=== PATIENT | female | born 1935 | race African-American/Black ===

== ENCOUNTER 2017-01-25 12:17 | Emergency (ER) | payer BC, MEDICARE ==
[2017-01-25 13:10] LABS: Bilirubin Negative (Negative); Blood, Urine Negative (Negative); Glucose, Urine (Dipstick) Negative (Negative); Ketone, Urine Negative (Negative); Nitrite Negative (Negative); Protein, Urine (Dipstick) 30 mg/dL (Neg-Trace); Urobilinogen 0.2 mg/dL (0.2-1.0)
[2017-01-25 13:13] LABS: Bacteria/HPF None Seen HPF (None Seen); Hyaline Casts/LPF 0-3 HYALINE CAST LPF (0-3 Hyaline); RBC/HPF 0-3 HPF (0-3); Squamous Epithelial 0-3 HPF (0-3)
== END 2017-01-25 13:46 | disposition home or self-care (01) ==
LOC: ERS 12:17
DX: N39.0 Urinary tract infection, site not specified (principal); E03.9 Hypothyroidism, unspecified; I10 Essential (primary) hypertension; G30.9 Alzheimer's disease, unspecified; Z87.891 Personal history of nicotine dependence
CPT/HCPCS: 81003; 81015; 87086; 93005; 93010

== ENCOUNTER 2017-02-07 21:26 | Emergency (ER) | payer BC ==
[2017-02-07 22:17] LABS: #Eosinphils 0.2 thou/uL (0.0-0.7); #Lymphocytes 1.6 thou/uL (1.20-3.40); #Monocytes 0.9 thou/uL (0.11-0.59); #Neutrophils 4.1 thou/uL (1.40-6.50); %Basophils 0.3 % (0.0-1.0); %Eosinophils 2.4 % (0.0-10.0); %Lymphocytes 23.1 % (21.0-51.0); %Monocytes 13.7 % (0.0-10.0); Hematocrit 37.5 % (36.0-47.0); Mean Platelet Volume 8.3 fL (7.4-10.4); Red Blood Cell (RBC) Count 4.01 mill/uL (4.20-5.40); White Blood Cell (WBC) Count 6.8 thou/uL (4.8-10.8)
[2017-02-07 22:38] LABS: ALT (SGPT) 26 U/L (8-55); AST (SGOT) 29 U/L (5-34); Alkaline Phosphatase 207 U/L (40-150); Anion Gap 12 mmol/L (10-20); BUN (Urea Nitrogen) 22 mg/dL (9.8-20.1); Bilirubin, Total 0.2 mg/dL (0.2-1.2); CK (CPK) 95 U/L (29-168); Calc. Creatinine Clearance 0 mL/min (70-130); Calcium 9.3 mg/dL (7.8-10.44); Carbon Dioxide 30 mmol/L (23-31); Chloride 109 mmol/L (98-107); Estimated GFR-MDRD 34; Globulin 3.6 g/dL (2.4-3.5); Protein, Total 6.9 g/dL (6.0-8.3)
[2017-02-07 22:40] LABS: Bilirubin Negative (Negative); Blood, Urine Negative (Negative); Glucose, Urine (Dipstick) Negative (Negative); Ketone, Urine Trace mg/dL (Negative); Nitrite Negative (Negative); Protein, Urine (Dipstick) 30 mg/dL (Neg-Trace)
[2017-02-07 22:41] LABS: Troponin I Less than 0.010 ng/mL (< 0.028)
[2017-02-07 22:42] LABS: Bacteria/HPF None Seen HPF (None Seen); Hyaline Casts/LPF 4-6 HYALINE CAST LPF (0-3 Hyaline); RBC/HPF 0-3 HPF (0-3); Squamous Epithelial 0-3 HPF (0-3); WBC/HPF 0-3 HPF (0-3)
--- NOTE | 2017-02-07 22:45 | RAD ---
RADIOGRAPH CHEST 1 VIEW: 02/07/17 HISTORY: 81-year-old female with lethargy and bilateral lower extremity edema. FINDINGS: The thoracic aorta is tortuous and ectatic. There is no evidence of air space density, pneumothorax , or pulmonary edema. The lateral costophrenic angles are sharp. The right hemidiaphragm is severel y elevated, which was also the case on a CT of the abdomen and pelvis of 12/20/16. IMPRESSION: 1) No acute pulmonary findings. 2) Ectasia of thoracic aorta. 3) Chronically severely elevated right hemidiaphragm. jomar [] POS: [facility]
== END 2017-02-07 23:56 | disposition home or self-care (01) ==
LOC: ERS 21:26
DX: E86.0 Dehydration (principal); R41.82 Altered mental status, unspecified; E03.9 Hypothyroidism, unspecified; I10 Essential (primary) hypertension; G30.9 Alzheimer's disease, unspecified; F02.80 Dementia in other diseases classified elsewhere, unspecified severity, without behavioral disturbance, psychotic disturbance, mood disturbance, and anxiety; Z87.891 Personal history of nicotine dependence
CPT/HCPCS: 36415; 71010; 80053; 81003; 81015; 82553; 84443; 84484; 85025; 87086; 93005; 96360; A4353

== ENCOUNTER 2018-03-25 20:58 | Emergency (ER) | payer BC ==
[2018-03-25 21:59] LABS: #Eosinphils 0.2 thou/uL (0.0-0.7); #Lymphocytes 1.4 thou/uL (1.20-3.40); #Monocytes 0.7 thou/uL (0.11-0.59); #Neutrophils 3.5 thou/uL (1.40-6.50); %Basophils 0.3 % (0.0-1.0); %Eosinophils 3.1 % (0.0-10.0); %Lymphocytes 23.7 % (21.0-51.0); %Monocytes 11.3 % (0.0-10.0); %Neutrophils 61.6 % (42.0-75.0); Hemoglobin 11.1 g/dL (12.0-16.0); Mean Corpuscular HGB CONC 31.2 g/dL (32.0-36.0); Mean Corpuscular Hemoglobin 28.4 pg (27.0-31.0); Mean Platelet Volume 9.1 fL (7.4-10.4); Platelet Count 190 thou/uL (130-400); RBC Distribution Width 14.7 % (11.5-14.5); Red Blood Cell (RBC) Count 3.93 mill/uL (4.20-5.40); White Blood Cell (WBC) Count 5.7 thou/uL (4.8-10.8)
--- NOTE | 2018-03-25 22:14 | RAD ---
SEMIUPRIGHT PORTABLE FRONTAL CHEST RADIOGRAPH 03/25/18 COMPARISON: 02/07/17. HISTORY: Lethargy and altered mental status. FINDINGS: There is elevation of the right hemidiaphragm. Calcified nodes are seen in the right hilar region an d there is a calcified granuloma in the right upper lobe. There is atherosclerotic calcification in t he aortic arch. No pneumothorax, lobar consolidation, or alveolar edema. IMPRESSION: Stable frontal chest radiograph. POS: [facility]
[2018-03-25 22:22] LABS: Acetaminophen Less than 6.0 mcg/mL (10.0-30.0); Alcohol Less than 10 mg/dL (Less than 10); Salicylate Less than 8.0 mg/dL (15.0-30.0)
[2018-03-25 22:24] LABS: ALT (SGPT) 10 U/L (8-55); AST (SGOT) 16 U/L (5-34); Albumin 3.5 g/dL (3.4-4.8); Alkaline Phosphatase 138 U/L (40-150); Anion Gap 10 mmol/L (10-20); BUN (Urea Nitrogen) 21 mg/dL (9.8-20.1); Bilirubin, Total 0.4 mg/dL (0.2-1.2); CK (CPK) 86 U/L (29-168); Calc. Creatinine Clearance 0 mL/min (70-130); Calcium 8.9 mg/dL (7.8-10.44); Carbon Dioxide 31 mmol/L (23-31); Chloride 108 mmol/L (98-107); Estimated GFR-MDRD 36; Globulin 3.5 g/dL (2.4-3.5); Glucose 99 mg/dL (83-110); Lipase 39 U/L (8-78); Potassium 4.3 mmol/L (3.5-5.1); Sodium 145 mmol/L (136-145)
[2018-03-25 22:28] LABS: CKMB 1.3 ng/mL (0-6.6); Troponin I 0.013 ng/mL (< 0.028)
--- NOTE | 2018-03-25 22:41 | ULT ---
RIGHT LOWER EXTREMITY VENOUS DOPPLER ULTRASOUND 03/25/18 COMPARISON: None. HISTORY: Edema, swelling, pain, assess for DVT. TECHNIQUE: Multiplanar castillo scale sonographic imaging of venous structures of right lower extremity obtained wit h color flow and spectral analysis. FINDINGS: There are extensive edematous changes within the subcutaneous fat in the right popliteal region and r ight calf region. Right common femoral vein, greater saphenous vein, profunda femoral vein, femoral vein, popliteal vei n, and posterior tibial vein are patent. Normal blood flow, augmentation and compression within the d eep venous system on the right. No evidence for DVT. IMPRESSION: Soft tissue edema posterior to the right knee and in the right calf. No evidence for deep venous thro mbosis of the right lower extremity. POS: [facility]
--- NOTE | 2018-03-25 23:21 | CT ---
HEAD CT WITHOUT CONTRAST 03/25/18 COMPARISON: None. HISTORY: Altered mental status. TECHNIQUE: Axial CT imaging at 5 mm intervals from vertex through skull base without contrast. FINDINGS: There is moderate diffuse cerebral volume loss with associated prominence of the CSF containing space s. Periventricular, deep, and subcortical white matter hypodensity is noted. evidence of small vessel disease. The visualized paranasal sinuses/mastoid air cells are well aerated. There is no displaced calvarial fracture. IMPRESSION: Cerebral volume loss and evidence of small vessel disease. No intracranial hemorrhage or displaced ca lvarial fracture. POS: [facility]
[2018-03-25 23:30] LABS: Bilirubin Negative (Negative); Blood, Urine Negative (Negative); Clarity CLEAR (Clear); Glucose, Urine (Dipstick) Negative (Negative); Leukocyte Negative (Negative); Nitrite Negative (Negative); Protein, Urine (Dipstick) Trace mg/dL (Neg-Trace); Specific Gravity, Urine 1.015 (1.002-1.036); pH, Urine 6.5 (5.0-9.0)
[2018-03-25 23:40] LABS: Amphetamine Not Detected (NotDetected); Barbiturates Screen Not Detected (NotDetected); Benzodiazepine Screen Not Detected (NotDetected); Cocaine Metabolite Screen Not Detected (NotDetected); Medtox Control Line Valid? VALID (VALID); Medtox Reader # READER 1; Methadone Not Detected (NotDetected); Methamphetamine Not Detected (NotDetected); Opiate Screen Not Detected (NotDetected); Oxycodone Screen Not Detected (NotDetected); Phencyclidine (PCP) Not Detected (NotDetected); THC/Cannabinoid Screen Not Detected (NotDetected); Tricyclic Screen Not Detected (NotDetected)
== END 2018-03-26 03:20 ==
LOC: ERS 20:58
DX: F03.90 Unspecified dementia, unspecified severity, without behavioral disturbance, psychotic disturbance, mood disturbance, and anxiety (principal); E03.9 Hypothyroidism, unspecified; I10 Essential (primary) hypertension; K59.00 Constipation, unspecified; Z87.891 Personal history of nicotine dependence; Z79.899 Other long term (current) drug therapy
CPT/HCPCS: 51701; 70450; 71045; 80053; 80306; 80307; 81003; 82140; 82550; 82553; 83690; 83880; 84443; 84484; 85025; 87040; 93005; 96360

== ENCOUNTER 2018-05-13 15:10 | Emergency (ER) | payer BC ==
[2018-05-13 15:57] LABS: Bilirubin Negative (Negative); Blood, Urine Negative (Negative); Clarity CLEAR (Clear); Glucose, Urine (Dipstick) Negative (Negative); Leukocyte Negative (Negative); Nitrite Negative (Negative); Protein, Urine (Dipstick) Negative (Neg-Trace); Specific Gravity, Urine 1.011 (1.002-1.036)
[2018-05-13 16:43] LABS: #Eosinphils 0.2 thou/uL (0.0-0.7); #Lymphocytes 1.4 thou/uL (1.20-3.40); #Monocytes 0.6 thou/uL (0.11-0.59); %Basophils 0.5 % (0.0-1.0); %Eosinophils 2.8 % (0.0-10.0); %Lymphocytes 22.2 % (21.0-51.0); %Monocytes 10.2 % (0.0-10.0); %Neutrophils 64.2 % (42.0-75.0); Hemoglobin 11.4 g/dL (12.0-16.0); Mean Corpuscular HGB CONC 31.1 g/dL (32.0-36.0); Mean Corpuscular Hemoglobin 27.4 pg (27.0-31.0); Mean Platelet Volume 8.8 fL (7.4-10.4); Platelet Count 190 thou/uL (130-400); RBC Distribution Width 14.5 % (11.5-14.5); Red Blood Cell (RBC) Count 4.16 mill/uL (4.20-5.40); White Blood Cell (WBC) Count 6.2 thou/uL (4.8-10.8)
--- NOTE | 2018-05-13 17:08 | RAD ---
CHEST ONE VIEW ABDOMEN TWO VIEWS: History: Chest and abdomen pain. Comparison: 03-25-18 FINDINGS: Cardiac silhouette is magnified and partially obscured by an elevated right hemidiaphragm. No conflue nt airspace consolidation or evidence of free subdiaphragmatic gas. Gas and stool are apparent throughout the colon and rectum. No differential airfluid levels are evide nt or free intraperitoneal gas. Calcification overlies the arterial structures. Osseous structures ar e demineralized. IMPRESSION: 1. Nonspecific bowel gas pattern. 2. Atherosclerosis. 3. Osteoporosis. POS: [facility]
[2018-05-13 17:10] LABS: ALT (SGPT) 14 U/L (8-55); AST (SGOT) 14 U/L (5-34); Albumin 3.6 g/dL (3.4-4.8); Alkaline Phosphatase 133 U/L (40-150); Anion Gap 11 mmol/L (10-20); BUN (Urea Nitrogen) 19 mg/dL (9.8-20.1); Bilirubin, Total 0.3 mg/dL (0.2-1.2); Calc. Creatinine Clearance 0 mL/min (70-130); Calcium 9.6 mg/dL (7.8-10.44); Carbon Dioxide 31 mmol/L (23-31); Chloride 106 mmol/L (98-107); Estimated GFR-MDRD 36; Globulin 3.5 g/dL (2.4-3.5); Glucose 100 mg/dL (83-110); Lipase 50 U/L (8-78); Potassium 4.3 mmol/L (3.5-5.1); Protein, Total 7.1 g/dL (6.0-8.3); Sodium 144 mmol/L (136-145)
--- NOTE | 2018-05-16 10:50 | EKG ---
Test Reason : ER INDICATION Blood Pressure : / mmHG Vent. Rate : 054 BPM Atrial Rate : 054 BPM P-R Int : 126 ms QRS Dur : 086 ms QT Int : 442 ms P-R-T Axes : 016 -05 037 degrees QTc Int : 419 ms Sinus bradycardia Possible Left atrial enlargement Nonspecific ST abnormality Abnormal ECG Confirmed by ERICA STERN DO ([id number]), rewrite editor ELVIA CRUZ ([id number] on 05/16/2018 10:50:09 AM Referred By: Confirmed By:ERICA STERN DO
== END 2018-05-13 17:27 ==
LOC: ERS 15:10
DX: R10.12 Left upper quadrant pain (principal); E03.9 Hypothyroidism, unspecified; I10 Essential (primary) hypertension; G30.9 Alzheimer's disease, unspecified; F02.80 Dementia in other diseases classified elsewhere, unspecified severity, without behavioral disturbance, psychotic disturbance, mood disturbance, and anxiety; Z87.891 Personal history of nicotine dependence; Z79.899 Other long term (current) drug therapy
CPT/HCPCS: 36415; 51701; 74022; 80053; 81003; 83690; 85025; 93005; A4353

== ENCOUNTER 2018-08-10 05:49 | Emergency (ER) | payer BC ==
[2018-08-10 07:53] LABS: Bilirubin Negative (Negative); Blood, Urine Negative (Negative); Clarity CLOUDY (Clear); Glucose, Urine (Dipstick) Negative (Negative); Leukocyte Moderate (Negative); Nitrite Negative (Negative); Protein, Urine (Dipstick) 30 mg/dL (Neg-Trace); Specific Gravity, Urine 1.016 (1.002-1.036); Urobilinogen 0.2 mg/dL (0.2-1.0); pH, Urine 7.5 (5.0-9.0)
[2018-08-10 07:54] LABS: Bacteria/HPF 1+ HPF (None Seen); Hyaline Casts/LPF 4-6 HYALINE CAST LPF (0-3 Hyaline); Pathc Cast-AUWi Flag 0.81 (0-2.49); RBC/HPF 0-3 HPF (0-3)
[2018-08-10] MEDS ORDERED: cloNIDine 0.1 MG TAB ONE (07:55)
--- NOTE | 2018-08-10 07:58 | RAD ---
AP view pelvis. HISTORY: Fall out of bed with right-sided pain. AP view pelvis demonstrates changes of spondylosis seen in the lower lumbar spine. Numerous pelvic phleboliths seen. Vascular calcifications seen. No significant evidence of acute pelvic fracture seen. IMPRESSION: No evidence of acute pelvic fractures.
--- NOTE | 2018-08-10 08:15 | RAD ---
RIGHT KNEE FOUR VIEWS: HISTORY: Right knee pain. FINDINGS: There are arthritic changes of the knee. These include medial and lateral compartment degenerative c hanges, as well as patellofemoral degenerative changes. There is joint effusion seen. Vascular calc ifications are present. I do not appreciate any definite signs of any fracture. The bones do appear demineralized. IMPRESSION: Arthritic changes of the knee with joint effusion. No fracture identified. POS: [facility]
== END 2018-08-10 09:59 | disposition home or self-care (01) ==
LOC: ERS 05:49
DX: M25.561 Pain in right knee (principal); N39.0 Urinary tract infection, site not specified; E03.9 Hypothyroidism, unspecified; I10 Essential (primary) hypertension; G30.9 Alzheimer's disease, unspecified; F02.80 Dementia in other diseases classified elsewhere, unspecified severity, without behavioral disturbance, psychotic disturbance, mood disturbance, and anxiety; Z87.891 Personal history of nicotine dependence; Z79.899 Other long term (current) drug therapy; W19.XXXA Unspecified fall, initial encounter
CPT/HCPCS: 72170; 81003; 81015; 87086

== ENCOUNTER 2018-11-07 12:20 | Emergency (ER) | payer BC, MEDICARE ==
[2018-11-07 14:16] LABS: Bacteria/HPF None Seen HPF (None Seen); Bilirubin Negative (Negative); Blood, Urine Negative (Negative); Clarity Clear (Clear); Glucose, Urine (Dipstick) Normal (Negative); Leukocyte 25 Leu/uL (Negative); Mucous/LPF Rare LPF (<2+); Nitrite Negative (Negative); Protein, Urine (Dipstick) Negative (Neg-Trace); RBC/HPF 0-3 HPF (0-3); Squamous Epithelial 0-3 HPF (0-3); Urobilinogen Normal mg/dL (Less than 2); WBC/HPF 0-3 HPF (0-3)
== END 2018-11-07 15:43 | disposition home or self-care (01) ==
LOC: ERS 12:20
DX: R30.0 Dysuria (principal); I11.0 Hypertensive heart disease with heart failure; I50.9 Heart failure, unspecified; Z87.891 Personal history of nicotine dependence; G30.9 Alzheimer's disease, unspecified; Z79.899 Other long term (current) drug therapy
CPT/HCPCS: 51701; 81003; 81015; 87086; 94760; A4353

== ENCOUNTER 2018-11-21 15:33 | Emergency (ER) | payer BC, MEDICARE ==
[2018-11-21] MEDS ORDERED: Furosemide 40 MG/4 ML VIAL ONE (15:54)
[2018-11-21 16:33] LABS: #Eosinphils 0.2 thou/uL (0.0-0.7); #Lymphocytes 1.6 thou/uL (1.20-3.40); #Monocytes 0.7 thou/uL (0.11-0.59); #Neutrophils 3.7 thou/uL (1.40-6.50); %Basophils 0.1 % (0.0-1.0); %Eosinophils 3.5 % (0.0-10.0); %Monocytes 11.1 % (0.0-10.0); %Neutrophils 59.3 % (42.0-75.0); Hemoglobin 9.9 g/dL (12.0-16.0); Mean Corpuscular HGB CONC 30.8 g/dL (32.0-36.0); Mean Corpuscular Hemoglobin 26.5 pg (27.0-31.0); Mean Corpuscular Volume 86.2 fL (78.0-98.0); Mean Platelet Volume 8.3 fL (7.4-10.4); Platelet Count 243 thou/uL (130-400); Red Blood Cell (RBC) Count 3.74 mill/uL (4.20-5.40); White Blood Cell (WBC) Count 6.3 thou/uL (4.8-10.8)
[2018-11-21 16:54] LABS: ALT (SGPT) 12 U/L (8-55); AST (SGOT) 17 U/L (5-34); Albumin 3.6 g/dL (3.4-4.8); Alkaline Phosphatase 153 U/L (40-150); Anion Gap 10 mmol/L (10-20); BUN (Urea Nitrogen) 22 mg/dL (9.8-20.1); Bilirubin, Total 0.4 mg/dL (0.2-1.2); Calc. Creatinine Clearance 0 mL/min (70-130); Calcium 9.3 mg/dL (7.8-10.44); Carbon Dioxide 29 mmol/L (23-31); Chloride 107 mmol/L (98-107); Estimated GFR-MDRD 36; Globulin 3.5 g/dL (2.4-3.5); Glucose 93 mg/dL (83-110); Lipase 25 U/L (8-78); Potassium 4.4 mmol/L (3.5-5.1); Protein, Total 7.1 g/dL (6.0-8.3); Sodium 142 mmol/L (136-145)
--- NOTE | 2018-11-21 17:02 | RAD ---
Chest one view HISTORY: Dyspnea. COMPARISON: 10/08/2018. FINDINGS: Cardiac silhouette is magnified and partially obscured by an elevated right hemidiaphragm. Prominence of the right upper mediastinum, from atelectasis of the right lung, is unchanged from the prior study. Pulmonary vasculature upper limits of normal. Calcified granulomata are consistent w ith healed granulomatous disease. No evidence of pneumothorax. IMPRESSION: Extensive right atelectasis and other chronic-type findings are stable.
--- NOTE | 2018-11-21 18:41 | ULT ---
Venous duplex sonogram right lower extremity HISTORY: Right leg pain and edema. FINDINGS: The right common femoral vein and greater saphenous junction were evaluated along with the femoral, deep femoral, popliteal, and posterior tibial veins. There is good color and spectral Doppler flow and compression. IMPRESSION: No sonographic evidence of DVT within the right lower extremity.
== END 2018-11-21 19:10 | disposition home or self-care (01) ==
LOC: ERS 15:33
DX: M79.89 Other specified soft tissue disorders (principal); E03.9 Hypothyroidism, unspecified; I10 Essential (primary) hypertension; G30.9 Alzheimer's disease, unspecified; F02.80 Dementia in other diseases classified elsewhere, unspecified severity, without behavioral disturbance, psychotic disturbance, mood disturbance, and anxiety; Z79.899 Other long term (current) drug therapy; Z87.891 Personal history of nicotine dependence
CPT/HCPCS: 71045; 80053; 83690; 83880; 84484; 85025; 93005; 96374; J1940

== ENCOUNTER 2019-01-27 15:55 | Observation (INO) | payer BC, MEDICARE ==
[2019-01-27 16:45] LABS: #Eosinphils 0.2 thou/uL (0.0-0.7); #Lymphocytes 1.2 thou/uL (1.20-3.40); #Monocytes 0.6 thou/uL (0.11-0.59); #Neutrophils 3.2 thou/uL (1.40-6.50); %Basophils 0.5 % (0.0-1.0); %Eosinophils 3.7 % (0.0-10.0); %Lymphocytes 22.4 % (21.0-51.0); %Neutrophils 61.3 % (42.0-75.0); Hemoglobin 10.1 g/dL (12.0-16.0); Mean Corpuscular HGB CONC 30.4 g/dL (32.0-36.0); Mean Corpuscular Hemoglobin 26.4 pg (27.0-31.0); Mean Corpuscular Volume 86.9 fL (78.0-98.0); Mean Platelet Volume 8.8 fL (7.4-10.4); Platelet Count 227 thou/uL (130-400); RBC Distribution Width 16.9 % (11.5-14.5); Red Blood Cell (RBC) Count 3.82 mill/uL (4.20-5.40); White Blood Cell (WBC) Count 5.2 thou/uL (4.8-10.8)
[2019-01-27 17:14] LABS: ALT (SGPT) 8 U/L (8-55); AST (SGOT) 16 U/L (5-34); Albumin 3.3 g/dL (3.4-4.8); Alkaline Phosphatase 143 U/L (40-110); Anion Gap 13 mmol/L (10-20); BUN (Urea Nitrogen) 18 mg/dL (9.8-20.1); Bilirubin, Total 0.2 mg/dL (0.2-1.2); CK (CPK) 56 U/L (29-168); Calc. Creatinine Clearance 0 mL/min (70-130); Calcium 8.5 mg/dL (7.8-10.44); Carbon Dioxide 25 mmol/L (23-31); Chloride 109 mmol/L (98-107); Estimated GFR-MDRD 36; Globulin 3.4 g/dL (2.4-3.5); Glucose 93 mg/dL (83-110); Potassium 4.1 mmol/L (3.5-5.1); Protein, Total 6.7 g/dL (6.0-8.3); Sodium 143 mmol/L (136-145)
[2019-01-27 17:31] LABS: CKMB 0.7 ng/mL (0-6.6)
--- NOTE | 2019-01-27 18:01 | RAD ---
RADIOGRAPH CHEST 1 VIEW: DATE: 01/27/2019 HISTORY: 83-year-old female with dyspnea and wheezing. Rule out pleural effusion. FINDINGS: There is no airspace density, pulmonary edema, or pneumothorax. Right hemidiaphragm is chronically el evated. No interval change since 10/08/2018. IMPRESSION: 1. No acute pulmonary findings. 2. 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 3. To evaluate for pleural effusion, a lateral view is recommended.
[2019-01-27] MEDS ORDERED: Aspirin Chewable 81 MG TAB ONE (18:47)
[2019-01-27] MEDS ORDERED: Furosemide 40 MG/4 ML VIAL ONE (18:47)
--- NOTE | 2019-01-27 19:48 | PDOC.FPRHP ---
- History of Present Illness Chief Complaint: SOB History of Present Illness: Patient is a 83F with PMHx of stage 2 alzheimers dementia, diastolic CHF, hypothyroidism, and HTN that presents to the ED from her PCP's office due to SOB. Per report the patient was satting at 84% on RA at her PCP's office, and does not require O2 at the [facility]. She was sent to the ED, where she was found to have a BNP of 1051, up from her baseline of 500s. She was started on 40mg IV lasix, and her oxygen saturation is 92% on RA. She had an echo in September 2018, that showed EF 55-60% with e/a flow reversal suggestive of diastolic dysfunction. Upon evaluation the patient is A&Ox1, though denies cp, sob, or abdominal pain at this time. ED Course: 325mg asa, 40mg IV lasix - Allergies/Adverse Reactions Allergies Allergy/AdvReac Type Severity Reaction Status Date / Time Penicillins Allergy Verified 10/11/18 20:02 - Home Medications Medication Instructions Recorded Confirmed Type Acetaminophen [Pain Relief] 650 mg PO TID 10/09/18 01/27/19 History Escitalopram Oxalate [Lexapro] 10 mg PO DAILY 10/09/18 01/27/19 History Furosemide [Lasix] 40 mg PO DAILY 10/09/18 01/27/19 History Levothyroxine Sodium 50 mcg PO DAILY 10/09/18 01/27/19 History Metoprolol Succinate 50 mg PO DAILY 10/09/18 01/27/19 History Mirtazapine 30 mg PO HS 10/09/18 01/27/19 History Polyethylene Glycol 3350 17 gm PO DAILY PRN 10/09/18 01/27/19 History Potassium Chloride 5 meq PO DAILY 10/09/18 01/27/19 History Rivastigmine [Exelon] 1.5 mg PO BID-WM 10/09/18 01/27/19 History Saccharomyces boulardii [Florastor] 250 mg PO BID-AC 10/09/18 01/27/19 History Sennosides [Senna Lax] 8.6 mg PO DAILY 10/09/18 01/27/19 History Losartan Potassium 50 mg PO BID 01/27/19 01/27/19 History cloNIDine HCl 0.1 mg PO BID PRN 01/27/19 01/27/19 History - History PMHx: stage 2 alzheimer's dementia, diastolic CHF, hypothyroidism, HTN PSHx: hemorroidectomy, cataract sx, l kidney open stone removal FHx: non-contributory Social: former smoker 10 years ago, denies etoh and drug use - Review of Systems ROS unobtainable: due to mental status Respiratory: denies: cough, shortness of breath Cardiovascular: denies: chest pain, palpitation Gastrointestinal: denies: vomiting, diarrhea Musculoskeletal: denies: pain - Vital signs BP: [104/67] HR: [56] RR: [20] Tmax: [99.2] Pox: [92]% on [RA] Wt: [68kg] - Physical Exam Constitutional: NAD, other (A&Ox1) HEENT: grossly normal hearing, MMM Neck: supple, trachea midline Chest: no-tender to palpation, no lesions Heart: RRR, normal S1/S2, other (2+ bilateral pitting edema) Lungs: CTAB, no respiratory distress Abdomen: soft, non-tender, bowel sounds present Musculoskeletal: normal structure, normal tone Neurological: CN II-XII intact, other (A&Ox1) Skin: no rash/lesions, no jaundice Heme/Lymphatic: no unusual bruising or bleeding, no purpura Psychiatric: normal mood and affect FMR H&P: Results - Labs Result Diagrams: 01/27/19 16:36 01/27/19 16:36 Lab results: WBC 5.2 thou/uL (4.8-10.8) 01/27/19 16:36 Hgb 10.1 g/dL (12.0-16.0) L 01/27/19 16:36 Hct 33.1 % (36.0-47.0) L 01/27/19 16:36 MCV 86.9 fL (78.0-98.0) 01/27/19 16:36 Plt Count 227 thou/uL (130-400) 01/27/19 16:36 Neutrophils % 61.3 % (42.0-75.0) 01/27/19 16:36 Sodium 143 mmol/L (136-145) 01/27/19 16:36 Potassium 4.1 mmol/L (3.5-5.1) 01/27/19 16:36 Chloride 109 mmol/L (98-107) H 01/27/19 16:36 Carbon Dioxide 25 mmol/L (23-31) 01/27/19 16:36 BUN 18 mg/dL (9.8-20.1) 01/27/19 16:36 Creatinine 1.63 mg/dL (0.6-1.1) H 01/27/19 16:36 Glucose 93 mg/dL (83-110) 01/27/19 16:36 Calcium 8.5 mg/dL (7.8-10.44) 01/27/19 16:36 Total Bilirubin 0.2 mg/dL (0.2-1.2) 01/27/19 16:36 AST 16 U/L (5-34) 01/27/19 16:36 ALT 8 U/L (8-55) 01/27/19 16:36 Alkaline Phosphatase 143 U/L (40-110) H 01/27/19 16:36 Creatine Kinase 56 U/L (29-168) 01/27/19 16:36 CK-MB (CK-2) 0.7 ng/mL (0-6.6) 01/27/19 16:36 B-Natriuretic Peptide 1051.4 pg/mL (0-100) H 01/27/19 16:36 Serum Total Protein 6.7 g/dL (6.0-8.3) 01/27/19 16:36 Albumin 3.3 g/dL (3.4-4.8) L 01/27/19 16:36 - EKG Interpretation EKG: sinus bradycardia - Radiology Interpretation Chest x-ray Status: report reviewed by me (no acute pulmonary findings,chronically elevated R hemidiaphragm suggestive of R phrenic nerve palsy) FMR H&P: A/P - Problem List (1) Acute on chronic diastolic CHF (congestive heart failure) Current Visit: No Status: Acute Code(s): I50.33 - ACUTE ON CHRONIC DIASTOLIC (CONGESTIVE) HEART FAILURE Comment: EF 50-55% on ECHO, diuresed well and now back on oral Furosemide, edema improved (2) Dementia Current Visit: No Status: Chronic Code(s): F03.90 - UNSPECIFIED DEMENTIA WITHOUT BEHAVIORAL DISTURBANCE Qualifiers: Dementia type: Alzheimer's disease (3) HTN (hypertension) Current Visit: No Status: Chronic Code(s): I10 - ESSENTIAL (PRIMARY) HYPERTENSION (4) Hypothyroidism Current Visit: No Status: Chronic Code(s): E03.9 - HYPOTHYROIDISM, UNSPECIFIED - Plan Patient is a 83F with PMHx of stage 2 alzheimers dementia, diastolic CHF, hypothyroidism, and HTN that is being admitted for acute on chronic diastolic CHF #Acute on chronic diastolic CHF -patient not requiring O2 at this time, is not on O2 at baseline -patient currently denying SOB -BNP 1051, up from normal in the 500s -echo 09/2018 showed EF 55-60% with flow reversal suggestive of diastolic heart failure -received 40mg lasix IV in ED, will continue as this is increased from home lasix -strict I/O -morning labs -consult cardiology in the am #HTN -BP stable at this time -continue home meds #hypothyroidism, chronic -continue home meds #alzheimer's dementia, chronic -continue home meds #elevated trop -0.038, downtrending -likely 2/2 fluid overload -continue to monitor #CKD3 -creatinine near baseline, 1.63 -avoid nephrotoxic drugs -continue to monitor with diuresis DVT: lovenox Diet: HH Code: Full Dispo: obs for diuresis for acute on chronic diastolic CHF and cardiology consult in am FMR H&P: Upper Level - Pertinent history 83 y F here from PCPs office with concern for overload and or effusion. She apparently had an O2 sat in the low 80s at the PCPs office. Patient has a hx HFpEF, CKD3, Alzheimers, hypothyroid and HTN. Patients alertness apparently waxes and wanes. Here she denies CP, SOB, cough, n/v, or diaphoresis. In the ED she was found to have normal O2 sat and resp rate. HR was in the 50s and pt was mildly hypertensive. She was given 40 of IV Lasix in the ED prior to calling for admission. PCP none at this time Chemistry Lab Instructor Dr Norton PMHx HFpEF (EF 55-60% in 09/2018) HTN CKD3b Alzheimers Dementia Hypothyroid Chronic elevation of R nico diaphragm Surg Hx L open kidney stone removal Hemorrhoidectomy Cataract removal Social Hx Denies smoking, etoh, or drugs - Pertinent findings See international organizer note for full ROS, PE, vitals, and labs ROS per son General denies fever or chills CV Complains of peripheral edema. Denies CP, palpitation Resp Denies of SOB or cough GI denies n/v/d/c or abdominal pain denies increased frequency or dysuria Neuro denies numbness or weakness PE General A&O x1, NAD HEENT NCAT CV RRR, no murmur. 2+ pitting edema to knee b/l Resp CTA, no respiratory distress Abd non tender, no distension, normal BS Extremities equal pedal pulses - Plan Date/Time: 01/27/191947 IHua DO, have evaluated this patient and agree with findings/plan as outlined by international organizer resident. Pertinent changes/additions are listed here. 1.HFpEF -Mild acute exacerbation. No increased O2 need at this time, though per son does have worsening edema and increased BNP from baseline. -Admit to tele -Monitor labs in am -Strict I/O -Will give increased Lasix from home dose, however will carefully monitor fluid status as she has a normal EF -Fluid restrict to 2500 mL daily -Will consult Cardiology in am per son request to discuss chronic meds 2.Elevated Trop -Likely due to mild overload. No EKG changes concerning for ACS -Trend trop 3.CKD3b -Appears to be at baseline kidney function -Monitor BMP 4.HTN -Home meds 5.Hypothyroid -Home meds PPx Lovenox Diet HH Code Full
[2019-01-27] MEDS ORDERED: Acetaminophen 325 MG TAB PO PRN (20:05)
[2019-01-27 20:10] LABS: Bilirubin Negative (Negative); Blood, Urine Negative (Negative); Clarity Clear (Clear); Glucose, Urine (Dipstick) Normal (Negative); Leukocyte Negative Leu/uL (Negative); Nitrite Negative (Negative); Protein, Urine (Dipstick) Negative (Neg-Trace); Urobilinogen Normal mg/dL (Less than 2)
[2019-01-28 00:47] VITALS: BMI 21.8
[2019-01-28] MEDS ORDERED: Polyethylene Glycol 3350 17 GM Packet PO PRN (01:49)
[2019-01-28] MEDS: Levothyroxine Sodium 50 MCG TAB PO SCH (05:35)
[2019-01-28] MEDS ORDERED: Furosemide 40 MG/4 ML VIAL SLOW IVP SCH (06:00)
--- NOTE | 2019-01-28 06:40 | PDOC.FM ---
- Subjective Subjective: Patient sitting up at the bedside. Requesting to go home and that she is ready to leave. Patient denies any pain or discomfort. Overnight, per nursing she did remove her IVs and all monitors. - Objective MAR Reviewed: Yes Vital Signs & Weight: Vital Signs (12 hours) Temp Pulse Resp BP Pulse Ox 01/28/19 03:27 98 F 61 20 120/74 98 01/27/19 23:21 97.9 F 60 20 102/56 L 98 Weight Weight 65.045 kg I&O: 01/26/19 01/27/19 01/28/19 06:59 06:59 06:59 Intake Total 220 Balance 220 Result Diagrams: 01/28/19 06:55 01/28/19 06:55 Phys Exam - Physical Examination Constitutional: NAD HEENT: PERRLA, moist MMs, sclera anicteric Neck: no nodes, no JVD, supple, full ROM Respiratory: clear to auscultation bilateral Cardiovascular: RRR, no significant murmur, no rub Gastrointestinal: soft, non-tender, no distention, positive bowel sounds Musculoskeletal: pulses present, edema present 2+ pitting edema in b/l LE Neurological: non-focal, normal sensation, moves all 4 limbs Deviation from normal: AXOX1 Skin: no rash, normal turgor, cap refill <2 seconds Dx/Plan (1) SONALI (acute kidney injury) Code(s): N17.9 - ACUTE KIDNEY FAILURE, UNSPECIFIED Status: Acute (2) Acute on chronic diastolic CHF (congestive heart failure) Code(s): I50.33 - ACUTE ON CHRONIC DIASTOLIC (CONGESTIVE) HEART FAILURE Status : Acute (3) Diastolic CHF Code(s): I50.30 - UNSPECIFIED DIASTOLIC (CONGESTIVE) HEART FAILURE Status: Acute (4) Lower extremity edema Code(s): R60.0 - LOCALIZED EDEMA Status: Acute (5) HTN (hypertension) Code(s): I10 - ESSENTIAL (PRIMARY) HYPERTENSION Status: Chronic (6) Hypothyroidism Code(s): E03.9 - HYPOTHYROIDISM, UNSPECIFIED Status: Chronic - Plan Plan: HFpEF Mild acute exacerbation. No increased O2 need at this time, though per son does have worsening edema and increased BNP from baseline. BNP 1051.4. Previous echo on 10/09/18 showing EF 55-60%, LVH, diastolic dysfunction, and increased pulm artery pressures. - Strict I/O, daily weights - Will give increased Lasix from home dose, however will carefully monitor fluid status as she has a normal EF. - Fluid restrict to 2500 mL daily - Cardiology consulted per son request to discuss chronic meds - patient has previously seen Dr. Lucero. Patient started on Ranexa to help with diastolic dysfunction. Elevated Trop Likely due to mild fluid overload. No EKG changes concerning for ACS. - Trops have downtrended 0.038 -> 0.030 CKD3b Appears to be at baseline kidney function - Monitor BMP HTN - Home meds Hypothyroid - Home meds PPx Lovenox Diet HH Code Full Dispo: likely dc later today. Patient stays at [facility].
[2019-01-28 07:10] LABS: #Eosinphils 0.2 thou/uL (0.0-0.7); #Lymphocytes 1.4 thou/uL (1.20-3.40); #Monocytes 0.8 thou/uL (0.11-0.59); #Neutrophils 3.6 thou/uL (1.40-6.50); %Basophils 0.3 % (0.0-1.0); %Eosinophils 3.8 % (0.0-10.0); %Lymphocytes 23.1 % (21.0-51.0); %Monocytes 12.8 % (0.0-10.0); %Neutrophils 60.1 % (42.0-75.0); Hemoglobin 9.5 g/dL (12.0-16.0); Mean Corpuscular HGB CONC 30.7 g/dL (32.0-36.0); Mean Corpuscular Hemoglobin 26.2 pg (27.0-31.0); Mean Corpuscular Volume 85.4 fL (78.0-98.0); Mean Platelet Volume 8.9 fL (7.4-10.4); Platelet Count 193 thou/uL (130-400); RBC Distribution Width 16.7 % (11.5-14.5); Red Blood Cell (RBC) Count 3.61 mill/uL (4.20-5.40); White Blood Cell (WBC) Count 5.9 thou/uL (4.8-10.8)
[2019-01-28 07:37] LABS: Anion Gap 11 mmol/L (10-20); BUN (Urea Nitrogen) 17 mg/dL (9.8-20.1); Calc. Creatinine Clearance 27 mL/min (70-130); Calcium 8.3 mg/dL (7.8-10.44); Carbon Dioxide 31 mmol/L (23-31); Chloride 106 mmol/L (98-107); Estimated GFR-MDRD 38; Glucose 91 mg/dL (83-110); Potassium 3.7 mmol/L (3.5-5.1); Sodium 144 mmol/L (136-145)
[2019-01-28] MEDS: Losartan 25 MG TAB PO SCH (09:44)
[2019-01-28] MEDS: Saccharomyces boulardii 250 MG CAP PO SCH ×2 (09:44→17:39)
[2019-01-28] MEDS: Senokot 8.6 MG TAB PO SCH (09:44)
[2019-01-28] MEDS: Rivastigmine 1.5 MG CAP PO SCH ×2 (09:44→18:07)
[2019-01-28] MEDS: Escitalopram Oxalate 10 mg Tablet PO SCH (09:45)
[2019-01-28] MEDS: Potassium Chloride 10 MEQ TAB PO SCH (09:45)
[2019-01-28] MEDS: Furosemide 40 MG TAB PO SCH ×2 (09:46→15:17)
[2019-01-28] MEDS: Enoxaparin Sodium 30 MG/0.3 ML SYRINGE SC SCH (09:46)
[2019-01-28] MEDS: Amlodipine 5 MG TAB PO SCH (09:46)
--- NOTE | 2019-01-28 11:04 | PRG ---
DATE OF SERVICE: 01/28/2019 Ms. Carcamo is an 83-year-old black female with a history of heart failure with preserved ejection fraction. She presented with mild pulmonary edema and has already improved with intravenous Lasix. She is also seen in consultation by Cardiology and they have added . We appreciate their input. In the event, Ms. Carcamo is much improved from a cardiovascular standpoint, she can likely be discharged later today or tomorrow. Her troponins were all indeterminate at 0.030. Her BNP with treatment dropped from 1051 to 682. Job ID: [id number]
--- NOTE | 2019-01-28 12:49 | CON ---
DATE OF CONSULTATION: 01/28/2019 INDICATION FOR CONSULTATION: An 83-year-old female with diastolic dysfunction, who developed congestive heart failure symptoms with shortness of breath. She also has a history of hypertension, hypothyroidism, as well as stage II Alzheimer disease. She was seen in the office by me approximately 1 year ago. She has had a followup scheduled 6 months later, but has not yet returned to the office for followup. She does have chronic diastolic heart failure, and at this time, she was seen in the office back in December 2017. She had a [place] Heart Association class 2. At that time, she was on an ARB as well as beta-blockers and loop diuretics. She had been doing very well. She did not have any complaints of chest discomfort. At that time, she was having no lower extremity edema or shortness of breath. Her echocardiogram showed an ejection fraction about 55% with mild diastolic dysfunction as well as left and right atrial dilatation and mild aortic valve sclerosis with [id number] tricuspid valve regurgitation and mild mitral valve regurgitation. She did have an EKG, which showed a normal sinus rhythm from 2016, and again, a repeat EKG in 2017 showed also a sinus rhythm. At this time, recently she had an echocardiogram performed here in the hospital in September of this year, which showed ejection fraction still to be stable at 55% to 60% with [id number] left ventricular hypertrophy as well as evidence of diastolic dysfunction and the left atrium was mildly dilated. She did have moderate mitral valve regurgitation and [id number] tricuspid valve regurgitation as what was noted previously. At this time, she had been complaining of increasing shortness of breath, and she reported to the hospital, was admitted. Her BNP was significantly elevated, that was over 1000, and actually today, interestingly enough, the BNP has decreased back down to 682. She has been given some diuresis. I do not see any clear I's and O's on the patient. They are not documented, but otherwise there are no outputs were noted. She did not have any evidence of urinary tract infection. Her hemoglobin was in the low side at 9.5. BUN was 17 with a creatinine of 1.56. PAST MEDICAL HISTORY: She does have a history of hypertension, Alzheimer's, diastolic dysfunction. She has had some renal insufficiency in the past, documented some congestive heart failure associated with type 2 diabetes. She has had a history of nephrolithiasis. She has thyroid disease. ALLERGIES: SHE IS ALLERGIC TO PENICILLIN. FAMILY HISTORY: Unremarkable for any early heart disease. SOCIAL HISTORY: She has dementia, and there is no alcohol or tobacco abuse. REVIEW OF SYSTEMS: CONSTITUTIONAL: She had no complaints of weight gain or weight loss. HEENT: She had no significant visual changes. RESPIRATORY: She had no complaints of dyspnea, except until just recently. No hemoptysis. CARDIOVASCULAR: No chest pain or palpitations are noted. No syncope. VASCULAR: She denied any significant claudication. GI: No nausea, vomiting, or diarrhea. No complaints. NEUROLOGIC: No significant complaints from the patient, but she does have stage II Alzheimer's. Otherwise, she is a very pleasant lady and no other significant complaints were noted. MEDICATIONS: Include, 1. Tylenol. 2. Lexapro. 3. Lasix 40 mg a day. 4. She was on levothyroxine 50 mcg a day. 5. Metoprolol 50 mg a day. 6. Mirtazapine 30 mg a day. 7. She was taking also polyethylene glycol 17 g a day. 8. Potassium 5 mEq a day. 9. Exelon 1.5 mg b.i.d. 10. Florastor 250 mg b.i.d. 11. Senna laxative 8.6 mg a day. 12. She is on losartan 50 mg b.i.d. 13. Clonidine 0.1 mg b.i.d. LABORATORY DATA: Otherwise showed a sodium was 144, potassium 3.7, and creatinine was 1.56 with a BUN of 17. She has in the past had somewhat elevated creatinine levels up to 2, but no significant elevation more than 2. BNP is now 682. WBC was 5.8. PHYSICAL EXAMINATION: GENERAL: Reveals a well-developed, well-nourished, very pleasant female. VITAL SIGNS: Her blood pressure is 158/97, heart rate is in the 60s, respiratory rate is about 20, and blood pressure at this time it is 158/97 and early was 102/56, that was the lowest that was documented. HEENT: Shows the head to be normocephalic and atraumatic. NECK: Carotid pulses are present. I do not hear any significant bruits. CHEST: Clear to auscultation. Does not hear any significant rales, rhonchi, or wheezing at this time. CARDIOVASCULAR: Reveals a regular rate and rhythm. There is a normal S1 and S2. She does have a soft systolic murmur at the apex, also a very soft systolic murmur over the upper sternal border. ABDOMEN: Soft and nontender. Positive bowel sounds are present. EXTREMITIES: Showed no clubbing, cyanosis, or edema. Pedal pulses are present. NEUROLOGIC: The patient has evidence of Alzheimer's, but otherwise no gross focal motor deficits are noted. SKIN: Warm and dry at this time. IMPRESSION: 1. Elderly female with congestive heart failure exacerbation, acute on chronic diastolic failure. I have reviewed her medications. I would make the following suggestions that we change her metoprolol to Coreg 6.25 mg b.i.d. in order to not allow the heart rate to get too slow, but not too fast and that she is certain this may help some with her hypertension. We would also add Ranexa. This has been shown to have some effects with people with diastolic heart failure. Also, would start her on Aldactone or spironolactone at 25 mg once a day. We will be careful with the renal function. Her kidney function at this time appears to be stable, but should the creatinine increase to more than 2, then I would hold back on this medication, will stop this medication. We will continue her diuretics. We would also continue the Lasix at this time. Also, would suggest that we start her on Ranexa as this helps the with diastolic dysfunction, as well as changing her metoprolol to Coreg and adding the Aldactone and see how she does. We will stop the metoprolol. 2. History of hypertension. With the change of the medications, hopefully this will decrease and normalize. 3. Alzheimer's. This will be dealt with by the primary care service. 4. She also has hypothyroidism. This will be dealt with by the primary service. We will be more than happy to continue to follow the patient with you. Job ID: [id number]
[2019-01-28] MEDS: Carvedilol 6.25 MG TAB PO SCH (18:04)
[2019-01-28] MEDS ORDERED: Prevnar 13-Val Conj/PF 0.5 ML SYRINGE IM ONE (21:00)
[2019-01-28] MEDS ORDERED: FLU VACC TS2019-20(65YR UP)/PF 180 MCG/0.5 ML SYRINGE IM ONE (21:00)
[2019-01-28] MEDS ORDERED: Mirtazapine 30 MG TAB PO SCH (21:00)
[2019-01-29 04:54] LABS: Anion Gap 11 mmol/L (10-20); BUN (Urea Nitrogen) 17 mg/dL (9.8-20.1); Calc. Creatinine Clearance 27 mL/min (70-130); Calcium 8.6 mg/dL (7.8-10.44); Carbon Dioxide 35 mmol/L (23-31); Chloride 104 mmol/L (98-107); Estimated GFR-MDRD 38; Glucose 81 mg/dL (83-110); Potassium 3.8 mmol/L (3.5-5.1); Sodium 146 mmol/L (136-145)
[2019-01-29] MEDS: Levothyroxine Sodium 50 MCG TAB PO SCH (06:17)
[2019-01-29] MEDS ORDERED: Spironolactone 25 MG TAB PO SCH (08:00)
--- NOTE | 2019-01-29 08:07 | PDOC.FM ---
- Subjective Subjective: Overnight, the patient had 18 beats of SVT. She was asymptomatic at the time. This morning, the patient is resting comfortably in bed. She was in the middle of eating breakfast. She had no complaints or concerns. Patient at her mental baseline. - Objective MAR Reviewed: Yes Vital Signs & Weight: Vital Signs (12 hours) Temp Pulse Resp BP Pulse Ox 01/29/19 03:00 98.4 F 74 16 160/83 H 98 01/28/19 23:20 97.6 F 75 16 131/72 91 L Weight Weight 64.41 kg I&O: 01/28/19 01/29/19 01/30/19 06:59 06:59 06:59 Intake Total 220 540 Output Total 100 Balance 220 440 Result Diagrams: 01/28/19 06:55 01/29/19 04:01 Phys Exam - Physical Examination Constitutional: NAD HEENT: PERRLA, moist MMs, sclera anicteric Neck: full ROM Respiratory: clear to auscultation bilateral Cardiovascular: RRR, no significant murmur, no rub Gastrointestinal: soft, non-tender, no distention, positive bowel sounds Musculoskeletal: pulses present 2+ pitting edema b/l LE Neurological: non-focal Deviation from normal: AXOX1 Skin: no rash, normal turgor, cap refill <2 seconds Dx/Plan (1) SONALI (acute kidney injury) Code(s): N17.9 - ACUTE KIDNEY FAILURE, UNSPECIFIED Status: Acute (2) Acute on chronic diastolic CHF (congestive heart failure) Code(s): I50.33 - ACUTE ON CHRONIC DIASTOLIC (CONGESTIVE) HEART FAILURE Status : Acute (3) Diastolic CHF Code(s): I50.30 - UNSPECIFIED DIASTOLIC (CONGESTIVE) HEART FAILURE Status: Acute (4) Lower extremity edema Code(s): R60.0 - LOCALIZED EDEMA Status: Acute (5) HTN (hypertension) Code(s): I10 - ESSENTIAL (PRIMARY) HYPERTENSION Status: Chronic (6) Hypothyroidism Code(s): E03.9 - HYPOTHYROIDISM, UNSPECIFIED Status: Chronic - Plan Plan: HFpEF Mild acute exacerbation. No increased O2 need thus far. Per son does have worsening edema and increased BNP from baseline on admission. BNP elevated on admission. Previous echo on 10/09/18 showing EF 55-60%, LVH, diastolic dysfunction, and increased pulm artery pressures. - Strict I/O, daily weights. Fluid restrict to 2500 mL daily - Will continue home lasix - Cardiology consulted. Patient started on Ranexa to help with diastolic dysfunction as well as spironolactone. Patient's metoprolol was also switched to coreg. Appreciate recommendations. SVT Patient with 18 beats of SVT overnight. Asymptomatic. No other episodes. - Will continue to monitor. Cards consulted. Elevated Trop Likely due to mild fluid overload. No EKG changes concerning for ACS. - Trops have downtrended 0.038 -> 0.030 CKD3b Appears to be at baseline kidney function - Monitor BMP, continue PO hydration. HTN - Home meds Hypothyroid - Home meds PPx Lovenox Diet HH Code Full Dispo: likely dc later today. Patient stays at [facility]. Case discussed with Dr. Trujillo.
[2019-01-29] MEDS: Saccharomyces boulardii 250 MG CAP PO SCH (08:18)
[2019-01-29] MEDS: Potassium Chloride 10 MEQ TAB PO SCH (08:18)
[2019-01-29] MEDS: Rivastigmine 1.5 MG CAP PO SCH (08:18)
[2019-01-29] MEDS: Losartan 25 MG TAB PO SCH (08:18)
[2019-01-29] MEDS: Senokot 8.6 MG TAB PO SCH (08:18)
[2019-01-29] MEDS: Amlodipine 5 MG TAB PO SCH (08:19)
[2019-01-29] MEDS: Carvedilol 6.25 MG TAB PO SCH (08:19)
[2019-01-29] MEDS: Furosemide 40 MG TAB PO SCH ×2 (08:19→14:11)
[2019-01-29] MEDS: Enoxaparin Sodium 30 MG/0.3 ML SYRINGE SC SCH (08:20)
[2019-01-29] MEDS: Escitalopram Oxalate 10 mg Tablet PO SCH (08:20)
--- NOTE | 2019-01-29 10:47 | PRG ---
DATE OF SERVICE: 01/29/2019 Ms. Carcamo is improving. She is resting quietly and lying flat. We appreciate the input from Cardiology. She is currently on Ranexa and Aldactone has also been added. We need to carefully monitor her potassium and BUN and creatinine while adjusting the dosage of spironolactone. Job ID: [id number]
--- NOTE | 2019-01-29 11:23 | PDOC.CPN ---
- Subjective Date: 01/29/19 Time: 11:34 Interval history: The pt seen and examined. The pt is resting well this AM. s/p NSVT on 2018. - Objective Allergies/Adverse Reactions: Allergies Allergy/AdvReac Type Severity Reaction Status Date / Time Penicillins Allergy Verified 01/28/19 00:55 Visit Medications: Current Medications Acetaminophen (Tylenol) 650 mg PO Q4H PRN PRN Reason: Headache/Fever/Mild Pain (1-3) Amlodipine Besylate (Norvasc) 5 mg PO DAILY [facility] Last Admin: 01/29/19 08:19 Dose: 5 mg Carvedilol (Coreg) 6.25 mg PO BID-[facility] Last Admin: 01/29/19 08:19 Dose: 6.25 mg Enoxaparin Sodium (Lovenox) 30 mg SC 0900 [facility] Last Admin: 01/29/19 08:20 Dose: 30 mg Escitalopram Oxalate (Lexapro) 10 mg PO DAILY [facility] Last Admin: 01/29/19 08:20 Dose: 10 mg Furosemide (Lasix) 40 mg PO 0900,1400 [facility] Last Admin: 01/29/19 08:19 Dose: 40 mg Levothyroxine Sodium (Synthroid) 50 mcg PO 0600 [facility] Last Admin: 01/29/19 06:17 Dose: 50 mcg Losartan Potassium (Cozaar) 50 mg PO DAILY [facility] Last Admin: 01/29/19 08:18 Dose: 50 mg Memantine (Namenda) 10 mg PO BID [facility] Last Admin: 01/29/19 08:18 Dose: 10 mg Mirtazapine (Remeron) 30 mg PO HS [facility] Last Admin: 01/28/19 21:51 Dose: 30 mg Polyethylene Glycol (Miralax) 17 gm PO DAILY PRN PRN Reason: Constipation Potassium Chloride (Klor-Con 10) 5 meq PO DAILY [facility] Last Admin: 01/29/19 08:18 Dose: 5 meq Ranolazine (Ranexa) 500 mg PO BID [facility] Last Admin: 01/29/19 08:18 Dose: 500 mg Rivastigmine (Exelon) 1.5 mg PO BID-[facility] Last Admin: 01/29/19 08:18 Dose: 1.5 mg Saccharomyces Boulardii (Florastor) 250 mg PO BID-AC [facility] Last Admin: 01/29/19 08:18 Dose: 250 mg Senna (Senokot) 1 tab PO DAILY [facility] Last Admin: 01/29/19 08:18 Dose: 1 tab Spironolactone (Aldactone) 25 mg PO QAM-WM [facility] Last Admin: 01/29/19 08:20 Dose: 25 mg Vital Signs & Weight: Vital Signs Temp Pulse Resp BP BP Pulse Ox 01/29/19 08:19 63 129/68 01/29/19 08:10 97.5 F L 63 20 129/68 92 L 01/29/19 03:00 98.4 F 74 16 160/83 H 98 Weight 142 lb - Physical Exam General: other (confused) Lungs: clear to auscultation Musculoskeletal: decreased range of motion - Labs Result Diagrams: 01/28/19 06:55 01/29/19 04:01 Troponin/CKMB CK-MB (CK-2) 0.7 ng/mL (0-6.6) 01/27/19 16:36 Troponin I 0.030 ng/mL (< 0.028) H 01/27/19 19:39 - Telemetry Sinus rhythms and dysrhythmias: sinus rhythm - Assessment/Plan Assessment/Plan: 1. Acute on Chronic diastolic HF - resp. status has been improving; on Coreg 6.25mg BID, Lasix 40mg BID, Spironolactone 25mg qd, and Ranexa 500mg BID; 2. S/p 18 beats of NSVT on 01/28/2019 - On Coreg; 3. HTN - stable with current med 4. CKD stage 3 - unchanged 5. Hypothyroidism - 6. Alzheimer's disease - MAR reviewed * Echo on 10/09/18 showing EF 55-60%, LVH, diastolic dysfunction, and increased pulm artery pressures. * From Cardiac standpoint, the pt is stable to d/c with: 1) Lasix 40mg 1 tab qd 2) Spironolactone 25mg qd 3) Re-check Renal function in 1 wk. * The pt will f/u with Dr Lucero' office within 2wks. Pt. seen and eval. by me. She offers no complaints. I agree with the A/P by the ASSISTANCE COORDINATOR. She seems to be tolerating he spironolactone. Chest clear. RRR. No significant edema.
[2019-01-29 11:58] VITALS: BP 107/62; TEMP 98.4
--- NOTE | 2019-01-29 23:57 | DIS ---
DATE OF ADMISSION: 01/27/2019 DATE OF DISCHARGE: 01/29/2019 RESIDENT: Adelina Beebe MD ADMITTING ATTENDING: Kishan Fournier MD. Discharge Attending: Senthil Trujillo MD CONSULTS: Cardiology. PROCEDURES: None. PRIMARY DIAGNOSES: 1. Heart failure with preserved ejection fraction, mild acute exacerbation. 2. Supraventricular tachycardia. 3. Elevated troponin. SECONDARY DIAGNOSES: 1. Chronic kidney disease 3B. 2. Hypertension. 3. Hypothyroidism. 4. Dementia DISCHARGE MEDICATIONS: 1. Coreg 6.25mg oral twice daily with meals 2. Ranexa 500mg oral twice daily 3. Aldactone 25mg oral every morning with breakfast 4. Florastore 250mg oral twice daily before meals 5. Mirtazapine 30 mg oral bedtime 6. Senna 8.6mg oral daily 7. Tylenol 650mg oral three times daily 8. Polyethylene Glycol 3350 17gm oral daily as needed 9. Rivastigmine 1.5mg oral twice daily with meals. 10. Lexapro 10mg oral daily 11. Levothyroxine Sodium 50mcg oral daily 12. Lasix 40mg oral daily 13. Potassium Chloride 5meq oral daily 14. Clonidine HCL 0.1 mg oral twice daily 15. Losartan potassium 50mg oral twice daily 16. Memantine HCl 10mg oral twice daily 17. Norvasc 5mg oral daily DISCONTINUED MEDICATIONS: Metoprolol Succinate 50mg oral daily HISTORY OF PRESENT ILLNESS/HOSPITAL COURSE: This is an 83-year-old female who presented to the emergency department from the primary care physician 's office due to shortness of breath. Per report, the patient was saturating at 84 % on room air at the PCP's office. She does not require oxygen at the [facility] at baseline. When she arrived at the emergency department, she was found to have a BNP of 1051 from her baseline of 500s. She was given IV Lasix and did not require any oxygen as she was saturating 92% on room air. She did have an echo in September of 2018 that showed ejection fraction of 55% to 60%, but did show diastolic dysfunction. The patient is A and O x1 at baseline. The patient was admitted to tele observation for a mild CHF exacerbation. Cardiology was consulted for medical management. Per Cardiology, the patient was started on Ranexa to improve diastolic dysfunction, spironolactone, and metoprolol was changed to Coreg. The patient's other chronic conditions remained stable throughout her stay. The patient is to follow up with her primary care physician within one week to have her renal function rechecked. She can also follow up with Cardiology for medical management of her heart failure. The patient was discharged in stable condition. DISCHARGE INSTRUCTIONS: 1. Location: [facility]. 2. Diet: Heart healthy with fluid restriction. 3. Activity: ad eulalia with fall precautions. 4. Follow up with primary care physician within 1 week and follow up with Cardiology within 3-4 weeks. Job ID: [id number] KAILA
== END 2019-01-29 17:15 ==
LOC: ERS 15:55 → 2SW 23:15
PROVIDERS: ADMIT Family Medicine; ATTEND Family Medicine
DX: I13.0 Hypertensive heart and chronic kidney disease with heart failure and stage 1 through stage 4 chronic kidney disease, or unspecified chronic kidney disease (principal); N18.3 Chronic kidney disease, stage 3 (moderate); I50.33 Acute on chronic diastolic (congestive) heart failure; I47.1 Supraventricular tachycardia; G30.8 Other Alzheimer's disease; F02.80 Dementia in other diseases classified elsewhere, unspecified severity, without behavioral disturbance, psychotic disturbance, mood disturbance, and anxiety; E87.70 Fluid overload, unspecified; E03.9 Hypothyroidism, unspecified; Z79.899 Other long term (current) drug therapy; Z88.0 Allergy status to penicillin; Z87.891 Personal history of nicotine dependence
CPT/HCPCS: 36415; 51701; 71045; 80048; 80053; 81003; 82550; 82553; 83880; 84484; 85025; 90471; 90662; 90670; 93005; 94760; 96372; 96374; 96376; A4353; G0008; G0009; G0378; J1650; J1940

== ENCOUNTER 2019-02-03 20:49 | Inpatient (IN) | payer MEDICARE, BC ==
[2019-02-03 21:17] LABS: #Eosinphils 0.1 thou/uL (0.0-0.7); #Lymphocytes 1.3 thou/uL (1.20-3.40); #Monocytes 0.7 thou/uL (0.11-0.59); #Neutrophils 4.3 thou/uL (1.40-6.50); %Basophils 0.5 % (0.0-1.0); %Eosinophils 1.9 % (0.0-10.0); %Lymphocytes 20.5 % (21.0-51.0); %Monocytes 10.9 % (0.0-10.0); %Neutrophils 66.2 % (42.0-75.0); Hemoglobin 10.3 g/dL (12.0-16.0); Mean Corpuscular HGB CONC 30.5 g/dL (32.0-36.0); Mean Corpuscular Hemoglobin 26.4 pg (27.0-31.0); Mean Corpuscular Volume 86.3 fL (78.0-98.0); Platelet Count 231 thou/uL (130-400); RBC Distribution Width 16.5 % (11.5-14.5); Red Blood Cell (RBC) Count 3.91 mill/uL (4.20-5.40); White Blood Cell (WBC) Count 6.5 thou/uL (4.8-10.8)
--- NOTE | 2019-02-03 21:32 | RAD ---
XR Chest 1 View Portable History: Altered mental status Comparison: Radiograph January 27, 2019 Findings: Chronic elevation right hemidiaphragm. Aorta is ectatic. No confluent airspace consolidatio n, pneumothorax, or effusion. Calcified granuloma right upper lobe. Impression: Chronic findings. No acute intrathoracic abnormality.
[2019-02-03 21:36] LABS: ALT (SGPT) 9 U/L (8-55); AST (SGOT) 14 U/L (5-34); Albumin 3.8 g/dL (3.4-4.8); Alkaline Phosphatase 178 U/L (40-110); Anion Gap 13 mmol/L (10-20); BUN (Urea Nitrogen) 21 mg/dL (9.8-20.1); Bilirubin, Total 0.3 mg/dL (0.2-1.2); CK (CPK) 45 U/L (29-168); Calc. Creatinine Clearance 0 mL/min (70-130); Calcium 9.4 mg/dL (7.8-10.44); Carbon Dioxide 33 mmol/L (23-31); Chloride 102 mmol/L (98-107); Estimated GFR-MDRD 32; Globulin 3.2 g/dL (2.4-3.5); Glucose 90 mg/dL (83-110); Lipase 25 U/L (8-78); Potassium 4.8 mmol/L (3.5-5.1); Sodium 143 mmol/L (136-145)
--- NOTE | 2019-02-03 21:43 | CT ---
CT Brain WO Con History: Weakness. Aphasia. Comparison: CT brain 2018 Findings: Severe periventricular and deep white matter microangiopathic changes. No acute hemorrhage. No midline shift. No mass effect. Paranasal sinuses and mastoids are clear. Impression: Chronic findings. No acute intracranial abnormality.
[2019-02-03 21:50] LABS: INR-International Normal Ratio 0.9; PTT 31.2 SEC (22.9-36.1); Prothrombin Time 12.5 SEC (12.0-14.7)
[2019-02-03 22:14] LABS: Bilirubin Negative (Negative); Blood, Urine Negative (Negative); Clarity Clear (Clear); Glucose, Urine (Dipstick) Normal (Negative); Leukocyte Negative Leu/uL (Negative); Nitrite Negative (Negative); Protein, Urine (Dipstick) Negative (Neg-Trace); Urobilinogen Normal mg/dL (Less than 2)
[2019-02-03] MEDS ORDERED: Ondansetron PF 4 MG/2 ML Vial ONE (23:21)
[2019-02-03] MEDS ORDERED: Aspirin 300 MG Suppository ONE (23:24)
[2019-02-03] MEDS ORDERED: Diltiazem 125 MG/25 ML ONE (23:26)
[2019-02-03] MEDS ORDERED: levETIRAcetam In NaCl (Iso-Os) 1,000 MG in Premix Bag 1 BAG IVPB SCH (23:30)
[2019-02-04] MEDS ORDERED: Sodium Chloride 0.9% 1,000 ML IV SCH (01:04)
[2019-02-04] MEDS ORDERED: Ondansetron ODT 4 MG TAB SL PRN (01:04)
[2019-02-04] MEDS ORDERED: Ondansetron PF 4 MG/2 ML Vial IVP PRN ×2 (01:04→14:04)
[2019-02-04] MEDS ORDERED: Lorazepam 2 MG/ML VIAL SLOW IVP PRN ×2 (01:05→14:03)
[2019-02-04] MEDS ORDERED: Acetaminophen 650 MG Suppository PR PRN (06:01)
[2019-02-04] MEDS ORDERED: Acetaminophen 325 MG TAB PO PRN (06:01)
--- NOTE | 2019-02-04 06:50 | PDOC.FPRHP ---
- History of Present Illness Chief Complaint: Unknown History of Present Illness: Patient initially admitted to [facility], but later transferred to [facility]. Minimal information was obtained from nursing staff, stating that the patient was a admitted for a possible stroke vs. seizure workup. No information could be obtained from the patient, as she was unresponsive to sternal rub and shouting. - Allergies/Adverse Reactions Allergies Allergy/AdvReac Type Severity Reaction Status Date / Time Penicillins Allergy Verified 01/28/19 00:55 - Home Medications Medication Instructions Recorded Confirmed Type Acetaminophen [Pain Relief] 650 mg PO TID 10/09/18 01/27/19 History Escitalopram Oxalate [Lexapro] 10 mg PO DAILY 10/09/18 01/27/19 History Furosemide [Lasix] 40 mg PO DAILY 10/09/18 01/27/19 History Levothyroxine Sodium 50 mcg PO DAILY 10/09/18 01/27/19 History Mirtazapine 30 mg PO HS 10/09/18 01/27/19 History Polyethylene Glycol 3350 17 gm PO DAILY PRN 10/09/18 01/27/19 History Potassium Chloride 5 meq PO DAILY 10/09/18 01/27/19 History Rivastigmine [Exelon] 1.5 mg PO BID-WM 10/09/18 01/27/19 History Saccharomyces boulardii [Florastor] 250 mg PO BID-AC 10/09/18 01/27/19 History Sennosides [Senna Lax] 8.6 mg PO DAILY 10/09/18 01/27/19 History Losartan Potassium 50 mg PO BID 01/27/19 01/27/19 History cloNIDine HCl 0.1 mg PO BID PRN 01/27/19 01/27/19 History Amlodipine [Norvasc] 5 mg PO DAILY 01/28/19 01/28/19 History Memantine HCl [Namenda] 10 mg PO BID 01/28/19 01/28/19 History Carvedilol [Coreg] 6.25 mg PO BID-WM #60 tab 01/29/19 Rx Ranolazine [Ranexa] 500 mg PO BID #60 tab 01/29/19 Rx Spironolactone [Aldactone] 25 mg PO QAM-WM #30 tab 01/29/19 Rx - History PMHx: Alzheimer's Disease, CHF, HTN, Hypothyroidism PSHx: Hemorrhoidectomy, Cataract Removal, Kidney Stone Removal FHx: Non-Contributory Social: Negative x3 [All information obtained from previous visit documentation] - Review of Systems ROS unobtainable: due to mental status - Vital signs BP: [135/72] HR: [90] RR: [16] Tmax: [98.4] Pox: [99]% on [Room] Wt: [] - Physical Exam Constitutional: NAD HEENT: normocephalic and atraumatic, PERRLA, conjunctiva clear, no scleral icterus, MMM, oropharynx clear Neck: supple, no LAD Chest: no-tender to palpation Heart: RRR, normal S1/S2, no murmurs/rubs/gallops, pulses present, no edema Lungs: CTAB, no respiratory distress, no rales/rhonchi, no wheezing, no retractions, other (Poor air movement) Abdomen: soft, non-tender, no masses/distention Musculoskeletal: normal structure Skin: no rash/lesions, no jaundice Heme/Lymphatic: no unusual bruising or bleeding, no purpura, no petechia, no LAD FMR H&P: Results - Labs Result Diagrams: 02/03/19 21:08 02/03/19 21:08 Lab results: WBC 6.5 thou/uL (4.8-10.8) 02/03/19 21:08 Hgb 10.3 g/dL (12.0-16.0) L 02/03/19 21:08 Hct 33.7 % (36.0-47.0) L 02/03/19 21:08 MCV 86.3 fL (78.0-98.0) 02/03/19 21:08 Plt Count 231 thou/uL (130-400) 02/03/19 21:08 Neutrophils % 66.2 % (42.0-75.0) 02/03/19 21:08 Sodium 143 mmol/L (136-145) 02/03/19 21:08 Potassium 4.8 mmol/L (3.5-5.1) 02/03/19 21:08 Chloride 102 mmol/L (98-107) 02/03/19 21:08 Carbon Dioxide 33 mmol/L (23-31) H 02/03/19 21:08 BUN 21 mg/dL (9.8-20.1) H 02/03/19 21:08 Creatinine 1.83 mg/dL (0.6-1.1) H 02/03/19 21:08 Glucose 90 mg/dL (83-110) 02/03/19 21:08 Lactic Acid 0.7 mmol/L (0.5-2.2) 02/03/19 21:08 Calcium 9.4 mg/dL (7.8-10.44) 02/03/19 21:08 Total Bilirubin 0.3 mg/dL (0.2-1.2) 02/03/19 21:08 AST 14 U/L (5-34) 02/03/19 21:08 ALT 9 U/L (8-55) 02/03/19 21:08 Alkaline Phosphatase 178 U/L (40-110) H 02/03/19 21:08 Creatine Kinase 45 U/L (29-168) 02/03/19 21:08 Serum Total Protein 7.0 g/dL (6.0-8.3) 02/03/19 21:08 Albumin 3.8 g/dL (3.4-4.8) 02/03/19 21:08 Lipase 25 U/L (8-78) 02/03/19 21:08 Urine Ketones Negative mg/dL (Negative) 02/03/19 21:55 Urine Blood Negative (Negative) 02/03/19 21:55 Urine Nitrite Negative (Negative) 02/03/19 21:55 Ur Leukocyte Esterase Negative Paulina/uL (Negative) 02/03/19 21:55 - EKG Interpretation EKG: NSR - EKG review upon arrival to the floor. FMR H&P: A/P - Problem List (1) Diastolic CHF Current Visit: No Status: Acute Code(s): I50.30 - UNSPECIFIED DIASTOLIC ( CONGESTIVE) HEART FAILURE (2) Dementia Current Visit: No Status: Chronic Code(s): F03.90 - UNSPECIFIED DEMENTIA WITHOUT BEHAVIORAL DISTURBANCE Qualifiers: Dementia type: Alzheimer's disease (3) HTN (hypertension) Current Visit: No Status: Chronic Code(s): I10 - ESSENTIAL (PRIMARY) HYPERTENSION (4) Hypothyroidism Current Visit: No Status: Chronic Code(s): E03.9 - HYPOTHYROIDISM, UNSPECIFIED - Plan 1. Stroke vs. Seizure w/o -Minimal history w/ patient non-responsive and unable to provide additional information -Patient currently admitted to Stroke Unit, vital signs WNL -S/P Keppra administration in the ED, Lorazepam PRN -Brain MRI: Pending -Neurology Consult: Pending -PT/OT: Pending 2. HTN -BP 135/72 on 02/04 -Allow for permissive HTN 3. Hypothyroidism -Continue home medication regimen Code Status: Full Code Diet: NPO Activity: Strict Bed Rest DVT PPx: SCDs Dispo: Patient currently stable on Stroke Floor. Baseline difficult to assess, may be secondary to Keppra dosing or may be postictal state. Await Brain MRI results. Await Neuro consult and ED Provider report for additional information. FMR H&P: Upper Level - Pertinent history Unable to obtain HPI due to pt mental status - Pertinent findings Pt very obtunded. Pt did not respond to sternal rub, voice stimulation. She was breathing normally. Pupils reactive to light. Pt does not follow commands. Pt appears to be post ictal. - Plan Date/Time: 02/04/19 0642 Chan Alston PGY-3, have evaluated this patient and agree with findings/ plan as outlined by financial analyst intern resident. Pertinent changes/additions are listed here. Unable to get history and ROS from patient. Pt appears to be in post ictal state. pt very nonresponsive. Per nursing concern for seizure and possible stroke. Pt vital signs stable. Pt on lots of BP meds. Holding at this time for permissive HTN. See above for detailed plan.
[2019-02-04] MEDS ORDERED: Enoxaparin Sodium 40 MG/0.4 ML SYRINGE SC SCH (09:00)
[2019-02-04] MEDS ORDERED: Furosemide 40 MG TAB PO SCH (09:00)
[2019-02-04] MEDS ORDERED: POTASSIUM CHLORIDE 5 MEQ PO SCH (09:00)
--- NOTE | 2019-02-04 13:12 | ULT ---
CAROTID DOPPLER: Date: 02/04/19 Ultrasound Doppler study performed of the extracranial carotid arteries. INDICATION: TIA. Exam is severely limited. The technologist was unable to evaluate the right neck muscles and was unab le to evaluate the left vertebral artery. The left common carotid and internal carotid artery was imaged. Evidence of mild echogenic plaque. No increased velocities are recorded. IMPRESSION: No evidence of stenosis in the left common carotid or internal carotid artery. The right neck vessels were unable to be evaluated and the left vertebral was unable to be evaluated due to patient conditi on and positioning. POS: [facility]
--- NOTE | 2019-02-04 13:36 | MRI ---
MRI BRAIN WITHOUT CONTRAST: Date: 02/04/19 HISTORY: New onset seizures. FINDINGS: Correlation made with previous day's CT scan. No restricted diffusion is seen. There are multiple foci of T2 prolongation in the periventricular wh ite matter consistent with chronic small vessel ischemic disease. Changes of cortical atrophy are pre sent. The ventricular size is appropriate and the basilar cisterns are patent. No evidence of acute infarct, hemorrhage, midline shift, or abnormal extra-axial fluid collections ar e seen. IMPRESSION: 1. No evidence of acute intracranial process. 2. Chronic small vessel ischemic disease. 3. Cortical atrophy. POS: OFF
[2019-02-04] MEDS: Rivastigmine 1.5 MG CAP PO SCH (17:30)
[2019-02-04] MEDS: Escitalopram Oxalate 10 mg Tablet PO SCH (17:31)
[2019-02-04] MEDS: Levothyroxine Sodium 50 MCG TAB PO SCH (17:31)
[2019-02-04] MEDS: Potassium Chloride 10 MEQ TAB PO SCH (17:31)
[2019-02-04 18:25] LABS: Actual Bicarbonate (HCO3a) 33.5 mEq/L (22-28); Base Excess (BEa) 4.3 mEq/L (-2.0 to +3.0); Calcium, Ionized 1.24 mmol/L (1.12-1.30); Carboxyhemoglobin (COHb) 0.9 gm% (0.0-3.0); Hemoglobin (Hb) 10.8 g/dL (12.0-16.0); Potassium - ABG Lab 4.63 mmol/L (3.70-5.30)
--- NOTE | 2019-02-04 18:27 | RAD ---
XR Chest 1 View Portable History: Worsening oxygen saturation Comparison: Radiograph prior day Findings: Lungs are severely hypoinflated. New small bilateral pleural effusions. New pulmonary venous congestion. No pneumothorax. Marked ectasia of the aorta and great vessels. Impression: Worsening lung hypoinflation with new effusions and mild pulmonary edema.
[2019-02-04 18:29] LABS: #Eosinphils 0.1 thou/uL (0.0-0.7); #Lymphocytes 1.4 thou/uL (1.20-3.40); #Monocytes 0.8 thou/uL (0.11-0.59); #Neutrophils 5.9 thou/uL (1.40-6.50); %Basophils 0.2 % (0.0-1.0); %Lymphocytes 16.9 % (21.0-51.0); %Monocytes 10.1 % (0.0-10.0); %Neutrophils 71.9 % (42.0-75.0); Hemoglobin 10.1 g/dL (12.0-16.0); Mean Corpuscular HGB CONC 30.4 g/dL (32.0-36.0); Mean Corpuscular Volume 88.9 fL (78.0-98.0); Mean Platelet Volume 8.6 fL (7.4-10.4); Platelet Count 225 thou/uL (130-400); RBC Distribution Width 16.3 % (11.5-14.5); Red Blood Cell (RBC) Count 3.74 mill/uL (4.20-5.40); White Blood Cell (WBC) Count 8.2 thou/uL (4.8-10.8)
[2019-02-04 18:30] LABS: CO2 Tension 79.3 mmHg (35.0-45.0); pH, Arterial 7.24 (7.35-7.45)
[2019-02-04 18:31] LABS: ALV-art Gradient 98.255 (0-20); O2 Tension (PaO2) 59.3 mmHg (> 60.0); Puncture Site R RADIAL
[2019-02-04] MEDS: Sodium Chloride 0.9% 1,000 ML IV SCH ×2 (18:45→20:05)
[2019-02-04 18:51] LABS: ALT (SGPT) 10 U/L (8-55); AST (SGOT) 14 U/L (5-34); Albumin 3.8 g/dL (3.4-4.8); Alkaline Phosphatase 171 U/L (40-110); Anion Gap 13 mmol/L (10-20); BUN (Urea Nitrogen) 17 mg/dL (9.8-20.1); Bilirubin, Total 0.3 mg/dL (0.2-1.2); Calc. Creatinine Clearance 26 mL/min (70-130); Calcium 9.2 mg/dL (7.8-10.44); Carbon Dioxide 31 mmol/L (23-31); Chloride 105 mmol/L (98-107); Estimated GFR-MDRD 37; Globulin 3.2 g/dL (2.4-3.5); Glucose 75 mg/dL (83-110); Potassium 4.7 mmol/L (3.5-5.1); Sodium 144 mmol/L (136-145)
[2019-02-04 18:52] LABS: Troponin I 0.014 ng/mL (< 0.028)
[2019-02-04] MEDS ORDERED: Furosemide 40 MG/4 ML VIAL SLOW IVP SCH (19:15)
--- NOTE | 2019-02-04 20:11 | PDOC.FM ---
- Subjective Subjective: Called pt patient room by Dr Mac for assessment. Nurses noted the patient oxygen sats were low and she was less responsive than earlier. I arrived to find her resting but responsive to touch and voice with moaning. She has small jerking/shaking of her arms which have caused concern for seizures. Dr Mac had ordered ECG , ABG, and additional lab work. We called Dr Carcamo who came to see her. He reports she was conversant earlier in the day. A review of her records show that she had what appeared to be a seizure in the ER at admission and was being treated fro seizures. Her CT scan and MRI of the brain showed cortical atrophy and small vessel disease but other acute process. Her CXR showed pulmonary edema and poor inspiration. Her ABG showed CO2 retention with respiratory acidosis. We are transferring her to [facility] for Bipap therapy. We are giving a dose of lasix and checking a keppra level. I do think she is having seizures because of ehr responsiveness to touch and voice. We have communicated with Dr Engel as well. I discussed with Dr Carcamo, her son, who was present, and he is appreciative of care. - Objective Vital Signs & Weight: Vital Signs (12 hours) Temp Pulse Pulse Resp BP BP Pulse Ox 02/04/19 19:47 66 98 02/04/19 17:51 97 23 H 140/93 H 89 L 02/04/19 15:33 98 F 83 20 123/88 92 L 02/04/19 15:03 91 138/77 02/04/19 12:00 97.4 F L 85 16 140/75 93 L 02/04/19 08:31 98.0 F 65 15 96 02/04/19 08:05 96 02/04/19 08:00 134/102 H Weight Admit Weight 64.682 kg Weight 64.682 kg I&O: 02/03/19 02/04/19 02/05/19 06:59 06:59 06:59 Intake Total 361 Output Total 450 Balance 361 -450 Result Diagrams: 02/04/19 18:20 02/04/19 18:20
--- NOTE | 2019-02-04 21:11 | CON ---
DATE OF CONSULTATION: 02/04/2019 CONSULTING PHYSICIAN: Hospitalist Service. IMPRESSION: 1. New onset seizures. 2. Hypertension. 3. Hypothyroidism. 4. Dementia. PLAN: 1. Continue Keppra 500 mg twice a day. 2. Followup clinical course. HISTORY OF PRESENT ILLNESS: Ms. Carcamo is an 83-year-old female with the above-noted problems. She apparently was brought in after a witnessed seizure. She had initial CT scan of the brain, which showed severe periventricular white matter changes. All her lab work was unremarkable. She was afebrile. She was hypertensive with diastolics 102. She has had a carotid ultrasound, which does not show any blockage on the left, the right side is indeterminate due to technical difficulties. She has had a followup MRI of the brain, which again shows chronic small vessel ischemic changes, but no acute abnormalities. No further seizures have been reported. There is no one with her at the moment. PAST MEDICAL HISTORY: As listed above. ALLERGIES: PENICILLIN. SOCIAL HISTORY: No tobacco or alcohol. FAMILY HISTORY: Unknown. REVIEW OF SYSTEMS: Not obtainable due to her level of alertness. PHYSICAL EXAMINATION: GENERAL: She is a somewhat frail-appearing elderly lady, lying in bed in a position. HEENT: She resists eye opening. I could not get her to open her eyes spontaneously. NECK: Supple. No lymphadenopathy. EXTREMITIES: No cyanosis or edema. NEUROLOGIC: She is very lethargic and would not follow any commands. No abnormal movements are seen. Her tone appears to be symmetric. SUMMARY: This is an elderly lady with dementia from severe small-vessel ischemic disease. She has had a secondary seizure. I agree with Zia. We will follow in her clinical course. Job ID: [id number]
[2019-02-04 22:16] LABS: Actual Bicarbonate (HCO3a) 31.3 mEq/L (22-28); Base Excess (BEa) 3.1 mEq/L (-2.0 to +3.0); Calcium, Ionized 1.22 mmol/L (1.12-1.30); Carboxyhemoglobin (COHb) 0.8 gm% (0.0-3.0); Hemoglobin (Hb) 10.5 g/dL (12.0-16.0); O2 Tension (PaO2) 63.8 mmHg (> 60.0); Potassium - ABG Lab 4.61 mmol/L (3.70-5.30); pH, Arterial 7.27 (7.35-7.45)
[2019-02-04 22:19] LABS: CO2 Tension 69.5 mmHg (35.0-45.0); Puncture Site R RADIAL
[2019-02-04 22:20] LABS: ALV-art Gradient 98.875 (0-20)
--- NOTE | 2019-02-04 22:57 | PDOC.FM ---
- Objective Vital Signs & Weight: Vital Signs (12 hours) Temp Pulse Pulse Resp BP BP Pulse Ox 02/04/19 20:06 97.2 F L 02/04/19 20:00 98 02/04/19 19:47 66 98 02/04/19 17:51 97 23 H 140/93 H 89 L 02/04/19 15:33 98 F 83 20 123/88 92 L 02/04/19 15:03 91 138/77 02/04/19 12:00 97.4 F L 85 16 140/75 93 L Weight Admit Weight 64.682 kg Weight 64.682 kg Most Recent Monitor Data Heart Rate from ECG 65 NIBP 127/67 NIBP BP-Mean 87 Respiration from ECG 16 SpO2 96 I&O: 02/03/19 02/04/19 02/05/19 06:59 06:59 06:59 Intake Total 361 Output Total 450 Balance 361 -450 Result Diagrams: 02/04/19 18:20 02/04/19 18:20 Addendum - Attending - Attending Attestation Date/Time: 02/04/19 3133 Follow up ABG shows improved ventilation. Dr Mac reports better alertness. Continue bipap.
[2019-02-05 03:37] LABS: Actual Bicarbonate (HCO3a) 32.5 mEq/L (22-28); Base Excess (BEa) 3.5 mEq/L (-2.0 to +3.0); Calcium, Ionized 1.21 mmol/L (1.12-1.30); Carboxyhemoglobin (COHb) 0.8 gm% (0.0-3.0); Hemoglobin (Hb) 9.8 g/dL (12.0-16.0); O2 Tension (PaO2) 74.2 mmHg (> 60.0); Potassium - ABG Lab 4.48 mmol/L (3.70-5.30)
[2019-02-05 03:38] LABS: pH, Arterial 7.23 (7.35-7.45)
[2019-02-05 03:39] LABS: CO2 Tension 78.9 mmHg (35.0-45.0); Puncture Site R RADIAL
--- NOTE | 2019-02-05 05:18 | PDOC.FM ---
- Objective Vital Signs & Weight: Vital Signs (12 hours) Temp Pulse Resp BP Pulse Ox 02/05/19 03:37 97.4 F L 02/05/19 00:08 67 02/04/19 23:45 97.4 F L 02/04/19 20:06 97.2 F L 02/04/19 20:00 98 02/04/19 19:47 66 98 02/04/19 17:51 97 23 H 140/93 H 89 L Weight Admit Weight 64.682 kg Weight 64.212 kg Most Recent Monitor Data Heart Rate from ECG 69 NIBP 155/79 NIBP BP-Mean 104 Respiration from ECG 21 SpO2 100 I&O: 02/03/19 02/04/19 02/05/19 06:59 06:59 06:59 Intake Total 361 Output Total 1250 Balance 361 -1250 Result Diagrams: 02/04/19 18:20 02/04/19 18:20 Addendum - Attending - Attending Attestation Date/Time: 02/05/19 0513 Follow up ABG is basically unchanged. Respiratory acidosis noted. Bipap has been adjusted from 15/5 to 20/5 overnight. She TV has improved to about 300. If her acidosis doesn't improve mechanical ventilation may be indicated. We will discuss with Pulmonology.
--- NOTE | 2019-02-05 06:33 | PDOC.FM ---
- Subjective Subjective: Pt had code jimmy called overnight. Now on BIPAP/APAP w/ PIP at 25, EPAP at 4, O2 28%, tidal volume 410 and rate at 16. Pt does not respond to engineering technical writer but will speak and command to her son's voice, Dr. Carcamo. She complains of chest pain on both sides of her lungs. Dr. Carcamo w/ questions regarding intubation and mechanical ventilation. - Objective MAR Reviewed: Yes Vital Signs & Weight: Vital Signs (12 hours) Temp Pulse Pulse Ox 02/05/19 03:37 97.4 F L 02/05/19 00:08 67 02/04/19 23:45 97.4 F L 02/04/19 20:06 97.2 F L 02/04/19 20:00 98 02/04/19 19:47 66 98 Weight Admit Weight 64.682 kg Weight 64.212 kg Most Recent Monitor Data Heart Rate from ECG 66 NIBP 132/68 NIBP BP-Mean 89 Respiration from ECG 15 SpO2 100 I&O: 02/03/19 02/04/19 02/05/19 06:59 06:59 06:59 Intake Total 361 856 Output Total 1500 Balance 361 -644 Result Diagrams: 02/05/19 06:47 02/05/19 06:47 Phys Exam - Physical Examination on bipap HEENT: sclera anicteric difficult to auscultate on bipap, no wheezing heard anteriorly Cardiovascular: RRR, no significant murmur Gastrointestinal: soft, non-tender, no distention, positive bowel sounds Musculoskeletal: edema present (R LE swelling, unchanged from yesterday) Neurological: moves all 4 limbs Skin: no rash Dx/Plan (1) SONALI (acute kidney injury) Code(s): N17.9 - ACUTE KIDNEY FAILURE, UNSPECIFIED Status: Acute (2) Acute on chronic diastolic CHF (congestive heart failure) Code(s): I50.33 - ACUTE ON CHRONIC DIASTOLIC (CONGESTIVE) HEART FAILURE Status : Acute (3) Dementia Code(s): F03.90 - UNSPECIFIED DEMENTIA WITHOUT BEHAVIORAL DISTURBANCE Status: Chronic Qualifiers: Dementia type: Alzheimer's disease (4) HTN (hypertension) Code(s): I10 - ESSENTIAL (PRIMARY) HYPERTENSION Status: Chronic (5) Hypothyroidism Code(s): E03.9 - HYPOTHYROIDISM, UNSPECIFIED Status: Chronic - Plan Plan: 83-yo female with acute change admitted for: Seizures, in setting of dementia - Per ED, pt had seizure lasting 30 sec-1 min followed by post-ictal state lasting 5 min. Since that time, pt has been more somnolent except when her son awakens her. No further seizures reported - Keppra scheduled and Lorazepam PRN for seizure activity - Brain MRI: negative for acute process, chronic small vessel disease - Carotid doppler: negative for stenosis - Neurology Consult, appreciate recs. - PT/OT: Pending - EEG routine ordered for this AM Acute hypercapneic hypoxic respiratory failure - Transferred to IMCU overnight for worsening respiratory status - Continue BiPAP - etiologies include central depression 2/2 to seizure activity, atelectasis, vs. infectious process. Dementia - axo x1 at baseline - CT w/ severe periventricular white matter change HTN -BP 135/72 on 02/04 -Allow for permissive HTN Hypothyroidism -Continue home medication regimen SONALI on CKD - Pt's creatinine initially 1.8 and appears to be improving, at baseline ~1.5- 1.6 - Due to hypoglycemia on this AM labs, replaced NS w/ D5 LR at 100ml/hr - Continue fluid resuscitation Code Status: Full Code Diet: NPO. We may want to start considering nutritional therapy as pt has been here for some time now. Activity: Strict Bed Rest DVT PPx: SCDs Dispo: IMCU for BIPAP, monitor closely
[2019-02-05 07:24] LABS: Hemoglobin 9.5 g/dL (12.0-16.0); Mean Corpuscular HGB CONC 29.5 g/dL (32.0-36.0); Mean Corpuscular Hemoglobin 26.5 pg (27.0-31.0); Mean Corpuscular Volume 89.7 fL (78.0-98.0); Mean Platelet Volume 8.9 fL (7.4-10.4); Platelet Count 202 thou/uL (130-400); RBC Distribution Width 16.4 % (11.5-14.5); White Blood Cell (WBC) Count 6.3 thou/uL (4.8-10.8)
[2019-02-05 07:30] LABS: Anion Gap 16 mmol/L (10-20); BUN (Urea Nitrogen) 17 mg/dL (9.8-20.1); Calc. Creatinine Clearance 27 mL/min (70-130); Calcium 8.9 mg/dL (7.8-10.44); Carbon Dioxide 30 mmol/L (23-31); Chloride 103 mmol/L (98-107); Estimated GFR-MDRD 39; Potassium 4.5 mmol/L (3.5-5.1); Sodium 144 mmol/L (136-145)
[2019-02-05 07:34] LABS: Glucose 56 mg/dL (83-110)
[2019-02-05] MEDS ORDERED: Dextrose 50% Abboject 50 ML SYRINGE SLOW IVP PRN (07:36)
[2019-02-05] MEDS ORDERED: Dextrose 5% in Water 1,000 ML IV PRN (07:36)
[2019-02-05] MEDS ORDERED: Dextrose 5 %-0.45 % NaCl 1,000 ML IV SCH (07:45)
[2019-02-05] MEDS: Sodium Chloride 0.9% 1,000 ML IV SCH (07:57)
[2019-02-05] MEDS: Rivastigmine 1.5 MG CAP PO SCH ×2 (07:58→15:55)
[2019-02-05] MEDS: Levothyroxine Sodium 50 MCG TAB PO SCH (07:59)
[2019-02-05] MEDS: Escitalopram Oxalate 10 mg Tablet PO SCH (07:59)
[2019-02-05] MEDS: Potassium Chloride 10 MEQ TAB PO SCH (07:59)
[2019-02-05] MEDS: Dextrose 5%-Lactated Ringers 1,000 ML IV SCH ×2 (08:13→19:32)
[2019-02-05] MEDS ORDERED: Sterile Water 10 ML VIAL FS PRN (08:20)
--- NOTE | 2019-02-05 08:30 | CON ---
DATE OF CONSULTATION: 02/05/2019 This is 75 minutes of time, of that time, greater than 50% was spent with the patient and/or the patient's unit in the hospital. HISTORY OF PRESENT ILLNESS: Ms. Carcamo is an 83-year-old female, who was first admitted to the hospital on 02/04/2019 by the [facility]. It was suspected that she was having a stroke. She was obtunded and was basically unresponsive to sternal rub and shouting. Over the course of the day yesterday, it was evident that this could be a respiratory problem. ABG was drawn showing hypoventilation. I cannot find any evidence in her past history of lung issues other than the diagnosis of congestive heart failure. It does not appear that she was ever a smoker. 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 Unfortunately, the patient cannot give me much in the way of history. She was left on BiPAP last night. She is actually awake this morning. She is able to tell me that she wants the mask off. She knows some rudimentary facts, but has a hard time answering questions otherwise. PAST MEDICAL HISTORY: 1. Hypertension. 2. Alzheimer's dementia. 3. Diastolic heart dysfunction. 4. Chronic renal insufficiency. 5. Diabetes mellitus, type 2. 6. Nephrolithiasis. PAST SURGICAL HISTORY: Hemorrhoidectomy, cataract surgery, and kidney stone removal. FAMILY MEDICAL HISTORY: Unremarkable. SOCIAL HISTORY: Nonsmoker. Does not drink. Does not consume alcohol. MEDICATIONS: Prior to admission; 1. Vitamin D3. 2. Coreg. 3. Norvasc. 4. . 5. Florastor. 6. Ranexa. 7. Polyethylene glycol. 8. Mirtazapine. 9. Losartan. 10. Clonidine. 11. Spironolactone. 12. Sennalax. 13. Lexapro. 14. Exelon. 15. Potassium chloride. 16. Namenda. 17. Levothyroxine. 18. Lasix. ALLERGIES: PENICILLIN. REVIEW OF SYSTEMS: Unobtainable secondary to her confusion. PHYSICAL EXAMINATION: VITAL SIGNS: Temperature 97.1, pulse 70, blood pressure 160/76, and O2 saturation 100%. GENERAL: She is an elderly female, who is arousable. HEENT: Pupils are reactive. Sclerae are anicteric. Oropharynx is clear. NECK: No adenopathy or JVD. LUNGS: Diminished breath sounds on right base compared to left, but no rhonchi. No wheezes. CARDIOVASCULAR: S1 and S2. Regular. ABDOMEN: Soft, nontender, and nondistended. EXTREMITIES: Severe muscle wasting. LABORATORY DATA: ABG; pH of 7.23, pCO2 of 78, pO2 of 74, that was on 35% oxygen via BiPAP. White blood cell count 6.3, hematocrit 32.3, and platelet count 202. Sodium 144, potassium 4.5, chloride 103, CO2 is 30, BUN 17, creatinine 1.5, glucose 56. IMAGING DATA: Her chest x-ray shows right diaphragmatic elevation. ASSESSMENT: Chronic hypercapnic respiratory failure. Her elevated bicarbonate indicates that her CO2 is probably elevated at baseline. I suspect part of her chronic hypoventilation is due to her right diaphragmatic paralysis. Hypoventilation is probably exacerbated by medications, recent seizure, and her debilitated state. RECOMMENDATIONS: 1. We are turning her off BiPAP this morning and we will try to wean oxygen down to the lowest acceptable level. 2. I would probably avoid giving her Lasix as to keep her from developing too much of a contraction metabolic alkalosis. might be a more reasonable alternative for this patient. 3. Avoid any sedating medications. 4. I would discourage intubation if it comes to that as I do not think she would do well. Job ID: [id number]
[2019-02-05] MEDS ORDERED: Furosemide 40 MG/4 ML VIAL SLOW IVP SCH (09:00)
[2019-02-05] MEDS: acetaZOLAMIDE Sodium 500 mg Vial IVP SCH (10:24)
--- NOTE | 2019-02-05 12:26 | PRG ---
DATE OF SERVICE: 02/05/2019 Ms. Carcamo was transferred to the ICU overnight due to desaturation. Her saturations were reportedly in the 80s. She was on a mask earlier, but now her saturations have improved and she is off the oxygen supplementation. No seizure activity has been witnessed. She did respond to her son when he came by the visitor. Reportedly, her baseline is fairly severe dementia with ability to recognize family and limitedly communicative. Apparently, she normally is able to eat, but thus far has been n.p.o. I could not get her to open her eyes for me. She would nod her head. When I asked her to respond, her tone was symmetric. No abnormal movements were seen. We are going to check an EEG to make sure there is no subclinical seizure activity. We will continue the Clar[place] and follow in her care. Job ID: [id number]
[2019-02-05] MEDS: Prevnar 13-Val Conj/PF 0.5 ML SYRINGE IM ONE (21:17)
[2019-02-06] MEDS ORDERED: Haloperidol Lactate 5 MG/ML VIAL SLOW IVP PRN (00:26)
[2019-02-06] MEDS: Dextrose 5%-Lactated Ringers 1,000 ML IV SCH ×3 (05:35→20:39)
--- NOTE | 2019-02-06 05:46 | PDOC.FM ---
- Subjective Subjective: Pt became agitated and confused overnight, wanting to take bipap mask off. Haldol prescribed but was not needed after applying soft upper extremity restraints. Otherwise, pt was sleeping on BIPAP and not easily aroused. This is typical for the patient, who does not respond to staff but will respond to her son's voice. She also may be quite tired from her active night. Per nursing, her activity last night seemed like ing. - Objective MAR Reviewed: Yes Vital Signs & Weight: Vital Signs (12 hours) Temp Pulse 02/06/19 04:00 98.6 F 02/06/19 02:21 67 02/06/19 00:00 98.7 F 02/05/19 22:04 68 02/05/19 20:00 98.0 F 02/05/19 18:29 69 Weight Admit Weight 64.682 kg Weight 64.212 kg Most Recent Monitor Data Heart Rate from ECG 69 NIBP 152/91 NIBP BP-Mean 111 Respiration from ECG 19 SpO2 100 I&O: 02/04/19 02/05/19 02/06/19 06:59 06:59 06:59 Intake Total 547 696 2351 Output Total 1500 1100 Balance 361 -644 100 Result Diagrams: 02/06/19 06:14 02/06/19 06:14 Phys Exam - Physical Examination Constitutional: NAD (on bipap) Respiratory: clear to auscultation bilateral (as best could be assessed while on bipap in supine position) Cardiovascular: RRR, no significant murmur Gastrointestinal: soft, non-tender, positive bowel sounds Musculoskeletal: no edema, pulses present withdraws to touch Skin: no rash Dx/Plan (1) SONALI (acute kidney injury) Code(s): N17.9 - ACUTE KIDNEY FAILURE, UNSPECIFIED Status: Acute (2) Acute on chronic diastolic CHF (congestive heart failure) Code(s): I50.33 - ACUTE ON CHRONIC DIASTOLIC (CONGESTIVE) HEART FAILURE Status : Acute (3) Dementia Code(s): F03.90 - UNSPECIFIED DEMENTIA WITHOUT BEHAVIORAL DISTURBANCE Status: Chronic Qualifiers: Dementia type: Alzheimer's disease (4) HTN (hypertension) Code(s): I10 - ESSENTIAL (PRIMARY) HYPERTENSION Status: Chronic (5) Hypothyroidism Code(s): E03.9 - HYPOTHYROIDISM, UNSPECIFIED Status: Chronic - Plan Plan: 83-yo female with acute change in mental status admitted for: Seizures, in setting of dementia, etiology unknown - Per ED, pt had seizure lasting 30 sec-1 min followed by post-ictal state lasting 5 min. Since that time, pt has been more somnolent except when her son awakens her. No further seizures reported - Keppra scheduled and Lorazepam PRN for seizure activity - Brain MRI: negative for acute process, chronic small vessel disease - Carotid doppler: negative for stenosis - Neurology Consult, appreciate recs. - PT/OT/Speech: Pending, unable to evaluate in setting of waxing and waning mentation. Will discuss w/ son today about options for nutrition. We are continuing D5LR for acute hypoglycemia which improved yesterday. - EEG ordered: pending Acute hypercapneic hypoxic respiratory failure Possible 2/2 chronic right diaphragmatic paralysis - Transferred to IMCU overnight for worsening respiratory status - Continue BiPAP, wean to nasal cannula as able. - etiologies include central depression 2/2 to seizure activity, atelectasis, vs. infectious process. - CXR w/ elevation of R diaphragm and hypoinflation - Pulm consulted, appreciate recs Dementia - axo x1 at baseline - CT w/ severe periventricular white matter change - haldol prn, although would like to avoid per pulmonology HTN -BP 135/72 on 02/04 -Allow for permissive HTN Hypothyroidism -Continue home medication regimen, although pt is NPO. We may need to consider IV route SONALI on CKD - Pt's creatinine initially 1.8 and appears to be improving, at baseline ~1.5- 1.6 - Due to hypoglycemia on this AM labs, replaced NS w/ D5 LR at 100ml/hr - Continue fluid resuscitation Code Status: Full Code Diet: NPO. We may want to start considering nutritional therapy as pt has been here for some time now. NG tube for enteral vs. parenteral. Activity: Strict Bed Rest, soft 2 point restraints may be used prn DVT PPx: SCDs Dispo: IMCU for BIPAP, monitor closely Addendum - Attending - Attending Attestation Date/Time: 02/06/19 1047 I personally evaluated the patient and discussed the management with Dr. Zamora I agree with the History, Examination, Assessment and Plan documented above with any addition or exceptions noted below - Patient on BiPap. Overnight event noted. Afebrile VSS. A/P: 1) Seizures- EEG pending; continue keppra. 2) Acute resp failure - continue BiPap. 3) Hypothyroidism - consider change to IV if unable to start po.
[2019-02-06 06:48] LABS: #Eosinphils 0.1 thou/uL (0.0-0.7); #Monocytes 0.8 thou/uL (0.11-0.59); #Neutrophils 4.7 thou/uL (1.40-6.50); %Basophils 0.3 % (0.0-1.0); %Eosinophils 0.8 % (0.0-10.0); %Lymphocytes 15.2 % (21.0-51.0); %Monocytes 12.2 % (0.0-10.0); %Neutrophils 71.5 % (42.0-75.0); Hemoglobin 8.5 g/dL (12.0-16.0); Mean Corpuscular HGB CONC 30.3 g/dL (32.0-36.0); Mean Corpuscular Hemoglobin 26.6 pg (27.0-31.0); Mean Corpuscular Volume 87.6 fL (78.0-98.0); Mean Platelet Volume 9.1 fL (7.4-10.4); Platelet Count 192 thou/uL (130-400); RBC Distribution Width 16.1 % (11.5-14.5); Red Blood Cell (RBC) Count 3.21 mill/uL (4.20-5.40); White Blood Cell (WBC) Count 6.5 thou/uL (4.8-10.8)
[2019-02-06 07:10] LABS: Anion Gap 10 mmol/L (10-20); BUN (Urea Nitrogen) 12 mg/dL (9.8-20.1); Calc. Creatinine Clearance 33 mL/min (70-130); Calcium 8.7 mg/dL (7.8-10.44); Carbon Dioxide 26 mmol/L (23-31); Chloride 106 mmol/L (98-107); Estimated GFR-MDRD 48; Glucose 121 mg/dL (83-110); Potassium 3.7 mmol/L (3.5-5.1); Sodium 138 mmol/L (136-145)
[2019-02-06] MEDS: Rivastigmine 1.5 MG CAP PO SCH ×2 (08:42→16:43)
[2019-02-06] MEDS: Potassium Chloride 10 MEQ TAB PO SCH (08:43)
[2019-02-06] MEDS: Escitalopram Oxalate 10 mg Tablet PO SCH (08:43)
[2019-02-06] MEDS: Levothyroxine Sodium 50 MCG TAB PO SCH (08:43)
[2019-02-06] MEDS: acetaZOLAMIDE Sodium 500 mg Vial IVP SCH (09:22)
--- NOTE | 2019-02-06 14:22 | PRG ---
DATE OF SERVICE: 02/06/2019 SERVICE: Pulmonary Medicine. INTERVAL HISTORY: The patient cannot provide any additional elements to the history. She has static encephalopathy secondary to advanced dementia. She appears to be comfortable. She is breathing slowly and there were no reported overnight events. There is no additional seizure activity. PHYSICAL EXAMINATION: VITAL SIGNS: Afebrile, pulse 63, blood pressure 113/62, respirations 24, saturation 100%, currently on 1 L nasal cannula. GENERAL: The patient is somnolent. HEENT: Normocephalic and atraumatic. Sclerae white. Conjunctivae pink. Oral mucosa is moist without lesions. LUNGS: Decent air entry. Minimal rhonchi are present. There is no prolonged expiratory phase or wheezing appreciated. HEART: Normal rate, regular. ABDOMEN: Soft. Nontender, nondistended. Bowel sounds are positive. MUSCULOSKELETAL: No cyanosis or clubbing. There is trace pitting in the bilateral lower extremities. There is 1+ pitting at the sacrum. : No Bustos catheter in place. LABORATORY DATA: WBC 6.5, hemoglobin 8.5 and gently downtrending, platelets 192,000. Basic metabolic profile is unremarkable. Her creatinine is gently downtrending to 1.27. Potassium 3.7. Blood cultures x2, urine culture unremarkable. ASSESSMENT: 1. Chronic hypercapnic respiratory failure. 2. Paralyzed hemidiaphragm, chronic. 3. Seizure disorder. 4. Dementia, advanced. DISCUSSION AND PLAN: The patient is stable for transition out of the ICU to the telemetry unit. Very low flow oxygen is certainly indicated. I would not be too aggressive with getting her saturations elevated as this could precipitate worsening in hypoventilation. Because of her advanced dementia, she is not a long-term candidate for noninvasive ventilation. BiPAP will be interrupted. She can transition out of the IMCU to the stroke unit. Job ID: [id number]
--- NOTE | 2019-02-06 23:15 | EKG ---
Test Reason : Blood Pressure : / mmHG Vent. Rate : 076 BPM Atrial Rate : 076 BPM P-R Int : 124 ms QRS Dur : 084 ms QT Int : 372 ms P-R-T Axes : 022 002 009 degrees QTc Int : 418 ms Normal sinus rhythm Possible Left atrial enlargement Borderline ECG Confirmed by AJIT VELOZ, HANK (12), school photograph editor GILL WANG ([id number]) on 02/06/2019 11:15:35 PM Referred By: Confirmed By:HANK FONG MD
--- NOTE | 2019-02-07 05:41 | PDOC.FM ---
- Subjective Subjective: Per nurse, pt slept well overnight. She is off BIPAP and nasal cannula oxygen. This morning she opened her eyes to my voice. She is AxO x1 which is her baseline. Denies pain or trouble breathing. - Objective MAR Reviewed: Yes Vital Signs & Weight: Vital Signs (12 hours) Temp 02/07/19 03:11 98.4 F 02/06/19 23:28 98.6 F 02/06/19 19:20 98.6 F Weight Admit Weight 64.682 kg Weight 64.212 kg Most Recent Monitor Data Heart Rate from ECG 64 NIBP 111/65 NIBP BP-Mean 80 Respiration from ECG 24 SpO2 100 I&O: 02/05/19 02/06/19 02/07/19 06:59 06:59 06:59 Intake Total 856 2400 Output Total 1500 1800 Balance -644 600 Result Diagrams: 02/07/19 06:46 02/06/19 06:14 Phys Exam - Physical Examination Constitutional: NAD Respiratory: no wheezing, no rales, clear to auscultation bilateral (diminished breath sounds on R side) Cardiovascular: RRR, no significant murmur Gastrointestinal: soft, non-tender Musculoskeletal: no edema follows motor commands in upper & lower extremities Dx/Plan (1) SONALI (acute kidney injury) Code(s): N17.9 - ACUTE KIDNEY FAILURE, UNSPECIFIED Status: Acute (2) Acute on chronic diastolic CHF (congestive heart failure) Code(s): I50.33 - ACUTE ON CHRONIC DIASTOLIC (CONGESTIVE) HEART FAILURE Status : Acute (3) Dementia Code(s): F03.90 - UNSPECIFIED DEMENTIA WITHOUT BEHAVIORAL DISTURBANCE Status: Chronic Qualifiers: Dementia type: Alzheimer's disease (4) HTN (hypertension) Code(s): I10 - ESSENTIAL (PRIMARY) HYPERTENSION Status: Chronic (5) Hypothyroidism Code(s): E03.9 - HYPOTHYROIDISM, UNSPECIFIED Status: Chronic - Plan Plan: 83-yo female with acute change in mental status admitted for: Seizures, in setting of dementia, etiology unknown - Keppra scheduled and Lorazepam PRN for seizure activity - Brain MRI: negative for acute process, chronic small vessel disease - Carotid doppler: negative for stenosis - Neurology Consult, appreciate recs. - PT/OT/Speech: pending. - Nurse bedside swallow yesterday. Pt drank water and took PO meds. - Diet: mechanical soft - EEG ordered: pending Acute hypercapneic hypoxic respiratory failure Possible 2/2 chronic right diaphragmatic paralysis - etiologies include central depression 2/2 to seizure activity, atelectasis, vs. infectious process. - CXR w/ elevation of R diaphragm and hypoinflation - Pulm consulted, appreciate recs - Likely transfer to stroke unit today Dementia - axo x1 at baseline - CT w/ severe periventricular white matter change - haldol prn, although would like to avoid per pulmonology HTN -BP 135/72 on 02/04 -Allow for permissive HTN Hypothyroidism -Continue home medication regimen. PO meds SONALI on CKD - SONALI improved - Continue fluid resuscitation Code Status: Full Code Diet: Mechanical soft Activity: Strict Bed Rest DVT PPx: SCDs Dispo: IMCU, transfer to stroke Addendum - Attending - Attending Attestation Date/Time: 02/07/19 1028 I personally evaluated the patient and discussed the management with Dr. Zamora I agree with the History, Examination, Assessment and Plan documented above with any addition or exceptions noted below - Patient awake/oriented x1. Denies any complaints. Tolerated breakfast and meds per nursing. Afebrile VSS. A/P: 1) Acute respiratory failure- resolved. Off Bipap. Transfer to floor today. 2) Seizure - no further seizures; continue keppra.
[2019-02-07] MEDS: Dextrose 5%-Lactated Ringers 1,000 ML IV SCH ×2 (06:09→16:55)
[2019-02-07 07:07] LABS: Hemoglobin 8.3 g/dL (12.0-16.0)
[2019-02-07] MEDS: Potassium Chloride 10 MEQ TAB PO SCH (07:31)
[2019-02-07] MEDS: Escitalopram Oxalate 10 mg Tablet PO SCH (07:31)
[2019-02-07] MEDS: acetaZOLAMIDE Sodium 500 mg Vial IVP SCH (07:31)
[2019-02-07] MEDS: Rivastigmine 1.5 MG CAP PO SCH ×2 (07:31→16:52)
[2019-02-07] MEDS: Levothyroxine Sodium 50 MCG TAB PO SCH (07:31)
--- NOTE | 2019-02-07 14:03 | PRG ---
DATE OF SERVICE: 02/07/2019 SERVICE: Pulmonary Medicine. INTERVAL HISTORY: The patient is doing really well from respiratory standpoint. Mentation saucedo, she is basically back to baseline. She denies any current chest discomfort or shortness of breath currently. She has very advanced dementia, and cannot provide any additional elements of the history. She does not where she is or what the situation is. PHYSICAL EXAMINATION: VITAL SIGNS: Afebrile, pulse 74, blood pressure 112/65, respirations 21, saturation 95%, currently on room air. GENERAL: The patient is awake and alert, in no apparent distress. LUNGS: Very good air entry with no prolonged expiratory phase or wheezing present. HEART: Normal rate regular. ABDOMEN: Soft, nontender, nondistended, bowel sounds are positive. MUSCULOSKELETAL: No cyanosis or clubbing. No pitting in the bilateral lower extremities. NEUROLOGIC: Grossly nonfocal. LABORATORY DATA: Hemoglobin 8.3. TSH 1.24, creatinine 1.27 and gently downtrending. Blood cultures x2 and urine culture remain unremarkable. ASSESSMENT: 1. Chronic hypercapnic respiratory failure. 2. Paralyzed hemidiaphragm, chronic. 3. Seizure disorder. 4. Dementia, advanced. DISCUSSION AND PLAN: At this point, supportive measures will be continued. From my perspective, she is likely back to baseline. She can be transitioned out of the [facility] based on the primary services discretion. Job ID: [id number] MTDD
[2019-02-08 04:15] LABS: Phosphorus 2.3 mg/dL (2.3-4.7)
[2019-02-08 04:18] LABS: Anion Gap 11 mmol/L (10-20); BUN (Urea Nitrogen) 11 mg/dL (9.8-20.1); Calc. Creatinine Clearance 30 mL/min (70-130); Calcium 8.8 mg/dL (7.8-10.44); Carbon Dioxide 23 mmol/L (23-31); Chloride 111 mmol/L (98-107); Estimated GFR-MDRD 43; Glucose 127 mg/dL (83-110); Magnesium 1.7 mg/dL (1.6-2.6); Potassium 3.5 mmol/L (3.5-5.1); Sodium 141 mmol/L (136-145)
[2019-02-08] MEDS: Dextrose 5%-Lactated Ringers 1,000 ML IV SCH (05:58)
--- NOTE | 2019-02-08 06:17 | PDOC.FM ---
- Subjective Subjective: Pt is AxO x1. She is taking food from the nurse. She is not talking as much as yesterday. However, she appears comfortable. No issues overnight. - Objective MAR Reviewed: Yes Vital Signs & Weight: Vital Signs (12 hours) Temp Pulse Ox 02/08/19 03:27 98.7 F 02/08/19 00:12 95 02/07/19 20:00 95 02/07/19 19:43 98.7 F Weight Admit Weight 64.682 kg Weight 68.13 kg Most Recent Monitor Data Heart Rate from ECG 80 NIBP 121/75 NIBP BP-Mean 90 Respiration from ECG 28 SpO2 100 I&O: 02/06/19 02/07/19 02/08/19 06:59 06:59 06:59 Intake Total 2400 1000 Output Total 1800 800 Balance 600 200 Result Diagrams: 02/07/19 06:46 02/08/19 03:38 Phys Exam - Physical Examination Constitutional: NAD Respiratory: no wheezing, clear to auscultation bilateral Cardiovascular: RRR, no significant murmur Gastrointestinal: soft, non-tender Musculoskeletal: no edema Dx/Plan (1) SONALI (acute kidney injury) Code(s): N17.9 - ACUTE KIDNEY FAILURE, UNSPECIFIED Status: Acute (2) Acute on chronic diastolic CHF (congestive heart failure) Code(s): I50.33 - ACUTE ON CHRONIC DIASTOLIC (CONGESTIVE) HEART FAILURE Status : Acute (3) Dementia Code(s): F03.90 - UNSPECIFIED DEMENTIA WITHOUT BEHAVIORAL DISTURBANCE Status: Chronic Qualifiers: Dementia type: Alzheimer's disease (4) HTN (hypertension) Code(s): I10 - ESSENTIAL (PRIMARY) HYPERTENSION Status: Chronic (5) Hypothyroidism Code(s): E03.9 - HYPOTHYROIDISM, UNSPECIFIED Status: Chronic - Plan Plan: 83-yo female with acute change in mental status admitted for: Seizures, in setting of dementia, etiology unknown - Keppra scheduled and Lorazepam PRN for seizure activity - Brain MRI: negative for acute process, chronic small vessel disease - Carotid doppler: negative for stenosis - Neurology Consult, appreciate recs. - PT/OT/Speech: pending. Reordered PT eval/treat. - Diet: mechanical soft - EEG ordered: pending Acute hypercapneic hypoxic respiratory failure, improved Chronic right diaphragmatic paralysis Chronic hypercapneic respiratory failure - CXR w/ elevation of R diaphragm and hypoinflation - Pulm consulted, appreciate recs Dementia - axo x1 at baseline HTN -BP 135/72 on 02/04 -Allow for permissive HTN Hypothyroidism -Continue home medication regimen. PO meds SONALI on CKD - SONALI improved - Continue fluid resuscitation Code Status: Full Code Diet: Mechanical soft Activity: Up to chair DVT PPx: SCDs Dispo: IMCU, transfer to stroke
[2019-02-08] MEDS: Rivastigmine 1.5 MG CAP PO SCH ×2 (07:44→17:35)
[2019-02-08] MEDS: Potassium Chloride 10 MEQ TAB PO SCH (07:44)
[2019-02-08] MEDS: Levothyroxine Sodium 50 MCG TAB PO SCH (07:44)
[2019-02-08] MEDS: Escitalopram Oxalate 10 mg Tablet PO SCH (07:44)
--- NOTE | 2019-02-08 09:00 | EEG ---
Referring Physician:Lizabeth TYSON EEG # [id number] TEST TYPE: ROUTINE PORTABLE INPATIENT REPORT: AN EEG USING THE INTERNATIONAL TEN-TWENTY SYSTEM OF ELECTRODE PLACEMENT WAS PERFORMED. The best waking background is an 8 hertz alpha frequency. This is somewhat poorly maintained and there is some intermixed theta frequencies. No epileptiform features are present. No sleep was seen. Photic stimulation was unremarkable. IMPRESSION: THIS IS A MILDLY ABNORMAL STUDY FOR THE FINDINGS OF SOME INTERMITTENT SLOWING CONSISTENT WITH A DIFFUSE ENCEPHALOPATHIC PROCESS. 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
--- NOTE | 2019-02-08 09:33 | PRG ---
DATE OF SERVICE: 02/08/2019 SUBJECTIVE: She appears to be doing very well. She does not verbalize much. OBJECTIVE: VITAL SIGNS: Temperature 98.4, pulse 70, blood pressure 116/70. HEENT: Unremarkable. NECK: No adenopathy or JVD. CHEST: Clear anteriorly. CARDIAC: S1, S2. Regular. ABDOMEN: Soft. LABORATORY DATA: Sodium 141, potassium 3.5, chloride 111, CO2 of 23, BUN 11, creatinine 1.4, glucose 127. ASSESSMENT: 1. Status post hypercapnic respiratory failure. 2. Complex acid-base status. PLAN: She has transfer orders to the stroke floor. The acetazolamide has been appropriately stopped. Hopefully, we will not have any further problems. I would avoid the effects of Lasix causing contraction alkalosis. Job ID: [id number]
[2019-02-08 13:34] VITALS: BMI 23.5
--- NOTE | 2019-02-08 17:42 | PRG ---
DATE OF SERVICE: 02/08/2019 ADDENDUM: Please add this as an addendum to the note of Dr. Munira Zamora. Ms. Carcamo is much more awake and alert this morning. She is in fact quite cheerful. Her EEG does show a diffuse encephalopathic process, but no evidence of epileptiform features. She is okay to transfer to the regular medical floor. I suspect that her prior symptoms on admission were possibly related to acute respiratory acidosis secondary to significant CO2 retention. Job ID: [id number]
[2019-02-08 22:14] LABS: Bilirubin Negative (Negative); Blood, Urine Negative (Negative); Clarity Clear (Clear); Glucose, Urine (Dipstick) Normal (Negative); Leukocyte 75 Leu/uL (Negative); Nitrite Negative (Negative); Protein, Urine (Dipstick) 20 mg/dL (Neg-Trace); Squamous Epithelial 0-3 HPF (0-3); Urobilinogen Normal mg/dL (Less than 2); WBC/HPF 21-50 HPF (0-3)
[2019-02-08 22:16] LABS: Bacteria/HPF 1+ HPF (None Seen); Urine Culture Reflex Yes Yes
[2019-02-09] MEDS: Dextrose 5%-Lactated Ringers 1,000 ML IV SCH (04:48)
[2019-02-09 05:24] LABS: Anion Gap 8 mmol/L (10-20); BUN (Urea Nitrogen) 9 mg/dL (9.8-20.1); Calc. Creatinine Clearance 40 mL/min (70-130); Calcium 8.3 mg/dL (7.8-10.44); Carbon Dioxide 23 mmol/L (23-31); Chloride 113 mmol/L (98-107); Estimated GFR-MDRD 57; Glucose 91 mg/dL (83-110); Magnesium 1.7 mg/dL (1.6-2.6); Potassium 3.6 mmol/L (3.5-5.1); Sodium 140 mmol/L (136-145)
[2019-02-09 05:32] LABS: Phosphorus 2.7 mg/dL (2.3-4.7)
--- NOTE | 2019-02-09 06:00 | PDOC.FM ---
- Subjective Subjective: Pt was sleeping soundly this AM. VSS. Not requiring any supplemental oxygen. - Objective MAR Reviewed: Yes Vital Signs & Weight: Vital Signs (12 hours) Temp Pulse Ox 02/09/19 03:42 97.4 F L 02/09/19 02:01 94 L 02/08/19 23:16 98.0 F 02/08/19 20:00 100 02/08/19 19:13 98.0 F Weight Admit Weight 64.682 kg Weight 68.13 kg Most Recent Monitor Data Heart Rate from ECG 74 NIBP 115/68 NIBP BP-Mean 83 Respiration from ECG 15 SpO2 93 I&O: 02/07/19 02/08/19 02/09/19 06:59 06:59 06:59 Intake Total 1000 1100 Output Total 800 450 Balance 200 650 Result Diagrams: 02/07/19 06:46 02/09/19 04:16 Phys Exam - Physical Examination Constitutional: NAD Respiratory: no wheezing, clear to auscultation bilateral (diminished over R side) Cardiovascular: RRR, no significant murmur Gastrointestinal: soft, non-tender, no distention, positive bowel sounds Dx/Plan (1) SONALI (acute kidney injury) Code(s): N17.9 - ACUTE KIDNEY FAILURE, UNSPECIFIED Status: Acute (2) Acute on chronic diastolic CHF (congestive heart failure) Code(s): I50.33 - ACUTE ON CHRONIC DIASTOLIC (CONGESTIVE) HEART FAILURE Status : Acute (3) Dementia Code(s): F03.90 - UNSPECIFIED DEMENTIA WITHOUT BEHAVIORAL DISTURBANCE Status: Chronic Qualifiers: Dementia type: Alzheimer's disease (4) HTN (hypertension) Code(s): I10 - ESSENTIAL (PRIMARY) HYPERTENSION Status: Chronic (5) Hypothyroidism Code(s): E03.9 - HYPOTHYROIDISM, UNSPECIFIED Status: Chronic (6) Urinary retention Code(s): R33.9 - RETENTION OF URINE, UNSPECIFIED Status: Acute - Plan Plan: 83-yo female with acute change in mental status admitted for: Seizures, in setting of dementia, likely 2/2 acute respiratory acidosis 2/2 CO2 retention - Keppra scheduled and Lorazepam PRN for seizure activity - Brain MRI: negative for acute process, chronic small vessel disease - Carotid doppler: negative for stenosis - Neurology Consult, appreciate recs. - PT/OT/Speech: pending. Reordered PT eval/treat. - Diet: mechanical soft - EEG: slow encephalopathic changes, no epileptiform discharges Acute hypercapneic hypoxic respiratory failure, improved Chronic right diaphragmatic paralysis Chronic hypercapneic respiratory failure - CXR w/ elevation of R diaphragm and hypoinflation - Pulm consulted, appreciate recs Urinary retention, acute - call received yesterday that pt has PVR of 600 mL. Ordered straight cath and then repeat PVR in 4 hours. However, this does not appear to have been done and instead a Bustos catheter was placed. Pt has not history of urinary retention. Dementia - axo x1 at baseline HTN -BP 135/72 on 02/04 -Allow for permissive HTN Hypothyroidism -Continue home medication regimen. PO meds SONALI on CKD - SONALI improved - Continue fluid resuscitation Code Status: Full Code Diet: Mechanical soft Activity: as tolerated DVT PPx: SCDs Dispo: IMCU, stable for stroke floor. Pending inpt rehab vs return to [facility].
[2019-02-09] MEDS: Levothyroxine Sodium 50 MCG TAB PO SCH (09:02)
[2019-02-09] MEDS: Rivastigmine 1.5 MG CAP PO SCH ×2 (09:02→17:41)
[2019-02-09] MEDS: Potassium Chloride 10 MEQ TAB PO SCH (09:02)
[2019-02-09] MEDS: Escitalopram Oxalate 10 mg Tablet PO SCH (09:02)
[2019-02-09] MEDS ORDERED: cefTRIAXone\\ROCEPHIN 1 GM in Sodium Chloride 0.9% 100 ML IVPB SCH (09:30)
[2019-02-09 11:44] LABS: Actual Bicarbonate (HCO3a) 22.8 mEq/L (22-28); Base Excess (BEa) -2.7 mEq/L (-2.0 to +3.0); CO2 Tension 42.1 mmHg (35.0-45.0); Calcium, Ionized 1.22 mmol/L (1.12-1.30); Carboxyhemoglobin (COHb) 1.2 gm% (0.0-3.0); Hemoglobin (Hb) 9.1 g/dL (12.0-16.0); O2 Tension (PaO2) 62.1 mmHg (> 60.0); Potassium - ABG Lab 3.73 mmol/L (3.70-5.30); pH, Arterial 7.35 (7.35-7.45)
[2019-02-09 11:45] LABS: ALV-art Gradient 35.005 (0-20); Puncture Site RBA
--- NOTE | 2019-02-09 12:07 | PRG ---
DATE OF SERVICE: 02/09/2019 Ms. Carcamo was initially very somnolent this morning, but was easily arousable. She is hard of hearing and this may have something to do with her being difficult to arouse. In the event, she is now awake, alert, pleasant, no distress. Given that she developed hypercapnic respiratory acidosis, I think it would be a good idea to check a baseline room air ABG to see what her baseline pCO2 and O2 are. This could be accomplished before she leaves. Otherwise, continue with current management. Her EEG did not show any epileptiform activity. It would appear she had a possible seizure induced by the significant respiratory acidosis and hypercapnia. Job ID: [id number]
[2019-02-10] MEDS ORDERED: Acetaminophen 325 MG TAB PO PRN (00:05)
[2019-02-10] MEDS: Dextrose 5%-Lactated Ringers 1,000 ML IV SCH (01:59)
[2019-02-10 05:21] LABS: Phosphorus 2.8 mg/dL (2.3-4.7)
[2019-02-10 05:24] LABS: Anion Gap 10 mmol/L (10-20); BUN (Urea Nitrogen) 10 mg/dL (9.8-20.1); Calc. Creatinine Clearance 39 mL/min (70-130); Calcium 8.5 mg/dL (7.8-10.44); Carbon Dioxide 23 mmol/L (23-31); Chloride 114 mmol/L (98-107); Estimated GFR-MDRD 56; Glucose 102 mg/dL (83-110); Magnesium 1.7 mg/dL (1.6-2.6); Potassium 3.7 mmol/L (3.5-5.1); Sodium 143 mmol/L (136-145)
--- NOTE | 2019-02-10 06:29 | PDOC.FM ---
- Subjective Subjective: Pt transferred to stroke unit. Schilling removed and pt has voided without difficulty; 2 wet diapers. Sleeping soundly this morning on room air. No acute events overnight. She did have Temp of 100.2 and repeat at 99.8. - Objective MAR Reviewed: Yes Vital Signs & Weight: Vital Signs (12 hours) Temp Pulse Resp BP Pulse Ox 02/10/19 02:03 99.8 F H 86 18 98 02/10/19 00:50 95 02/09/19 23:23 100.2 F H 90 16 132/72 100 02/09/19 19:14 99 F 78 18 146/82 H 90 L Weight Admit Weight 64.682 kg Weight 68.13 kg Most Recent Monitor Data Heart Rate from ECG 77 NIBP 156/83 NIBP BP-Mean 107 Respiration from ECG 30 SpO2 97 I&O: 02/08/19 02/09/19 02/10/19 06:59 06:59 06:59 Intake Total 1601 240 Output Total 800 Balance 801 240 Result Diagrams: 02/07/19 06:46 02/10/19 04:03 Phys Exam - Physical Examination Constitutional: NAD (sleeping soundly) Respiratory: no wheezing, clear to auscultation bilateral (lung sounds diminished on R compared to left, stable) Cardiovascular: RRR, no significant murmur Gastrointestinal: soft, non-tender, no distention, positive bowel sounds Musculoskeletal: no edema Dx/Plan (1) SONALI (acute kidney injury) Code(s): N17.9 - ACUTE KIDNEY FAILURE, UNSPECIFIED Status: Acute (2) Acute on chronic diastolic CHF (congestive heart failure) Code(s): I50.33 - ACUTE ON CHRONIC DIASTOLIC (CONGESTIVE) HEART FAILURE Status : Acute (3) Dementia Code(s): F03.90 - UNSPECIFIED DEMENTIA WITHOUT BEHAVIORAL DISTURBANCE Status: Chronic Qualifiers: Dementia type: Alzheimer's disease (4) HTN (hypertension) Code(s): I10 - ESSENTIAL (PRIMARY) HYPERTENSION Status: Chronic (5) Hypothyroidism Code(s): E03.9 - HYPOTHYROIDISM, UNSPECIFIED Status: Chronic (6) Urinary retention Code(s): R33.9 - RETENTION OF URINE, UNSPECIFIED Status: Acute - Plan Plan: 83-yo female with acute change in mental status admitted for: Seizures, in setting of dementia Likely 2/2 acute respiratory acidosis and CO2 retention - Claritzara scheduled and Lorazepam PRN for seizure activity - Neurology Consult, appreciate recs. Stroke ruled out. - PT/OT/Speech: appreciate recs - EEG: slow encephalopathic changes, no epileptiform discharges - ABG at baseline on room air: 7.35/ pCO2 42 / pO2 62 / base excess -2.7 Acute hypercapneic hypoxic respiratory failure, improved Chronic right diaphragmatic paralysis Chronic hypercapneic respiratory failure - CXR w/ elevation of R diaphragm and hypoinflation - Pulm consulted, appreciate recs Urinary retention, resolved - schilling out, urinating w/o difficulty Dementia - axo x1 at baseline HTN - monitor Hypothyroidism -Continue home medication regimen. PO meds SONALI on CKD - Cr at baseline Code Status: Full Code Diet: Mechanical soft Activity: as tolerated DVT PPx: SCDs Dispo: Pending inpt rehab prior to return to [facility].
[2019-02-10] MEDS: Potassium Chloride 10 MEQ TAB PO SCH (09:44)
[2019-02-10] MEDS: Escitalopram Oxalate 10 mg Tablet PO SCH (09:44)
[2019-02-10] MEDS: Levothyroxine Sodium 50 MCG TAB PO SCH (09:44)
[2019-02-10] MEDS: Rivastigmine 1.5 MG CAP PO SCH ×2 (09:44→18:04)
--- NOTE | 2019-02-10 12:40 | PRG ---
DATE OF SERVICE: 02/10/2019 Ms. Carcamo is resting quietly in bed, in no distress. She is awaiting placement to the rehab center. Her room air ABG showed a pH 7.35, a pCO2 of 42, and a pO2 of 62. She, therefore, does not qualify for O2 [id number]. Job ID: [id number]
[2019-02-10 15:38] VITALS: BP 128/77; TEMP 99
[2019-02-10] MEDS: Prevnar 13-Val Conj/PF 0.5 ML SYRINGE IM ONE (16:00)
== END 2019-02-10 19:19 | DRG 189 ==
LOC: ERS 20:49 → 2SE 23:09 → IMCU/EMU 02-04 18:58 → 2SE 02-09 14:33
PROVIDERS: ADMIT Hospitalist; ATTEND Hospitalist
DX: J96.22 Acute and chronic respiratory failure with hypercapnia (principal); I50.33 Acute on chronic diastolic (congestive) heart failure; N17.9 Acute kidney failure, unspecified; I13.0 Hypertensive heart and chronic kidney disease with heart failure and stage 1 through stage 4 chronic kidney disease, or unspecified chronic kidney disease; E87.2 Acidosis; R56.9 Unspecified convulsions; G30.9 Alzheimer's disease, unspecified; E03.9 Hypothyroidism, unspecified; F02.80 Dementia in other diseases classified elsewhere, unspecified severity, without behavioral disturbance, psychotic disturbance, mood disturbance, and anxiety; R33.9 Retention of urine, unspecified; J98.6 Disorders of diaphragm; E11.22 Type 2 diabetes mellitus with diabetic chronic kidney disease; N18.9 Chronic kidney disease, unspecified
CPT/HCPCS: 36415; 36416; 51701; 70450; 70551; 71045; 80048; 80053; 80177; 81001; 81003; 82550; 82805; 83605; 83690; 83735; 84100; 84146; 84443; 84484; 85014; 85018; 85025; 85027; 85610; 85730; 87040; 87086; 90471; 90670; 93005; 93010; 93880; 94660; 95816; 95819; 96361; 96365; 96375; A4353; G0009; J0696; J1120; J1940; J1953; J2405; J3490; J7121

== ENCOUNTER 2019-02-15 20:05 | Observation (INO) | payer BC, MEDICARE ==
[~2019-02-15 20:05] MED LIST: ISOVUE-370 76%-LOCM 1 ML ONE
--- NOTE | 2019-02-15 21:21 | RAD ---
EXAM: CHEST ONE VIEW HISTORY: Altered mental status. Increasing lethargy. COMPARISON: 02/14/2019 FINDINGS: Again noted is elevation of the right hemidiaphragm which limits evaluation of the right lung base. T here is ectasia of the thoracic aorta which is partially calcified. Prominence of the right paramediastinal structures is again noted; however, this is similar to the prior study and is also st able when compared to study on 10/08/2018. A CT of the thorax on 10/08/2018 demonstrated tortuosity of vascular structures and calcified lymph nodes in this region. Calcified granulomata are also seen on the right. No other interval change. IMPRESSION: Overall stable chest with suboptimal evaluation of the right lung base. Atelectasis or pneumonia at t he right lung base could not be entirely excluded.
[2019-02-15 21:48] LABS: #Eosinphils 0.3 thou/uL (0.0-0.7); #Lymphocytes 1.2 thou/uL (1.20-3.40); #Neutrophils 6.9 thou/uL (1.40-6.50); %Basophils 0.5 % (0.0-1.0); %Eosinophils 2.9 % (0.0-10.0); %Monocytes 10.9 % (0.0-10.0); %Neutrophils 72.7 % (42.0-75.0); Hemoglobin 8.5 g/dL (12.0-16.0); Mean Corpuscular HGB CONC 29.5 g/dL (32.0-36.0); Mean Corpuscular Hemoglobin 26.2 pg (27.0-31.0); Mean Corpuscular Volume 88.6 fL (78.0-98.0); Mean Platelet Volume 8.2 fL (7.4-10.4); Platelet Count 247 thou/uL (130-400); RBC Distribution Width 16.7 % (11.5-14.5); Red Blood Cell (RBC) Count 3.26 mill/uL (4.20-5.40); White Blood Cell (WBC) Count 9.4 thou/uL (4.8-10.8)
[2019-02-15 22:15] LABS: ALT (SGPT) 9 U/L (8-55); AST (SGOT) 13 U/L (5-34); Albumin 3.3 g/dL (3.4-4.8); Alkaline Phosphatase 139 U/L (40-110); Anion Gap 11 mmol/L (10-20); BUN (Urea Nitrogen) 16 mg/dL (9.8-20.1); Bilirubin, Total 0.2 mg/dL (0.2-1.2); Calc. Creatinine Clearance 0 mL/min (70-130); Carbon Dioxide 24 mmol/L (23-31); Chloride 114 mmol/L (98-107); Estimated GFR-MDRD 40; Globulin 3.3 g/dL (2.4-3.5); Glucose 96 mg/dL (83-110); Lipase 22 U/L (8-78); Magnesium 2.2 mg/dL (1.6-2.6); Potassium 4.7 mmol/L (3.5-5.1); Protein, Total 6.6 g/dL (6.0-8.3); Sodium 144 mmol/L (136-145)
[2019-02-15 22:52] LABS: Bilirubin Negative (Negative); Blood, Urine Negative (Negative); Clarity Clear (Clear); Glucose, Urine (Dipstick) Normal (Negative); Leukocyte Negative Leu/uL (Negative); Nitrite Negative (Negative); Protein, Urine (Dipstick) 10 mg/dL (Neg-Trace); Urobilinogen Normal mg/dL (Less than 2)
--- NOTE | 2019-02-15 23:08 | CT ---
CT Head without IV contrast COMPARISON: 02/14/2019 HISTORY: Altered mental status. Patient becoming more lethargic. TECHNIQUE: Axial CT imaging at 5 mm intervals from vertex through skull base without contrast FINDINGS: There is no evidence of an acute infarction, hemorrhage, mass effect, or midline shift. Low-density f oci are again seen in each thalamus suggesting remote lacunar infarctions. There is decreased attenuation seen in the periventricular white matter which is nonspecific and similar to prior exam a nd most likely attributable to chronic small vessel ischemic changes. Cerebral and cerebellar volume loss is again identified. The ventricular system is normal in size, shape, and position for th e degree of sulcal atrophy. Visualized paranasal sinuses are clear. Osseous structures appear intact. IMPRESSION: 1. Stable CT scan of the head with chronic findings. No acute intracranial abnormality is demonstrate d.
--- NOTE | 2019-02-15 23:26 | CT ---
CT ABDOMEN AND PELVIS WITH IV CONTRAST 02/15/2019 CLINICAL INFORMATION: Generalized abdominal pain. Patient becoming more lethargic. Altered mental status. COMPARISON: Noncontrast CT thorax on 10/08/[address] abdomen on 12/20/2016 Technique: Multiple contiguous axial CT images are obtained through the abdomen and pelvis with IV contrast. Cor onal reformatted images are provided. FINDINGS: Lower Chest: Small left and tiny left pleural effusions are present with passive atelectasis at the l eft lung base. There is consolidation at the right lung base which may be related to volume loss or pneumonia. Calcified granulomata are also seen at the right lung base. Vessels: Vascular calcifications are seen in the coronary arteries as well as involving the thoracic and abdominal aorta and iliac arteries. Abdomen: Portal vein:Patent Gallbladder: Multiple gallbladder calculi are again seen. Liver: within normal limits. Spleen: There is a hypodense lesion within the spleen measuring 1.6 cm with a smaller tiny subcapsula r hypodense lesion in the inferior pole of the spleen which are difficult to characterize. This could represent small splenic cysts. The hypodense lesions were less well appreciated on the prior no ncontrasted exam. Pancreas: within normal limits. Adrenals: Nodular appearance of the left adrenal gland is noted which is stable compared to study in 2017. That examination demonstrated an attenuation coefficient most suggestive of an adrenal adenoma. Kidneys: Subcentimeter hypodense lesions are seen in each kidney which are too small to characterize. A larger hypodense lesion is seen within the midportion and superior pole right kidney measuring 7.5 cm which is similar in appearance compared to study in 2017 and likely represents a cyst. Parapel randolph renal cysts are also seen on the right. A nonobstructing calculus in the midportion right kidney is again present. There is minimal thickening of the mosqueda of the left renal pelvis with suggestion of minimal strandin g. Infection in the correct clinical scenario is a possibility. Correlation with urinalysis is recommended. Bowel: Colonic diverticulosis is present. Loops of small bowel are normal in caliber. Appendix: The appendix is visualized and normal in caliber. Peritoneum and retroperitoneum: Minimal stranding is seen in a presacral location with associated min imal amount of fluid. No additional free fluid or fluid collection is seen in the abdomen or pelvis. No enlarged lymph nodes are seen. Abdominal Wall: Mild subcutaneous edema is seen in the flank regions bilaterally as well as involving the gluteal adipose soft tissues. Pelvis: Reproductive Organs: Evidence of hysterectomy. Pelvis within normal limits. Bladder: within normal limits. Bones: Degenerative changes are seen throughout the lower thoracic and involving the lumbar spine. Th ere is grade 1 anterolisthesis of L4 on L5 and L5 on S1 related to facet degenerative changes. IMPRESSION: 1. Small bilateral pleural effusions with greater degree of consolidation at the right lung base. Thi s may be related to elevation of the right hemidiaphragm and greater degree of volume loss at the right lung base compared to the left, but pneumonia at the right lung base cannot be excluded. 2. Cholelithiasis. 3. Mild thickening of the mosqueda of the left renal pelvis. This is overall nonspecific but could be re lated to prior infectious or inflammatory process. Correlation with urinalysis is recommended as more acute infectious process cannot be entirely excluded. 4. Subcentimeter too small to characterize hypodense lesions in each kidney with larger exophytic cys t right kidney and parapelvic right renal cysts. 5. Colonic diverticulosis. 6. Hypodense lesions inferior aspect of the spleen which are difficult to characterize but may possib ly represent cysts. A nonobstructing right renal calculus is seen. 7. Nonspecific small amount of fluid and stranding in a presacral location. The rectum is not distend ed. 8. Stable nodularity left adrenal gland.
[2019-02-15] MEDS ORDERED: Cefepime 2 GM VIAL ONE (23:39)
--- NOTE | 2019-02-16 01:10 | PDOC.FPRHP ---
- History of Present Illness Chief Complaint: increasing lethargy History of Present Illness: 83-year-old female with a past medical history of dementia, hypertension, hypothyroidism, CKD, and recent seizures started on Keppra, here today for increasing decline and increasing lethargy. Patient was brought in by her son who states she has been more lethargic than her normal self. She was recently discharged from the hospital where she was treated for a SONALI on CKD, and seizures in the setting of dementia-started on Keppra. The Keppra was discontinued an outpatient setting as thought to be contributing to her increasing lethargy. In the emergency department the patient was found have a right lower lobe pneumonia and started on cefepime and vancomycin. She was given 500 mL of NS. Oxygen saturation was 97% on 2 L nasal cannula. Patient was also found to have cholithiasis on CT abd. No Cholecystitis. Creatinine 1.4 , BNP 826, TSH 1.58 - Allergies/Adverse Reactions Allergies Allergy/AdvReac Type Severity Reaction Status Date / Time Penicillins Allergy Short of Verified 02/17/19 11:23 Breath - Home Medications Medication Instructions Recorded Confirmed Type Acetaminophen [Pain Relief] 650 mg PO TID 10/09/18 02/16/19 History Escitalopram Oxalate [Lexapro] 10 mg PO DAILY 10/09/18 02/16/19 History Levothyroxine Sodium 50 mcg PO DAILY 10/09/18 02/16/19 History Mirtazapine 30 mg PO HS 10/09/18 02/16/19 History Polyethylene Glycol 3350 17 gm PO DAILY PRN 10/09/18 02/16/19 History Potassium Chloride 5 meq PO DAILY 10/09/18 02/16/19 History Saccharomyces boulardii [Florastor] 250 mg PO BID-AC 10/09/18 02/16/19 History Sennosides [Senna Lax] 8.6 mg PO DAILY 10/09/18 02/16/19 History Losartan Potassium 50 mg PO BID 01/27/19 02/16/19 History cloNIDine HCl 0.1 mg PO Q6HR PRN 01/27/19 02/16/19 History Amlodipine [Norvasc] 5 mg PO DAILY 01/28/19 02/16/19 History Carvedilol [Coreg] 6.25 mg PO BID-WM #60 tab 01/29/19 02/16/19 Rx Ranolazine [Ranexa] 500 mg PO BID #60 tab 01/29/19 02/16/19 Rx Spironolactone [Aldactone] 25 mg PO QAM-WM #30 tab 01/29/19 02/16/19 Rx Acetaminophen 500 mg PO Q4HR PRN 02/16/19 02/16/19 History Benzocaine/Menthol [Cepacol Sore 1 each MM BID PRN 02/16/19 02/16/19 History Throat Lozenge] Calcium Carbonate [Tums] 1,000 mg PO Q6HR PRN 02/16/19 02/16/19 History Codeine Phosphate/Guaifenesin 10 ml PO Q4HR PRN 02/16/19 02/16/19 History [Guaifenesin AC Cough Syrup] Loperamide HCl [Loperamide] 2 mg PO ASDIR PRN 02/16/19 02/16/19 History Magnesium Hydroxide [Milk of 20 ml PO DAILY PRN 02/16/19 02/16/19 History Magnesia] Pantoprazole Sodium 40 mg PO DAILY 02/16/19 02/16/19 History Simethicone [Mylicon Chewable] 80 mg PO TID PRN 02/16/19 02/16/19 History Cephalexin [Keflex] 250 mg PO Q6HR #28 cap 02/17/19 Rx - History PMHx: stage 2 alzheimer's dementia, diastolic CHF, hypothyroidism, HTN, Seizures PSHx: hemorroidectomy, cataract sx, l kidney open stone removal FHx: non-contributory Social: former smoker 10 years ago, denies etoh and drug use. [place] in [place] - Review of Systems ROS unobtainable: due to mental status (pt does not answer questions appropriately) - Vital signs BP: 158/97 HR: 87 RR: 20 Tmax: 97.8 Pox: 100% on 2L NC Wt: 75.9 kg - Physical Exam Constitutional: NAD -Constitutional: awake, OX0 HEENT: normocephalic and atraumatic, PERRLA, conjunctiva clear, no scleral icterus, MMM Neck: supple, trachea midline, no LAD, no JVD Chest: no-tender to palpation, no lesions Heart: RRR, normal S1/S2, no murmurs/rubs/gallops, pulses present -Heart: BLE edema RLE > LLE edema Lungs: CTAB, no respiratory distress, good air movement, no rales/rhonchi, no wheezing Abdomen: soft, non-tender Musculoskeletal: normal structure Skin: no rash/lesions, good turgor, capillary refill <2 seconds Heme/Lymphatic: no unusual bruising or bleeding, no purpura FMR H&P: Results - Labs Result Diagrams: 02/16/19 01:46 02/16/19 01:46 Lab results: WBC 9.4 thou/uL (4.8-10.8) 02/15/19 21:27 Hgb 8.5 g/dL (12.0-16.0) L 02/15/19 21: Hct 28.9 % (36.0-47.0) L 02/15/19 21: MCV 88.6 fL (78.0-98.0) 02/15/19 21:27 Plt Count 247 thou/uL (130-400) 02/15/19 21:27 Neutrophils % 72.7 % (42.0-75.0) 02/15/19 21:27 Sodium 144 mmol/L (136-145) 02/15/19 21:27 Potassium 4.7 mmol/L (3.5-5.1) 02/15/19 21: Chloride 114 mmol/L (98-107) H 02/15/19 21:27 Carbon Dioxide 24 mmol/L (23-31) 02/15/19 21:27 BUN 16 mg/dL (9.8-20.1) 02/15/19 21:27 Creatinine 1.49 mg/dL (0.6-1.1) H 02/15/19 21:27 Glucose 96 mg/dL (83-110) 02/15/19 21:27 Lactic Acid 0.9 mmol/L (0.5-2.2) 02/15/19 21: Calcium 9.0 mg/dL (7.8-10.44) 02/15/19 21:27 Total Bilirubin 0.2 mg/dL (0.2-1.2) 02/15/19 21:27 AST 13 U/L (5-34) 02/15/19 21:27 ALT 9 U/L (8-55) 10/21/19 21:27 Alkaline Phosphatase 139 U/L (40-110) H 02/15/19 21:27 B-Natriuretic Peptide 826.0 pg/mL (0-100) H 02/15/19 21:27 Serum Total Protein 6.6 g/dL (6.0-8.3) 02/15/19 21:27 Albumin 3.3 g/dL (3.4-4.8) L 02/15/19 21:27 Lipase 22 U/L (8-78) 02/15/19 21:27 Urine Ketones Negative mg/dL (Negative) 02/15/19 22:35 Urine Blood Negative (Negative) 02/15/19 22:35 Urine Nitrite Negative (Negative) 02/15/19 22:35 Ur Leukocyte Esterase Negative Paulina/uL (Negative) 02/15/19 22:35 - Radiology Interpretation Chest x-ray Status: report reviewed by me (RLL pneumonia) CT scan - head Status: report reviewed by me (chronic stable findings. No acute process) FMR H&P: A/P - Problem List (1) HAP (hospital-acquired pneumonia) Status: Acute Code(s): J18.9 - PNEUMONIA, UNSPECIFIED ORGANISM; Y95 - NOSOCOMIAL CONDITION (2) Lethargy Status: Acute Code(s): R53.83 - OTHER FATIGUE (3) Diastolic CHF Status: Acute Code(s): I50.30 - UNSPECIFIED DIASTOLIC (CONGESTIVE) HEART FAILURE (4) Lower extremity edema Status: Acute Code(s): R60.0 - LOCALIZED EDEMA (5) Dementia Status: Chronic Code(s): F03.90 - UNSPECIFIED DEMENTIA WITHOUT BEHAVIORAL DISTURBANCE Qualifiers: Dementia type: Alzheimer's disease (6) HTN (hypertension) Status: Chronic Code(s): I10 - ESSENTIAL (PRIMARY) HYPERTENSION (7) Hypothyroidism Status: Chronic Code(s): E03.9 - HYPOTHYROIDISM, UNSPECIFIED (8) CKD (chronic kidney disease) stage 3, GFR 30-59 ml/min Status: Acute Code(s): N18.3 - CHRONIC KIDNEY DISEASE, STAGE 3 (MODERATE) - Plan 83 y/o F admitted for further evaluation and treatment of increasing lethargy and RLL pneumonia. 1. Increasing Lethargy most likely secondary to RLL pneumonia - Pt's Keppra was d/c'd due to the lethargy. - UA no evidence of UTI - CXR RLL infiltrate - CT head: Stable Chronic findings, no acute findings. 2. RLL Pneumonia - Most likely HAP, with recent IV rocephin therapy and recent admission. - Started Vanc and Cefepime. - Pharm to dose vanc - Pt given 500 ml NS bolus in ED. - Urine strep pneumonia and Legionella antigens negative 3. Hx of Seizures in the setting of dementia - Keppra was d/c'd in outpt setting - No seizures since discontinuation 4. Hx of HTN - Continue home medications 5. Hx of CKD, stage 3 - Cr 1.49 - CrCl 33, GFR 44 6. Hx of CHF, diastolic dysfunction - BNP 826, decreased from discharge, above baseline - Pt is not clinically in CHF exacerbation 7. Hx of Hypothyroidism - continue home levothyroxine dose - TSH 1.5823 8. Dementia, pt at Baseline AMS, with increasing lethargy - continue home medications Code status: Full code Diet: HH, mechanical soft DVT ppx: Lovenox 30 mg daily Dispo: Stable, admit to obs medical for treatment of HAP with IV antibiotic therapy. Anticipate <2 day hx stay. FMR H&P: Upper Level - Pertinent history 83 y/o AAF PMHx CHF, Hypothyroidism, Alzheimers, HTN presents from rehab due to lethargy. Her sons gave most of the history. They report that she has been getting progressively more lethargic over the past couple of days. Keppra was started her last hospitalization, but it was stopped a few days ago due to the lethargy. She has developed a wet cough and some shortness of breath. Denies any fevers or chills. - Pertinent findings BP: 158/97, Pulse: 89, Resp: 16, Temp: 98.1 (Oral), Pain: 0, O2 sat: 97 on 2L Oxygen PE: Gen - alert, NAD HEENT - MMM CV - RRR, no murmurs Lungs - decreased air movement diffusely, no wheezes or rhonchi noted Labs: Hb 8.5, Cr 1.49, GFR 40, BNP 826 CT chest - small bilateral pleural effusions, RLL consolidation CXR - atelectasis vs PNA in R lung base - Plan Date/Time: 02/16/19 0110 I, Tamera Nielson MD, PGY-3, have evaluated this patient and agree with findings/ plan as outlined by editing internship resident. Pertinent changes/additions are listed here. 1. RLL Pneumonia Pt received a single dose of IV rocephin during prior hospitalization, so limited risk factors for pseudomonal resistance. -Will continue vanc and cefepime -Check procal -BCx -Urine strep pneumo and legionella antigens 2. HFpEF -Continue home meds 3.CKD3b Appears to be at baseline kidney function -Will monitor 4.HTN -Home meds 5.Hypothyroidism -Home meds Dispo: Admit to medical LOS: likely greater than 2 days Code status: Full VTE ppx: Lovenox Addendum - Attending - Attending Attestation Date/Time: 02/16/19 [id number] I personally evaluated the patient and discussed the management with resident team I agree with the History, Examination, Assessment and Plan documented above with any addition or exceptions noted below. Patient remains sleepy and slow to respond. Airway is protected. No acute concerns at this time. Restless overnight. Will continue to hydrate and hold Keppra. Keppra is likely cause. However, metabolic and infectious workup pending. Will continue to monitor closely throughout the day. Marc
[2019-02-16] MEDS ORDERED: Ondansetron ODT 4 MG TAB PO PRN (01:24)
[2019-02-16] MEDS ORDERED: Acetaminophen 325 MG TAB PO PRN (01:24)
[2019-02-16] MEDS ORDERED: Polyethylene Glycol 3350 17 GM Packet PO PRN (01:45)
[2019-02-16] MEDS ORDERED: Dextrose 50% Abboject 50 ML SYRINGE SLOW IVP PRN (01:45)
[2019-02-16] MEDS ORDERED: cloNIDine 0.1 MG TAB PO PRN (01:45)
[2019-02-16 01:56] LABS: #Eosinphils 0.3 thou/uL (0.0-0.7); #Lymphocytes 1.1 thou/uL (1.20-3.40); #Monocytes 0.9 thou/uL (0.11-0.59); #Neutrophils 6.3 thou/uL (1.40-6.50); %Basophils 0.6 % (0.0-1.0); %Eosinophils 3.1 % (0.0-10.0); %Lymphocytes 12.8 % (21.0-51.0); %Monocytes 9.9 % (0.0-10.0); %Neutrophils 73.6 % (42.0-75.0); Hemoglobin 8.4 g/dL (12.0-16.0); Mean Corpuscular HGB CONC 30.2 g/dL (32.0-36.0); Mean Corpuscular Hemoglobin 26.6 pg (27.0-31.0); Mean Corpuscular Volume 88.3 fL (78.0-98.0); Mean Platelet Volume 8.6 fL (7.4-10.4); Platelet Count 222 thou/uL (130-400); RBC Distribution Width 16.7 % (11.5-14.5); Red Blood Cell (RBC) Count 3.15 mill/uL (4.20-5.40); White Blood Cell (WBC) Count 8.6 thou/uL (4.8-10.8)
[2019-02-16 02:07] LABS: Legionella Urinary Ag Negative (Negative); Strep pneumo Urine Ag NEGATIVE (NEGATIVE)
[2019-02-16 02:23] LABS: Anion Gap 12 mmol/L (10-20); BUN (Urea Nitrogen) 16 mg/dL (9.8-20.1); Calc. Creatinine Clearance 0 mL/min (70-130); Calcium 8.9 mg/dL (7.8-10.44); Carbon Dioxide 22 mmol/L (23-31); Chloride 115 mmol/L (98-107); Estimated GFR-MDRD 44; Glucose 117 mg/dL (83-110); Potassium 4.7 mmol/L (3.5-5.1); Sodium 144 mmol/L (136-145)
[2019-02-16 03:22] VITALS: BMI 26.2
[2019-02-16] MEDS: Levothyroxine Sodium 50 MCG TAB PO SCH (05:10)
[2019-02-16] MEDS ORDERED: Rivastigmine 1.5 MG CAP PO SCH (08:00)
[2019-02-16] MEDS: Enoxaparin Sodium 30 MG/0.3 ML SYRINGE SC SCH (08:18)
[2019-02-16] MEDS: Carvedilol 6.25 MG TAB PO SCH ×2 (08:19→16:49)
[2019-02-16] MEDS: Spironolactone 25 MG TAB PO SCH (08:19)
[2019-02-16] MEDS: Escitalopram Oxalate 10 mg Tablet PO SCH (08:19)
[2019-02-16] MEDS: Amlodipine 5 MG TAB PO SCH (08:19)
[2019-02-16] MEDS: Acetaminophen 325 MG TAB PO SCH ×3 (08:19→20:08)
[2019-02-16] MEDS: Saccharomyces boulardii 250 MG CAP PO SCH ×2 (08:19→16:04)
[2019-02-16] MEDS: Potassium Chloride 10 MEQ TAB PO SCH (08:20)
[2019-02-16] MEDS: Senokot 8.6 MG TAB PO SCH (08:20)
[2019-02-16] MEDS: Losartan 25 MG TAB PO SCH ×2 (08:20→20:09)
[2019-02-16] MEDS ORDERED: Vancomycin HCl 1 GM in Sodium Chloride 0.9% 250 ML 250 ML IVPB SCH (09:00)
[2019-02-16] MEDS: Cefepime 2 GM in Sodium Chloride 0.9% 100 ML IVPB SCH ×2 (11:17→23:55)
[2019-02-16 15:47] LABS: Base Excess-Venous -1.7 mmol/L (-2.0 to 3.0); Bicarbonate (HCO3v) 27.3 mmol/L (22.0-28.0); CO2 Tension (PvCO2) 68.4 mmHg (40.0-50.0); Calcium, Ionized 1.34 mmol/L (See Comments:); Chloride 117 mmol/L (98-107); Hemoglobin - Calc 10.8 g/dL (12.0-16.0); Sodium 151 mmol/L (138-145); T. Carbon Dioxide 29.4 mmol/L (22.0-28.0); vO2 Saturation-calc 38.8 % (60.0-85.0)
[2019-02-16] MEDS ORDERED: Mirtazapine 30 MG TAB PO SCH (21:00)
[2019-02-17] MEDS ORDERED: Vancomycin HCl 750 MG in Sodium Chloride 0.9% 250 ML 250 ML IVPB SCH (01:00)
[2019-02-17] MEDS: Levothyroxine Sodium 50 MCG TAB PO SCH (05:12)
--- NOTE | 2019-02-17 08:01 | PDOC.FM ---
- Subjective Subjective: Continues to be obtunded. Denies pain. No overnight events. - Objective MAR Reviewed: Yes Vital Signs & Weight: Vital Signs (12 hours) Temp Pulse Resp BP Pulse Ox 02/17/19 06:58 97.9 F 85 16 163/84 H 93 L 02/17/19 04:00 98.5 F 99 20 167/88 H 94 L 02/17/19 00:00 98.1 F 81 18 169/85 H 100 02/16/19 20:00 98.6 F 81 18 161/82 H 99 Weight Admit Weight 75.977 kg Weight 75.977 kg I&O: 02/16/19 02/17/19 02/18/19 06:59 06:59 06:59 Intake Total 320 Balance 320 Result Diagrams: 02/16/19 01:46 02/16/19 01:46 Phys Exam - Physical Examination Constitutional: NAD HEENT: moist MMs Neck: supple Respiratory: no wheezing, clear to auscultation bilateral Cardiovascular: RRR S3 heart sound Gastrointestinal: soft, positive bowel sounds Musculoskeletal: no edema Deviation from normal: obtunded, oriented to person Skin: no rash Dx/Plan - Plan Plan: 83 y/o F admitted for further evaluation and treatment of increasing lethargy and RLL pneumonia. Encephalopathy - Etiology unclear at this point. Discontinued medications that could be causing symptoms. RLL PNA is also a possibility. Currently unclear to take anything PO. Consulted Palliative care. Attempted to contact family yesterday, will attempt again today. - Pt's Keppra was d/c'd due to the lethargy. - UA no evidence of UTI - CT head: Stable Chronic findings, no acute findings. RLL Pneumonia - Most likely HAP, with recent IV rocephin therapy and recent admission. - Procal neg. Urine strep pneumonia and Legionella antigens negative - Continue Cefepime Hx of Seizures in the setting of dementia - Keppra was d/c'd in outpt setting - No seizures since discontinuation HTN - Continue home medications CKD, stage 3 - At baseline, continue to monitor. HFpEF - Clinically euvolemic. Fluid restriction with HH diet, daily wts and strict I& Os Hypothyroidism - Continue home levothyroxine dose - TSH 1.5823 Dementia - Discontinued meds as could be contributing to lethargy DMII - ACHS accuchecks Code status: Full Diet: HH, mechanical soft DVT ppx: Lovenox 30 mg daily Addendum - Attending - Attending Attestation Date/Time: 02/17/19 8650 I personally evaluated the patient and discussed the management with Dr. Roth I agree with the History, Examination, Assessment and Plan documented above with any addition or exceptions noted below. HD#1 Patient now awake and interactive. Oriented to PP which is baseline. No evidence of infectious source. D/c antibx. Will not restart Keppra. If remains at baseline throughout the day possible d/c this afternoon. Will follow up with family to discuss plan. Marc
[2019-02-17] MEDS: Saccharomyces boulardii 250 MG CAP PO SCH ×2 (08:11→17:06)
[2019-02-17] MEDS: Carvedilol 6.25 MG TAB PO SCH ×3 (08:11→17:06)
[2019-02-17] MEDS: Senokot 8.6 MG TAB PO SCH ×2 (08:12→10:54)
[2019-02-17] MEDS: Potassium Chloride 10 MEQ TAB PO SCH ×2 (08:12→10:52)
[2019-02-17] MEDS: Amlodipine 5 MG TAB PO SCH ×2 (08:12→10:54)
[2019-02-17] MEDS: Acetaminophen 325 MG TAB PO SCH ×3 (08:12→17:06)
[2019-02-17] MEDS: Losartan 25 MG TAB PO SCH ×2 (08:12→10:55)
[2019-02-17] MEDS: Escitalopram Oxalate 10 mg Tablet PO SCH ×2 (08:12→10:49)
[2019-02-17] MEDS: Spironolactone 25 MG TAB PO SCH ×2 (08:12→10:50)
[2019-02-17] MEDS: Enoxaparin Sodium 30 MG/0.3 ML SYRINGE SC SCH (08:19)
[2019-02-17] MEDS ORDERED: methylPREDNISolone Sod Succ/PF 125 MG/2 ML VIAL IVP SCH (09:00)
[2019-02-17] MEDS ORDERED: cefTRIAXone Sodium 1 MG in Syringe 0 ML IVPB SCH (10:45)
[2019-02-17] MEDS ORDERED: cefTRIAXone\\ROCEPHIN 1 GM in Sodium Chloride 0.9% 100 ML IVPB SCH (12:00)
--- NOTE | 2019-02-17 14:40 | RAD ---
MODIFIED BARIUM SWALLOW IN PRESENCE OF SPEECH THERAPIST: HISTORY: Dysphagia, feeding difficulties FINDINGS: No laryngeal penetration or aspiration is seen. No persistent pooling of contrast is seen in the valleculae or piriform sinuses. Please see recommendations of the speech therapist for further management.
[2019-02-17 17:05] VITALS: TEMP 98
[2019-02-17 17:08] VITALS: BP 137/68
[2019-02-17] MEDS ORDERED: Cephalexin 250 MG CAP PO SCH (18:00)
--- NOTE | 2019-02-18 14:51 | DIS ---
DATE OF ADMISSION: 02/16/2019 DATE OF DISCHARGE: 02/17/2019 RESIDENT: Inez Roth, PGY-2. ADMITTING ATTENDING: Ambreen Castro MD DISCHARGE ATTENDING: Ambreen Castro MD CONSULTS: None. PROCEDURES: 1. Chest x-ray, 02/15/2019, overall stable chest with small bilateral pleural effusions with greater degree of consolidation at the right lung base. May be related to elevation of the right hemidiaphragm and greater degree of volume loss at the right lung base compared to the left with pneumonia at the right lung base cannot be excluded. Cholelithiasis. Mild thickening of the [place] of the left renal pelvis. Nonspecific, but could be related to prior infections or inflammatory process. Subcentimeter, [id number] characterize hypodense lesions in each kidney with larger exophytic cyst right kidney and parapelvic right renal cyst. Colonic diverticulosis. Hypodense lesions in the inferior aspect of the spleen which are difficult to characterize but may possibly represent cyst. Nonobstructing right renal calculus is seen. Nonspecific small amount of fluid and stranding in a presacral location. Rectum is not distended. Stable nodularity left adrenal gland. 2. Brain CT, 02/15/2019, stable CT scan of the head with chronic findings. No acute intracranial abnormality. 3. Barium swallow, 02/17/2019. No laryngeal penetration or aspiration seen. No persistent pooling of contrast is seen in the valleculae or piriform sinuses. PRIMARY DIAGNOSES: 1. Encephalopathy, likely secondary to medications. 2. Possible right lower lobe pneumonia. SECONDARY DIAGNOSES: 1. History of seizures. 2. Hypertension. 3. CKD, 3. 4. Heart failure with preserved ejection fraction. 5. Hypothyroidism. 6. Dementia. 7. Type 2 diabetes. DISCHARGE MEDICATIONS: 1. Tylenol 650 mg t.i.d. 2. Amlodipine 5 mg daily. 3. Throat lozenges p.r.n. 4. Tums 1 g p.r.n. 5. Coreg 6.25 mg b.i.d. 6. Keflex 250 mg q.6 hours x28 capsules. 7. Clonidine 0.1 mg q.6 hours p.r.n. 8. Codeine with guaifenesin 10 mL q.4 hours p.r.n. 9. Lexapro 10 mg daily. 10. Levothyroxine 50 mcg daily. 11. Loperamide 2 mg as directed. 12. Losartan 50 mg b.i.d. 13. Milk of Mag 20 mL daily p.r.n. 14. Mirtazapine 30 mg at bedtime. 15. Protonix 40 mg daily. 16. MiraLAX 17 g daily p.r.n. 17. Ranexa 500 mg b.i.d. 18. Florastor 250 mg b.i.d. 19. Senokot 8.6 mg daily. 20. Simethicone 80 mg t.i.d. 21. Aldactone 25 mg q.a.m. Discontinued medications: 1. Rivastigmine 1.5 mg b.i.d. 2. Namenda 10 mg b.i.d. 3. Keppra 500 mg b.i.d. HISTORY OF PRESENT ILLNESS/HOSPITAL COURSE: Ms. Carcamo is an 83-year-old female, who presented to the emergency department with altered mental status. The Keppra was recently discontinued in an outpatient setting because this was thought to be contributing to her lethargy. In the ED, she was found to have possible right lower lobe pneumonia and started on cefepime and vancomycin as well as given 500 mL of normal saline. She was 97% on 2 L nasal cannula. The medications were discontinued that could be contributing to her obtunded state including dementia medications and Keppra. Patient's UA showed no evidence of UTI. CT of the head showed no acute findings. Speech Therapy was consulted due to patient's inability to tolerate anything p.o. for the first two days of admission and she was cleared. She underwent barium swallow, which showed no signs of aspiration. Regular diet was resumed. Lethargy was likely 2/2 medications. In regard to her right lower lobe pneumonia, she had recently been admitted and received IV Rocephin. Her procalcitonin was negative and urine strep pneumoniae and Legionella antigens were negative. She was treated with cefepime and discharged on Keflex. Patient does have a history of seizures that she had been started on the Keppra for. However, she has had no seizures since discontinuation of the medication. This was leading to obtundation. Her chronic medical conditions of hypertension, CKD, heart failure with preserved ejection fraction, hypothyroidism, and type 2 diabetes were managed with home medications and stable throughout the course of hospitalization. DISPOSITION: Stable. DISCHARGE INSTRUCTIONS: 1. Location. [facility]. 2. Diet. Mechanical soft ground meat, no bread, extra gravy, and sauce. [place] thick liquids by straw. Medication question given with puree. Sit fully upright, remain sitting for 30 minutes after meals, small bites and sips and double swallow. 3. Activity: No restrictions. 4. Follow up with PCP within 7 days with [facility] physician. Job ID: [id number] [facility]ITAL[facility]iy[facility]
== END 2019-02-17 19:52 ==
LOC: ERS 20:05 → T4-B 02-16
PROVIDERS: ADMIT Family Medicine; ATTEND Family Medicine
DX: G93.40 Encephalopathy, unspecified (principal); E03.9 Hypothyroidism, unspecified; I13.0 Hypertensive heart and chronic kidney disease with heart failure and stage 1 through stage 4 chronic kidney disease, or unspecified chronic kidney disease; E11.22 Type 2 diabetes mellitus with diabetic chronic kidney disease; N18.3 Chronic kidney disease, stage 3 (moderate); I50.31 Acute diastolic (congestive) heart failure; K80.20 Calculus of gallbladder without cholecystitis without obstruction; G30.9 Alzheimer's disease, unspecified; F02.80 Dementia in other diseases classified elsewhere, unspecified severity, without behavioral disturbance, psychotic disturbance, mood disturbance, and anxiety; K57.30 Diverticulosis of large intestine without perforation or abscess without bleeding; J90 Pleural effusion, not elsewhere classified; R56.9 Unspecified convulsions; Z87.891 Personal history of nicotine dependence; Z79.4 Long term (current) use of insulin; Z79.899 Other long term (current) drug therapy; Z88.0 Allergy status to penicillin
CPT/HCPCS: 36415; 36416; 70450; 71045; 74177; 74230; 80048; 81003; 82330; 82803; 83605; 83690; 83735; 83880; 84145; 84443; 84484; 85025; 87040; 87086; 87449; 87899; 94640; 96361; 96365; 96366; 96367; 96372; 96375; A4353; G0378; J0692; J0696; J1650; J2930; J3370; J3490; J7620; Q9966

== ENCOUNTER 2019-03-01 18:03 | Inpatient (IN) | payer MEDICARE, BC ==
[2019-03-01 19:07] LABS: #Basophils 0.1 thou/uL (0.0-0.2); #Eosinphils 0.1 thou/uL (0.0-0.7); #Monocytes 0.9 thou/uL (0.11-0.59); #Neutrophils 5.7 thou/uL (1.40-6.50); %Basophils 0.8 % (0.0-1.0); %Eosinophils 1.8 % (0.0-10.0); %Lymphocytes 12.4 % (21.0-51.0); %Monocytes 11.2 % (0.0-10.0); %Neutrophils 73.8 % (42.0-75.0); Hemoglobin 8.1 g/dL (12.0-16.0); Mean Corpuscular HGB CONC 29.2 g/dL (32.0-36.0); Mean Corpuscular Hemoglobin 26.2 pg (27.0-31.0); Mean Corpuscular Volume 89.8 fL (78.0-98.0); Mean Platelet Volume 10.2 fL (7.4-10.4); Platelet Count 155 thou/uL (130-400); RBC Distribution Width 17.8 % (11.5-14.5); Red Blood Cell (RBC) Count 3.09 mill/uL (4.20-5.40); White Blood Cell (WBC) Count 7.7 thou/uL (4.8-10.8)
--- NOTE | 2019-03-01 19:11 | RAD ---
EXAM: Single view of the chest HISTORY: CHF exacerbation with dyspnea COMPARISON: Chest CT 10/08/2018 and chest x-ray 02/15/2019 FINDINGS: Single view of the chest shows a normal sized cardiomediastinal silhouette. There is stabl e elevation right hemidiaphragm. There is stable fullness along the right aspect of the superior mediastinum. A calcified granuloma is seen in the right upper lobe peripheral degenerative changes a re seen in the spine and shoulders. IMPRESSION: Stable exam
[2019-03-01 19:19] LABS: ALT (SGPT) 10 U/L (8-55); AST (SGOT) 17 U/L (5-34); Albumin 3.4 g/dL (3.4-4.8); Alkaline Phosphatase 140 U/L (40-110); Anion Gap 14 mmol/L (10-20); BUN (Urea Nitrogen) 19 mg/dL (9.8-20.1); Bilirubin, Total 0.2 mg/dL (0.2-1.2); CK (CPK) 31 U/L (29-168); Calc. Creatinine Clearance 0 mL/min (70-130); Carbon Dioxide 24 mmol/L (23-31); Chloride 109 mmol/L (98-107); Estimated GFR-MDRD 32; Globulin 2.9 g/dL (2.4-3.5); Glucose 114 mg/dL (83-110); Potassium 6.5 mmol/L (3.5-5.1); Protein, Total 6.3 g/dL (6.0-8.3); Sodium 140 mmol/L (136-145)
[2019-03-01] MEDS ORDERED: Furosemide 100 MG/10 ML VIAL ONE (20:09)
[2019-03-01] MEDS ORDERED: Ondansetron PF 4 MG/2 ML Vial IVP PRN (20:19)
[2019-03-01] MEDS ORDERED: Ondansetron ODT 4 MG TAB PO PRN (20:19)
[2019-03-01] MEDS ORDERED: Guaifenesin DM 100-10/5 ML UDCUP PO PRN (20:19)
[2019-03-01] MEDS ORDERED: Acetaminophen 325 MG TAB PO PRN (20:19)
--- NOTE | 2019-03-01 20:28 | PDOC.FPRHP ---
- History of Present Illness Chief Complaint: pedal edema, orthopnea History of Present Illness: Pt w/ history of dementia (AxO x1 at baseline )presents to ED from inpatient rehab at [facility] for bilateral pedal edema, b/l hand swelling, and orthopnea. Per ED physician, pt's son picked pt up from rehab and brought her here to the hospital. Pt says she feels "painless." Denies chest pain, difficulty breathing. Mostly complains only of being cold and wanting a blanket. Pt only recently started requiring oxygen the past few weeks while at rehab. Of note: previous admission 02/16-02/17 for suspected RLL pneumonia and lethargy. Keppra and dementia medications were discontinued to avoid lethargy and altered mental status. Admission prior on 02/03-02/10, pt had new onset provoked seizure x1 likely secondary to acute respiratory acidosis and hypercapnic hypoxic respiratory failure. She has chronic R diaphragm paralysis. She was started on Keppra at this admission. Her lasix was discontinued to avoid contraction alkalosis. Career Guidance Technician is Dr. Lucero, andriy hx of [place] diagnosed with CHF in June 2018. ED Course: Lasix 80 IV given. - Allergies/Adverse Reactions Allergies Allergy/AdvReac Type Severity Reaction Status Date / Time Penicillins Allergy Short of Verified 03/02/19 01:50 Breath - Home Medications Medication Instructions Recorded Confirmed Type Acetaminophen [Pain Relief] 325 mg PO Q8H PRN 10/09/18 03/02/19 History Escitalopram Oxalate [Lexapro] 10 mg PO DAILY 10/09/18 03/02/19 History Levothyroxine Sodium 50 mcg PO DAILY 10/09/18 03/02/19 History Mirtazapine 30 mg PO HS 10/09/18 03/02/19 History Polyethylene Glycol 3350 17 gm PO DAILY PRN 10/09/18 03/02/19 History Saccharomyces boulardii [Florastor] 250 mg PO DAILY 10/09/18 03/02/19 History Sennosides [Senna Lax] 8.6 mg PO DAILY 10/09/18 03/02/19 History Losartan Potassium 25 mg PO DAILY 01/27/19 03/02/19 History Amlodipine [Norvasc] 5 mg PO DAILY 01/28/19 03/02/19 History Carvedilol [Coreg] 6.25 mg PO BID-WM #60 tab 01/29/19 02/16/19 Rx Ranolazine [Ranexa] 500 mg PO BID #60 tab 01/29/19 03/02/19 Rx Spironolactone [Aldactone] 25 mg PO QAM-WM #30 tab 01/29/19 03/02/19 Rx Memantine HCl [Namenda] 10 mg PO BID 03/02/19 03/02/19 History Rivastigmine [Exelon] 1.5 mg PO BID 03/02/19 03/02/19 History - History PMHx: - Dementia AxO x1 at baseline - HTN - Hypothyroidism - CHF - Chronic R diaphragm paralysis PSHx: not assessed FHx: not assessed Social: Was living in residential prior to inpatient rehab. - Review of Systems ROS unobtainable: due to mental status (limited ROS in setting of dementia) General: denies: fever/chills, weight/appetite/sleep changes Eyes: denies: vision changes ENT: denies: nasal congestion Respiratory: denies: cough, shortness of breath Cardiovascular: denies: chest pain Musculoskeletal: denies: pain - Vital signs BP: 133/69 HR: 65 RR: 18 Tmax: 97.7 Pox: 96% on 3 L NC O2 - Physical Exam Constitutional: NAD, awake, alert and oriented HEENT: normocephalic and atraumatic, conjunctiva clear, no scleral icterus, grossly normal vision Neck: supple, no thyromegaly Heart: RRR (diastolic 3/6 murmur), other (edema 3+ up to knee on R leg and up to mid-corn[place] on L leg) -Lungs: bilateral crackles at lung bases. No wheezing. Abdomen: soft, non-tender Musculoskeletal: normal structure Neurological: no focal deficit Skin: no rash/lesions Heme/Lymphatic: no unusual bruising or bleeding Psychiatric: normal mood and affect -Psychiatric: memory impaired FMR H&P: Results - Labs Result Diagrams: 03/01/19 18:53 03/01/19 18:53 Lab results: WBC 7.7 thou/uL (4.8-10.8) 03/01/19 18:53 Hgb 8.1 g/dL (12.0-16.0) L 03/01/19 18:53 Hct 27.7 % (36.0-47.0) L 03/01/19 18:53 MCV 89.8 fL (78.0-98.0) 03/01/19 18:53 Plt Count 155 thou/uL (130-400) 03/01/19 18:53 Neutrophils % 73.8 % (42.0-75.0) 03/01/19 18:53 Sodium 140 mmol/L (136-145) 03/01/19 18:53 Potassium 6.5 mmol/L (3.5-5.1) H 03/01/19 18:53 Chloride 109 mmol/L (98-107) H 03/01/19 18:53 Carbon Dioxide 24 mmol/L (23-31) 03/01/19 18:53 BUN 19 mg/dL (9.8-20.1) 03/01/19 18:53 Creatinine 1.83 mg/dL (0.6-1.1) H 03/01/19 18:53 Glucose 114 mg/dL (83-110) H 03/01/19 18:53 Calcium 9.0 mg/dL (7.8-10.44) 03/01/19 18:53 Total Bilirubin 0.2 mg/dL (0.2-1.2) 03/01/19 18:53 AST 17 U/L (5-34) 03/01/19 18:53 ALT 10 U/L (8-55) 03/01/19 18:53 Alkaline Phosphatase 140 U/L (40-110) H 03/01/19 18:53 Creatine Kinase 31 U/L (29-168) 03/01/19 18:53 B-Natriuretic Peptide 1194.8 pg/mL (0-100) H 03/01/19 18:53 Serum Total Protein 6.3 g/dL (6.0-8.3) 03/01/19 18:53 Albumin 3.4 g/dL (3.4-4.8) 03/01/19 18:53 - Radiology Interpretation Chest x-ray Status: image reviewed by me, report reviewed by me Additional comment: showing stable exam from previous. Chronic elevation of R hemidiaphragm FMR H&P: A/P - Problem List (1) Acute exacerbation of CHF (congestive heart failure) Current Visit: Yes Status: Acute Code(s): I50.9 - HEART FAILURE, UNSPECIFIED (2) Acute on chronic diastolic CHF (congestive heart failure) Current Visit: No Status: Acute Code(s): I50.33 - ACUTE ON CHRONIC DIASTOLIC (CONGESTIVE) HEART FAILURE Comment: EF 50-55% on ECHO, diuresed well and now back on oral Furosemide, edema improved (3) CKD (chronic kidney disease) stage 3, GFR 30-59 ml/min Current Visit: No Status: Acute Code(s): N18.3 - CHRONIC KIDNEY DISEASE, STAGE 3 (MODERATE) (4) Lower extremity edema Current Visit: No Status: Acute Code(s): R60.0 - LOCALIZED EDEMA (5) Dementia Current Visit: No Status: Chronic Code(s): F03.90 - UNSPECIFIED DEMENTIA WITHOUT BEHAVIORAL DISTURBANCE (6) HTN (hypertension) Current Visit: No Status: Chronic Code(s): I10 - ESSENTIAL (PRIMARY) HYPERTENSION (7) Hypothyroidism Current Visit: No Status: Chronic Code(s): E03.9 - HYPOTHYROIDISM, UNSPECIFIED - Plan 83 yo female admitted for: Acute CHF exacerbation - diagnosed in August 2018 w/ CHF - likely precipitated by discontinuation of lasix. Lasix d/c'd in previous admissions to avoid contraction alkalosis, and also due to seizures and concern for metabolic and electrolyte disturbances which may have been playing a role in seizures. Most likely seizure source was hypercapnic hypoxic respiratory failure. - 80mg IV lasix given in ED. Will continue lasix on this admission. - strict I/Os. daily weights. - continue to monitor respiratory status Hyperkalemia - will continue to monitor w/ serial BMPs - if not improving w/ use of lasix, will use other medications to help decrease potassium. Chronic conditions: Hypothyroidism Dementia HTN CKD3 Chronic R diaphragm paralysis - continue home medications Code: FULL VTE ppx: heparin GI ppx: none Fluids: none Diet: mechanical soft w/ extra gravy, nectar thick liquids Munira Zamora MD PGY1 Disposition/LOS: Admit to telemetry inpatient for fluid diuresis and correction of hyperkalemia. LOS > 48H. FMR H&P: Upper Level - Pertinent history 83 yo f presents from rehab for volume overload and admitted for a CHF exacerbation. Pt has a pmhx of dementia and is a&ox1 at her baseline. VSS PE: 3+ pitting edema b/l lower extremities distant heart sounds decreased breath sounds bilaterally a&0x1 BNP: 1194, prior range f rom 500-1000 H/H 11/26/26.7, baseline hb ~8.5 K6.5; baseline: 5.7 Cr: 1.8; baseline 1.3-1.6 CXR: stable from prior EKG: NSR, no peaked t waves A/P: Acute on chronic CHF exacerbation- -she was given 80mg IV Lasix in the ER. Will will continue to diurese her and monitor I/Os. -she is currently saturating well with a normal RR on 3-4L of oxygen; we will attempt to wean as tolerated. -heart healthy, fluid restricted diet Hyperkalemia- -elevated at 6.5; given 80mg IV lasix in the ER -will also give calcium gluconate and consider insulin and glucose -we will recheck her K at 2300 -no peaked t waves on the EKG SONALI on CKD -consider urine Na and urine urea ordered to assess for prerenal vs intrinsic renal etiology; BUN/Cr ~10 -will recheck in the am and trend Anemia- -suspect of chronic disease -at baseline, will monitor Dementia -at baseline -Chronic conditions-see internal grinding machine operator note Aleida Biggs MD, PGY-3 - Plan Date/Time: 03/01/192025 Addendum - Attending - Attending Attestation Date/Time: 03/02/19 0321 I personally evaluated the patient and discussed the management with Dr. Herndon last evening. I agree with the History, Examination, Assessment and Plan documented above with any addition or exceptions noted below. i noted a early pressure ulcer on her left heel. Discussed with nurse who will take steps to remove pressure. Nurse reports no other skin breakdown noted during skin assessment.
[2019-03-01] MEDS: Heparin 5,000 UNITS/ML VIAL SC SCH (23:40)
[2019-03-02 00:26] LABS: Magnesium 2.5 mg/dL (1.6-2.6); Phosphorus 3.9 mg/dL (2.3-4.7)
[2019-03-02 03:26] LABS: Anion Gap 16 mmol/L (10-20); BUN (Urea Nitrogen) 21 mg/dL (9.8-20.1); Calc. Creatinine Clearance 0 mL/min (70-130); Calcium 8.8 mg/dL (7.8-10.44); Carbon Dioxide 20 mmol/L (23-31); Chloride 112 mmol/L (98-107); Estimated GFR-MDRD 34; Glucose 92 mg/dL (83-110); Potassium 5.9 mmol/L (3.5-5.1); Sodium 142 mmol/L (136-145)
[2019-03-02 04:59] LABS: #Eosinphils 0.1 thou/uL (0.0-0.7); #Lymphocytes 1.2 thou/uL (1.20-3.40); #Monocytes 0.9 thou/uL (0.11-0.59); #Neutrophils 5.7 thou/uL (1.40-6.50); %Basophils 0.5 % (0.0-1.0); %Eosinophils 1.7 % (0.0-10.0); %Monocytes 11.2 % (0.0-10.0); %Neutrophils 71.7 % (42.0-75.0); Hemoglobin 7.4 g/dL (12.0-16.0); Mean Corpuscular HGB CONC 30.1 g/dL (32.0-36.0); Mean Corpuscular Hemoglobin 26.8 pg (27.0-31.0); Mean Corpuscular Volume 89.1 fL (78.0-98.0); Mean Platelet Volume 8.8 fL (7.4-10.4); Platelet Count 201 thou/uL (130-400); RBC Distribution Width 17.5 % (11.5-14.5); Red Blood Cell (RBC) Count 2.75 mill/uL (4.20-5.40)
[2019-03-02 05:27] LABS: Anion Gap 10 mmol/L (10-20); BUN (Urea Nitrogen) 19 mg/dL (9.8-20.1); Calc. Creatinine Clearance 0 mL/min (70-130); Calcium 8.9 mg/dL (7.8-10.44); Carbon Dioxide 26 mmol/L (23-31); Chloride 108 mmol/L (98-107); Estimated GFR-MDRD 36; Glucose 82 mg/dL (83-110); Potassium 5.4 mmol/L (3.5-5.1); Sodium 139 mmol/L (136-145)
--- NOTE | 2019-03-02 07:02 | PDOC.FM ---
- Objective MAR Reviewed: Yes Vital Signs & Weight: Vital Signs (12 hours) Temp Pulse Resp BP Pulse Ox 03/02/19 04:00 98.9 F 68 16 127/68 93 L 03/01/19 21:40 97.7 F 65 18 133/69 96 Weight Weight 75.75 kg I&O: 02/28/19 03/01/19 03/02/19 06:59 06:59 06:59 Intake Total 100 Output Total 700 Balance -600 Result Diagrams: 03/02/19 04:22 03/02/19 04:22 Dx/Plan (1) Acute exacerbation of CHF (congestive heart failure) Code(s): I50.9 - HEART FAILURE, UNSPECIFIED Status: Acute (2) SONALI (acute kidney injury) Code(s): N17.9 - ACUTE KIDNEY FAILURE, UNSPECIFIED Status: Acute (3) CKD (chronic kidney disease) stage 3, GFR 30-59 ml/min Code(s): N18.3 - CHRONIC KIDNEY DISEASE, STAGE 3 (MODERATE) Status: Acute - Plan Plan: This is an 83 yo female with a pmh of hypothyroidism, demetia, HTN, CKD3 Acute on chronic HFpEF exacerbation -Continue lasix and monitor renal function -Strict I&Os. daily weights -HF clinic consulted -Will discuss with POA and palliative for plan moving forward Hyperkalemia -Continue lasix, trending down Hypothyroidism -Continue home medication Dementia -Continue home medications CKD3 -Continue home medications HTN -Continue home medications
[2019-03-02] MEDS: Heparin 5,000 UNITS/ML VIAL SC SCH ×3 (09:03→20:13)
[2019-03-02] MEDS: Furosemide 40 MG/4 ML VIAL SLOW IVP SCH (09:05)
--- NOTE | 2019-03-02 10:58 | PRG ---
DATE OF SERVICE: 03/02/2019 Ms. Carcamo is a very pleasant, demented 83-year-old black female patient with a history of heart failure. She was admitted with mild pulmonary edema and exacerbation of her heart failure. She responded well to Lasix and this morning feels "much better." Her breathing is not labored. We should maintain her on probably 40 mg a day of Lasix and add Diamox if contraction alkalosis is a problem. Job ID: [id number]
[2019-03-02] MEDS ORDERED: Polyethylene Glycol 3350 17 GM Packet PO PRN (11:02)
[2019-03-02] MEDS ORDERED: AcetaZOLAMIDE 250 MG TAB PO SCH (11:15)
[2019-03-02] MEDS ORDERED: Acetaminophen 325 MG TAB PO PRN (11:50)
[2019-03-02] MEDS: Mirtazapine 30 MG TAB PO SCH (20:14)
[2019-03-02] MEDS: Rivastigmine 1.5 MG CAP PO SCH (20:14)
[2019-03-02] MEDS ORDERED: FLU VACC TS2019-20(65YR UP)/PF 180 MCG/0.5 ML SYRINGE IM ONE (21:00)
[2019-03-03] MEDS: Levothyroxine Sodium 50 MCG TAB PO SCH (05:42)
--- NOTE | 2019-03-03 06:13 | PDOC.FM ---
- Subjective Subjective: Pt is lethargic this AM. Nursing states she has been this way. VSS. - Objective MAR Reviewed: Yes Vital Signs & Weight: Vital Signs (12 hours) Temp Pulse Resp BP Pulse Ox 03/03/19 03:00 99 F 69 22 H 136/67 100 03/02/19 23:45 69 127/67 100 03/02/19 20:20 98.7 F 69 14 137/68 100 Weight Admit Weight 75.75 kg Weight 74.344 kg I&O: 03/01/19 03/02/19 03/03/19 06:59 06:59 06:59 Intake Total 100 740 Output Total 700 2014 Balance -890 -7189 Result Diagrams: 03/03/19 06:40 03/03/19 06:40 Phys Exam - Physical Examination Lethargic dry mm Neck: no JVD Crackles at bases Cardiovascular: RRR 2/6 systolic murmur Gastrointestinal: soft, no distention, positive bowel sounds Musculoskeletal: pulses present, edema present (pitting edema to knee, 2+) Neurological: moves all 4 limbs Skin: normal turgor, cap refill <2 seconds Dx/Plan (1) Acute exacerbation of CHF (congestive heart failure) Code(s): I50.9 - HEART FAILURE, UNSPECIFIED Status: Acute (2) SONALI (acute kidney injury) Code(s): N17.9 - ACUTE KIDNEY FAILURE, UNSPECIFIED Status: Acute (3) CKD (chronic kidney disease) stage 3, GFR 30-59 ml/min Code(s): N18.3 - CHRONIC KIDNEY DISEASE, STAGE 3 (MODERATE) Status: Acute - Plan Plan: This is an 83 yo female with a pmh of hypothyroidism, demetia, HTN, CKD3 Acute on chronic HFpEF exacerbation -Continue lasix and monitor renal function -Strict I&Os. daily weights, Down 1.8 L this morning -HF clinic consulted -Will discuss with POA and palliative for plan moving forward Hyperkalemia -Continue lasix, trending down -Holding home spiranolactone Hypothyroidism -Continue home medication Dementia -Continue home medications CKD3 -Continue home medications HTN -Continue home medications
[2019-03-03 06:53] LABS: Mean Corpuscular HGB CONC 30.4 g/dL (32.0-36.0); Mean Corpuscular Hemoglobin 26.9 pg (27.0-31.0); Mean Corpuscular Volume 88.4 fL (78.0-98.0); Mean Platelet Volume 8.7 fL (7.4-10.4); Platelet Count 211 thou/uL (130-400); RBC Distribution Width 17.6 % (11.5-14.5); Red Blood Cell (RBC) Count 2.99 mill/uL (4.20-5.40); White Blood Cell (WBC) Count 8.5 thou/uL (4.8-10.8)
[2019-03-03 07:08] LABS: Anion Gap 12 mmol/L (10-20); BUN (Urea Nitrogen) 21 mg/dL (9.8-20.1); Calc. Creatinine Clearance 32 mL/min (70-130); Calcium 9.1 mg/dL (7.8-10.44); Carbon Dioxide 27 mmol/L (23-31); Chloride 107 mmol/L (98-107); Estimated GFR-MDRD 39; Glucose 88 mg/dL (83-110); Potassium 4.8 mmol/L (3.5-5.1); Sodium 141 mmol/L (136-145)
[2019-03-03] MEDS ORDERED: Spironolactone 25 MG TAB PO SCH (08:00)
[2019-03-03] MEDS: Amlodipine 5 MG TAB PO SCH ×2 (08:57→11:53)
[2019-03-03] MEDS: Senokot 8.6 MG TAB PO SCH ×2 (08:57→11:54)
[2019-03-03] MEDS: Escitalopram Oxalate 10 mg Tablet PO SCH ×2 (08:57→11:53)
[2019-03-03] MEDS: AcetaZOLAMIDE 250 MG TAB PO SCH ×2 (08:57→11:53)
[2019-03-03] MEDS: Saccharomyces boulardii 250 MG CAP PO SCH ×2 (08:57→11:54)
[2019-03-03] MEDS: Heparin 5,000 UNITS/ML VIAL SC SCH ×3 (08:58→20:14)
[2019-03-03] MEDS: Furosemide 40 MG/4 ML VIAL SLOW IVP SCH (08:58)
[2019-03-03] MEDS ORDERED: Losartan 25 MG TAB PO SCH (09:00)
[2019-03-03] MEDS: Rivastigmine 1.5 MG CAP PO SCH ×3 (09:06→21:05)
--- NOTE | 2019-03-03 09:48 | PQF ---
JUDY BUCKNERREZA *r [id number] CLINICAL DOCUMENTATION IMPROVEMENT CLARIFICATION FORM: ICD-10 Updated PLEASE DO AN ADDENDUM TO THE PROGRESS NOTE WITH ANY DOCUMENTATION UPDATES OR ADDITIONS AND CARRY THROUGH TO DC SUMMARY. THANK YOU. DATE: 03/03/19 ATTN: Dr. Camacho, Please exercise your independent, professional judgment in responding to the clarification form. Clinical indicators are provided on the bottom of this form for your review Please check appropriate box(s): [ x ] Acute On Chronic Respiratory Failure: [ x ] with Hypoxia [ ] Chronic Respiratory Failure only [ ] with Hypoxia [ ] Other diagnosis [ ] Unable to determine In addition, please specify: Present on Admission (POA): [ x ] Yes [ ] No [ ] Unable to determine For continuity of documentation, please document condition throughout progress notes and discharge summary. Thank You. CLINICAL INDICATORS - SIGNS / SYMPTOMS / LABS / RESULTS AND LOCATION IN MR Orthopnea per 03/01 H&P([place]) Decreased oxygen saturation (<90% room air or < 95% on oxygen). 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 shock, infection, surgery, trauma) Bilateral opacities in CXR/Chest CT not due to CHF or fluid (This form is maintained as a part of the permanent medical record) 2014 [employer]. All Rights Reserved Aylin Ambriz RN, BSN, CCDS [email or web address]
--- NOTE | 2019-03-03 10:50 | PRG ---
DATE OF SERVICE: 03/03/2019 Ms. Carcamo is very somnolent, in fact, nearly obtunded this morning. Vigorous shaking does not rouse her at all. I think we should check an ABG to rule out hypercapnia and consider a head CT. I am told that she did not sleep well last night, but her degree of obtundation seems far in excess of what can be explained by a sleepless night. Job ID: [id number]
[2019-03-03 11:03] LABS: Actual Bicarbonate (HCO3a) 31.1 mEq/L (22-28); Analyzer IN Cardio OR; Base Excess (BEa) 3.6 mEq/L (-2.0 to +3.0); Calcium, Ionized 1.24 mmol/L (1.12-1.30); Carboxyhemoglobin (COHb) 0.7 gm% (0.0-3.0); Hemoglobin (Hb) 8.3 g/dL (12.0-16.0); O2 Tension (PaO2) 66.9 mmHg (> 60.0); Potassium - ABG Lab 4.56 mmol/L (3.70-5.30); pH, Arterial 7.29 (7.35-7.45)
[2019-03-03 11:08] LABS: CO2 Tension 66.8 mmHg (35.0-45.0); Puncture Site RRA
--- NOTE | 2019-03-03 11:43 | PDOC.EVN ---
Event Note - Event Note Event Note: Code Green Note, time ~11:12 Pt was lethargic this morning. At first this was considered to be a disruption in her sleep wake cycle 2/2 her dementia. She did not improve and I ordered an ABG. She was found to have a pH of 7.29, CO2 of 66.8, O2 of 66.9, and biarb of 31.1. She had a GCS of E1V2M5. Cardiac exam: RRR, systolic murmur Respiratory exam: Crackles at bases, respirations of 10 Neuro: Moving all 4 limbs to localize to pain At this point, a Logan Abreu was called to initiate transfer to the ICU A/P Acute hypercapnic respiratory failure, 2/2 DAVID, right hemidiaphram, and CHF exacerbation -Pt transfered the ICU -Pt started on bipap and within minutes had improvement in her GCS -Would consider a Head CT if pt does not return to her previous baseline -Repeat ABG in ~45 minutes -Dr. Carcamo [facility] has been notified of her change in condition and appreciated the call. Pt remains a full code -Case discussed with Dr. Garcia, pulmonology She has been through this before and would likely benefit from palliative care.
--- NOTE | 2019-03-03 12:54 | PRG ---
DATE OF SERVICE: 03/03/2019 This morning on rounds, Ms. Carcamo was obtunded. We obtained an arterial blood gas, which demonstrated a pH of 7.29, a pCO2 of 66.8, and a pO2 of 66.9. We immediately transferred her to ICU, where she was almost immediately administered BiPAP. Within 5 minutes, she was waking up and becoming much more alert. We will continue her on BiPAP and watch her in the ICU overnight. Job ID: [id number]
--- NOTE | 2019-03-03 13:27 | CON ---
DATE OF CONSULTATION: 03/03/2019 SERVICE: Pulmonary Medicine. REASON FOR CONSULTATION: ICU patient. HISTORY OF PRESENT ILLNESS: The patient is an 83-year-old female with past medical history significant for chronic hypercapnic respiratory failure secondary to paralyzed right hemidiaphragm. She was brought into the emergency department because of increasing difficulty breathing and hypoxic respiratory failure. She was discovered to have a volume overload event. She has diuresed overnight, but this morning, she became increasingly somnolent. Stat ABG confirmed that she had an acute on chronic hypercapnic respiratory failure. She was subsequently brought to the ICU and initiated on BiPAP. Within 2-3 minutes, she woke up comfortably. She denies any current shortness of breath or chest discomfort currently. She has no fevers or chills. Otherwise, there were no significant overnight events. Because of her advanced dementia, she cannot provide me with additional elements of her presentation. PAST MEDICAL HISTORY: 1. Dementia, advanced. 2. Hypertension. 3. Hypothyroidism. 4. Chronic hypercapnic respiratory failure. 5. Paralyzed right hemidiaphragm. 6. Heart failure. PAST SURGICAL HISTORY: 1. Hemorrhoidectomy. 2. Right cataract surgery. 3. Kidney stone extraction. FAMILY HISTORY: Noncontributory. SOCIAL HISTORY: The patient lives in a skilled nursing facility. She has no exposure to chemicals, dust, asbestos, or tuberculosis currently. She does not use any alcohol, tobacco, or illicit drug use currently. ALLERGIES: PENICILLIN. MEDICATIONS: List of her inpatient medications was reviewed. No specific updates were made at this time. REVIEW OF SYSTEMS: The complete review of systems cannot be obtained as the patient is oriented x1 at baseline. She cannot provide any historical presentation. Currently, she denies any chest discomfort or shortness of breath. LABORATORY DATA: WBC 8.5, hemoglobin 8.0 and stable, and platelets 211,000. INR 0.9. PH 7.29, pCO2 67, PO2 67. Creatinine 1.52, which is at baseline. Basic metabolic profile is otherwise unremarkable. Albumin 3.4. Magnesium and phosphorus were previously unremarkable. Potassium 4.8 and downtrending. ASSESSMENT: 1. Metabolic encephalopathy. 2. Acute on chronic hypercapnic respiratory failure. 3. Paralyzed right hemidiaphragm. 4. Dementia, advanced. DISCUSSION AND PLAN: The patient is doing okay from a respiratory standpoint. At this point, she is awake and conversive. She does not have any signs of distress on BiPAP. We can start giving her breaks off the BiPAP 3 times daily and increase as tolerated. On her BiPAP breaks, she needs to be in a semirecumbent or upright position. She will not do well lying supine. Ultimately, I do not think she is a good candidate for noninvasive therapy in the outpatient setting given her advanced debility and dementia. That being said, we can look in the options with Case Management for her. There would be a very significant risk with putting noninvasive ventilator on the patient at night in a skilled nursing setting as I do not think she will have the wherewithal to remove this thing should she get into trouble. Critical Care will continue to follow in this location. 70 minutes have been devoted to this patient in various activities. I personally reviewed all imaging studies and laboratory data noted within this document. For fifty percent of this time, I was interacting with the patient at the bedside or coordinating care with the care team. For the remainder of the time I was immediately available to the patient in the hospital unit. Job ID: [id number] MTDD
[2019-03-03] MEDS ORDERED: Furosemide 40 MG/4 ML VIAL SLOW IVP SCH (16:00)
[2019-03-03] MEDS: Mirtazapine 30 MG TAB PO SCH (21:05)
--- NOTE | 2019-03-04 05:38 | PDOC.FM ---
- Subjective Subjective: Pt did well overnight. Per nursing, she had one event of lethargy that was managed with BiPAP. Pt responded quickly following this therapy. She does not complain of anything today but is a poor historian. - Objective MAR Reviewed: Yes Vital Signs & Weight: Vital Signs (12 hours) Temp Pulse Pulse Ox 03/04/19 04:00 98.1 F 03/04/19 02:18 69 03/04/19 00:00 97.9 F 96 03/03/19 20:00 98.6 F 03/03/19 19:39 100 03/03/19 18:15 66 Weight Admit Weight 75.75 kg Weight 74.344 kg Most Recent Monitor Data Heart Rate from ECG 64 NIBP 119/78 NIBP BP-Mean 91 Respiration from ECG 14 SpO2 99 I&O: 03/02/19 03/03/19 03/04/19 06:59 06:59 06:59 Intake Total 100 740 150 Output Total 700 2014 4408 Balance -655 -2723 -9131 Result Diagrams: 03/03/19 06:40 03/04/19 05:56 Phys Exam - Physical Examination Constitutional: NAD GCS [id number] HEENT: moist MMs Neck: no JVD Basilar crackles, fair air movement Cardiovascular: RRR, no significant murmur Gastrointestinal: soft, non-tender, no distention, positive bowel sounds Musculoskeletal: pulses present, edema present (1+ to [place], greatly improved ) Neurological: moves all 4 limbs Deviation from normal: AAOx1 Skin: cap refill <2 seconds Deviation from normal: Some breakdown on heals bilaterally Dx/Plan (1) Acute exacerbation of CHF (congestive heart failure) Code(s): I50.9 - HEART FAILURE, UNSPECIFIED Status: Acute (2) SONALI (acute kidney injury) Code(s): N17.9 - ACUTE KIDNEY FAILURE, UNSPECIFIED Status: Acute (3) CKD (chronic kidney disease) stage 3, GFR 30-59 ml/min Code(s): N18.3 - CHRONIC KIDNEY DISEASE, STAGE 3 (MODERATE) Status: Acute - Plan Plan: This is an 83 yo female with a pmh of hypothyroidism, demetia, HTN, CKD3 Acute on chronic HFpEF exacerbation -Continue lasix and monitor renal function -Strict I&Os. daily weights, Down 4.7 L this morning -HF clinic consulted -Will discuss with POA and palliative for plan moving forward -Pt in ICU currently, can likely be moved to ICU but still may require BiPAP and is not ready for the floor Hyperkalemia -Continue lasix, trending down -Holding home spiranolactone Hypothyroidism -Continue home medication Dementia -Continue home medications CKD3 -Continue home medications HTN -Continue home medications
[2019-03-04] MEDS: Levothyroxine Sodium 50 MCG TAB PO SCH (05:42)
[2019-03-04 06:29] LABS: Anion Gap 12 mmol/L (10-20); BUN (Urea Nitrogen) 20 mg/dL (9.8-20.1); Calc. Creatinine Clearance 35 mL/min (70-130); Calcium 8.6 mg/dL (7.8-10.44); Carbon Dioxide 28 mmol/L (23-31); Chloride 105 mmol/L (98-107); Estimated GFR-MDRD 47; Glucose 75 mg/dL (83-110); Potassium 5.7 mmol/L (3.5-5.1); Sodium 139 mmol/L (136-145)
[2019-03-04] MEDS: Amlodipine 5 MG TAB PO SCH (09:05)
[2019-03-04] MEDS: Escitalopram Oxalate 10 mg Tablet PO SCH (09:06)
[2019-03-04] MEDS: Senokot 8.6 MG TAB PO SCH (09:06)
[2019-03-04] MEDS: Saccharomyces boulardii 250 MG CAP PO SCH (09:06)
[2019-03-04] MEDS: Furosemide 40 MG/4 ML VIAL SLOW IVP SCH (09:06)
[2019-03-04] MEDS: Heparin 5,000 UNITS/ML VIAL SC SCH ×3 (09:06→20:12)
[2019-03-04] MEDS: Rivastigmine 1.5 MG CAP PO SCH (09:06)
--- NOTE | 2019-03-04 11:23 | PRG ---
DATE OF SERVICE: 03/04/2019 Ms. Carcamo is bright and alert this morning. She is back to her usual self and is off BiPAP. Her long-term care that may require BiPAP will be problematic given her dementia. We will discuss this with the bonderizer to see how best to approach this problem. In the event, the patient is ready for transfer either to MICU or the regular floor. Job ID: [id number]
--- NOTE | 2019-03-04 15:20 | PRG ---
DATE OF SERVICE: 03/04/2019 SERVICE: Pulmonary Medicine. INTERVAL HISTORY: I find the patient awake and alert this morning. She is pleasantly demented. She has no complaints of chest discomfort, fevers, chills, or shortness of breath. She indicates that she is breathing comfortably. She is talking in full sentences without any obvious distress. PHYSICAL EXAMINATION: VITAL SIGNS: Afebrile, pulse 72, blood pressure 97/51, respirations 18, saturation 95%, currently on room air. GENERAL: The patient is awake and alert, in no apparent distress. LUNGS: Wonderful air entry. No crackles are present. HEART: Normal rate, regular. ABDOMEN: Soft, nontender, and nondistended. Bowel sounds are positive. MUSCULOSKELETAL: No cyanosis or clubbing. There is 1 to 2+ pitting throughout. NEUROLOGIC: Grossly nonfocal. LABORATORY DATA: WBC 8.5, hemoglobin 8.0, and platelets 211,000. Potassium 5.7, creatinine downtrending to 1.30. Basic metabolic profile is otherwise unremarkable. ASSESSMENT: 1. Acute hypoxic respiratory failure, improving. 2. Acute on chronic hypercapnic respiratory failure, resolved to baseline. 3. Metabolic encephalopathy, resolved. 4. Paralyzed right hemidiaphragm. 5. Dementia, advanced. DISCUSSION AND PLAN: I am ordering home noninvasive ventilation for nighttime and as needed daytime use. Traditional BiPAP is insufficient secondary to the severity of the patient's underlying condition. I have discussed with the patient's son, hand physician, that this patient is not a good candidate for noninvasive ventilation. I have expressed my concern that if she were to have a respiratory event or aspirations spell in the middle of the night and did not have the wherewithal to remove her device, she could have a sudden event. That being said, he is adamant and I believe sincere that he intends to have a sitter at bedside with her, so that when she has her noninvasive ventilator on, if she gets into any distress, there will be a care provider there to remove the BiPAP if necessary. Furthermore, this patient should never be in the supine position. Because her diaphragm is nonfunctional, she will have a very challenging time sleeping in that orientation. At this point, her respiratory failure is back to baseline and she can be considered for transition back to a nursing facility. While she remains here, I will continue to follow her. Job ID: [id number]
--- NOTE | 2019-03-04 16:12 | PDOC.PALCO ---
Palliative Care Consult - Consult Details Requesting Physician: Dr Hutton Reason for Consult: goals of care, family support Family Members Present: None - Pertinent HPI Patient is familiar to the Palliative Care team. Recently patient was a resident at [facility], she had oprhopnea, and edema. Her son, who is a hand surgeon was visiting her at the facility and transported her to the emergency room for evaluation. Evaluation of patient in the er identified CHF exacerbation, hyperkalemia. Admitted for further medical management. While on the medical floor patient had an episode decrease in consciousness and was transferred to the CCU for a higher level of care. - Pertinent PMH Dementia, HTN, CHF, Chronic R Diaphram paralysis, Hypothyroid - Social History Smoking Status: Never smoker Smoking: no tobacco exposure Alcohol Use: none Drug Use History: none Living Situation: alf resident ([facility]) - Allergies Allergies/Adverse Reactions: Allergies Allergy/AdvReac Type Severity Reaction Status Date / Time Penicillins Allergy Short of Verified 03/02/19 01:50 Breath - Subjective Pleasant, and quite cheerful. Oriented to self. No complaints at the time of assessment. ROS: Negative, however difficult to truly assess secondary to patient baseline of orientation - Objective Vital Signs: Vital Signs - Most Recent Temp Pulse Resp BP Pulse Ox 98.4 F 76 20 138/76 96 03/04/19 12:00 03/04/19 10:30 03/03/19 11:13 03/04/19 10:30 03/04/19 10:30 Palliative Performance Scale: 30 - Physical Exam Constitutional: confusion HEENT: moist MMs, sclera anicteric, EOMI Respiratory: clear to auscultation bilateral, unlabored breathing Cardiovascular: RRR Gastrointestinal: soft, non-tender, positive bowel sounds Musculoskeletal: edema present Neurological: non-focal Deviation from normal: Pleasant but not oriented beyond self. Skin: normal turgor, cap refill <2 seconds - Problem List (1) Palliative care encounter Code(s): Z51.5 - ENCOUNTER FOR PALLIATIVE CARE Current Visit: Yes Status: Acute (2) Paralyzed hemidiaphragm Code(s): J98.6 - DISORDERS OF DIAPHRAGM Current Visit: Yes Status: Acute (3) Physical deconditioning Code(s): R53.81 - OTHER MALAISE Current Visit: Yes Status: Acute (4) Acute on chronic diastolic CHF (congestive heart failure) Code(s): I50.33 - ACUTE ON CHRONIC DIASTOLIC (CONGESTIVE) HEART FAILURE Current Visit: No Status: Acute (5) Diastolic CHF Code(s): I50.30 - UNSPECIFIED DIASTOLIC (CONGESTIVE) HEART FAILURE Current Visit: No Status: Acute (6) Dementia Code(s): F03.90 - UNSPECIFIED DEMENTIA WITHOUT BEHAVIORAL DISTURBANCE Current Visit: No Status: Chronic - Plan/Recommendations Plan: Dr Garcia has spoken with patient son in relation to disease progression. Son is requesting to return home with BIpap and 24 hour sitter. *Niyah Tate will arrange a meeting with the patient son 03/05 to discuss discharge and discuss the following *Revisit resuscitation status *Goals for care specifically in line with recurrent readmissions and continued disease trajectory *Consider discharge home with home health with a robust respiratory therapy program and palliative care [40] minutes spent on this encounter with >50% of the time in counseling and coordination of care. Thank you for this very appropriate consult.
--- NOTE | 2019-03-05 05:25 | PDOC.FM ---
- Subjective Subjective: Nursing reports pt did well overnight. Pt moved to [facility] at 0100 today. Pt does not have any complaints at this time, save being cold. - Objective MAR Reviewed: Yes Vital Signs & Weight: Vital Signs (12 hours) Temp Pulse Ox 03/05/19 03:42 98.0 F 03/05/19 00:23 97 03/05/19 00:00 99.0 F 03/04/19 19:15 100 03/04/19 19:00 99.8 F H Weight Admit Weight 75.75 kg Weight 69.2 kg Most Recent Monitor Data Heart Rate from ECG 68 NIBP 111/68 NIBP BP-Mean 82 Respiration from ECG 18 SpO2 97 I&O: 03/03/19 03/04/19 03/05/19 06:59 06:59 06:59 Intake Total 740 200 430 Output Total 2014 2585 2891 Balance -1275 -2800 -1395 Result Diagrams: 03/03/19 06:40 03/05/19 05:38 Phys Exam - Physical Examination Constitutional: NAD HEENT: moist MMs Neck: no JVD Diffuse crackles, improved air movement Cardiovascular: RRR 2/6 systolic murmur Gastrointestinal: soft, non-tender, no distention, positive bowel sounds Musculoskeletal: pulses present, edema present (improving) Neurological: moves all 4 limbs Deviation from normal: AA)x1 Skin: cap refill <2 seconds Dx/Plan (1) Acute exacerbation of CHF (congestive heart failure) Code(s): I50.9 - HEART FAILURE, UNSPECIFIED Status: Acute (2) SONALI (acute kidney injury) Code(s): N17.9 - ACUTE KIDNEY FAILURE, UNSPECIFIED Status: Acute (3) CKD (chronic kidney disease) stage 3, GFR 30-59 ml/min Code(s): N18.3 - CHRONIC KIDNEY DISEASE, STAGE 3 (MODERATE) Status: Acute - Plan Plan: This is an 83 yo female with a pmh of hypothyroidism, demetia, HTN, CKD3 Acute on chronic HFpEF exacerbation -Continue lasix (changing to PO) and monitor renal function -Strict I&Os. daily weights, Down 6 L this morning -HF clinic consulted -Plan to discharge with home bipap Hyperkalemia -Continue lasix, trending down -Holding home spiranolactone Hypothyroidism -Continue home medication Dementia -Continue home medications CKD3 -Continue home medications HTN -Continue home medications
[2019-03-05] MEDS: Levothyroxine Sodium 50 MCG TAB PO SCH (05:59)
[2019-03-05 06:31] LABS: Anion Gap 6 mmol/L (10-20); BUN (Urea Nitrogen) 19 mg/dL (9.8-20.1); Calc. Creatinine Clearance 32 mL/min (70-130); Calcium 8.8 mg/dL (7.8-10.44); Carbon Dioxide 34 mmol/L (23-31); Chloride 105 mmol/L (98-107); Estimated GFR-MDRD 44; Glucose 86 mg/dL (83-110); Potassium 4.4 mmol/L (3.5-5.1); Sodium 141 mmol/L (136-145)
[2019-03-05] MEDS ORDERED: Furosemide 40 MG TAB PO SCH (07:00)
[2019-03-05] MEDS: Amlodipine 5 MG TAB PO SCH (09:59)
[2019-03-05] MEDS: Heparin 5,000 UNITS/ML VIAL SC SCH ×3 (09:59→21:25)
[2019-03-05] MEDS: Saccharomyces boulardii 250 MG CAP PO SCH (10:00)
[2019-03-05] MEDS: Senokot 8.6 MG TAB PO SCH (10:02)
--- NOTE | 2019-03-05 10:14 | PRG ---
DATE OF SERVICE: 03/05/2019 Ms. Carcamo is resting quietly in her hospital bed. She is in no distress. She can likely be discharged home with an attendant and BiPAP. Job ID: [id number]
[2019-03-05 12:38] VITALS: BP 141/80
--- NOTE | 2019-03-05 13:45 | DIS ---
DATE OF ADMISSION: 03/01/2019 DATE OF DISCHARGE: 03/06/2019 DISCHARGE ATTENDING: Senthil Trujillo MD. RESIDENT: Reji Camacho DO, PGY-2. CONSULTS: Dr. Garcia, pulmonology. PROCEDURES: Chest x-ray on 03/01/2019 showing cardiomegaly and chronic right diaphragm paralysis. PRIMARY DIAGNOSES: 1. Acute heart failure with preserved ejection fraction exacerbation. 2. Acute kidney injury on CKD, 3. 3. Hyperkalemia. SECONDARY DIAGNOSIS: Hypothyroidism, dementia, hypertension. DISCHARGE MEDICATIONS: 1. Lasix 40 mg p.o. q.7 am. 2. Tylenol 650 mg p.o. q.4 hours. 3. Amlodipine 5 mg p.o. daily. 4. Levothyroxine 50 mcg p.o. daily. 5. Losartan 25 mg p.o. daily. 6. Amantadine 10 mg p.o. b.i.d. 7. MiraLAX 17 g p.o. daily. 8. Ranexa 500 mg p.o. b.i.d. 9. Florastor 250 mg p.o. daily. 10. Senokot 8.6 mg p.o. daily. DISCONTINUED MEDICATIONS: 1. Spironolactone. 2. Potassium supplementation. 3. Celexa. 4. Remeron. 5. Exelon. BRIEF HISTORY OF PRESENT ILLNESS AND HOSPITAL COURSE: This is an 83-year-old female with past medical history as above, who presents from [facility] with bilateral p.o. edema, bilateral hand swelling, orthopnea. The patient's son, Carlos Alberto picked the patient up from the rehab and brought her to the hospital, says that she feels painless. Denies chest pain, difficulty breathing. Mainly complains of being cold and wanted a blanket. The patient had oxygen requirement while in rehab, which progressed to this day. On admission, the patient had hyperkalemia of 6.5, which down trended nicely with Lasix and stopping potassium supplements, spironolactone. Next, the patient also had likely a mixed anemia secondary to chronic disease. The patient was diuresed nicely, at time of discharge had 6 L diuresed. The patient did require a code green on 03/03. This occurred at 11:12 in the morning. The patient was found to be lethargic and unresponsive. ABG showed pH of 7.29, CO2 of 66.8 , PO2 of 66.9, and bicarb of 31.1. GCS of E1, V2, M5. The patient was admitted to the ICU for BiPAP care and perked up almost immediately within the first 5 minutes of BiPAP. The patient remained there. Pulmonology was consulted at this time and recommended that she was not a great candidate for home BiPAP due to her dementia and inability to pull the mask off if she had an aspiration event. After electronic prepress technician discussed with patient's son, plan is to be discharged today with home BiPAP as well as a sitter 24 hours to watch this patient for the event of an aspiration event. DISPOSITION: Stable. DISCHARGE INSTRUCTIONS: 1. Location: Home. 2. Diet: Heart healthy. 3. Activity: As tolerated. 4. Follow up with Pulmonology as instructed for BiPAP management and with PCP. Job ID: [id number] MTDD
[2019-03-05 15:11] VITALS: BMI 23.1
--- NOTE | 2019-03-05 15:55 | PDOC.PALFU ---
Palliative Care Follow-up Note Patient awake, alert, pleasantly confused, negative for any complaints at time of visit. Unable to make contact with patient Son Carlos Alberto. Several attempts to catch him at bedside, unable to reach via phone. Attempting to discuss goals of care in line with disease trajectory to support optimal care and environment for patient at discharge.
--- NOTE | 2019-03-05 16:15 | PRG ---
DATE OF SERVICE: 03/05/2019 SERVICE: Pulmonary Medicine. INTERVAL HISTORY: The patient is doing fine from respiratory standpoint. She is breathing comfortably. She has been weaned down to 1 L nasal cannula. Otherwise, there has been no interval change to her condition. I find her awake and alert today. She has no difficulties with her breathing. She is using the BiPAP on and off as time goes by. PHYSICAL EXAMINATION: VITAL SIGNS: Afebrile, pulse 88, blood pressure 147/94, respirations 14, and saturation 99% on 1 L nasal cannula. GENERAL: The patient is awake and alert, in no apparent distress. LUNGS: Excellent air entry with no prolonged expiratory phase or wheezing. HEART: Normal rate, regular. ABDOMEN: Soft, nontender, nondistended. Bowel sounds are positive. MUSCULOSKELETAL: No cyanosis or clubbing. No pitting in the bilateral lower extremities. NEUROLOGIC: Grossly nonfocal. LABORATORY DATA: Creatinine 1.38. Basic metabolic profile is otherwise unremarkable. Bicarb is 34. ASSESSMENT: 1. Acute hypoxic respiratory failure, improving. 2. Acute on chronic hypercapnic respiratory failure, resolved to baseline. 3. Metabolic encephalopathy, resolved. 4. Paralyzed right hemidiaphragm. 5. Dementia, advanced. DISCUSSION AND PLAN: I have come to an arrangement with the patient's son. The only hope this patient has to stay out of the ICU in the hospital is to wear a noninvasive ventilator at night. She can also use it during the daytime as needed whenever she develops increasing hypercapnia. From a purely respiratory perspective, she is stable for transition out of the hospital. Pulmonary/Critical Care will continue to follow along while she remains in-house, intermittently. She has developed a touch of contraction alkalosis. As such, I will back off on the Lasix. Job ID: [id number]
[2019-03-06] MEDS: Levothyroxine Sodium 50 MCG TAB PO SCH (06:02)
--- NOTE | 2019-03-06 06:03 | PDOC.FM ---
- Subjective Subjective: Pt lying awake in bed. No overnight events. No complaints. Denies chest pain, SOB. - Objective MAR Reviewed: Yes Vital Signs & Weight: Vital Signs (12 hours) Temp Pulse Ox 03/06/19 03:46 98.6 F 03/06/19 00:00 98.9 F 03/05/19 20:00 94 L 03/05/19 19:47 98.8 F Weight Admit Weight 75.75 kg Weight 66.678 kg Most Recent Monitor Data Heart Rate from ECG 91 NIBP 124/66 NIBP BP-Mean 85 Respiration from ECG 21 SpO2 89 I&O: 03/04/19 03/05/19 03/06/19 06:59 06:59 06:59 Intake Total 200 550 600 Output Total 3000 2025 750 Balance -2800 -1475 -150 Result Diagrams: 03/03/19 06:40 03/05/19 05:38 Phys Exam - Physical Examination Constitutional: NAD HEENT: moist MMs, sclera anicteric Neck: no nodes, supple Respiratory: no wheezing, no rales, no rhonchi, clear to auscultation bilateral Cardiovascular: RRR, no rub soft sys murmur Gastrointestinal: soft, non-tender, no distention, positive bowel sounds Musculoskeletal: pulses present, edema present (trace LE) Psychiatric: normal affect Deviation from normal: A&OX1 Skin: no rash, normal turgor, cap refill <2 seconds Dx/Plan (1) Acute exacerbation of CHF (congestive heart failure) Code(s): I50.9 - HEART FAILURE, UNSPECIFIED Status: Acute (2) SONALI (acute kidney injury) Code(s): N17.9 - ACUTE KIDNEY FAILURE, UNSPECIFIED Status: Acute (3) CKD (chronic kidney disease) stage 3, GFR 30-59 ml/min Code(s): N18.3 - CHRONIC KIDNEY DISEASE, STAGE 3 (MODERATE) Status: Acute (4) Dementia Code(s): F03.90 - UNSPECIFIED DEMENTIA WITHOUT BEHAVIORAL DISTURBANCE Status: Chronic (5) HTN (hypertension) Code(s): I10 - ESSENTIAL (PRIMARY) HYPERTENSION Status: Chronic (6) Hypothyroidism Code(s): E03.9 - HYPOTHYROIDISM, UNSPECIFIED Status: Chronic - Plan Plan: This is an 83 yo female with a pmh of hypothyroidism, demetia, HTN, CKD3 Acute on chronic HFpEF exacerbation -Continue lasix (changing to PO) and monitor renal function -Strict I&Os. daily weights, Down 6 L -HF clinic consulted -Plan to discharge with home bipap Hyperkalemia -Continue lasix, trending down -Holding home spiranolactone Hypothyroidism -Continue home medication of synthroid Dementia -Continue home medications CKD3 -Continue home medications HTN -Continue home medications of norvasc, carvedilol, clonidine, cozaar - BP stable in appropriate range. Dispo: stable awaiting d/c today for medical equipment. Addendum - Attending - Attending Attestation Date/Time: 03/06/19 0207 I personally evaluated the patient and discussed the management with Dr. Xie. I agree with the History, Examination, Assessment and Plan documented above with any addition or exceptions noted below. The patient is doing well this morning. She is stable to d/c.
[2019-03-06 07:10] VITALS: TEMP 99.2
[2019-03-06] MEDS ORDERED: Furosemide 40 MG TAB PO PRN (09:00)
== END 2019-03-06 09:22 | disposition home health service (06) | DRG 291 ==
LOC: ERS 18:03 → 2NO 21:38 → CCU 03-03 11:26 → IMCU/EMU 03-05 01:00
PROVIDERS: ADMIT Family Medicine; ATTEND Family Medicine
PROC: 3E02340 Introduction of Influenza Vaccine into Muscle, Percutaneous Approach (ICD-10-PCS; 2019-03-02)
PROC: 5A09457 Assistance with Respiratory Ventilation, 24-96 Consecutive Hours, Continuous Positive Airway Pressure (ICD-10-PCS; principal; 2019-03-03)
DX: I13.0 Hypertensive heart and chronic kidney disease with heart failure and stage 1 through stage 4 chronic kidney disease, or unspecified chronic kidney disease (principal); I50.33 Acute on chronic diastolic (congestive) heart failure; J96.21 Acute and chronic respiratory failure with hypoxia; J96.22 Acute and chronic respiratory failure with hypercapnia; G93.41 Metabolic encephalopathy; N17.9 Acute kidney failure, unspecified; Z23 Encounter for immunization; Z51.5 Encounter for palliative care; E03.9 Hypothyroidism, unspecified; J98.6 Disorders of diaphragm; N18.3 Chronic kidney disease, stage 3 (moderate); E87.5 Hyperkalemia; D63.1 Anemia in chronic kidney disease; G30.9 Alzheimer's disease, unspecified; G47.33 Obstructive sleep apnea (adult) (pediatric); F02.80 Dementia in other diseases classified elsewhere, unspecified severity, without behavioral disturbance, psychotic disturbance, mood disturbance, and anxiety; Z79.4 Long term (current) use of insulin; Z87.891 Personal history of nicotine dependence; Z88.0 Allergy status to penicillin; Z79.890 Hormone replacement therapy; Z79.899 Other long term (current) drug therapy; L89.629 Pressure ulcer of left heel, unspecified stage
CPT/HCPCS: 36415; 36416; 71045; 80048; 82550; 82805; 83735; 83880; 84100; 84484; 85025; 85027; 93005; 93798; 94660; 94760; 96374; J1644; J1940

== ENCOUNTER 2019-03-18 13:40 | Observation (INO) | payer BC, MEDICARE ==
[2019-03-18 14:17] LABS: #Eosinphils 0.3 thou/uL (0.0-0.7); #Lymphocytes 1.3 thou/uL (1.20-3.40); #Monocytes 0.7 thou/uL (0.11-0.59); #Neutrophils 4.1 thou/uL (1.40-6.50); %Basophils 0.6 % (0.0-1.0); %Lymphocytes 19.9 % (21.0-51.0); %Monocytes 10.8 % (0.0-10.0); %Neutrophils 63.7 % (42.0-75.0); Hemoglobin 8.7 g/dL (12.0-16.0); Mean Corpuscular HGB CONC 30.9 g/dL (32.0-36.0); Mean Corpuscular Hemoglobin 26.8 pg (27.0-31.0); Mean Platelet Volume 8.2 fL (7.4-10.4); Platelet Count 289 thou/uL (130-400); RBC Distribution Width 16.6 % (11.5-14.5); Red Blood Cell (RBC) Count 3.23 mill/uL (4.20-5.40); White Blood Cell (WBC) Count 6.4 thou/uL (4.8-10.8)
--- NOTE | 2019-03-18 14:28 | CT ---
CT BRAIN NONCONTRAST: DATE: 03/18/2019 HISTORY: 83-year-old female with altered mental status. Dysarthria. This stroke alert protocol report was called by Dr. Kaba to Dr. Angulo at 2:12 PM on 03/18/2019. FINDINGS: There is no evidence of acute intra-axial or extra-axial hemorrhage. There is no midline shift or any other mass effect. There is no extra-axial fluid collection. There is no evidence of obstructive hydrocephalus. Calvarium is intact. There is diffuse brain parenchymal volume loss. There are low att enuation areas in the white matter. These are nonspecific, but in a patient of this age, they are probably chronic ischemic white matter changes due to microvascular atherosclerosis. 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 IMPRESSION: 1) No acute intracranial findings. 2) involutional changes and chronic ischemic white matter changes. 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
--- NOTE | 2019-03-18 14:43 | RAD ---
Exam: Chest one view HISTORY:Strokelike symptoms. Altered mental status. Comparison: 03/01/2019 FINDINGS: Cardiac silhouette:Atherosclerosis of the aortic knob. Aorta: Enlarged cardiac silhouette. Pulmonary vessels: Normal Costophrenic angles: Costophrenic angles are clear. Persistent elevation the right hemidiaphragm. LUNGS: Diminished lung volumes. Chronic changes. No mass or consolidation. Pneumothorax: None Osseous abnormalities: None IMPRESSION: 1. Chronic changes. 2. Atherosclerosis.
[2019-03-18 14:44] LABS: Albumin 3.5 g/dL (3.4-4.8); Chloride 109 mmol/L (98-107); Potassium 4.9 mmol/L (3.5-5.1); Sodium 143 mmol/L (136-145)
[2019-03-18 14:49] LABS: Alkaline Phosphatase 167 U/L (40-110); Anion Gap 10 mmol/L (10-20); BUN (Urea Nitrogen) 24 mg/dL (9.8-20.1); Bilirubin, Total 0.3 mg/dL (0.2-1.2); Calc. Creatinine Clearance 0 mL/min (70-130); Carbon Dioxide 29 mmol/L (23-31); Estimated GFR-MDRD 28; Glucose 100 mg/dL (83-110); Protein, Total 6.5 g/dL (6.0-8.3)
[2019-03-18 14:57] LABS: AST (SGOT) 15 U/L (5-34)
[2019-03-18 14:58] LABS: ALT (SGPT) 13 U/L (8-55)
--- NOTE | 2019-03-18 16:48 | PDOC.FPRHP ---
- History of Present Illness Chief Complaint: AMS, confusion History of Present Illness: Son states pt was mumbling, couldn't stay away and was more altered from baseline starting today. He went to longterm and was unable to hold a conversation with her for about 20 minutes, then decided to come to ER. Would start words and not finish the word. Pt has been very sleepy today as well. Had a seizure 2.5 weeks ago. Was taken off keppra because it made her too lethargic. 2013 pt had screening carotid US with 40% occlusion. MRI showed HTN encephalopathy with consistent Alzheimer change on last admission. No ASA was started in the ED. Pt given IVF in ED, Cr is 2.02. Trops neg, CXR no consolidation, CBC 8.7, BNP 240. Normal vitals. - Allergies/Adverse Reactions Allergies Allergy/AdvReac Type Severity Reaction Status Date / Time Penicillins Allergy Short of Verified 03/02/19 01:50 Breath - Home Medications Medication Instructions Recorded Confirmed Type Acetaminophen [Pain Relief] 325 mg PO Q8H PRN 10/09/18 03/02/19 History Levothyroxine Sodium 50 mcg PO DAILY 10/09/18 03/02/19 History Polyethylene Glycol 3350 17 gm PO DAILY PRN 10/09/18 03/02/19 History Saccharomyces boulardii [Florastor] 250 mg PO DAILY 10/09/18 03/02/19 History Sennosides [Senna Lax] 8.6 mg PO DAILY 10/09/18 03/02/19 History Losartan Potassium 25 mg PO DAILY 01/27/19 03/02/19 History Amlodipine [Norvasc] 5 mg PO DAILY 01/28/19 03/02/19 History Ranolazine [Ranexa] 500 mg PO BID #60 tab 01/29/19 03/02/19 Rx Memantine HCl [Namenda] 10 mg PO BID 03/02/19 03/02/19 History Furosemide [Lasix] 40 mg PO 0700 #30 tab 03/05/19 Rx Aspirin [Ecotrin Low Strength] 81 mg PO DAILY tab 03/19/19 Rx Atorvastatin Calcium [Lipitor] 20 mg PO HS #30 tab 03/19/19 Rx - History PMHx: stage 2 alzheimer's dementia, diastolic CHF, hypothyroidism, HTN, Seizures PSHx: hemorroidectomy, cataract sx, l kidney open stone removal FHx: non-contributory Social: former smoker 10 years ago, denies etoh and drug use. Lives in NH - Review of Systems ROS unobtainable: due to mental status (pt does not answe any queations, hx obtained from son.) - Vital signs BP: 138/69 HR: 74 RR: 18 Tmax: 98.4 Pox: 93% on 3L NC Wt: 73 kg - Physical Exam Constitutional: NAD -Constitutional: awake, somnolent, but easily arousable. Oriented X0 HEENT: normocephalic and atraumatic, conjunctiva clear, no scleral icterus, MMM , other (sluggish, but reactive pupils) Neck: supple, trachea midline, no JVD Chest: no lesions Heart: RRR, pulses present, other (BLE 3+ pitting edema R>L. Prominent sock line from compresson stockings at the ankles.) Lungs: CTAB, no respiratory distress, good air movement, no rales/rhonchi, no wheezing, no retractions Abdomen: soft, non-tender, bowel sounds present, no masses/distention Musculoskeletal: normal structure -Neurological: follows instructions, with 4/4 strength in all extremities. Will not repeat verbal phrases. Will not vocalize other than one word "wow" Skin: no rash/lesions, good turgor, capillary refill <2 seconds, no jaundice Heme/Lymphatic: no unusual bruising or bleeding, no purpura, no petechia FMR H&P: Results - Labs Result Diagrams: 03/18/19 13:55 03/19/19 04:42 Lab results: WBC 6.4 thou/uL (4.8-10.8) 03/18/19 13:55 Hgb 8.7 g/dL (12.0-16.0) L 03/18/19 13:55 Hct 28.1 % (36.0-47.0) L 03/18/19 13:55 MCV 87.0 fL (78.0-98.0) 03/18/19 13:55 Plt Count 289 thou/uL (130-400) 03/18/19 13:55 Neutrophils % 63.7 % (42.0-75.0) 03/18/19 13:55 Sodium 143 mmol/L (136-145) 03/18/19 13:55 Potassium 4.9 mmol/L (3.5-5.1) 03/18/19 13:55 Chloride 109 mmol/L (98-107) H 03/18/19 13:55 Carbon Dioxide 29 mmol/L (23-31) 03/18/19 13:55 BUN 24 mg/dL (9.8-20.1) H 03/18/19 13:55 Creatinine 2.02 mg/dL (0.6-1.1) H 03/18/19 13:55 Glucose 100 mg/dL (83-110) 03/18/19 13:55 Calcium 9.0 mg/dL (7.8-10.44) 03/18/19 13:55 Total Bilirubin 0.3 mg/dL (0.2-1.2) 03/18/19 13:55 AST 15 U/L (5-34) 03/18/19 13:55 ALT 13 U/L (8-55) 03/18/19 13:55 Alkaline Phosphatase 167 U/L (40-110) H 03/18/19 13:55 B-Natriuretic Peptide 242.4 pg/mL (0-100) H 03/18/19 13:55 Serum Total Protein 6.5 g/dL (6.0-8.3) 03/18/19 13:55 Albumin 3.5 g/dL (3.4-4.8) 03/18/19 13:55 - EKG Interpretation EK HR, NSR - Radiology Interpretation Chest x-ray Status: report reviewed by me (no consolidations) FMR H&P: A/P - Problem List (1) Encephalopathy, unspecified Status: Acute Code(s): G93.40 - ENCEPHALOPATHY, UNSPECIFIED (2) STEVEN (acute kidney injury) Status: Acute Code(s): N17.9 - ACUTE KIDNEY FAILURE, UNSPECIFIED Comment: improved with diuresis, will resume Losartan but decrease to once daily (3) Diastolic CHF Status: Acute Code(s): I50.30 - UNSPECIFIED DIASTOLIC (CONGESTIVE) HEART FAILURE (4) Paralyzed hemidiaphragm Status: Acute Code(s): J98.6 - DISORDERS OF DIAPHRAGM (5) Dementia Status: Chronic Code(s): F03.90 - UNSPECIFIED DEMENTIA WITHOUT BEHAVIORAL DISTURBANCE (6) HTN (hypertension) Status: Chronic Code(s): I10 - ESSENTIAL (PRIMARY) HYPERTENSION (7) Hypothyroidism Status: Chronic Code(s): E03.9 - HYPOTHYROIDISM, UNSPECIFIED - Plan 83 y/o F admitted to stroke observation for TIA/CVA rule out for acute encephalopathy. 1. Acute Encephalopathy, worsened from her baseline. TIA/CVA rule out. - Expressive aphasia acute onset today. - Ordered MRI, started ASA 81 mg daily, atorvastatin 20 mg daily. Ordered 325 mg ASA now. - Carotid doppler performed in 01/2019, no significant stenosis on L, R could not be assessed. - Previous echo: mildly elevated Pulm HTN, diastolic dysfunction - Pt was hypercapnic on previous admission, causing encephalopathy. ABG ordered now. - Blood ccx and urine ccx ordered. - Procal pending 2. Hx of Alzheimer's Dementia - Usually alert and oriented to person. - more confused from baseline - Palliative consult placed for goals of care 3. STEVEN on CKD stage 3, acutely worse - Cr 2.02 - Starting LR @ 100 mL/hr - Will re-evaluate Cr closely and D/C fluids when STEVEN improves as she has HFpEF 4. Hx of HFpEF - monitor fluid status - BNP 240, BNP previously much higher - stable, continue home meds 5. Hypothyroidism -Continue home medication of synthroid - Last TSH 1 month ago normal, will recheck 6. HTN -Continue home medications - BP stable in appropriate range. 7. Hemidiaphragm paralysis - pt was discharged with BiPAP - Son states she has not been using home O2 as much as she should. - ABG ordered. Code Status: full code. DVT ppx: SCD's Diet: NPO, speech eval appreciate feed recs. Dispo: stable, admit to stroke obs for TIA/CVA rule out in setting of acute encepalopathy and aphasia. FMR H&P: Upper Level - Plan Date/Time: 03/18/19 [id number] I, [Linda Hernadez], have evaluated this patient and agree with findings/plan as outlined by recruiting internship resident. Pertinent changes/additions are listed here. 83 yo F PMH Dementia, hypothyroidism, right hemidiaphragm parlalysis with chronic respiratory failure on oxygen brought in for expressive aphasia starting today around noon at longterm. Per son, she was having difficulties saying words and seemed more lethargic. Patient has a hx of a one time seizure several weeks ago in which she was previously on Keppra but which has been discontinued due to the thought it made her sleepy. Son says no seizure activity was reported. At baseline patient is A&O x4, conversive. In the room she is able to tell is she is "great" but unable to answer any further questions due to difficulty with comprehension/maintaining consciousness. Well appearing. PMH: Hypothyroidism, HFpEF, HTN, Dementia, CKD, Paralyzed hemidaphragm, chronic respiratory failure on oxygen ROS: Given by son as evidenced in HPI, unobtainable by patient PE: -Gen: NAD, lethargic, but arousable and fluctuation mentation -Heart: RRR, no murmurs -Lungs: CTAB -Neuro: PERRLA, EOMI, CN II-XII grossly intact -Extrem: 2+ edema in BLE A/P: 1. New onset expressive aphasia-TIA vs. CVA rule out -no ASA in ED, will give on floors -CT head: neg for acute bleed but showing chronic ischemic changes and lacunar infarcts -risk stratify with FLP, A1c -NPO pending beside swallow -Allow for permissive HTN <220/<120 -will need optimum medical mgmt closer to discharge -TTE in September 2015: mildly elevated PH, diastolic dysfx, likely no need for repeat echo if clinically improves and tele monitors show no abnormalities -Carotid Dopplers done on January showed no hemodynamically significant stenosis in the left carotids but unable to assess the right carotids consider CTA neck or MRI angio in the AM -Admit to stroke/obs 2. Acute encephalopathy -Secondary to suspected TIA/CVA vs infection vs. dementia -See plan above for TIA/CVA -Afebrile, no leukocytosis, CXR with no focal consolidation, will do limited infectious workup including UA, procal, TSH -If still altered, can consider ABG 3. Steven on CKD -Cr 2.0, usually in 1.00 range at baseline -Gentle fluids, recheck BMP in AM 4. HFrEF -BNP ~200s, but previously in 1000s so at baseline -Appears euvolemic, monitor volume status 5. Chronic respiratory failure requiring 2L -Hx of right hemidiaphragm paralysis -Stable, non hypoxic Code: Full Dispo: <2 midnights Dvt ppx: SCDs d/t fall risk Diet: NPO pending bedside swallow Discussed with Dr. Martinez Addendum - Attending - Attending Attestation Date/Time: 03/19/192140 I personally evaluated the patient and discussed the management with Dr. Xie/ Satya I agree with the History, Examination, Assessment and Plan documented above with any addition or exceptions noted below. please see my event note for details
[2019-03-18] MEDS: Lactated Ringer's 1,000 ML IV SCH (17:45)
[2019-03-18 18:21] LABS: Strep pneumo Urine Ag NEGATIVE (NEGATIVE)
--- NOTE | 2019-03-18 18:23 | PDOC.EVN ---
Addendum - Attending - Attending Attestation Date/Time: 03/18/191818 I personally evaluated the patient and discussed the management with Dr. Xie/ Satya. I agree with the History, Examination, Assessment and Plan documented above with any addition or exceptions noted below. 83 yo AAF PMH alzheimers (baseline A&O to person), HTN, CHF, and multiple prior UTI. Presents from [place] with a CC of new expressive aphasia. Patient son at bedside and provides history. States NH called him today and said patient was unable to complete sentences. Patient's son says at baseline patient oriented to person but is able to say his full name and recognizes close family by face and name. States she had difficulty speaking his name this afternoon. At time of exam, he states patient's aphsia is improving but still not returned to baseline mentation. Patient would respond to name but could not answer questions appropriately. Exam unremarkable. Labs unremarkable. EKG NSR. CXR shows stable right hemidiaphram elevation. CT brain stable. Will place in observation for TIA/CVA r/o. MRI brain tomorrow. Pending improvement of renal function, will consider CTA Head and neck vs MRA of head and neck. During recent hospitalization, MRI showed chronic changes. Carotid dopplers showed normal left carotid arteries but unable to evaluate right neck vasculature due to patient positioning. I discussed with the patient's son potential next steps should the evaluation be positive for arterial stenosis. Patient would likely be poor candidate for carotid endartectomy or other corrective procedure. He states he would still like evaluation to see if an organic cause is present. I also advised him that this may be the natural progression of her dementia. He experssed understanding. Will also evaluate for other possible sources of infection with procal, UA, blood and urine cultures, and urinary antigens for strep and legionella. I currently suspect this is just a rapid decline of her underlying dementia.
[2019-03-18] MEDS ORDERED: Aspirin 325 MG TAB ONE (18:27)
[2019-03-18 18:42] LABS: Bacteria/HPF 3+ HPF (None Seen); Bilirubin Negative (Negative); Blood, Urine Negative (Negative); Clarity Turbid (Clear); Glucose, Urine (Dipstick) Normal (Negative); Leukocyte 500 Leu/uL (Negative); Nitrite Negative (Negative); Protein, Urine (Dipstick) 10 mg/dL (Neg-Trace); Squamous Epithelial 0-3 HPF (0-3); Urobilinogen Normal mg/dL (Less than 2); WBC/HPF Greater than 50 HPF (0-3)
[2019-03-18] MEDS ORDERED: Polyethylene Glycol 3350 17 GM Packet PO PRN (18:43)
[2019-03-18] MEDS ORDERED: Acetaminophen 325 MG TAB PO PRN (18:43)
[2019-03-18 19:06] LABS: RBC/HPF 0-3 HPF (0-3)
[2019-03-18] MEDS: Atorvastatin Calcium 20 MG TAB PO SCH (21:45)
[2019-03-18] MEDS ORDERED: Aspirin 325 mg Enteric Coated Tablet PO SCH (22:30)
[2019-03-18 23:10] LABS: Legionella Urinary Ag Negative (Negative)
[2019-03-18 23:29] VITALS: BMI 20.5
[2019-03-19 00:33] LABS: Actual Bicarbonate (HCO3a) 28.8 mEq/L (22-28); Base Excess (BEa) 3.1 mEq/L (-2.0 to +3.0); Calcium, Ionized 1.17 mmol/L (1.12-1.30); Carboxyhemoglobin (COHb) 1.2 gm% (0.0-3.0); Hemoglobin (Hb) 7.7 g/dL (12.0-16.0); O2 Tension (PaO2) 93.3 mmHg (> 60.0); Potassium - ABG Lab 4.37 mmol/L (3.70-5.30); pH, Arterial 7.37 (7.35-7.45)
[2019-03-19 05:12] LABS: Hemoglobin A1c 5.1 % (4.0-6.0)
[2019-03-19 05:21] LABS: Phosphorus 3.7 mg/dL (2.3-4.7)
[2019-03-19 05:24] LABS: ALT (SGPT) 12 U/L (8-55); AST (SGOT) 12 U/L (5-34); Albumin 3.1 g/dL (3.4-4.8); Alkaline Phosphatase 139 U/L (40-110); Anion Gap 8 mmol/L (10-20); BUN (Urea Nitrogen) 19 mg/dL (9.8-20.1); Bilirubin, Total 0.3 mg/dL (0.2-1.2); Calc. Creatinine Clearance 26 mL/min (70-130); Calcium 8.7 mg/dL (7.8-10.44); Carbon Dioxide 29 mmol/L (23-31); Cardiac Risk 3.2 (Less than 4.5); Chloride 111 mmol/L (98-107); Cholesterol 175 mg/dl (< 200 Desired); Estimated GFR-MDRD 37; Globulin 2.9 g/dL (2.4-3.5); Glucose 75 mg/dL (83-110); HDL Cholesterol 55 mg/dL (>60 Neg Risk); LDL Cholesterol, Calculated 106 mg/dL; Potassium 4.6 mmol/L (3.5-5.1); Sodium 143 mmol/L (136-145); Triglycerides 72 mg/dL (Less than 150)
--- NOTE | 2019-03-19 05:53 | PDOC.FPRHP ---
- History of Present Illness History of Present Illness: 83 y/o F admitted to stroke observation for TIA/CVA rule out for acute encephalopathy. 1. Acute Encephalopathy, worsened from her baseline. TIA/CVA rule out, vs other etiology - Expressive aphasia acute onset today. - Ordered MRI, started ASA 81 mg daily, atorvastatin 20 mg daily. Ordered 325 mg ASA now. - Carotid doppler performed in 01/2019, no significant stenosis on L, R could not be assessed. - Previous echo: mildly elevated Pulm HTN, diastolic dysfunction - Pt was hypercapnic on previous admission, causing encephalopathy. ABG ordered now. - Blood ccx and urine ccx ordered. - Procal pending 2. Hx of Alzheimer's Dementia - Usually alert and oriented to person. - more confused from baseline - Palliative consult placed for goals of care 3. SONALI on CKD stage 3, acutely worse - Cr 2.02 - Starting LR @ 100 mL/hr - Will re-evaluate Cr closely and D/C fluids when SONALI improves as she has HFpEF 4. Hx of HFpEF - monitor fluid status - BNP 240, BNP previously much higher - stable, continue home meds 5. Hypothyroidism -Continue home medication of synthroid - Last TSH 1 month ago normal, will recheck 6. HTN -Continue home medications - BP stable in appropriate range. 7. Hemidiaphragm paralysis - pt was discharged with BiPAP - Son states she has not been using home O2 as much as she should. - ABG ordered. Code Status: full code. DVT ppx: SCD's Diet: NPO, speech eval appreciate feed recs. Dispo: stable, admit to stroke obs for TIA/CVA rule out in setting of acute encepalopathy and aphasia. - Allergies/Adverse Reactions Allergies Allergy/AdvReac Type Severity Reaction Status Date / Time Penicillins Allergy Short of Verified 03/02/19 01:50 Breath - Home Medications Medication Instructions Recorded Confirmed Type Acetaminophen [Pain Relief] 325 mg PO Q8H PRN 10/09/18 03/02/19 History Levothyroxine Sodium 50 mcg PO DAILY 10/09/18 03/02/19 History Polyethylene Glycol 3350 17 gm PO DAILY PRN 10/09/18 03/02/19 History Saccharomyces boulardii [Florastor] 250 mg PO DAILY 10/09/18 03/02/19 History Sennosides [Senna Lax] 8.6 mg PO DAILY 10/09/18 03/02/19 History Losartan Potassium 25 mg PO DAILY 01/27/19 03/02/19 History Amlodipine [Norvasc] 5 mg PO DAILY 01/28/19 03/02/19 History Ranolazine [Ranexa] 500 mg PO BID #60 tab 01/29/19 03/02/19 Rx Memantine HCl [Namenda] 10 mg PO BID 03/02/19 03/02/19 History Furosemide [Lasix] 40 mg PO 0700 #30 tab 03/05/19 Rx - History PMHx: PSHx: FHx: Social: - Vital signs BP: [] HR: [] RR: [] Tmax: [] Pox: []% on [] Wt: [] FMR H&P: Results - Labs Result Diagrams: 03/18/19 13:55 03/19/19 04:42 Lab results: WBC 6.4 thou/uL (4.8-10.8) 03/18/19 13:55 Hgb 8.7 g/dL (12.0-16.0) L 03/18/19 13:55 Hct 28.1 % (36.0-47.0) L 03/18/19 13:55 MCV 87.0 fL (78.0-98.0) 03/18/19 13:55 Plt Count 289 thou/uL (130-400) 03/18/19 13:55 Neutrophils % 63.7 % (42.0-75.0) 03/18/19 13:55 Sodium 143 mmol/L (136-145) 03/19/19 04:42 Potassium 4.6 mmol/L (3.5-5.1) 03/19/19 04:42 Chloride 111 mmol/L (98-107) H 03/19/19 04:42 Carbon Dioxide 29 mmol/L (23-31) 03/19/19 04:42 BUN 19 mg/dL (9.8-20.1) 03/19/19 04:42 Creatinine 1.59 mg/dL (0.6-1.1) H 03/19/19 04:42 Glucose 75 mg/dL (83-110) L 03/19/19 04:42 Calcium 8.7 mg/dL (7.8-10.44) 03/19/19 04:42 Total Bilirubin 0.3 mg/dL (0.2-1.2) 03/19/19 04:42 AST 12 U/L (5-34) 03/19/19 04:42 ALT 12 U/L (8-55) 03/19/19 04:42 Alkaline Phosphatase 139 U/L (40-110) H 03/19/19 04:42 B-Natriuretic Peptide 242.4 pg/mL (0-100) H 03/18/19 13:55 Serum Total Protein 6.0 g/dL (6.0-8.3) 03/19/19 04:42 Albumin 3.1 g/dL (3.4-4.8) L 03/19/19 04:42 Urine Ketones Negative mg/dL (Negative) 03/18/19 17:45 Urine Blood Negative (Negative) 03/18/19 17:45 Urine Nitrite Negative (Negative) 03/18/19 17:45 Ur Leukocyte Esterase 500 Paulina/uL (Negative) A 03/18/19 17:45 Urine RBC 0-3 HPF (0-3) 03/18/19 17:45 Urine WBC Greater than 50 HPF (0-3) A 03/18/19 17:45 Ur Squamous Epith Cells 0-3 HPF (0-3) 03/18/19 17:45 Urine Bacteria 3+ HPF (None Seen) A 03/18/19 17:45 FMR H&P: A/P - Problem List (1) Encephalopathy, unspecified Current Visit: Yes Status: Acute Code(s): G93.40 - ENCEPHALOPATHY, UNSPECIFIED (2) SONALI (acute kidney injury) Current Visit: No Status: Acute Code(s): N17.9 - ACUTE KIDNEY FAILURE, UNSPECIFIED Comment: improved with diuresis, will resume Losartan but decrease to once daily (3) Diastolic CHF Current Visit: No Status: Acute Code(s): I50.30 - UNSPECIFIED DIASTOLIC ( CONGESTIVE) HEART FAILURE (4) Paralyzed hemidiaphragm Current Visit: No Status: Acute Code(s): J98.6 - DISORDERS OF DIAPHRAGM (5) Dementia Current Visit: No Status: Chronic Code(s): F03.90 - UNSPECIFIED DEMENTIA WITHOUT BEHAVIORAL DISTURBANCE (6) HTN (hypertension) Current Visit: No Status: Chronic Code(s): I10 - ESSENTIAL (PRIMARY) HYPERTENSION (7) Hypothyroidism Current Visit: No Status: Chronic Code(s): E03.9 - HYPOTHYROIDISM, UNSPECIFIED FMR H&P: Upper Level - Plan Date/Time: 03/19/19 0546 I, [], have evaluated this patient and agree with findings/plan as outlined by internet marketing intern resident. Pertinent changes/additions are listed here.
--- NOTE | 2019-03-19 05:55 | PDOC.FM ---
- Subjective Subjective: Pt is awake and alert upon entering the room. Wearing BiPAP. Pt is speaking in full sentences today. Asked, "where am I?" "Who are you?" No complaints this morning. - Objective MAR Reviewed: Yes Vital Signs & Weight: Vital Signs (12 hours) Temp Pulse Resp BP Pulse Ox 03/19/19 03:00 98.2 F 80 16 128/75 99 03/19/19 00:28 95 03/18/19 23:27 98 F 80 140/81 98 03/18/19 23:00 98 Weight Weight 63.049 kg Result Diagrams: 03/18/19 13:55 03/19/19 04:42 Phys Exam - Physical Examination Constitutional: NAD HEENT: moist MMs, sclera anicteric Pupils equal and B sluggish reactivity. Neck: no nodes, no JVD, supple Respiratory: no wheezing, no rales, no rhonchi, clear to auscultation bilateral Cardiovascular: RRR, no significant murmur, no rub Gastrointestinal: soft, non-tender, no distention, positive bowel sounds Musculoskeletal: pulses present, edema present (BLE 3+ pitting edema ) Neurological: moves all 4 limbs (4/5 strength ) follows commands. Speaking in 3-5 words sentences today. Deviation from normal: Disoriented to time and place. Skin: no rash, normal turgor, cap refill <2 seconds Dx/Plan (1) Encephalopathy, unspecified Code(s): G93.40 - ENCEPHALOPATHY, UNSPECIFIED Status: Acute (2) SONALI (acute kidney injury) Code(s): N17.9 - ACUTE KIDNEY FAILURE, UNSPECIFIED Status: Acute (3) Diastolic CHF Code(s): I50.30 - UNSPECIFIED DIASTOLIC (CONGESTIVE) HEART FAILURE Status: Acute (4) Paralyzed hemidiaphragm Code(s): J98.6 - DISORDERS OF DIAPHRAGM Status: Acute (5) Dementia Code(s): F03.90 - UNSPECIFIED DEMENTIA WITHOUT BEHAVIORAL DISTURBANCE Status: Chronic (6) HTN (hypertension) Code(s): I10 - ESSENTIAL (PRIMARY) HYPERTENSION Status: Chronic (7) Hypothyroidism Code(s): E03.9 - HYPOTHYROIDISM, UNSPECIFIED Status: Chronic - Plan Plan: 83 y/o F admitted to stroke observation for TIA/CVA rule out for acute encephalopathy. 1. Acute Encephalopathy, worsened from her baseline. TIA/CVA rule out vs other etiology: infectious, hypercapnia. - Expressive aphasia acute onset 03/18. Improved 03/19. Closer to baseline mental status. - Ordered MRI, started ASA 81 mg daily, atorvastatin 20 mg daily. Ordered 325 mg ASA now. - Carotid doppler performed in 01/2019, no significant stenosis on L, R could not be assessed. - Previous echo: mildly elevated Pulm HTN, diastolic dysfunction - Pt was hypercapnic on previous admission, causing encephalopathy. ABG ordered now. - Blood ccx and urine ccx ordered. - Procal 0.07 - Urine: 3+ bact, >50 WBC, + leuk est 2. Acute UTI - Urine: 3+ bact, >50 WBC, + leuk est - given 1 dose rocephin in ED. 3. Hx of Alzheimer's Dementia - Usually alert and oriented to person. - more confused from baseline - Palliative consult placed for goals of care 4. SONALI on CKD stage 3, acutely worse - Cr 2.02 - Starting LR @ 100 mL/hr - Will re-evaluate Cr closely and D/C fluids when SONALI improves as she has HFpEF 5. Hx of HFpEF - monitor fluid status - BNP 240, BNP previously much higher - stable, continue home meds 6. Hypothyroidism -Continue home medication of synthroid - Last TSH 1 month ago normal, will recheck 7. HTN -Continue home medications - BP stable in appropriate range. 8. Hemidiaphragm paralysis - pt was discharged with BiPAP - Son states she has not been using home O2 as much as she should. - ABG ordered. Code Status: full code. DVT ppx: SCD's Diet: NPO, speech eval appreciate feed recs. Dispo: stable, admit to stroke obs for continued treatment. Acute encephalopathy improved 03/19.
[2019-03-19] MEDS ORDERED: Levothyroxine Sodium 50 MCG TAB PO SCH (06:00)
[2019-03-19 06:02] LABS: Puncture Site L RADIAL
[2019-03-19] MEDS: Lactated Ringer's 1,000 ML IV SCH (06:24)
[2019-03-19] MEDS ORDERED: Furosemide 40 MG TAB PO SCH (07:00)
--- NOTE | 2019-03-19 08:02 | MRI ---
MRI BRAIN NONCONTRAST: DATE: 03/19/2019 HISTORY: 83-year-old female with severely altered mental status FINDINGS: All images are degraded by patient motion, some worse than others. There is no obstructive hydrocepha shelia. There is no midline shift or any other evidence of mass effect. There is no extra-axial fluid collection. There are extensive, confluent T2-hyperintensities throughout the cerebral white matter c onsistent with severe chronic ischemic white matter changes due to microvascular atherosclerosis. There is diffuse brain parenchymal volume loss. There is no evidence of recent hemorrhage or restrict ed diffusion. IMPRESSION: 1) Involutional changes and severe chronic ischemic white matter changes. 2) otherwise negative
[2019-03-19] MEDS ORDERED: Losartan 25 MG TAB PO SCH (09:00)
[2019-03-19] MEDS ORDERED: Aspirin 81 mg Enteric Coated Tablet PO SCH (09:00)
[2019-03-19] MEDS ORDERED: Senokot 8.6 MG TAB PO SCH (09:00)
[2019-03-19] MEDS ORDERED: Amlodipine 5 MG TAB PO SCH (09:00)
[2019-03-19] MEDS ORDERED: Saccharomyces boulardii 250 MG CAP PO SCH (09:00)
[2019-03-19 15:36] VITALS: BP 133/75; TEMP 99.3
--- NOTE | 2019-03-19 16:04 | PDOC.PALCO ---
Palliative Care Consult - Consult Details Requesting Physician: Dr Xie Reason for Consult: goals of care Family Members Present: None - Pertinent HPI Patient is a 83 year old female who resides at [facility]. Recently discharged from hospital, patient son went to visit and noted that her speech was altered and she had an altered mental status from her baseline, transported to emergency room for evaluation. . - Pertinent PMH Alzheimers dementia, diastolic CHF, HTN, Seizure - Social History Smoking Status: Former smoker Smoking: quit greater than 1 year Alcohol Use: none Drug Use History: none Living Situation: fpc resident ([facility]) - Medications MAR Reviewed: Yes - Allergies Allergies/Adverse Reactions: Allergies Allergy/AdvReac Type Severity Reaction Status Date / Time Penicillins Allergy Short of Verified 03/02/19 01:50 Breath - Subjective Sleeping but arousable. Found listing to right, repositioned. Pleasantly confused. Able to speak short sentences. Unable to determine orientation beyond self. Denies any complaints - ROS Constitutional: alert, other Eyes: other ([place]itve for visual disturbance) Respiratory: other (Denies shortness of bretah or cough) Gastrointestinal: bowel incontinence Psychological: memory changes - Objective Vital Signs: Vital Signs - Most Recent Temp Pulse Resp BP Pulse Ox 99.3 F 90 20 133/75 97 03/19/19 15:32 03/19/19 15:32 03/19/19 15:32 03/19/19 15:32 03/19/19 15:32 Palliative Performance Scale: 30 - Physical Exam Constitutional: cachectic, confusion HEENT: EOMI, moist MMs, sclera anicteric Respiratory: clear to auscultation bilateral, no wheezing Cardiovascular: no significant murmur, RRR Gastrointestinal: soft, non-tender, positive bowel sounds Musculoskeletal: no clubbing, pulses present, edema present, muscle wasting Neurology: moves all 4 limbs Skin: cap refill <2 seconds Psychiatric: normal mood (Oriented to self) - Problem List (1) Acute on chronic diastolic CHF (congestive heart failure) Code(s): I50.33 - ACUTE ON CHRONIC DIASTOLIC (CONGESTIVE) HEART FAILURE Current Visit: No Status: Acute (2) CKD (chronic kidney disease) stage 3, GFR 30-59 ml/min Code(s): N18.3 - CHRONIC KIDNEY DISEASE, STAGE 3 (MODERATE) Current Visit: No Status: Acute (3) Palliative care encounter Code(s): Z51.5 - ENCOUNTER FOR PALLIATIVE CARE Current Visit: No Status: Acute (4) Physical deconditioning Code(s): R53.81 - OTHER MALAISE Current Visit: No Status: Acute (5) Dementia Code(s): F03.90 - UNSPECIFIED DEMENTIA WITHOUT BEHAVIORAL DISTURBANCE Current Visit: No Status: Chronic - Plan/Recommendations Plan: Unable to reach patient son by phone and not with patient at time of encounter/ assessment. D Lea RN with palliative care met with son, please refer to notes in note section. Continues to wish for his mother to remain with full resuscitative measures. [30] minutes spent on this encounter with >50% of the time in counseling and coordination of care. Thank you for this very appropriate consult.
--- NOTE | 2019-03-19 16:09 | PRG ---
DATE OF SERVICE: 03/19/2019 Ms. Carcamo is back to her usual pleasantly demented self. I really believe that the symptoms described around the time of her admission represent a mild delirium exacerbated by hypercarbia, to which she is prone. I really believe the family needs to make a decision about what quality of life they want for Ms. Carcamo as I am certain that these episodes will continue. Job ID: [id number]
[2019-03-19] MEDS: Atorvastatin Calcium 20 MG TAB PO SCH (20:59)
--- NOTE | 2019-03-20 04:07 | DIS ---
DATE OF ADMISSION: 03/18/2019 DATE OF DISCHARGE: 03/19/2019 RESIDENT: Concepcion Xie DO ADMITTING ATTENDING: Declan Martinez MD DISCHARGE ATTENDING: Dr. Senthil Trujillo MD. CONSULT: Palliative Care. PROCEDURE: None. DIAGNOSES: 1. Acute encephalopathy, likely secondary to hypercapnia. 2. Acute urinary tract infection. 3. History of Alzheimer's dementia. 4. Acute kidney injury on chronic kidney disease, stage 3. 5. History of heart failure with preserved ejection fraction. 6. Hypothyroidism. 7. Hypertension. 8. Hemidiaphragm paralysis. DISCHARGE MEDICATIONS: 1. Aspirin 81 mg daily. 2. Atorvastatin 20 mg p.o. at bedtime. 3. Furosemide 40 mg p.o. daily. 4. Levothyroxine 50 mcg p.o. daily. 5. Namenda 10 mg p.o. b.i.d. 6. MiraLAX 17 g p.o. daily. 7. Ranexa 500 mg p.o. b.i.d. 8. Florastor 250 mg p.o. daily. 9. Sennalax 8.6 mg p.o. daily. 10. Amlodipine 5 mg p.o. daily. 11. Losartan 25 mg p.o. daily. Discontinued medication: None. HISTORY OF PRESENT ILLNESS/HOSPITAL COURSE: Patient is an 83-year-old female with a history of Alzheimer's dementia who was admitted for acute encephalopathy. Patient has had acute worsening and increase in frequency of encephalopathy here recently in the last month and this is the third admission of similar description. Patient's mental status upon admission was unable to verbally express herself. Patient was put back on BiPAP for sleep and by the next morning had gradually improved. Patient was also treated with a gram of Rocephin in the emergency department for a urine that was consistent with urinary tract infection. She was asymptomatic. Cause of her acute encephalopathy was most likely delirium and that is waxing and waning. Patient's family was counseled on use of her BiPAP at home. DISPOSITION: Patient was stable upon discharge back to her long term. DISCHARGE INSTRUCTIONS: 1. Location: To long term. 2. Diet: Heart healthy. 3. Activity: As tolerated. 4. Follow up with primary care in 1 week's time. Job ID: [id number] [facility]
== END 2019-03-19 21:11 ==
LOC: ERS 13:40 → 2SE 16:55 → INTOOBSV 16:55
PROVIDERS: ADMIT Family Medicine; ATTEND Family Medicine
DX: G93.40 Encephalopathy, unspecified (principal); N17.9 Acute kidney failure, unspecified; N39.0 Urinary tract infection, site not specified; G30.9 Alzheimer's disease, unspecified; F02.80 Dementia in other diseases classified elsewhere, unspecified severity, without behavioral disturbance, psychotic disturbance, mood disturbance, and anxiety; I50.30 Unspecified diastolic (congestive) heart failure; J96.12 Chronic respiratory failure with hypercapnia; E03.9 Hypothyroidism, unspecified; J98.6 Disorders of diaphragm; N18.3 Chronic kidney disease, stage 3 (moderate); I13.0 Hypertensive heart and chronic kidney disease with heart failure and stage 1 through stage 4 chronic kidney disease, or unspecified chronic kidney disease; F05 Delirium due to known physiological condition; R53.81 Other malaise; Z51.5 Encounter for palliative care; Z79.82 Long term (current) use of aspirin; Z79.899 Other long term (current) drug therapy; Z87.891 Personal history of nicotine dependence; Z88.0 Allergy status to penicillin; Z99.81 Dependence on supplemental oxygen
CPT/HCPCS: 36415; 70450; 70551; 71045; 80053; 80061; 81003; 81015; 82805; 83036; 83735; 83880; 84100; 84145; 84443; 84484; 85025; 87040; 87086; 87449; 87899; 93005; 94660; 96360; 96361; G0378

== ENCOUNTER 2019-03-23 13:31 | Observation (INO) | payer BC ==
[2019-03-23] MEDS ORDERED: Lorazepam 2 MG/ML VIAL ONE (13:51)
[2019-03-23 14:10] LABS: #Eosinphils 0.2 thou/uL (0.0-0.7); #Lymphocytes 1.4 thou/uL (1.20-3.40); #Monocytes 0.7 thou/uL (0.11-0.59); #Neutrophils 3.8 thou/uL (1.40-6.50); %Basophils 0.7 % (0.0-1.0); %Eosinophils 3.9 % (0.0-10.0); %Lymphocytes 22.5 % (21.0-51.0); %Monocytes 11.6 % (0.0-10.0); %Neutrophils 61.4 % (42.0-75.0); Hemoglobin 8.6 g/dL (12.0-16.0); Mean Corpuscular HGB CONC 30.3 g/dL (32.0-36.0); Mean Corpuscular Hemoglobin 26.3 pg (27.0-31.0); Mean Corpuscular Volume 86.8 fL (78.0-98.0); Mean Platelet Volume 8.3 fL (7.4-10.4); Platelet Count 265 thou/uL (130-400); RBC Distribution Width 16.5 % (11.5-14.5); Red Blood Cell (RBC) Count 3.29 mill/uL (4.20-5.40); White Blood Cell (WBC) Count 6.2 thou/uL (4.8-10.8)
[2019-03-23 14:35] LABS: Anion Gap 10 mmol/L (10-20); BUN (Urea Nitrogen) 20 mg/dL (9.8-20.1); Calc. Creatinine Clearance 0 mL/min (70-130); Carbon Dioxide 29 mmol/L (23-31); Chloride 107 mmol/L (98-107); Estimated GFR-MDRD 30; Potassium 4.5 mmol/L (3.5-5.1); Sodium 141 mmol/L (136-145)
[2019-03-23 14:36] LABS: ALT (SGPT) 11 U/L (8-55); AST (SGOT) 14 U/L (5-34); Albumin 3.6 g/dL (3.4-4.8); Alkaline Phosphatase 155 U/L (40-110); Bilirubin, Total 0.4 mg/dL (0.2-1.2); Calcium 9.2 mg/dL (7.8-10.44); Globulin 3.2 g/dL (2.4-3.5); Glucose 113 mg/dL (83-110); Protein, Total 6.8 g/dL (6.0-8.3)
--- NOTE | 2019-03-23 14:43 | CT ---
CT Head without IV contrast COMPARISON: 03/18/2019 HISTORY: Altered mental status. TECHNIQUE: Axial CT imaging at 5 mm intervals from vertex through skull base without contrast FINDINGS: There is no evidence of an acute infarction, hemorrhage, mass effect, or midline shift. There is decr eased attenuation seen in the periventricular white matter which is nonspecific but likely attributable to chronic small vessel ischemic changes. Small low-density foci are seen in each thalam us also seen on the prior study in likely attributable to remote lacunar infarctions. There is mild cerebral volume loss. The ventricular system is normal in size, shape, and position for the degree of sulcal atrophy. Mucosal thickening is present in the left sphenoid sinus. Mastoid air cells are clear. Osseous structures appear intact. Small lucency in the right parietal bone is again seen and unchange d and probably due to small hemangioma. IMPRESSION: 1. No acute intracranial abnormality demonstrated. 2. Chronic small vessel ischemic changes and cerebral volume loss similar to prior study. 3. Remote lacunar infarction in each thalamus.
[2019-03-23 15:51] LABS: Bilirubin Negative (Negative); Blood, Urine 1+ (Negative); Clarity Turbid (Clear); Glucose, Urine (Dipstick) Normal (Negative); Leukocyte 500 Leu/uL (Negative); Nitrite Negative (Negative); Protein, Urine (Dipstick) 20 mg/dL (Neg-Trace); Squamous Epithelial None Seen HPF (0-3); Urobilinogen Normal mg/dL (Less than 2); WBC/HPF Greater than 50 HPF (0-3)
[2019-03-23 16:15] LABS: Bacteria/HPF 1+ HPF (None Seen)
[2019-03-23] MEDS ORDERED: Ondansetron ODT 4 MG TAB PO PRN (16:58)
[2019-03-23] MEDS ORDERED: Acetaminophen 325 MG TAB PO PRN (16:58)
[2019-03-23] MEDS ORDERED: Polyethylene Glycol 3350 17 GM Packet PO PRN (19:19)
--- NOTE | 2019-03-23 19:31 | PDOC.FPRHP ---
- History of Present Illness Chief Complaint: seizure-like activity History of Present Illness: Pt has dementia at baseline and unable to provide a history. Per ED report, she was being admitted for acute encephalopathy from UTI and possible seizure-like activity witnessed by long-term staff. Son and MPOA Dr. Carcamo was called. He states that around lunch time, the pt had tonic clonic jerking of her arms similar to her first seizure one month ago. However, this time the jerking was every 10 seconds, which was more frequent than her prior episode (every 30 seconds). Pt was given ativan at the long-term and became nonverbal for 1-2 hours. [place] called EMS prior to calling Dr. Carcamo and brought pt to ED. Of note, the pt was started on Keppra 500mg BID after her hospitalization with the first seizure. Dr. Carcamo confirmed this medication was stopped after 3 days due to pt being somnolent. This is the first recurrence of seizure-like activity after stopping the keppra. Pt was recently discharged last Friday for an acute episode of delirium attributed to hypercapnea and intermittent use of BiPAP, which she wears at night. Dr. Carcamo reports she had improved and was walking 25 feet on Friday. ED Course: ED ordered labs. Attempted to give vanc & rocephin, but IV access was not obtained fortunately. Gave 1mg IV push of lorazepam. - Allergies/Adverse Reactions Allergies Allergy/AdvReac Type Severity Reaction Status Date / Time Penicillins Allergy Short of Verified 03/02/19 01:50 Breath - Home Medications Medication Instructions Recorded Confirmed Type Acetaminophen [Pain Relief] 325 mg PO Q8H PRN 10/09/18 03/23/19 History Levothyroxine Sodium 50 mcg PO DAILY 10/09/18 03/23/19 History Polyethylene Glycol 3350 17 gm PO DAILY PRN 10/09/18 03/23/19 History Sennosides [Senna Lax] 8.6 mg PO DAILY 10/09/18 03/23/19 History Losartan Potassium 25 mg PO DAILY 01/27/19 03/23/19 History Amlodipine [Norvasc] 5 mg PO DAILY 01/28/19 03/23/19 History Ranolazine [Ranexa] 500 mg PO BID #60 tab 01/29/19 03/23/19 Rx Memantine HCl [Namenda] 10 mg PO BID 03/02/19 03/23/19 History Furosemide [Lasix] 40 mg PO 0700 #30 tab 03/05/19 03/23/19 Rx Aspirin [Ecotrin Low Strength] 81 mg PO DAILY tab 03/19/19 03/23/19 Rx Atorvastatin Calcium [Lipitor] 20 mg PO HS #30 tab 03/19/19 03/23/19 Rx - History PMHx: stage 2 alzheimer's dementia, diastolic CHF, hypothyroidism, HTN, Prior seizure PSHx: hemorroidectomy, cataract sx, L kidney open stone removal FHx: non-contributory Social: former smoker 10 years ago, denies etoh and drug use. Lives in [place]. - Review of Systems ROS unobtainable: other (Limited due to dementia. Pt is AxO x1 at baseline. She denies dysuria, headache, pain. Complains of being cold.) - Vital signs BP: 116/62, Pulse: 80, Resp: 18, O2 sat: 97 on (Room Air), Time: 03/23/2019 16: 00 - Physical Exam Constitutional: NAD, awake, alert and oriented (AxO x1, wearing her glasses, at baseline per my examination from serial examinations) HEENT: normocephalic and atraumatic, conjunctiva clear, no scleral icterus, MMM Neck: supple, trachea midline Heart: RRR, normal S1/S2, no murmurs/rubs/gallops, other (edema at baseline, worse on L than R, this is normal for her) Lungs: CTAB, no respiratory distress Abdomen: soft, non-tender, no masses/distention Neurological: no focal deficit Skin: no rash/lesions Heme/Lymphatic: no unusual bruising or bleeding, no purpura, no petechia Psychiatric: other (AxO x1, at her baseline.) FMR H&P: Results - Labs Result Diagrams: 03/24/19 04:49 03/24/19 04:49 Lab results: WBC 6.2 thou/uL (4.8-10.8) 03/23/19 14:01 Hgb 8.6 g/dL (12.0-16.0) L 03/23/19 14:01 Hct 28.5 % (36.0-47.0) L 03/23/19 14:01 MCV 86.8 fL (78.0-98.0) 03/23/19 14:01 Plt Count 265 thou/uL (130-400) 03/23/19 14:01 Neutrophils % 61.4 % (42.0-75.0) 03/23/19 14:01 Sodium 141 mmol/L (136-145) 03/23/19 14:01 Potassium 4.5 mmol/L (3.5-5.1) 03/23/19 14:01 Chloride 107 mmol/L (98-107) 03/23/19 14:01 Carbon Dioxide 29 mmol/L (23-31) 03/23/19 14:01 BUN 20 mg/dL (9.8-20.1) 03/23/19 14:01 Creatinine 1.91 mg/dL (0.6-1.1) H 03/23/19 14:01 Glucose 113 mg/dL (83-110) H 03/23/19 14:01 Lactic Acid 0.7 mmol/L (0.5-2.2) 03/23/19 14:01 Calcium 9.2 mg/dL (7.8-10.44) 03/23/19 14:01 Total Bilirubin 0.4 mg/dL (0.2-1.2) 03/23/19 14:01 AST 14 U/L (5-34) 03/23/19 14:01 ALT 11 U/L (8-55) 03/23/19 14:01 Alkaline Phosphatase 155 U/L (40-110) H 03/23/19 14:01 B-Natriuretic Peptide 199.8 pg/mL (0-100) H 03/23/19 14:01 Serum Total Protein 6.8 g/dL (6.0-8.3) 03/23/19 14:01 Albumin 3.6 g/dL (3.4-4.8) 03/23/19 14:01 Urine Ketones Negative mg/dL (Negative) 03/23/19 15:20 Urine Blood 1+ (Negative) A 03/23/19 15:20 Urine Nitrite Negative (Negative) 03/23/19 15:20 Ur Leukocyte Esterase 500 Paulina/uL (Negative) A 03/23/19 15:20 Urine RBC 7-10 HPF (0-3) A 03/23/19 15:20 Urine WBC Greater than 50 HPF (0-3) A 03/23/19 15:20 Ur Squamous Epith Cells None Seen HPF (0-3) 03/23/19 15:20 Urine Bacteria 1+ HPF (None Seen) A 03/23/19 15:20 - Radiology Interpretation CT scan - head Status: image reviewed by me, report reviewed by me Additional comment: IMPRESSION: 1. No acute intracranial abnormality demonstrated. 2. Chronic small vessel ischemic changes and cerebral volume loss similar to prior study. 3. Remote lacunar infarction in each thalamus. FMR H&P: A/P - Problem List (1) Seizure Current Visit: Yes Status: Acute Code(s): R56.9 - UNSPECIFIED CONVULSIONS (2) SONALI (acute kidney injury) Current Visit: No Status: Acute Code(s): N17.9 - ACUTE KIDNEY FAILURE, UNSPECIFIED Comment: improved with diuresis, will resume Losartan but decrease to once daily (3) Physical deconditioning Current Visit: No Status: Chronic Code(s): R53.81 - OTHER MALAISE (4) Dementia Current Visit: No Status: Chronic Code(s): F03.90 - UNSPECIFIED DEMENTIA WITHOUT BEHAVIORAL DISTURBANCE (5) HTN (hypertension) Current Visit: No Status: Chronic Code(s): I10 - ESSENTIAL (PRIMARY) HYPERTENSION (6) Hypothyroidism Current Visit: No Status: Chronic Code(s): E03.9 - HYPOTHYROIDISM, UNSPECIFIED - Plan 83-F w/ history of dementia and is AxO x1 at baseline, admitted to obs for: Suspected seizure-like activity, cause unknown Acute delirium, per report now resolved on admission - pt has history of 1 episode of tonic clonic jerking with postictal period about 1 month ago. Was treated w/ Keppra BID at this time. Due to sedating side effects of Keppra, the medication was stopped. Pt has had several other admissions for unrelated reasons. This is the first recurrence of reported seizure activity. - pt given 1 ativan at long-term, followed by altered mental status per report for 1-2 hours. - prolactin ordered, however outside window so utility is low. - CT Head negative for acute change. - Will contact pharmacy for recommendations on side effect profiles of medications to reduce polypharmacy. - Neuro consulted by the ER. - infectious source unlikely. WBC normal and afebrile. SONALI on CKD - pt's creatinine is above baseline. Recommend PO hydration as pt is delicate balance between CKD and CHF. Abnormal urinalysis - Pt's UA looks similar to previous except for 1+ blood and 7-10 RBCs per hpf and urine culture from that time was negative for growth. She wears diapers at baseline. - Pt is asymptomatic regarding urinary symptoms. Furthermore, her mental status is back to baseline. - We will not treat her for a UTI at this time unless the urine culture grows a specific bacteria. - Urine culture pending. Chronic conditions: Anemia, chronic - pt has had low iron in the past. Does not currently take iron. Will order anemia labs. Dementia, alzheimer's type - AxO x1 at baseline - Continue Namenda CHF - continue home medications Hypothyroidism - ordered TSH. Pt is on levothyroxine. Code: FULL Fluids: oral intake Diet: Regular, mechanical soft. VTE PPx: SCDs GI ppx: none Activity: ambulate w/ assist w/ rolling walker. Fall and seizure precautions. Munira Zamora MD PGY1 Disposition/LOS: Admit to stroke obs. LOS < 48H. FMR H&P: Upper Level - Plan Date/Time: 03/23/191926 I, [Crys Hernadez], have evaluated this patient and agree with findings/plan as outlined by management internship resident. Pertinent changes/additions are listed here. 83 yo F with dementia, recurrent bacteriura and seizures brought in by EMS from [place] for seizure like activity/AMS. Per Dr. Carcamo (son) patient had episode of tonic-clonic movements, was given ativan and then became non verbal. Hx unobtainable from patient due to baseline dementia. Recently discharged last week for acute episode of delirium from hypercapnea from improper use of nightly Bipap. ED: Unable to obtain IV access AVSS PE: A&O 1(baseline), NAD, no abd tenderness Labs: UA: Turbid, 1+ blood, 500 LE, 7-10 RBC, WBC >50, 1+ bacteria WBC 6.[address]: -Chronic ischemic small vessel changes similar to prior study -Remote lacunar infarct -No acute changes otherwise A/P: #. Acute encephalopathy, resolved -2/2 postictal state vs. medication induced -Prolactin though low utility since out of time frame for sensitivity -Neuro consulted from ER, recs appreciated -Ativan PRN for seizure -Med rec to see if cut down on any sedating medications -Admit stroke #. Bacteriuria -All prior cx neg for organism growth -Pt in diaper, no nitrites, no signs of systemic infection -Hold off on abx pending Ucx/clinical course #. SONALI/CKD -Around baseline -PO hydrate, AM BMP Dvt ppx: SCD Dispo: <2 midnights Addendum - Attending - Attending Attestation Date/Time: 03/24/19 1152 I personally evaluated the patient and discussed the management with Dr. Zamora on 03/23/2019 I agree with the History, Examination, Assessment and Plan documented above with any addition or exceptions noted below - 83 yo F with dementia, recurrent bacteriura and seizures brought in by EMS from [place] for seizure like activity/ AMS. Per Dr. Carcamo (son) patient had episode of tonic-clonic movements, was given ativan and then became non verbal. Hx unobtainable from patient due to baseline dementia. PMH/PSH/Meds/SH reviewed and agree with resident's documentation. Afebrile VSS. Exam repeated by me and agree with resident's findings. Labs: WBC=6.2, H/H=8.6/28.5, Iey=253, Ke=399, K=4.5, Nz=995, CO2=29, BUN/Cr=20/1.91, Nbxp=674, lactic acid=0.7, CT brain- no acute changes. U/A= EBC> 50, RBC 7-10, (+) LE, 1+ bact, 1+ blood. A/P: 1) Myoclonic jerking vs seizure - previously on keppra but was very somnulent; consider retrial at lower dose. Neuro consulted by ER. 2) SONALI - Cr elevated over baseline; will po hydrate as unable to obtain IV access and patient stable and back to baseline currently. 3 ) Bacteruria- negative cultures in past; no fever, elevated WBC, or symptoms - will continue to monitor; urine culture pending.
[2019-03-23 21:40] LABS: Hemoglobin 8.1 g/dL (12.0-16.0); Mean Corpuscular HGB CONC 30.8 g/dL (32.0-36.0); Mean Corpuscular Hemoglobin 26.6 pg (27.0-31.0); Mean Corpuscular Volume 86.2 fL (78.0-98.0); Mean Platelet Volume 8.2 fL (7.4-10.4); Platelet Count 263 thou/uL (130-400); RBC Distribution Width 16.4 % (11.5-14.5); Red Blood Cell (RBC) Count 3.04 mill/uL (4.20-5.40); White Blood Cell (WBC) Count 6.3 thou/uL (4.8-10.8)
[2019-03-23 22:00] LABS: Iron Binding Capacity, Total 304 mcg/dL (265-497)
[2019-03-23 22:01] LABS: Iron 26 ug/dL (50-170)
[2019-03-23 22:15] LABS: Anisocytosis SLIGHT = 6-15 cells (100X) (0-5/hpf); Eosinophils 2 % (0-10); Lymphocytes 18 % (21-51); MDiff Complete? YES; Monocytes 9 % (0-10); Neutrophil 71 % (42-75); Ovalocytes SLIGHT = 2-5 cells (100X) (0-1/hpf); Schistocytes SLIGHT = 2-5 cells (100X) (0-1/hpf)
[2019-03-23 22:26] LABS: Ferritin 23.78 ng/mL (10-291); Thyroid Stimulating Hormone 1.5141 uIU/mL (0.35-4.94)
[2019-03-23] MEDS: Atorvastatin Calcium 20 MG TAB PO SCH (22:29)
[2019-03-24 00:38] VITALS: BMI 21.7
[2019-03-24 05:52] LABS: Anion Gap 10 mmol/L (10-20); BUN (Urea Nitrogen) 19 mg/dL (9.8-20.1); Calc. Creatinine Clearance 26 mL/min (70-130); Calcium 8.8 mg/dL (7.8-10.44); Carbon Dioxide 29 mmol/L (23-31); Chloride 105 mmol/L (98-107); Estimated GFR-MDRD 37; Glucose 99 mg/dL (83-110); Sodium 140 mmol/L (136-145)
[2019-03-24 06:17] LABS: #Eosinphils 0.2 thou/uL (0.0-0.7); #Lymphocytes 1.3 thou/uL (1.20-3.40); #Monocytes 0.7 thou/uL (0.11-0.59); #Neutrophils 4.3 thou/uL (1.40-6.50); %Basophils 0.6 % (0.0-1.0); %Eosinophils 3.4 % (0.0-10.0); %Lymphocytes 20.1 % (21.0-51.0); %Monocytes 10.8 % (0.0-10.0); %Neutrophils 65.1 % (42.0-75.0); Hemoglobin 7.8 g/dL (12.0-16.0); Hypochromia SLIGHT = 6-15 cells (100X) (0-5/hpf); MDiff Complete? YES; Mean Corpuscular HGB CONC 30.6 g/dL (32.0-36.0); Mean Corpuscular Hemoglobin 26.4 pg (27.0-31.0); Mean Corpuscular Volume 86.2 fL (78.0-98.0); Mean Platelet Volume 8.7 fL (7.4-10.4); Platelet Count 240 thou/uL (130-400); Platelet Morphology Comment Appears Adequate; RBC Distribution Width 16.3 % (11.5-14.5); Red Blood Cell (RBC) Count 2.96 mill/uL (4.20-5.40); White Blood Cell (WBC) Count 6.7 thou/uL (4.8-10.8)
--- NOTE | 2019-03-24 06:18 | PDOC.FM ---
- Subjective Subjective: Pt is more talkative this morning than I have ever seen her before. She was playing her fingers like a piano to the music in the room when I arrived. She is hungry. Main complaint is dizziness and a mild headache. Otherwise, she feels good. Does have some word finding difficulty, at baseline per conversation w/ son yesterday. - Objective MAR Reviewed: Yes Vital Signs & Weight: Vital Signs (12 hours) Temp Pulse Resp BP BP Pulse Ox 03/24/19 04:00 97.6 F 75 18 121/87 93 L 03/23/19 23:47 97.3 F L 77 18 132/95 H 93 L 03/23/19 21:29 98.1 F 82 18 151/86 H 95 03/23/19 21:00 95 Weight Weight 62.959 kg Result Diagrams: 03/24/19 04:49 03/24/19 04:49 Phys Exam - Physical Examination Constitutional: NAD Respiratory: no wheezing, clear to auscultation bilateral Cardiovascular: RRR, no significant murmur Gastrointestinal: soft, non-tender Psychiatric: normal affect (AxO x1) Dx/Plan (1) Seizure Code(s): R56.9 - UNSPECIFIED CONVULSIONS Status: Acute (2) SONALI (acute kidney injury) Code(s): N17.9 - ACUTE KIDNEY FAILURE, UNSPECIFIED Status: Acute (3) Physical deconditioning Code(s): R53.81 - OTHER MALAISE Status: Chronic (4) Dementia Code(s): F03.90 - UNSPECIFIED DEMENTIA WITHOUT BEHAVIORAL DISTURBANCE Status: Chronic (5) HTN (hypertension) Code(s): I10 - ESSENTIAL (PRIMARY) HYPERTENSION Status: Chronic (6) Hypothyroidism Code(s): E03.9 - HYPOTHYROIDISM, UNSPECIFIED Status: Chronic - Plan Plan: 83-F w/ history of dementia and is AxO x1 at baseline, admitted to obs for: Suspected seizure-like activity, cause unknown Acute delirium, per report now resolved on admission - pt has history of 1 episode of tonic clonic jerking with postictal period about 1 month ago. Was treated w/ Keppra BID at this time. Due to sedating side effects of Keppra, the medication was stopped. Pt has had several other admissions for unrelated reasons. This is the first recurrence of reported seizure activity. - pt given 1 ativan at detention, followed by altered mental status per report for 1-2 hours. - prolactin WNL, however outside window so utility is low. - CT Head negative for acute change. - Will contact pharmacy for recommendations on side effect profiles of medications to reduce polypharmacy. - Neuro consulted by the ER. - infectious source unlikely. WBC normal and afebrile. - DDx: myoclonic seizure associated w/ Alzheimer dementia, the treatment for which is lamotrigine or valproic acid in very low doses for the elderly. SONALI on CKD, improved - Recommend PO hydration as pt is delicate balance between CKD and CHF. Abnormal urinalysis - Pt's UA looks similar to previous except for 1+ blood and 7-10 RBCs per hpf and urine culture from that time was negative for growth. She wears diapers at baseline. - Pt is asymptomatic regarding urinary symptoms. Furthermore, her mental status is back to baseline. - We will not treat her for a UTI at this time unless the urine culture grows a specific bacteria. - Urine culture pending. Chronic conditions: Anemia, chronic - pt has had low iron in the past. Iron is low on current lab. TIBC, ferritin, B12 WNL Dementia, alzheimer's type - AxO x1 at baseline - Continue Namenda CHF - continue home medications Hypothyroidism - Pt is on levothyroxine. TSH is 1.51. We may consider allowing her TSH to be higher as she is elderly and decrease or discontinue the levothyroxine. Code: FULL Fluids: oral intake Diet: Regular, mechanical soft. VTE PPx: SCDs GI ppx: none Activity: ambulate w/ assist w/ rolling walker. Fall and seizure precautions. Munira Zamora MD PGY1 Disposition/LOS: Admit to stroke obs. LOS < 48H. Addendum - Attending - Attending Attestation Date/Time: 03/24/19 7541 I personally evaluated the patient and discussed the management with Dr. Zamora. I agree with the History, Examination, Assessment and Plan documented above with any addition or exceptions noted below. Patient here with recurrent seizure episodes noted by the nursing facility staff. She is now without seizure activity. Neuro has seen and started on AED therapy. Will await further recs and continue to monitor. Possible discharge depending clinical course and neuro recs. Will discuss with family.
[2019-03-24] MEDS: Levothyroxine Sodium 50 MCG TAB PO SCH (06:30)
[2019-03-24] MEDS: Furosemide 40 MG TAB PO SCH (06:30)
[2019-03-24] MEDS: Aspirin 81 mg Enteric Coated Tablet PO SCH (08:44)
[2019-03-24] MEDS: lamoTRIgine 100 MG TAB PO SCH (08:44)
[2019-03-24] MEDS: Losartan 25 MG TAB PO SCH (08:44)
[2019-03-24] MEDS: Amlodipine 5 MG TAB PO SCH (08:44)
[2019-03-24] MEDS: Saccharomyces boulardii 250 MG CAP PO SCH (08:44)
[2019-03-24] MEDS: Senokot 8.6 MG TAB PO SCH (08:50)
[2019-03-24] MEDS: Ferrous Sulfate 325 MG TAB PO SCH ×2 (09:21→18:55)
--- NOTE | 2019-03-24 14:26 | PRG ---
DATE OF SERVICE: 03/24/2019 CONSULTING PHYSICIAN: Family Medicine Service. Ms. Carcamo was readmitted after having a generalized tonic-clonic seizure. She had previously been worked up about a month ago for this. She has a long history of dementia. She was unable to tolerate Keppra. Her workup in the emergency room included a CT scan of the brain and lab work. No acute abnormalities were found. Laboratory studies were only remarkable for some anemia, but chemistry panel is within normal range. Her urinalysis suggested a probable urinary tract infection. She has been afebrile since admission. I would suggest starting Lamictal 100 mg per day. This is usually the least sedating anticonvulsant available. I will be happy to follow up with her. Job ID: [id number]
[2019-03-24] MEDS: Atorvastatin Calcium 20 MG TAB PO SCH ×2 (20:54→21:11)
--- NOTE | 2019-03-25 05:57 | PDOC.FM ---
- Subjective Subjective: Pt is sleeping comfortably on BiPAP. Reassessed when off BiPAP, and she was being fed breakfast. She speaks in full and fluid sentences today. AxO X1 and seems to be at her baseline. Tells me she wanted to be a doctor when she was young. Overnight telemetry showed 13 beats of paroxysmal atrial tachycardia - Objective MAR Reviewed: Yes Vital Signs & Weight: Vital Signs (12 hours) Temp Pulse Resp BP Pulse Ox 03/25/19 03:16 98.9 F 84 18 144/85 H 92 L 03/24/19 23:22 99 F 78 16 126/71 93 L 03/24/19 19:40 98.7 F 78 18 112/66 92 L Weight Admit Weight 62.959 kg Weight 62.959 kg I&O: 03/23/19 03/24/19 03/25/19 06:59 06:59 06:59 Intake Total 240 700 Output Total 700 450 Balance -460 250 Result Diagrams: 03/24/19 04:49 03/24/19 04:49 Phys Exam - Physical Examination Constitutional: NAD Respiratory: no wheezing, clear to auscultation bilateral Cardiovascular: RRR, no significant murmur Musculoskeletal: edema present (1+ pitting at baseline) Psychiatric: normal affect Dx/Plan (1) Seizure Code(s): R56.9 - UNSPECIFIED CONVULSIONS Status: Acute (2) SONALI (acute kidney injury) Code(s): N17.9 - ACUTE KIDNEY FAILURE, UNSPECIFIED Status: Acute (3) Physical deconditioning Code(s): R53.81 - OTHER MALAISE Status: Chronic (4) Dementia Code(s): F03.90 - UNSPECIFIED DEMENTIA WITHOUT BEHAVIORAL DISTURBANCE Status: Chronic (5) HTN (hypertension) Code(s): I10 - ESSENTIAL (PRIMARY) HYPERTENSION Status: Chronic (6) Hypothyroidism Code(s): E03.9 - HYPOTHYROIDISM, UNSPECIFIED Status: Chronic - Plan Plan: 83-F w/ history of dementia and is AxO x1 at baseline, admitted to obs for: Suspected seizure-like activity, cause unknown Acute delirium, resolved - pt has history of 1 episode of tonic-clonic jerking with postictal period about 1 month ago. Was treated w/ Keppra BID. Due to sedating side effects of Keppra, the medication was stopped. Pt has had several other admissions for unrelated reasons since then. This is the first recurrence of reported seizure activity. - pt given 1 ativan at long term, followed by altered mental status per report for 1-2 hours. - prolactin WNL, however outside window so utility is low. - CT Head negative for acute change. - Pharmacy recs for side effect profiles of medications to reduce polypharmacy: decreasing namenda due to Creatinine clearance, starting low w/ lamictal and increasing slowly. - Neuro consulted, Marilin started lamictal 100mg daily. Monitor for somnolence and side effects. - infectious source unlikely. WBC normal and afebrile. - DDx: myoclonic seizure associated w/ Alzheimer dementia vs. generalized tonic- clonic Paroxysmal atrial tachycardia - if multifocal, likely due to hypoxia at night while on BiPAP SONALI on CKD, improved - Recommend PO hydration as pt is delicate balance between CKD and CHF. Abnormal urinalysis - Pt's UA looks similar to previous except for 1+ blood and 7-10 RBCs per hpf and urine culture from that time was negative for growth. She wears diapers at baseline. - Pt is asymptomatic regarding urinary symptoms. Furthermore, her mental status is back to baseline. - We will not treat her for a UTI at this time unless the urine culture grows a specific bacteria. - Urine culture shows no growth in 24 hours. Chronic conditions: Anemia, chronic - pt has had low iron in the past. Iron is low on current lab. TIBC, ferritin, B12 WNL - started on ferrous sulfate 325 BID. Miralax for constipation. Dementia, alzheimer's type - AxO x1 at baseline - Confirm w/ MPOA stopping the namenda. CHF - continue home medications Hypothyroidism - Pt is on levothyroxine. TSH is 1.51. We may consider allowing her TSH to be higher as she is elderly and decrease or discontinue the levothyroxine. Code: FULL Fluids: oral intake Diet: Regular, mechanical soft. VTE PPx: SCDs GI ppx: none Activity: ambulate w/ assist w/ rolling walker. Fall and seizure precautions. Munira Zamora MD PGY1 Disposition/LOS: Admit to stroke obs. LOS < 48H. Addendum - Attending - Attending Attestation Date/Time: 03/25/19 1122 I personally evaluated the patient and discussed the management with Dr. Zamora. I agree with the History, Examination, Assessment and Plan documented above with any addition or exceptions noted below. Patient doing well this morning. Much more awake and conversive as compared to yesterday. Continue Lamictal per Neuro. She is overall stable for discharge but dispo may be difficult due to holiday. Will coordinate with patient's son regarding plan of care.
[2019-03-25] MEDS: Levothyroxine Sodium 50 MCG TAB PO SCH (06:42)
[2019-03-25] MEDS: Furosemide 40 MG TAB PO SCH (06:42)
[2019-03-25] MEDS: Ferrous Sulfate 325 MG TAB PO SCH ×2 (09:21→17:52)
[2019-03-25] MEDS: Amlodipine 5 MG TAB PO SCH (09:21)
[2019-03-25] MEDS: lamoTRIgine 100 MG TAB PO SCH (09:22)
[2019-03-25] MEDS: Saccharomyces boulardii 250 MG CAP PO SCH (09:22)
[2019-03-25] MEDS: Senokot 8.6 MG TAB PO SCH (09:22)
[2019-03-25] MEDS: Aspirin 81 mg Enteric Coated Tablet PO SCH (09:22)
[2019-03-25] MEDS: Losartan 25 MG TAB PO SCH (09:22)
[2019-03-25] MEDS: Atorvastatin Calcium 20 MG TAB PO SCH (22:07)
[2019-03-26] MEDS: Levothyroxine Sodium 50 MCG TAB PO SCH (06:16)
[2019-03-26] MEDS: Furosemide 40 MG TAB PO SCH (06:17)
--- NOTE | 2019-03-26 06:17 | PDOC.FM ---
- Subjective Subjective: Pt was sleeping soundly on room air this morning. She complains of being cold this morning and does not have her usual fluffy blanket. Otherwise, she denies pain. - Objective MAR Reviewed: Yes Vital Signs & Weight: Vital Signs (12 hours) Temp Pulse Resp BP Pulse Ox 03/26/19 04:14 99 F 83 18 113/77 92 L 03/26/19 00:00 98.9 F 84 16 132/90 96 03/25/19 19:46 98.7 F 86 16 118/74 94 L Weight Admit Weight 62.959 kg Weight 62.959 kg I&O: 03/24/19 03/25/19 03/26/19 06:59 06:59 06:59 Intake Total 240 940 900 Output Total 700 750 700 Balance -460 190 200 Result Diagrams: 03/24/19 04:49 03/24/19 04:49 Phys Exam - Physical Examination Constitutional: NAD Respiratory: no wheezing, clear to auscultation bilateral Cardiovascular: RRR, no significant murmur Psychiatric: normal affect Dx/Plan (1) Seizure Code(s): R56.9 - UNSPECIFIED CONVULSIONS Status: Acute (2) SONALI (acute kidney injury) Code(s): N17.9 - ACUTE KIDNEY FAILURE, UNSPECIFIED Status: Acute (3) Physical deconditioning Code(s): R53.81 - OTHER MALAISE Status: Chronic (4) Dementia Code(s): F03.90 - UNSPECIFIED DEMENTIA WITHOUT BEHAVIORAL DISTURBANCE Status: Chronic (5) HTN (hypertension) Code(s): I10 - ESSENTIAL (PRIMARY) HYPERTENSION Status: Chronic (6) Hypothyroidism Code(s): E03.9 - HYPOTHYROIDISM, UNSPECIFIED Status: Chronic - Plan Plan: 83-F w/ history of dementia and is AxO x1 at baseline, admitted to obs for: Suspected seizure-like activity, cause unknown Acute delirium, resolved - pt has history of 1 episode of tonic-clonic jerking with postictal period about 1 month ago. Was treated w/ Keppra BID. Due to sedating side effects of Keppra, the medication was stopped. Pt has had several other admissions for unrelated reasons since then. This is the first recurrence of reported seizure activity. - Pharmacy recs for side effect profiles of medications to reduce polypharmacy: decreasing namenda due to Creatinine clearance, starting low w/ lamictal and increasing slowly. - Neuro consulted, Marilin started lamictal 100mg daily. Monitor for somnolence and side effects. So far pt has been at [facility]. - infectious source unlikely. WBC normal and afebrile. - DDx: myoclonic seizure associated w/ Alzheimer dementia vs. generalized tonic- clonic - will reduce polypharmacy: namenda discontinued, will reduce levothyroxine dose. Paroxysmal atrial tachycardia - if multifocal, likely due to hypoxia at night while on BiPAP SONALI on CKD, improved - Recommend PO hydration as pt is delicate balance between CKD and CHF. Abnormal urinalysis - Pt's UA looks similar to previous except for 1+ blood and 7-10 RBCs per hpf and urine culture from that time was negative for growth. She wears diapers at baseline. - Pt is asymptomatic regarding urinary symptoms. Furthermore, her mental status is back to baseline. - We will not treat her for a UTI at this time unless the urine culture grows a specific bacteria. - Urine culture shows no growth in 24 hours. Chronic conditions: Anemia, chronic - pt has had low iron in the past. Iron is low on current lab. TIBC, ferritin, B12 WNL - started on ferrous sulfate 325 BID. Miralax for constipation. Dementia, alzheimer's type - AxO x1 at baseline - Confirm w/ MPOA stopping the namenda. CHF - continue home medications Hypothyroidism - Pt is on levothyroxine. TSH is 1.51. We may consider allowing her TSH to be higher as she is elderly and decrease or discontinue the levothyroxine. Code: FULL Fluids: oral intake Diet: Regular, mechanical soft. VTE PPx: SCDs GI ppx: none Activity: ambulate w/ assist w/ rolling walker. Fall and seizure precautions. Munira Zamora MD PGY1 Disposition/LOS: Admit to stroke obs. likely d/c today. Addendum - Attending - Attending Attestation Date/Time: 03/26/19 8325 I personally evaluated the patient and discussed the management with Dr. Zamora. I agree with the History, Examination, Assessment and Plan documented above with any addition or exceptions noted below. Patient doing well, pleasant in conversation this morning. She denies complaints. She is overall stable, awake and no seizure activity while on Lamictal. Discuss with family and possible dc back to facility today.
[2019-03-26 08:12] VITALS: BP 127/83; TEMP 98.2
[2019-03-26] MEDS: Amlodipine 5 MG TAB PO SCH (08:57)
[2019-03-26] MEDS: lamoTRIgine 100 MG TAB PO SCH (08:57)
[2019-03-26] MEDS: Aspirin 81 mg Enteric Coated Tablet PO SCH (08:58)
[2019-03-26] MEDS: Saccharomyces boulardii 250 MG CAP PO SCH (08:58)
[2019-03-26] MEDS: Senokot 8.6 MG TAB PO SCH (08:58)
[2019-03-26] MEDS: Losartan 25 MG TAB PO SCH (08:58)
[2019-03-26] MEDS: Ferrous Sulfate 325 MG TAB PO SCH (08:58)
[2019-03-26 17:08] LABS: RBC Folate Test Component 1246 ng/mL (>498)
[2019-03-27] MEDS ORDERED: Levothyroxine Sodium 25 MCG TAB PO SCH (06:00)
== END 2019-03-26 13:44 ==
LOC: ERS 13:31 → 2SE 21:21
PROVIDERS: ADMIT Family Medicine; ATTEND Family Medicine
DX: R56.9 Unspecified convulsions (principal); I47.9 Paroxysmal tachycardia, unspecified; I13.0 Hypertensive heart and chronic kidney disease with heart failure and stage 1 through stage 4 chronic kidney disease, or unspecified chronic kidney disease; N18.9 Chronic kidney disease, unspecified; I50.30 Unspecified diastolic (congestive) heart failure; N17.9 Acute kidney failure, unspecified; D63.1 Anemia in chronic kidney disease; E03.9 Hypothyroidism, unspecified; G30.9 Alzheimer's disease, unspecified; F02.80 Dementia in other diseases classified elsewhere, unspecified severity, without behavioral disturbance, psychotic disturbance, mood disturbance, and anxiety; F05 Delirium due to known physiological condition; G93.40 Encephalopathy, unspecified; R82.71 Bacteriuria; R53.81 Other malaise; Z87.891 Personal history of nicotine dependence; Z79.82 Long term (current) use of aspirin; Z79.899 Other long term (current) drug therapy; Z88.0 Allergy status to penicillin; Z99.89 Dependence on other enabling machines and devices
CPT/HCPCS: 36415; 51701; 70450; 80048; 80053; 81003; 81015; 82607; 82728; 82747; 83540; 83550; 83605; 83880; 84146; 84443; 84484; 85025; 85060; 87086; 93005; 94660; 96374; A4353; G0378; J2060

== ENCOUNTER 2019-04-29 18:17 | Inpatient (IN) | payer MEDICARE, BC ==
--- NOTE | 2019-04-29 19:04 | RAD ---
RADIOGRAPH CHEST 1 VIEW: DATE: 04/29/2019 TIME: 6:27 PM HISTORY: Sepsis. Weight loss. COMPARISON: 03/18/2019 FINDINGS: Very elevated right hemidiaphragm. Ectasia, tortuosity of thoracic aorta. Prominent calcified granulo ma in right upper lobe. No consolidation or pulmonary edema visualized. No pneumothorax. No interval change. IMPRESSION: 1. No acute findings. 2. Very elevated right hemidiaphragm
[2019-04-29 20:04] LABS: Hemoglobin 10.1 g/dL (12.0-16.0); Mean Corpuscular HGB CONC 30.7 g/dL (32.0-36.0); Mean Corpuscular Hemoglobin 26.6 pg (27.0-31.0); Mean Corpuscular Volume 86.8 fL (78.0-98.0); Mean Platelet Volume 9.2 fL (7.4-10.4); Platelet Count 316 thou/uL (130-400); RBC Distribution Width 15.7 % (11.5-14.5); Red Blood Cell (RBC) Count 3.79 mill/uL (4.20-5.40); White Blood Cell (WBC) Count 21.1 thou/uL (4.8-10.8)
[2019-04-29 20:05] LABS: Bilirubin Negative (Negative); Blood, Urine 2+ (Negative); Clarity Extra Turbid (Clear); Glucose, Urine (Dipstick) Normal (Negative); Leukocyte 500 Leu/uL (Negative); Nitrite Negative (Negative); Protein, Urine (Dipstick) 30 mg/dL (Neg-Trace); Urobilinogen Normal mg/dL (Less than 2); WBC/HPF Greater than 50 HPF (0-3)
[2019-04-29 20:12] LABS: Bacteria/HPF 3+ HPF (None Seen); Yeast-Budding 3+ HPF (None Seen)
[2019-04-29 20:24] LABS: Band 9 % (5-11); Lymphocytes 5 % (21-51); MDiff Complete? YES; Monocytes 2 % (0-10); Neutrophil 84 % (42-75); Platelet Morphology Comment Appears Adequate; Schistocytes SLIGHT = 2-5 cells (100X) (0-1/hpf)
[2019-04-29 20:27] LABS: ALT (SGPT) 13 U/L (8-55); AST (SGOT) 18 U/L (5-34); Albumin 3.4 g/dL (3.4-4.8); Alkaline Phosphatase 192 U/L (40-110); Anion Gap 16 mmol/L (10-20); BUN (Urea Nitrogen) 56 mg/dL (9.8-20.1); Bilirubin, Total 0.5 mg/dL (0.2-1.2); CK (CPK) 15 U/L (29-168); Calc. Creatinine Clearance 0 mL/min (70-130); Calcium 9.2 mg/dL (7.8-10.44); Carbon Dioxide 26 mmol/L (23-31); Chloride 108 mmol/L (98-107); Estimated GFR-MDRD 12; Glucose 134 mg/dL (83-110); Protein, Total 7.4 g/dL (6.0-8.3); Sodium 146 mmol/L (136-145)
[2019-04-29] MEDS ORDERED: Cefepime 2 GM VIAL ONE (20:34)
[2019-04-29 20:47] LABS: CKMB 0.4 ng/mL (0-6.6)
--- NOTE | 2019-04-29 23:11 | CT ---
EXAM: CT abdomen and pelvis without contrast PROVIDED CLINICAL HISTORY: Abdominal pain COMPARISON: 02/15/2019 FINDINGS: There is persistent consolidation and/or atelectasis at the right lung base. Persistent elevation of the right hemidiaphragm. There is moderate-severe left hydronephrosis and left hydroureter. There is an 8 mm calculus present at the left UVJ. Exophytic right renal cyst and renal vascular calcifications are seen. No additional urinary tract calculi are evident. The solid abdominal organs are suboptimally evaluated in the absence of IV contrast material but demo nstrate an otherwise unchanged CT appearance. Gallstones are noted. There is no evidence for bowel obstruction. There is conspicuous rectal fecal retention with strandin g of the perirectal fat. No free fluid or free air apparent. Vascular calcifications are seen. The osseous structures demonstrate no concerning lytic or blastic lesions. Degenerative changes are s een. IMPRESSION: 1. 8 mm obstructing left UVJ calculus. 2. Conspicuous rectal fecal retention with surrounding fat stranding suggesting stercoral proctitis. 3. Chronic findings as above.
[2019-04-30] MEDS ORDERED: Sodium Chloride 0.9% 1,000 ML IV SCH (04:15)
[2019-04-30] MEDS ORDERED: Polyethylene Glycol 3350 17 GM Packet PO PRN (08:27)
[2019-04-30] MEDS ORDERED: Lactated Ringer's 1,000 ML IV SCH (08:30)
--- NOTE | 2019-04-30 08:39 | PDOC.FPRHP ---
- History of Present Illness Chief Complaint: decreased po intake History of Present Illness: 83 y/o F with phx of Alzheimer's Disease, hypothyroidism, Diastolic CHF, and and chronic UTI's, brought to ER by son. Pt does not verbalize any complaints. No family at bedside. Pt states she feels well and does not have any pain. Per ER physician note: PT brought in by son for X2 weeks decreased PO intake. Son states she has been gagging when eating or drinking anything. ED course: CT abd/pelvis: 8 mm stone obstructing UVJ on left. proctitis Consulted GI for proctitis. Given vanc + cefepime for UTI. na 148, K 3.4, bun 57, cr 3.55, alk phos 149, trop 0.057, bnp 360, total protein 5.9 Urine: 2+ blood, 500 leuk est, wbc >50, 4-6 sq cells, 3+ bact, 3+ yeast. - Allergies/Adverse Reactions Allergies Allergy/AdvReac Type Severity Reaction Status Date / Time Penicillins Allergy Short of Verified 03/02/19 01:50 Breath - Home Medications Medication Instructions Recorded Confirmed Type Acetaminophen [Pain Relief] 325 mg PO Q8H PRN 10/09/18 03/23/19 History Polyethylene Glycol 3350 17 gm PO DAILY PRN 10/09/18 03/23/19 History Sennosides [Senna Lax] 8.6 mg PO DAILY 10/09/18 03/23/19 History Losartan Potassium 25 mg PO DAILY 01/27/19 03/23/19 History Amlodipine [Norvasc] 5 mg PO DAILY 01/28/19 03/23/19 History Ranolazine [Ranexa] 500 mg PO BID #60 tab 01/29/19 03/23/19 Rx Furosemide [Lasix] 40 mg PO 0700 #30 tab 03/05/19 03/23/19 Rx Aspirin [Ecotrin Low Strength] 81 mg PO DAILY tab 03/19/19 03/23/19 Rx Atorvastatin Calcium [Lipitor] 20 mg PO HS #30 tab 03/19/19 03/23/19 Rx Ferrous Sulfate [Feosol] 325 mg PO BID-WM #60 tab 03/24/19 Rx lamoTRIgine [LaMICtal] 100 mg PO DAILY #30 tab 03/24/19 Rx Levothyroxine Sodium [Synthroid] 25 mcg PO 0600 #30 tab 03/26/19 Rx - History PMHx: Alzheimer's disease, hypothyroidism, CHF diastolic dysfunction, chronic UTI's, seizures, constipation PSHx: L kidney stone open removal. hemorrhoidectomy, cataract sx. FHx: non-contributory Social: lives at long term. prior smoker, quit >10 years ago. no etoh or drug abuse. - Review of Systems ROS unobtainable: due to mental status (pt does not verbalize any complaints) General: reports: weight/appetite/sleep changes (decreased PO intake) - Vital signs BP: 132/74 HR: 89 RR: 20 Tmax: 97.6 Pox: 97% on 2 L NC Wt: 58.46 kg - Physical Exam Constitutional: NAD -Constitutional: awakens to gentle touch and voice. Oriented to person only. HEENT: normocephalic and atraumatic, conjunctiva clear, no scleral icterus, oropharynx clear -HEENT: dry mucus membranes. Neck: supple, trachea midline, no JVD, no thyromegaly Chest: no-tender to palpation, no lesions Heart: RRR, pulses present, no edema (no LE edema.) -Heart: 3/6 systolic murmur Lungs: CTAB, no respiratory distress, good air movement, no rales/rhonchi, no wheezing, no retractions Abdomen: soft, bowel sounds present -Abdomen: suprapubic and LLL abdominal tenderness to palpation. -Musculoskeletal: atrophy to major muscle groups -Neurological: pt awake, but somnolent. Skin: no rash/lesions, capillary refill <2 seconds -Skin: increased skin turgor. Heme/Lymphatic: no unusual bruising or bleeding, no purpura, no petechia FMR H&P: Results - Labs Result Diagrams: 04/30/19 08:35 04/30/19 09:43 Lab results: WBC 21.1 thou/uL (4.8-10.8) H 04/29/19 19:48 Hgb 10.1 g/dL (12.0-16.0) L 04/29/19 19:48 Hct 32.9 % (36.0-47.0) L 04/29/19 19:48 MCV 86.8 fL (78.0-98.0) 04/29/19 19:48 Plt Count 316 thou/uL (130-400) 04/29/19 19:48 Band Neuts % (Manual) 9 % (5-11) 04/29/19 19:48 Sodium 146 mmol/L (136-145) H 04/29/19 19:48 Potassium 4.0 mmol/L (3.5-5.1) 04/29/19 19:48 Chloride 108 mmol/L (98-107) H 04/29/19 19:48 Carbon Dioxide 26 mmol/L (23-31) 04/29/19 19:48 BUN 56 mg/dL (9.8-20.1) H 04/29/19 19:48 Creatinine 4.18 mg/dL (0.6-1.1) H 04/29/19 19:48 Glucose 134 mg/dL (83-110) H 04/29/19 19:48 Lactic Acid 1.3 mmol/L (0.5-2.2) 04/29/19 19:48 Calcium 9.2 mg/dL (7.8-10.44) 04/29/19 19:48 Total Bilirubin 0.5 mg/dL (0.2-1.2) 04/29/19 19:48 AST 18 U/L (5-34) 04/29/19 19:48 ALT 13 U/L (8-55) 04/29/19 19:48 Alkaline Phosphatase 192 U/L (40-110) H 04/29/19 19:48 Creatine Kinase 15 U/L (29-168) L 04/29/19 19:48 CK-MB (CK-2) 0.4 ng/mL (0-6.6) 04/29/19 19:48 B-Natriuretic Peptide 360.4 pg/mL (0-100) H 04/29/19 19:48 Serum Total Protein 7.4 g/dL (6.0-8.3) 04/29/19 19:48 Albumin 3.4 g/dL (3.4-4.8) 04/29/19 19:48 Urine Ketones Negative mg/dL (Negative) 04/29/19 19:45 Urine Blood 2+ (Negative) A 04/29/19 19:45 Urine Nitrite Negative (Negative) 04/29/19 19:45 Ur Leukocyte Esterase 500 Paulina/uL (Negative) A 04/29/19 19:45 Urine RBC 7-10 HPF (0-3) A 04/29/19 19:45 Urine WBC Greater than 50 HPF (0-3) A 04/29/19 19:45 Ur Squamous Epith Cells 4-6 HPF (0-3) A 04/29/19 19:45 Urine Bacteria 3+ HPF (None Seen) A 04/29/19 19:45 - Radiology Interpretation CT scan - abdomen Status: report reviewed by me (8 mm obstructing stone in the L UVJ rectal fecal retention w/surrounding fat stranding stercoral proctitis) Chest x-ray Status: report reviewed by me (elevated R hemidiaphragm, as seen on previous studies.) FMR H&P: A/P - Problem List (1) UTI (urinary tract infection) Current Visit: Yes Status: Acute (2) Calculus of ureterovesical junction (UVJ) Current Visit: Yes Status: Acute Code(s): N20.1 - CALCULUS OF URETER (3) SONALI (acute kidney injury) Current Visit: Yes Status: Acute Code(s): N17.9 - ACUTE KIDNEY FAILURE, UNSPECIFIED Comment: improved with diuresis, will resume Losartan but decrease to once daily (4) CKD (chronic kidney disease) stage 3, GFR 30-59 ml/min Current Visit: Yes Status: Chronic Code(s): N18.3 - CHRONIC KIDNEY DISEASE, STAGE 3 (MODERATE) (5) Diastolic CHF Current Visit: Yes Status: Chronic Code(s): I50.30 - UNSPECIFIED DIASTOLIC ( CONGESTIVE) HEART FAILURE Qualifiers: Heart failure chronicity: chronic Qualified Code(s): I50.32 - Chronic diastolic (congestive) heart failure (6) Dementia Current Visit: Yes Status: Chronic Code(s): F03.90 - UNSPECIFIED DEMENTIA WITHOUT BEHAVIORAL DISTURBANCE Qualifiers: Dementia type: Alzheimer's disease (7) Hypothyroidism Current Visit: Yes Status: Chronic Code(s): E03.9 - HYPOTHYROIDISM, UNSPECIFIED (8) Physical deconditioning Current Visit: Yes Status: Chronic Code(s): R53.81 - OTHER MALAISE (9) Elevated troponin Current Visit: Yes Status: Acute Code(s): R79.89 - OTHER SPECIFIED ABNORMAL FINDINGS OF BLOOD CHEMISTRY (10) Hypernatremia Current Visit: Yes Status: Acute Code(s): E87.0 - HYPEROSMOLALITY AND HYPERNATREMIA - Plan 1. UTI - Urine with evidence of infection - ccx pending - started rocephin, will change antibiotics according to cultures if necessary. - given vanc and cefepime in ER. - wbc 17.2, 21 bands. 2. Obstructing calculus in L UVJ - ABD/Pelvic CT: 8 mm stone in L UVJ calculus, rectal fecal retention w/ surrounding fat stranding stercoral proctitis. - Urology consulted, Dr. Jacinto. appreciate recommendations. Possible stenting. 3. SONALI on CKD. - Cr. 3.4, will trend - started on 100 ml/hr of LR. Will monitor fluid status closely as pt has CHF and hypernatremia. Recheck BMP 04/30/afternoon. Consider switching to 1/2 NS 4. Leukocytosis - wbc 17.2 - on rocephin q24h 5. Dehydration 2/2 decreased PO intake - LR at 100 ml/hr 6. Hypernatremia -Na 148 - recheck BMP at 3 PM 04/30, re-evaluate fluid choice if not slowly corrected. 7. Elevated Alk phos - chronically elevated since 2017. 8. Hypokalemia - k 3.4 - gave 40 meq k-dur 9. Elevated Troponin level - 0.057 Trop - Most likely elevated from SONALI on CKD 10. BNP elevated -BNP 360 - Pt no tin CHF exacerbation clinically. Clinically pt dehydrated. 11. Anemia of chronic disease - hg 8.7 hct 28.7 12. Alzheimer's Dementia - pt lives in [place], is at baseline mental status. - Pt has hx of seizures. not on antiseizure medications as they make her very drowsy. 13. Hx of Chronic UTI's 14. Hx hypothyroidism 15. hx of constipation - CT abd/pelvis showed chronic changes from fecal retention w/ surrounding fat stranding stercoral proctitis. Code status: full code per next of kin son. Diet: HH, with mech soft. nectar thick. dvt ppx: heparin dispo: stable, admit to tele inpt for obstructing stone in UVJ L side. FMR H&P: Upper Level - Pertinent history 83 yo F admitted for concern for UTI and SONALI. At the time of the H&P pt is confused and there is no family immediately available. Per ER records she was brought to the ER for decreased oral intake and generalized weakness. She was found to have a Cr elevated above baseline and a UA concerning for UTI. She was given 1L NS, vanc, and cefepime and admitted to tele by the ER. CT showed 8mm obstructing UVJ stone. PMHx: stage 2 alzheimer's dementia, diastolic CHF, hypothyroidism, HTN, Prior seizure PSHx: hemorroidectomy, cataract sx, L kidney open stone removal FHx: non-contributory Social: former smoker 10 years ago, denies etoh and drug use. - Pertinent findings See psychology intern note for full ROS, PE, vitals, and labs ROS unable to obtain PE General difficult to arouse. No acute distress HEENT NCAT CV RRR, no murmur Resp CTA, no respiratory distress Abd non tender, no distension, normal BS Extremities no edema, equal pedal pulses - Plan Date/Time: 04/30/19 0839 IHua DO, have evaluated this patient and agree with findings/plan as outlined by psychology intern resident. Pertinent changes/additions are listed here. 1.UTI -Admit -Rocephin IV. Will also start anti yeast treatment given recent cultures and yeast on UA -Urine and blood cx pending 2.UVJ stone - Unlikely to pass due to size. Uro consulted 3.SONALI -Likely multifactorial between obstruction, UTI, and decreased PO intake. -IVF and recheck labs this afternoon 4.Hypernatremia -Likely secondary to poor oral intake of liquids. -1.5L free water deficit. IVF. Monitor improvement this afternoon. May need to change to D5W 5.Elevated trop -Due to demand from low volume status. Down trending on recheck 6.Hypokalemia -Replace orally See psychology intern portion for management of chronic illness PPx SCD Diet NPO, then regular diet Code Full
[2019-04-30 09:06] LABS: Hemoglobin 8.7 g/dL (12.0-16.0); Mean Corpuscular HGB CONC 30.3 g/dL (32.0-36.0); Mean Corpuscular Hemoglobin 27.6 pg (27.0-31.0); Mean Corpuscular Volume 91.2 fL (78.0-98.0); Mean Platelet Volume 8.9 fL (7.4-10.4); Platelet Count 255 thou/uL (130-400); RBC Distribution Width 15.6 % (11.5-14.5); Red Blood Cell (RBC) Count 3.15 mill/uL (4.20-5.40); White Blood Cell (WBC) Count 17.2 thou/uL (4.8-10.8)
[2019-04-30 09:51] LABS: Band 21 % (5-11); Burr Cells SLIGHT = 2-5 cells (100X) (0-1/hpf); Lymphocytes 5 % (21-51); MDiff Complete? YES; Metamyelocyte 2 % (0-0); Monocytes 7 % (0-10); Myelocyte 1 % (0-0); Neutrophil 64 % (42-75); Platelet Morphology Comment Appears Adequate; Polychromasia SLIGHT = 2-3 cells (100X) (0-2/hpf); Schistocytes SLIGHT = 2-5 cells (100X) (0-1/hpf)
[2019-04-30 10:36] LABS: ALT (SGPT) 12 U/L (8-55); AST (SGOT) 12 U/L (5-34); Albumin 2.7 g/dL (3.4-4.8); Alkaline Phosphatase 149 U/L (40-110); Anion Gap 12 mmol/L (10-20); BUN (Urea Nitrogen) 51 mg/dL (9.8-20.1); Bilirubin, Total 0.3 mg/dL (0.2-1.2); Calc. Creatinine Clearance 11 mL/min (70-130); Calcium 8.2 mg/dL (7.8-10.44); Carbon Dioxide 25 mmol/L (23-31); Chloride 114 mmol/L (98-107); Estimated GFR-MDRD 15; Globulin 3.2 g/dL (2.4-3.5); Glucose 100 mg/dL (83-110); Potassium 3.4 mmol/L (3.5-5.1); Protein, Total 5.9 g/dL (6.0-8.3); Sodium 148 mmol/L (136-145)
[2019-04-30] MEDS ORDERED: PROPOFOL 200 MG/20 ML VIAL ONE (11:03)
[2019-04-30] MEDS ORDERED: Lidocaine 1% PF 5 ML VIAL ONE (11:03)
[2019-04-30] MEDS: cefTRIAXone\\ROCEPHIN 1 GM in Sodium Chloride 0.9% 100 ML IVPB SCH (11:11)
[2019-04-30 11:23] LABS: Troponin I 0.041 ng/mL (< 0.028)
[2019-04-30] MEDS ORDERED: Potassium Chloride 20 MEQ TAB PO SCH (11:30)
--- NOTE | 2019-04-30 12:29 | HP ---
I have discussed the case with Dr. Concepcion Xie and agree with her assessment and plan. I have examined the patient. HISTORY OF PRESENT ILLNESS: Ms. Carcamo is an elderly, demented 83-year-old black female, who presented with possible UTI. She was noted to have a white count of 21,000 and imaging evidence of a distal left ureteral stone of 8 mm that had occluded the left UV junction. She has been admitted for treatment and Urology consultation. PHYSICAL EXAMINATION: VITAL SIGNS: She is afebrile. Her blood pressure is 135/73, respirations are 20 and not labored. EAR, NOSE, AND THROAT: Dry mucous membranes. CARDIAC: Heart rhythm regular. No gallop or murmur noted. LUNGS: Breath sounds are diminished, but clear. ABDOMEN: Flat and soft. NEUROLOGIC: No focal deficits. LABORATORY DATA: Her white count is 21,100, hemoglobin is 10.1, hematocrit is 32.9 with an MCV of 86.8. Her chemistry, sodium 146, potassium 4, chloride 108, bicarb 26, BUN 56, creatinine 4.18. Urinalysis, her leukocyte esterase is elevated at 500, red cells 7-10, white cells greater than 50, nitrites negative. Imaging shows an 8 mm stone in the distal left ureter. ASSESSMENT: 1. Urosepsis. 2. Obstructive nephrolithiasis. PLAN: Admit, broad-spectrum antibiotics. Consult Urology. Job ID: [id number]
[2019-04-30] MEDS ORDERED: Fentanyl 100 MCG/2 ML VIAL ONE (13:23)
[2019-04-30] MEDS: Amlodipine 5 MG TAB PO SCH (14:38)
[2019-04-30] MEDS: lamoTRIgine 100 MG TAB PO SCH (14:39)
[2019-04-30] MEDS: Senokot 8.6 MG TAB PO SCH (14:39)
[2019-04-30] MEDS: Losartan 25 MG TAB PO SCH (14:39)
[2019-04-30] MEDS: Aspirin 81 mg Enteric Coated Tablet PO SCH (14:39)
[2019-04-30] MEDS ORDERED: Iothalamate Meglumine 60% 50 ML VIAL FS ONE (14:50)
[2019-04-30 15:43] LABS: Anion Gap 11 mmol/L (10-20); BUN (Urea Nitrogen) 49 mg/dL (9.8-20.1); Calc. Creatinine Clearance 11 mL/min (70-130); Calcium 8.1 mg/dL (7.8-10.44); Carbon Dioxide 25 mmol/L (23-31); Chloride 116 mmol/L (98-107); Estimated GFR-MDRD 15; Glucose 100 mg/dL (83-110); Potassium 3.5 mmol/L (3.5-5.1); Sodium 148 mmol/L (136-145)
--- NOTE | 2019-04-30 16:25 | RAD ---
Retrograde ureterogram fluoroscopy HISTORY: Stent placement. Ureteral obstruction. FINDINGS: Intraoperative fluoroscopy was provided for retrograde study. Spot fluoroscopic images show contrast opacification of a dilated left renal collecting system that is at least partially duplicated. Final images show upper portion of a left ureteral stent overlying the inferior pole marylou ecting system. The final image still shows the cystoscope in place. Distal coil of the catheter has not been formed.
[2019-04-30] MEDS ORDERED: Promethazine HCl 25 MG/ML VIAL IM PRN (16:32)
[2019-04-30] MEDS ORDERED: Ondansetron HCl/PF 4 MG/2 ML Vial IVP PRN (16:32)
[2019-04-30] MEDS ORDERED: Promethazine HCl 25 MG/ML VIAL SLOW IVP PRN (16:32)
--- NOTE | 2019-04-30 16:39 | EKG ---
Test Reason : Blood Pressure : / mmHG Vent. Rate : 093 BPM Atrial Rate : 093 BPM P-R Int : 150 ms QRS Dur : 082 ms QT Int : 332 ms P-R-T Axes : 052 009 043 degrees QTc Int : 412 ms Normal sinus rhythm Nonspecific ST and T wave abnormality Abnormal ECG When compared with ECG of 29-APR-2019 18:51, (Unconfirmed) Nonspecific T wave abnormality, improved in Lateral leads Confirmed by DR. Lizabeth NUNEZ (3) on 04/30/2019 4:38:56 PM Referred By: HERIBERTO Confirmed By:DR. Lizabeth NUNEZ
--- NOTE | 2019-04-30 16:56 | CON ---
DATE OF CONSULTATION: 04/30/2019 CHIEF COMPLAINT: Left ureteral stone, elevated creatinine. HISTORY OF PRESENT ILLNESS: Ms. Carcamo is an 83-year-old female with Alzheimer disease. Her son is Carlos Alberto, a hand surgeon here at [facility]. She presented this time with poor p.o. intake, and in emergency room, she was noted to have an elevated creatinine and an obstructing distal left ureteral stone. Her urinalysis was also consistent with infection. She does not have any fever. She has not complained of any severe pain. PAST MEDICAL HISTORY: Alzheimer dementia, kidney stone disease, congestive heart failure, chronic renal insufficiency, hypothyroidism, and hypertension. ALLERGIES: PENICILLIN. MEDICATIONS: Please see chart. 1. Levothyroxine. 2. Losartan. 3. Norvasc. 4. Ranexa. 5. Namenda. 6. Lasix. 7. Lipitor. SOCIAL HISTORY: She is a former smoker, but did quit 10 or more years ago. PAST SURGICAL HISTORY: Includes open left kidney stone surgery for staghorn calculus, cataract surgery, and hemorrhoidectomy. FAMILY HISTORY: Noncontributory. REVIEW OF SYSTEMS: Unobtainable. The patient is not able to provide history. PHYSICAL EXAMINATION: VITAL SIGNS: Temperature 98.7, pulse 86, respiratory rate 24, O2 saturation 92%. HEENT: Normocephalic and atraumatic. NECK: Supple. CHEST: Clear. CARDIOVASCULAR: No murmurs. ABDOMEN: Soft and nontender. No palpable masses. LABORATORY DATA: White count 17.2, hemoglobin 8.7, hematocrit 28.7, platelet count 255. Creatinine 3.55, sodium 148, potassium 3.4, chloride 114, BUN 51. CT scan demonstrates an 8 mm distal left ureteral stone at the UVJ. There are proximal hydroureter and hydronephrosis. IMPRESSION: Urinalysis consistent with urinary tract infection, and she has a distal ureteral stone. I have recommended drainage with ureteral stent placement. I have discussed this with her son, Dr. Carcamo. He makes decisions for his mom and has agreed. PLAN: Cystoscopy and left double-J stent placement. Job ID: [id number]
--- NOTE | 2019-04-30 17:46 | OP ---
DATE OF PROCEDURE: 04/30/2019 PREOPERATIVE DIAGNOSES: Left ureteral stone and pyelonephritis. POSTOPERATIVE DIAGNOSES: Left ureteral stone and pyelonephritis. PROCEDURES PERFORMED: Cystoscopy and left double-J stent placement. ANESTHESIA: General. INDICATIONS: Ms. Aileen Carcamo is an 83-year-old female with a history of staghorn stone in the past. She is status post open stone surgery many years ago. She presented now with anorexia. CT scan demonstrated left hydronephrosis and hydroureter and an 8 to 9 mm stone in the left distal ureter. Urinalysis was consistent with infection. She was brought to the operating room for stent placement. DESCRIPTION OF PROCEDURE: The patient was given general anesthesia and IV antibiotics. She was sterilely prepped and draped in lithotomy position. Cystoscope was passed and bladder was examined in its entirety. There were no mucosal lesions. Left ureteral orifice was intubated with a floppy tip guidewire. A 6 x 26 double-J stent was then passed over the guidewire and coiled in the left renal pelvis and the bladder was determined fluoroscopically and cystoscopically. Thick cloudy urine drained from the left upper urinary tract. The bladder was drained. The cystoscope was removed. The patient transported to the operative recovery room in stable condition. COMPLICATION: None. ESTIMATED BLOOD LOSS: Minimal. SPECIMENS: Urine culture. FOLLOWUP: The patient will need return to the operating room for rigid ureteroscopy, laser lithotripsy, and stone extraction on the left side when clinically stable. Job ID: [id number]
[2019-04-30] MEDS: Ferrous Sulfate 325 MG TAB PO SCH (17:52)
[2019-04-30] MEDS: Dextrose 5% in Water 1,000 ML IV SCH (17:56)
[2019-04-30] MEDS ORDERED: Atorvastatin Calcium 20 MG TAB PO SCH (21:00)
[2019-04-30 21:35] LABS: Anion Gap 12 mmol/L (10-20); BUN (Urea Nitrogen) 46 mg/dL (9.8-20.1); Calc. Creatinine Clearance 12 mL/min (70-130); Calcium 8.2 mg/dL (7.8-10.44); Carbon Dioxide 24 mmol/L (23-31); Chloride 116 mmol/L (98-107); Estimated GFR-MDRD 17; Glucose 102 mg/dL (83-110); Potassium 3.5 mmol/L (3.5-5.1); Sodium 148 mmol/L (136-145)
[2019-05-01] MEDS: Dextrose 5% in Water 1,000 ML IV SCH ×3 (03:04→20:58)
[2019-05-01] MEDS: Levothyroxine Sodium 25 MCG TAB PO SCH (05:21)
--- NOTE | 2019-05-01 06:43 | PDOC.FM ---
- Subjective Subjective: pt resting comfortably in bed. AOx1, denies pain, no events overnight - Objective Vital Signs & Weight: Vital Signs (12 hours) Temp Pulse Resp BP Pulse Ox 05/01/19 03:18 98.6 F 83 16 118/66 100 04/30/19 23:16 98.1 F 85 16 138/70 96 04/30/19 20:56 100 04/30/19 20:45 98.9 F 85 18 129/74 100 Weight Admit Weight 58.468 kg Weight 60.781 kg I&O: 04/29/19 04/30/19 05/01/19 06:59 06:59 06:59 Intake Total 300 1700 Balance 300 1700 Result Diagrams: 04/30/19 08:35 04/30/19 21:09 Phys Exam - Physical Examination Constitutional: NAD dry mm Respiratory: clear to auscultation bilateral Cardiovascular: no significant murmur Gastrointestinal: soft, non-tender Musculoskeletal: pulses present Skin: no rash Dx/Plan (1) SONALI (acute kidney injury) Code(s): N17.9 - ACUTE KIDNEY FAILURE, UNSPECIFIED Status: Acute (2) Calculus of ureterovesical junction (UVJ) Code(s): N20.1 - CALCULUS OF URETER Status: Acute (3) Elevated troponin Code(s): R79.89 - OTHER SPECIFIED ABNORMAL FINDINGS OF BLOOD CHEMISTRY Status : Acute (4) Hypernatremia Code(s): E87.0 - HYPEROSMOLALITY AND HYPERNATREMIA Status: Acute (5) UTI (urinary tract infection) Status: Acute (6) Dementia Code(s): F03.90 - UNSPECIFIED DEMENTIA WITHOUT BEHAVIORAL DISTURBANCE Status: Chronic Qualifiers: Dementia type: Alzheimer's disease (7) Hypothyroidism Code(s): E03.9 - HYPOTHYROIDISM, UNSPECIFIED Status: Chronic (8) Seizure Code(s): R56.9 - UNSPECIFIED CONVULSIONS Status: Acute (9) HTN (hypertension) Code(s): I10 - ESSENTIAL (PRIMARY) HYPERTENSION Status: Chronic - Plan Plan: UTI -Rocephin IV. anti yeast treatment given recent cultures and yeast on UA -Urine and blood cx pending UVJ stone - Unlikely to pass due to size. Uro consulted - stent placed, will need lithotripsy when improved SONALI -Likely multifactorial between obstruction, UTI, and decreased PO intake. -IVF and monitor Hypernatremia -Likely secondary to poor oral intake of liquids. Elevated trop -Due to demand from low volume status. Down trending on recheck Hypokalemia -monitor, Replace orally Alzheimer's Dementia - pt lives in NH, is at baseline mental status. - Pt has hx of seizures. not on antiseizure medications as they make her very drowsy. Hx of Chronic UTI's Hx hypothyroidism hx of constipation PPx SCD Code Full dispo: continue to treat and fluid resusc.
[2019-05-01] MEDS ORDERED: Dextrose 5% in Water 1,000 ML IV SCH (09:15)
[2019-05-01] MEDS: cefTRIAXone\\ROCEPHIN 1 GM in Sodium Chloride 0.9% 100 ML IVPB SCH (09:29)
[2019-05-01] MEDS: Ferrous Sulfate 325 MG TAB PO SCH ×2 (09:30→18:43)
[2019-05-01] MEDS: Fluconazole 100 MG TAB PO SCH (09:30)
[2019-05-01] MEDS: lamoTRIgine 100 MG TAB PO SCH (09:30)
[2019-05-01] MEDS: Amlodipine 5 MG TAB PO SCH (09:31)
[2019-05-01] MEDS: Losartan 25 MG TAB PO SCH (09:31)
[2019-05-01] MEDS: Aspirin 81 mg Enteric Coated Tablet PO SCH (09:31)
[2019-05-01] MEDS: Senokot 8.6 MG TAB PO SCH (09:32)
[2019-05-01] MEDS ORDERED: Senokot 8.6 MG TAB PO SCH (10:00)
--- NOTE | 2019-05-01 11:52 | PRG ---
DATE OF SERVICE: 05/01/2019 I have examined the patient and discussed the case with Dr. Ammon Bearden. I agree with his assessment and plan. Job ID: [id number]
[2019-05-01] MEDS: Acetaminophen 325 MG TAB PO PRN (18:43)
[2019-05-02] MEDS: Acetaminophen 325 MG TAB PO PRN ×2 (00:51→06:35)
[2019-05-02] MEDS: Levothyroxine Sodium 25 MCG TAB PO SCH (05:21)
--- NOTE | 2019-05-02 06:53 | PDOC.FM ---
- Subjective Subjective: pt resting comfortably in bed, tolerating PO, baseline mental status - Objective Vital Signs & Weight: Vital Signs (12 hours) Temp Pulse Resp BP Pulse Ox 05/02/19 03:34 97.7 F 96 16 109/69 96 05/02/19 00:40 98.1 F 80 16 109/65 99 05/01/19 20:49 97.9 F 85 16 106/57 L 94 L Weight Admit Weight 58.468 kg Weight 63.049 kg I&O: 04/30/19 05/01/19 05/02/19 06:59 06:59 06:59 Intake Total 300 1700 400 Balance 300 1700 400 Result Diagrams: 05/02/19 07:18 05/02/19 07:18 Phys Exam - Physical Examination Constitutional: NAD HEENT: moist MMs Neck: no JVD Respiratory: clear to auscultation bilateral Cardiovascular: no significant murmur Gastrointestinal: soft, non-tender, no distention Musculoskeletal: no edema Neurological: moves all 4 limbs Psychiatric: normal affect Dx/Plan (1) SONALI (acute kidney injury) Code(s): N17.9 - ACUTE KIDNEY FAILURE, UNSPECIFIED Status: Acute (2) Calculus of ureterovesical junction (UVJ) Code(s): N20.1 - CALCULUS OF URETER Status: Acute (3) Elevated troponin Code(s): R79.89 - OTHER SPECIFIED ABNORMAL FINDINGS OF BLOOD CHEMISTRY Status : Acute (4) Hypernatremia Code(s): E87.0 - HYPEROSMOLALITY AND HYPERNATREMIA Status: Acute (5) UTI (urinary tract infection) Status: Acute (6) Dementia Code(s): F03.90 - UNSPECIFIED DEMENTIA WITHOUT BEHAVIORAL DISTURBANCE Status: Chronic Qualifiers: Dementia type: Alzheimer's disease (7) Hypothyroidism Code(s): E03.9 - HYPOTHYROIDISM, UNSPECIFIED Status: Chronic (8) Seizure Code(s): R56.9 - UNSPECIFIED CONVULSIONS Status: Acute (9) HTN (hypertension) Code(s): I10 - ESSENTIAL (PRIMARY) HYPERTENSION Status: Chronic - Plan Plan: UTI with candidemia -Rocephin IV. anti yeast treatment given recent cultures and yeast on UA -Urine and blood cx reveal candidemia - will increase fluconazole dosing UVJ stone - Unlikely to pass due to size. Uro consulted - stent placed, will need lithotripsy when improved SONALI -Likely multifactorial between obstruction, UTI, and decreased PO intake. -IVF and monitor Hypernatremia -Likely secondary to poor oral intake of liquids. Elevated trop -Due to demand from low volume status. Down trending on recheck Hypokalemia -monitor, Replace orally Alzheimer's Dementia - pt lives in NH, is at baseline mental status. - Pt has hx of seizures. not on antiseizure medications as they make her very drowsy. Hx of Chronic UTI's Hx hypothyroidism hx of constipation PPx SCD Code Full dispo: likely dc in 1-2 days with continued improvement, pending lithotripsy
[2019-05-02 07:45] LABS: ALT (SGPT) 17 U/L (8-55); AST (SGOT) 21 U/L (5-34); Albumin 2.5 g/dL (3.4-4.8); Alkaline Phosphatase 223 U/L (40-110); Anion Gap 13 mmol/L (10-20); BUN (Urea Nitrogen) 40 mg/dL (9.8-20.1); Bilirubin, Total 0.2 mg/dL (0.2-1.2); Calc. Creatinine Clearance 16 mL/min (70-130); Calcium 8.5 mg/dL (7.8-10.44); Carbon Dioxide 25 mmol/L (23-31); Chloride 109 mmol/L (98-107); Estimated GFR-MDRD 22; Globulin 3.2 g/dL (2.4-3.5); Glucose 116 mg/dL (83-110); Potassium 3.2 mmol/L (3.5-5.1); Protein, Total 5.7 g/dL (6.0-8.3); Sodium 144 mmol/L (136-145)
[2019-05-02 07:58] LABS: Anisocytosis SLIGHT = 6-15 cells (100X) (0-5/hpf); Band 6 % (5-11); Eosinophils 4 % (0-10); Hemoglobin 8.4 g/dL (12.0-16.0); Lymphocytes 9 % (21-51); MDiff Complete? YES; Mean Corpuscular HGB CONC 30.4 g/dL (32.0-36.0); Mean Corpuscular Hemoglobin 26.7 pg (27.0-31.0); Mean Corpuscular Volume 87.9 fL (78.0-98.0); Mean Platelet Volume 8.8 fL (7.4-10.4); Monocytes 3 % (0-10); Neutrophil 77 % (42-75); Platelet Count 289 thou/uL (130-400); RBC Distribution Width 15.6 % (11.5-14.5); Red Blood Cell (RBC) Count 3.13 mill/uL (4.20-5.40); Schistocytes SLIGHT = 2-5 cells (100X) (0-1/hpf); White Blood Cell (WBC) Count 12.4 thou/uL (4.8-10.8)
[2019-05-02] MEDS: cefTRIAXone\\ROCEPHIN 1 GM in Sodium Chloride 0.9% 100 ML IVPB SCH (08:40)
[2019-05-02] MEDS: Ferrous Sulfate 325 MG TAB PO SCH ×2 (08:41→16:42)
[2019-05-02] MEDS: Amlodipine 5 MG TAB PO SCH (08:41)
[2019-05-02] MEDS: Fluconazole 100 MG TAB PO SCH (08:41)
[2019-05-02] MEDS: Losartan 25 MG TAB PO SCH (08:41)
[2019-05-02] MEDS: Senokot 8.6 MG TAB PO SCH (08:41)
[2019-05-02] MEDS: Aspirin 81 mg Enteric Coated Tablet PO SCH (08:41)
[2019-05-02] MEDS: lamoTRIgine 100 MG TAB PO SCH (08:42)
[2019-05-02] MEDS: Dextrose 5% in Water 1,000 ML IV SCH (09:07)
--- NOTE | 2019-05-02 10:52 | PRG ---
DATE OF SERVICE: 05/02/2019 I have examined the patient and discussed her care with Dr. Ammon Bearden. I agree with his assessment and plan. Job ID: [id number]
[2019-05-02] MEDS ORDERED: Fluconazole 100 MG TAB PO SCH (11:15)
--- NOTE | 2019-05-02 11:58 | PRG ---
DATE OF SERVICE: 05/01/2019 SUBJECTIVE: The patient responds appropriately. Her mental status has improved. She denies any pain. OBJECTIVE: VITAL SIGNS: T-max 98.1, blood pressure 109/65, pulse 84, and respiratory rate 16. CHEST: Clear. ABDOMEN: Soft and nontender. LABORATORY DATA: White blood cell count 17.2 on 04/30/2019. Chemistry, creatinine 3.15 on 04/30/2019. Microbiology probable yeast. No bacteria noted. IMPRESSION: Ms. Carcamo is status post left ureteral stent placement for an obstructing distal left ureteral stone and signs and symptoms consistent with infection. Her culture has demonstrated probable Barbara. She is on Diflucan at this time. RECOMMENDATIONS: No further recommendations at this time. Now, she will need outpatient cysto, ureteroscopy, laser lithotripsy, and stone extraction when her clinical status is back to baseline. Job ID: [id number]
[2019-05-02] MEDS ORDERED: Potassium Chloride 20 MEQ TAB PO SCH (13:45)
[2019-05-03 05:18] LABS: ALT (SGPT) 20 U/L (8-55); AST (SGOT) 24 U/L (5-34); Albumin 2.5 g/dL (3.4-4.8); Alkaline Phosphatase 251 U/L (40-110); Anion Gap 11 mmol/L (10-20); BUN (Urea Nitrogen) 35 mg/dL (9.8-20.1); Bilirubin, Total 0.2 mg/dL (0.2-1.2); Calc. Creatinine Clearance 20 mL/min (70-130); Calcium 8.3 mg/dL (7.8-10.44); Carbon Dioxide 26 mmol/L (23-31); Chloride 112 mmol/L (98-107); Estimated GFR-MDRD 28; Globulin 3.2 g/dL (2.4-3.5); Glucose 79 mg/dL (83-110); Potassium 3.7 mmol/L (3.5-5.1); Protein, Total 5.7 g/dL (6.0-8.3); Sodium 145 mmol/L (136-145)
[2019-05-03] MEDS: Levothyroxine Sodium 25 MCG TAB PO SCH (05:18)
[2019-05-03 06:13] LABS: Anisocytosis SLIGHT = 6-15 cells (100X) (0-5/hpf); Band 20 % (5-11); Elliptocytes SLIGHT = 2-5 cells (100X) (0-1/hpf); Eosinophils 2 % (0-10); Hemoglobin 8.6 g/dL (12.0-16.0); Lymphocytes 7 % (21-51); MDiff Complete? YES; Mean Corpuscular Hemoglobin 26.3 pg (27.0-31.0); Mean Corpuscular Volume 87.9 fL (78.0-98.0); Monocytes 4 % (0-10); Myelocyte 1 % (0-0); Neutrophil 66 % (42-75); Platelet Count 280 thou/uL (130-400); Platelet Morphology Comment Appears Adequate; RBC Distribution Width 15.5 % (11.5-14.5); Red Blood Cell (RBC) Count 3.25 mill/uL (4.20-5.40); Schistocytes SLIGHT = 2-5 cells (100X) (0-1/hpf); White Blood Cell (WBC) Count 13.6 thou/uL (4.8-10.8)
--- NOTE | 2019-05-03 07:20 | PDOC.FM ---
- Subjective Subjective: pt resting in bed, she denies pain or dyspnea. no events overnight - Objective Vital Signs & Weight: Vital Signs (12 hours) Temp Pulse Resp BP Pulse Ox 05/03/19 05:00 98.0 F 82 16 118/69 98 05/02/19 23:55 98.6 F 86 16 108/69 92 L 05/02/19 20:30 98.1 F 84 16 119/66 95 05/02/19 20:11 95 Weight Admit Weight 58.468 kg Weight 63.049 kg I&O: 05/02/19 05/03/19 05/04/19 06:59 06:59 06:59 Intake Total 400 250 Balance 400 250 Result Diagrams: 05/03/19 04:32 05/03/19 04:32 Phys Exam - Physical Examination Constitutional: NAD HEENT: moist MMs Neck: no JVD Respiratory: clear to auscultation bilateral Cardiovascular: no significant murmur Gastrointestinal: non-tender, no distention Musculoskeletal: pulses present Neurological: non-focal Psychiatric: normal affect Skin: no rash Dx/Plan (1) SONALI (acute kidney injury) Code(s): N17.9 - ACUTE KIDNEY FAILURE, UNSPECIFIED Status: Acute (2) Calculus of ureterovesical junction (UVJ) Code(s): N20.1 - CALCULUS OF URETER Status: Acute (3) Elevated troponin Code(s): R79.89 - OTHER SPECIFIED ABNORMAL FINDINGS OF BLOOD CHEMISTRY Status : Acute (4) Hypernatremia Code(s): E87.0 - HYPEROSMOLALITY AND HYPERNATREMIA Status: Acute (5) UTI (urinary tract infection) Status: Acute (6) Dementia Code(s): F03.90 - UNSPECIFIED DEMENTIA WITHOUT BEHAVIORAL DISTURBANCE Status: Chronic Qualifiers: Dementia type: Alzheimer's disease (7) Hypothyroidism Code(s): E03.9 - HYPOTHYROIDISM, UNSPECIFIED Status: Chronic (8) Seizure Code(s): R56.9 - UNSPECIFIED CONVULSIONS Status: Acute (9) HTN (hypertension) Code(s): I10 - ESSENTIAL (PRIMARY) HYPERTENSION Status: Chronic - Plan Plan: UTI with candidemia -Urine and blood cx reveal candidemia - fluconazole renal dose UVJ stone - Unlikely to pass due to size. Uro consulted - stent placed, will need lithotripsy outpt Leukocytosis - afebrile, increased bands - cxr wnl, eval further SONALI -Likely multifactorial between obstruction, UTI, and decreased PO intake. -improved, near baseline Hypernatremia -Likely secondary to poor oral intake of liquids. - improved Elevated trop -Due to demand from low volume status. Down trending on recheck Hypokalemia -monitor, Replace orally Alzheimer's Dementia - pt lives in NH, is at baseline mental status. - Pt has hx of seizures. not on antiseizure medications as they make her very drowsy. Hx of Chronic UTI's Hx hypothyroidism hx of constipation PPx SCD Code Full dispo: likely dc today, outpt lithotropsy Addendum - Attending - Attending Attestation Date/Time: 05/03/19 6668 I personally evaluated the patient and discussed the management with Dr. Bearden. I agree with the History, Examination, Assessment and Plan documented above with any addition or exceptions noted below. No f/c. No cp/sob. No n/v. Nonfocal exam. Parish-cultures demonstrate alycia. Will d/w Dr. Padilla.
--- NOTE | 2019-05-03 08:30 | RAD ---
XR Chest 1 View Portable History: Cough Comparison: Radiograph April 29, 2019 Findings: Chronic elevation right hemidiaphragm. Fullness of the right paratracheal soft tissues may be sequelae of patient rotation and tortuous vascularity from chronic hypertension. Partial collapse medial segment left lower lobe. Large calcified granuloma right upper lobe. Calcifie d right paratracheal and bilateral hilar lymph nodes. Impression: Similar examination of the chest.
[2019-05-03] MEDS: cefTRIAXone\\ROCEPHIN 1 GM in Sodium Chloride 0.9% 100 ML IVPB SCH (08:58)
[2019-05-03] MEDS: Aspirin 81 mg Enteric Coated Tablet PO SCH (08:58)
[2019-05-03] MEDS: Senokot 8.6 MG TAB PO SCH (08:58)
[2019-05-03] MEDS: Losartan 25 MG TAB PO SCH (08:58)
[2019-05-03] MEDS: Fluconazole 100 MG TAB PO SCH (08:58)
[2019-05-03] MEDS: Amlodipine 5 MG TAB PO SCH (08:58)
[2019-05-03] MEDS: lamoTRIgine 100 MG TAB PO SCH (08:58)
[2019-05-03] MEDS ORDERED: Fluconazole 100 MG TAB PO SCH (09:00)
[2019-05-03] MEDS: Ferrous Sulfate 325 MG TAB PO SCH ×2 (09:00→16:32)
--- NOTE | 2019-05-03 14:28 | CON ---
DATE OF CONSULTATION: 05/03/2019 REASON FOR CONSULTATION: Candidemia in the setting of obstructive uropathy and UTI. HISTORY OF PRESENT ILLNESS: An 83-year-old with history of ischemic cardiomyopathy, hypertension, Alzheimer disease, and recent left kidney and ureter instrumentation with stent placement for management of obstructive uropathy due to nephrolithiasis. The patient had 2 sets of blood cultures and urine culture, yielding Barbara albicans. She is a resident of [facility], and developed weakness, decreased intake, some sore throat, and difficulty with swallowing function. No reported fever, vomiting, or diarrhea. She is incontinent of urine. Initial findings included BP 128/71, temperature 100.2, respirations 18, and O2 saturation 98. She was oriented to self only, appeared uncomfortable. Mucous membranes were dry. Abdomen was tender diffusely. Other findings on admission included white cell count 21,000, hemoglobin 10, MCV 86, and platelets 316 with 84% neutrophils. Sodium 148, creatinine 3.55 with a baseline of 1.04 in 01/2019. Urinalysis with greater than 50 wbc's. The patient has had pyuria since mid February. Currently, Ms. Carcamo is lying in bed. She is awake, but oriented at times self only. She pretty much denied all the review of systems questions, specifically no headaches, no dyspnea or chest pain, no abdominal pain or diarrhea, no genitourinary symptoms, no joint symptoms. The reliability of the report is limited due to her cognitive dysfunction and limited recall. PAST MEDICAL HISTORY: 1. Ischemic cardiomyopathy. 2. CHF. 3. Hypertension. 4. Alzheimer disease. 5. Constipation. 6. Stercoral colitis. 7. Seizure disorder. 8. Nephrolithiasis with prior stone removal on the left side in 2014 with recurrence and recent stenting/instrumentation in the left kidney. 9. Hemorrhoidectomy. 10. Cataract surgery. SOCIAL HISTORY: Lives in [facility]. Former smoker. ALLERGIES: PENICILLIN WITH RASH. CURRENT MEDICATIONS: 1. Norvasc. 2. Ecotrin. 3. Ceftriaxone. 4. Feosol. 5. Diflucan. 6. Lamictal. 7. Synthroid. 8. Cozaar. 9. MiraLAX. 10. Ranexa. PHYSICAL EXAMINATION: VITAL SIGNS: T-max 98.9, BP 115/69, pulse 77, respirations 16, and O2 saturation 93 to 98 on 2 L nasal cannula. SKIN: Stage II presacral very small area of ulceration. She does not have a Bustos catheter. Has a peripheral IV access. No lymphadenopathy. HEENT: Ocular movements conjugate. The patient has still quite a few teeth in place with some decay. NECK: Supple. No jugular venous distention. LUNGS: Symmetric. Clear breath sounds. HEART: S1 and S2. Regular rate. No S3 or S4. ABDOMEN: Soft, not distended or tender. No ascites. No bladder distention. EXTREMITIES: No joint inflammatory activity. No edema. Pulses are 1+ in dorsalis pedis. Plantar responses are flexor. No clonus. NEUROLOGIC: She knows her name, did not know where she was. Recollection is very limited. Does not have trouble finding words, though speech is fluent. She does follow commands. LABORATORY DATA: Followup labs: White cell count down to 13.6, hemoglobin 8.6 , and platelets 280 with 20% bands. Sodium 145, creatinine down to 2.05, GFR 28, and albumin 2.5. IMAGING STUDIES: An abdomen and pelvis CT, which showed a left-sided hydronephrosis and fecal retention. She had retrograde pyelogram done, this showed contrast opacification of dilated left renal collecting system and then the left ureteral stent overlying the inferior pole of the collecting system. ASSESSMENT: 1. Coronary artery disease. 2. Alzheimer disease. 3. Recurrent nephrolithiasis, left side with obstruction. 4. Hydronephrosis. 5. Barbara infection. 6. Pyelonephritis. 7. Candidemia. DISCUSSION: The patient will continue on oral Diflucan 200 mg daily (dose may have to be increased depending on progress of her renal function in the next few days) for a total of 4 weeks or, however long it will take to complete the urological procedure and removal of stones and stent. This may take quite a few weeks and I would keep her on Diflucan for that duration and then continue for at least 1 week after the procedure is completed and no more urological interventions remain. The stone will have to be checked and see with the chemical composition to introduce measures to prevent recurrence. With candidemia, it is important to look at her retinae and make sure that there is no evidence of endophthalmitis. Job ID: [id number] [facility]
[2019-05-04] MEDS: Levothyroxine Sodium 25 MCG TAB PO SCH (05:06)
--- NOTE | 2019-05-04 07:01 | PDOC.FM ---
- Subjective Subjective: pt resting comfortably in bed, denies pain, no acute events overnight - Objective Vital Signs & Weight: Vital Signs (12 hours) Temp Pulse Resp BP Pulse Ox 05/04/19 03:30 97.8 F 78 16 124/76 98 05/03/19 23:33 98.0 F 80 16 127/69 97 05/03/19 20:16 95 Weight Admit Weight 58.468 kg Weight 60.923 kg I&O: 05/02/19 05/03/19 05/04/19 06:59 06:59 06:59 Intake Total 400 250 230 Balance 400 250 230 Result Diagrams: 05/04/19 07:36 05/04/19 07:36 Phys Exam - Physical Examination Constitutional: NAD HEENT: moist MMs Gastrointestinal: non-tender, no distention Musculoskeletal: no edema Neurological: moves all 4 limbs Psychiatric: normal affect Skin: no rash Dx/Plan (1) SONALI (acute kidney injury) Code(s): N17.9 - ACUTE KIDNEY FAILURE, UNSPECIFIED Status: Acute (2) Calculus of ureterovesical junction (UVJ) Code(s): N20.1 - CALCULUS OF URETER Status: Acute (3) Elevated troponin Code(s): R79.89 - OTHER SPECIFIED ABNORMAL FINDINGS OF BLOOD CHEMISTRY Status : Acute (4) Hypernatremia Code(s): E87.0 - HYPEROSMOLALITY AND HYPERNATREMIA Status: Acute (5) UTI (urinary tract infection) Status: Acute (6) Dementia Code(s): F03.90 - UNSPECIFIED DEMENTIA WITHOUT BEHAVIORAL DISTURBANCE Status: Chronic Qualifiers: Dementia type: Alzheimer's disease (7) Hypothyroidism Code(s): E03.9 - HYPOTHYROIDISM, UNSPECIFIED Status: Chronic (8) Seizure Code(s): R56.9 - UNSPECIFIED CONVULSIONS Status: Acute (9) HTN (hypertension) Code(s): I10 - ESSENTIAL (PRIMARY) HYPERTENSION Status: Chronic - Plan Plan: UTI with candidemia -Urine and blood cx reveal candidemia - fluconazole renal dose - Dr. Padilla consulted, appreciate recs UVJ stone - Unlikely to pass due to size. Uro consulted - stent placed, will need lithotripsy outpt Leukocytosis - afebrile, increased bands - cxr wnl, eval further SONALI -Likely multifactorial between obstruction, UTI, and decreased PO intake. -improved, near baseline Hypernatremia -Likely secondary to poor oral intake of liquids. - improved Elevated trop -Due to demand from low volume status. Down trending on recheck Hypokalemia -monitor, Replace orally Alzheimer's Dementia - pt lives in NH, is at baseline mental status. - Pt has hx of seizures. not on antiseizure medications as they make her very drowsy. Hx of Chronic UTI's Hx hypothyroidism hx of constipation PPx SCD Code Full dispo: evaluate renal function today, increase fluconazole dosing if possible. then likely DC Addendum - Attending - Attending Attestation Date/Time: 05/04/19 1141 I personally evaluated the patient and discussed the management with Dr. Bearden. I agree with the History, Examination, Assessment and Plan documented above with any addition or exceptions noted below. Will continue diflucan as per Dr. Padilla recfredo. Did not recommend repeat BCx. Will refer for outpatient ophthalmology exam. D/c when able.
[2019-05-04 08:00] LABS: Anion Gap 12 mmol/L (10-20); BUN (Urea Nitrogen) 25 mg/dL (9.8-20.1); Calc. Creatinine Clearance 23 mL/min (70-130); Calcium 8.6 mg/dL (7.8-10.44); Carbon Dioxide 29 mmol/L (23-31); Chloride 111 mmol/L (98-107); Estimated GFR-MDRD 34; Glucose 82 mg/dL (83-110); Potassium 3.6 mmol/L (3.5-5.1); Sodium 148 mmol/L (136-145)
[2019-05-04 08:03] LABS: Hemoglobin 8.1 g/dL (12.0-16.0); Mean Corpuscular HGB CONC 31.6 g/dL (32.0-36.0); Mean Corpuscular Volume 88.9 fL (78.0-98.0); Mean Platelet Volume 8.1 fL (7.4-10.4); Platelet Count 294 thou/uL (130-400); RBC Distribution Width 15.7 % (11.5-14.5); Red Blood Cell (RBC) Count 2.89 mill/uL (4.20-5.40)
[2019-05-04 08:39] LABS: Band 5 % (5-11); Bite Cells SLIGHT = 2-5 cells (100X) (0-1/hpf); Eosinophils 2 % (0-10); Lymphocytes 9 % (21-51); MDiff Complete? YES; Metamyelocyte 1 % (0-0); Monocytes 3 % (0-10); Neutrophil 79 % (42-75); Platelet Morphology Comment Appears Adequate; Polychromasia SLIGHT = 2-3 cells (100X) (0-2/hpf); Schistocytes MODERATE= 6-15 cells (100X) (0-1/hpf)
[2019-05-04] MEDS: cefTRIAXone\\ROCEPHIN 1 GM in Sodium Chloride 0.9% 100 ML IVPB SCH (09:12)
[2019-05-04] MEDS: Fluconazole 100 MG TAB PO SCH (09:15)
[2019-05-04] MEDS: Aspirin 81 mg Enteric Coated Tablet PO SCH (09:15)
[2019-05-04] MEDS: Losartan 25 MG TAB PO SCH (09:16)
[2019-05-04] MEDS: lamoTRIgine 100 MG TAB PO SCH (09:16)
[2019-05-04] MEDS: Amlodipine 5 MG TAB PO SCH (09:16)
[2019-05-04] MEDS: Ferrous Sulfate 325 MG TAB PO SCH ×2 (09:16→14:29)
[2019-05-04] MEDS: Senokot 8.6 MG TAB PO SCH (09:16)
[2019-05-05] MEDS: Levothyroxine Sodium 25 MCG TAB PO SCH (05:53)
[2019-05-05 06:05] LABS: Anion Gap 12 mmol/L (10-20); BUN (Urea Nitrogen) 21 mg/dL (9.8-20.1); Calc. Creatinine Clearance 24 mL/min (70-130); Calcium 8.4 mg/dL (7.8-10.44); Carbon Dioxide 26 mmol/L (23-31); Chloride 112 mmol/L (98-107); Estimated GFR-MDRD 37; Glucose 105 mg/dL (83-110); Potassium 3.6 mmol/L (3.5-5.1); Sodium 146 mmol/L (136-145)
[2019-05-05 07:07] LABS: Band 3 % (5-11); Hemoglobin 8.1 g/dL (12.0-16.0); Hypochromia SLIGHT = 6-15 cells (100X) (0-5/hpf); Lymphocytes 13 % (21-51); MDiff Complete? YES; Mean Corpuscular Hemoglobin 26.9 pg (27.0-31.0); Mean Corpuscular Volume 89.8 fL (78.0-98.0); Mean Platelet Volume 8.8 fL (7.4-10.4); Metamyelocyte 3 % (0-0); Monocytes 6 % (0-10); Myelocyte 5 % (0-0); Neutrophil 70 % (42-75); Platelet Count 296 thou/uL (130-400); Platelet Morphology Comment Appears Adequate; Polychromasia SLIGHT = 2-3 cells (100X) (0-2/hpf); RBC Distribution Width 15.7 % (11.5-14.5); Red Blood Cell (RBC) Count 3.02 mill/uL (4.20-5.40); Schistocytes MODERATE= 6-15 cells (100X) (0-1/hpf); White Blood Cell (WBC) Count 13.2 thou/uL (4.8-10.8)
[2019-05-05] MEDS: Fluconazole 100 MG TAB PO SCH (08:10)
[2019-05-05] MEDS: Aspirin 81 mg Enteric Coated Tablet PO SCH (08:10)
[2019-05-05] MEDS: Amlodipine 5 MG TAB PO SCH (08:11)
[2019-05-05] MEDS: Senokot 8.6 MG TAB PO SCH (08:11)
[2019-05-05] MEDS: Losartan 25 MG TAB PO SCH (08:11)
[2019-05-05] MEDS: Ferrous Sulfate 325 MG TAB PO SCH (08:11)
[2019-05-05] MEDS: lamoTRIgine 100 MG TAB PO SCH (08:11)
--- NOTE | 2019-05-05 08:16 | PDOC.FM ---
- Subjective Subjective: pt resting comfortably in bed, no distress. no events overnight. - Objective Vital Signs & Weight: Vital Signs (12 hours) Temp Pulse Resp BP Pulse Ox 05/05/19 08:05 97.7 F 76 16 127/76 96 05/05/19 03:54 98 F 72 18 115/66 95 05/05/19 00:08 97.9 F 70 16 105/62 96 Weight Admit Weight 58.468 kg Weight 61.734 kg I&O: 05/04/19 05/05/19 05/06/19 06:59 06:59 06:59 Intake Total 230 360 Balance 230 360 Result Diagrams: 05/05/19 04:59 05/05/19 04:58 Phys Exam - Physical Examination Constitutional: NAD HEENT: moist MMs Neck: no JVD Gastrointestinal: no distention Musculoskeletal: no edema Skin: no rash Dx/Plan (1) SONALI (acute kidney injury) Code(s): N17.9 - ACUTE KIDNEY FAILURE, UNSPECIFIED Status: Acute (2) Calculus of ureterovesical junction (UVJ) Code(s): N20.1 - CALCULUS OF URETER Status: Acute (3) Elevated troponin Code(s): R79.89 - OTHER SPECIFIED ABNORMAL FINDINGS OF BLOOD CHEMISTRY Status : Acute (4) Hypernatremia Code(s): E87.0 - HYPEROSMOLALITY AND HYPERNATREMIA Status: Acute (5) UTI (urinary tract infection) Status: Acute (6) Dementia Code(s): F03.90 - UNSPECIFIED DEMENTIA WITHOUT BEHAVIORAL DISTURBANCE Status: Chronic Qualifiers: Dementia type: Alzheimer's disease (7) Hypothyroidism Code(s): E03.9 - HYPOTHYROIDISM, UNSPECIFIED Status: Chronic (8) Seizure Code(s): R56.9 - UNSPECIFIED CONVULSIONS Status: Acute (9) HTN (hypertension) Code(s): I10 - ESSENTIAL (PRIMARY) HYPERTENSION Status: Chronic - Plan Plan: UTI with candidemia -Urine and blood cx reveal candidemia - fluconazole renal dose - Dr. Padilla consulted, appreciate recs UVJ stone - Unlikely to pass due to size. Uro consulted - stent placed, will need lithotripsy outpt Leukocytosis, improved - afebrile, increased bands - cxr wnl SONALI -Likely multifactorial between obstruction, UTI, and decreased PO intake. -improved, near baseline Hypernatremia -Likely secondary to poor oral intake of liquids. - improved Elevated trop -Due to demand from low volume status. Down trending on recheck Hypokalemia -monitor, Replace orally Alzheimer's Dementia - pt lives in NH, is at baseline mental status. - Pt has hx of seizures. not on antiseizure medications as they make her very drowsy. Hx of Chronic UTI's Hx hypothyroidism hx of constipation PPx SCD Code Full dispo: medically stable for dc when rehab vs snf Addendum - Attending - Attending Attestation Date/Time: 05/06/19 1201 I personally evaluated the patient and discussed the management with Dr. Bearden on 05/05. I agree with the History, Examination, Assessment and Plan documented above with any addition or exceptions noted below.
[2019-05-05 12:43] VITALS: BMI 21.3
[2019-05-05 15:54] VITALS: BP 136/83; TEMP 97.8
--- NOTE | 2019-05-05 18:17 | PRG ---
DATE OF SERVICE: 05/05/2019 SUBJECTIVE: The patient is not in distress, a little bit confused from her cognitive issues and has not had diarrhea. She is voiding in the diaper. OBJECTIVE: VITAL SIGNS: Vital signs with normal temperature,BP 130/80, pulse 74, respiratory rate 16, O2 saturation 97. GENERAL: Awake, alert, oriented. LUNGS: Clear. HEART: S1-S2, regular rate. ABDOMEN: Soft, not distended. No bladder distention. LABORATORY DATA: Sodium 146, creatinine down to 1.62, and white cell count is at 13.2. We have 2 sets of blood cultures with Barbara albicans urine culture, the different sets with Barbara albicans as well. ASSESSMENT AND DISCUSSION: Coronary artery disease, Alzheimer disease, recurrent nephrolithiasis, now with hydronephrosis and she had a ureteral stent placed, now the patient will continue on Diflucan adjusted for renal function for 4 weeks or longer if the urological procedure will have to be postponed. The stones are likely colonized. Job ID: [id number]
--- NOTE | 2019-05-06 05:45 | PQF ---
SAP Field Support Engineer Crystal Reports Winform ViewerPEJUDY SILVA RICARDO S MD [id number] SURG [id number] CLINICAL DOCUMENTATION CLARIFICATION FORM: POST DISCHARGE Addendum to original discharge summary date: ____ Late entry note date: __ DATE: 05/06/2019 ATTN: FUAD HERRON MD Please exercise your independent, professional judgment in responding to the clarification form. Clinical indicators are provided on the bottom of this form for your review Please check appropriate box(es): [ ] Sepsis [ ] UTI [ ] Other diagnosis [ ] Unable to determine In addition, please specify: Present on Admission (POA): [ ] Yes [ ] No [ ] Unable to determine For continuity of documentation, please document condition throughout progress notes and discharge summary. Thank You. CLINICAL INDICATORS - SIGNS / SYMPTOMS / LABS Elevated WBC 21.1 on 04/29 and 14.0 on 05/04 - Documented in Laboratory Urosepsis - Documented in H&P on 04/29 by Nicole Ndiaye Urine culture shows alycia albicans - Microbiology UTI with Candidemia - Documented in Family medicine PNs on 05/04 by Suleiman farias Respiration rate 24 on 04/30 - Documented in Vital Signs RISK FACTORS Urinalysis consistent with UTI - Documented in Consult note on 05/01 by Yoni Holley Pyelonephritis - OP report Alycia infection - Documented in Consult note on 05/03 by FUAD HERRON MD TREATMENTS: Urology Consult Broad-spectrum antibiotics - Documented in H&P on 04/29 by Nicole Ndiaye Cystoscopy ureteral stent placement - OP note Rocephin IV - Documented in Family medicine PNs on 05/01 by Suleiman farias [employer] Crystal Reports Winform Viewer(This form is maintained as a part of the permanent medical record) 2014 [employer]. All Rights Reserved [email or web address] [not provided] MTDD
--- NOTE | 2019-05-06 10:50 | DIS ---
DATE OF ADMISSION: 04/29/2019 DATE OF DISCHARGE: 05/05/2019 ADMITTING ATTENDING: Senthil Trujillo MD DISCHARGE ATTENDING: Zander Campoverde MD CONSULTS: Jerry Padilla MD ADDITIONAL CONSULTS: Kishan Jacinto MD IMAGIN. Abdomen and pelvis CT reveals an 8 mm obstructing left UVJ calculus. 2. Retrograde pyelogram shows cystoscope in place. Distal coil of the catheter has not been formed. 3. Chest x-ray significant for no acute changes on 05/03/2019. PROCEDURES: Cystoscopy and left double-J stent placement. DISCHARGE MEDICATIONS: 1. Acetaminophen 325 p.o. q.8 hours p.r.n. 2. Polyethylene glycol 17 g p.o. daily p.r.n. 3. Losartan 25 mg p.o. daily. 4. Amlodipine 5 mg p.o. daily. 5. Ranexa 500 mg p.o. b.i.d. 6. Lasix 40 mg p.o. 0700. 7. Aspirin 81 mg p.o. daily. 8. Atorvastatin 20 mg p.o. at bedtime. 9. Feosol 325 mg p.o. b.i.d. with meals. 10. Lamictal 100 mg p.o. daily. 11. Levothyroxine 25 mcg p.o. 0600. 12. Senokot one tab p.o. daily. 13. Diflucan 200 mg p.o. daily. DISCHARGE DIAGNOSES: 1. Urinary tract infection with candidemia. 2. Ureterovesical junction stone. SECONDARY DIAGNOSES: 1. Leukocytosis. 2. Acute kidney injury. 3. Hypernatremia. 4. Elevated troponin. 5. Hypokalemia. 6. Alzheimer's dementia. HISTORY OF PRESENT ILLNESS/HOSPITAL COURSE: Ms. Carcamo is an 83-year-old female with past medical history significant for Alzheimer disease, hypothyroidism, and chronic UTI, brought to the ER on day of admission by her son for 2 weeks of decreased p.o. intake. In the emergency department, she received a CT of her abdomen and pelvis that revealed the stone. At that time, she was given vancomycin and cefepime and admitted to the hospital for sepsis secondary to UTI. The patient was transitioned from broad-spectrum antibiotics to oral fluconazole based on culture results, tolerated this well. Blood culture resulted in Barbara albicans as well, which was what was found in her urine cultures and cystogram cultures. Dr. Padilla was consulted at that time, and agreed with long-term therapy with fluconazole. No further workup at this time. For the past two weeks, the patient had been in her baseline and this remained throughout her hospitalization, PT/OT evaluation recommended rehab. It was determined that patient would be successful if discharge to rehab. DISCHARGE INSTRUCTIONS: 1. Location: [facility]. 2. Diet: Mechanical soft. 3. Activity: As tolerated per PT/OT. FOLLOWUP: Follow up with PCP in the next 3 to 7 days. Inpatient rehab team upon discharge. Job ID: [id number] [email or web address]
--- NOTE | 2019-05-08 00:02 | PQF ---
SAP Finance Clerk Crystal Reports Winform ViewerJUDY BUCKNER RICARDO S MD [id number] [facility] [id number] CLINICAL DOCUMENTATION CLARIFICATION FORM: POST DISCHARGE Addendum to original discharge summary date: ____ Late entry note date: __ DATE: 05/07/2019 ATTN:FUAD HERRON MD Please exercise your independent, professional judgment in responding to the clarification form. Clinical indicators are provided on the bottom of this form for your review Please check appropriate box(s): AMI TYPE: [ ] Acute Coronary Syndrome (ACS) without Acute FL meaning Unstable Angina [ ] NSTEMI (FL type I) [ ] NSTEMI due to Demand Ischemia (AMI Type II) [ ] Demand Ischemia without FL [ ] STEMI (please also specify site and arterysee below) If STEMI, SITE:[ ] Anterior [ ] Apical [ ] Lateral [ ] Inferior [ ] Posterior [ ] Q Wave [ ] Septal [ ] Unable to Determine SPECIFIC ARTERY (Based on site) [ ] Left Main Coronary[ ] Diagonal [ ] Left Anterior Descending[ ] Oblique Marginal [ ] Right Coronary Artery[ ] Unable to Determine [ ] Left Circumflex ONSET OF INFARCTION: [ ] Onset Less than 4 weeks of admission [ ] Onset Greater than 4 weeks of admission [ ] Unable to determine DUE TO (if applicable): [ ] Stent occlusion [ ] In-Stent stenosis [ ] Occlusion of coronary bypass graft [ ] Complication of PCI [ ] Underlying CAD [ ] Other [ ] Other diagnosis [ ] Unable to determine In addition, please specify: Present on Admission (POA): [ ] Yes [ ] No [ ] Unable to determine CLINICAL INDICATORS - SIGNS / SYMPTOMS / LABS elevated troponin 0.057 on 04/29 and 0.041 on 04/30 - Documented in Laboratory Report elevated troponin 0.057 Most likely elevated from SONALI on CKD - Documented in Family Medicine H&P on 04/30 by Rojas Javier elevated troponin due to demand from low volume status - Documented in Family Medicine H&P on 04/30 by Rojas Javier RISKS: CAD - Documented in Family Medicine H&P on 04/30 by Rojas Javier HTN - Documented in [facility] Medicine H&P on 04/30 by Rojas Javier Chronic Diastolic CHF - Documented in [facility] Medicine H&P on 04/30 by Rojas Javier TREATMENTS: Down trending on recheck - Documented in Family Medicine H&P on 04/30 by Rojas Javier Aspirin 81 mg daily -Medication report (This form is maintained as a part of the permanent medical record) 2014 [employer]. All Rights Reserved [email or web address] [not provided] MTDD
== END 2019-05-05 19:10 | DRG 660 ==
LOC: ERS 18:17 → 2NO 21:05 → SURG B 04-30 20:34
PROVIDERS: ADMIT Internal Medicine; ATTEND Family Medicine
PROC: 0T778DZ Dilation of Left Ureter with Intraluminal Device, Via Natural or Artificial Opening Endoscopic (ICD-10-PCS; principal; 2019-04-30)
PROC: BT1F1ZZ Fluoroscopy of Left Kidney, Ureter and Bladder using Low Osmolar Contrast (ICD-10-PCS; 2019-04-30)
DX: N13.6 Pyonephrosis (principal); I50.32 Chronic diastolic (congestive) heart failure; I13.0 Hypertensive heart and chronic kidney disease with heart failure and stage 1 through stage 4 chronic kidney disease, or unspecified chronic kidney disease; E87.0 Hyperosmolality and hypernatremia; N39.0 Urinary tract infection, site not specified; N17.9 Acute kidney failure, unspecified; E03.9 Hypothyroidism, unspecified; Z79.82 Long term (current) use of aspirin; G40.909 Epilepsy, unspecified, not intractable, without status epilepticus; G30.9 Alzheimer's disease, unspecified; F02.80 Dementia in other diseases classified elsewhere, unspecified severity, without behavioral disturbance, psychotic disturbance, mood disturbance, and anxiety; N18.3 Chronic kidney disease, stage 3 (moderate); D72.829 Elevated white blood cell count, unspecified; E87.6 Hypokalemia; D64.9 Anemia, unspecified; E86.0 Dehydration; Z87.891 Personal history of nicotine dependence; Z98.49 Cataract extraction status, unspecified eye; Z88.0 Allergy status to penicillin; I25.10 Atherosclerotic heart disease of native coronary artery without angina pectoris; B37.9 Candidiasis, unspecified; R40.2142 Coma scale, eyes open, spontaneous, at arrival to emergency department; R40.2252 Coma scale, best verbal response, oriented, at arrival to emergency department; R40.2362 Coma scale, best motor response, obeys commands, at arrival to emergency department
CPT/HCPCS: 36415; 51701; 71045; 74176; 74420; 80048; 80053; 81003; 81015; 82550; 82553; 83605; 83880; 84145; 84484; 85025; 87040; 87086; 93005; 93010; 96361; 96365; 96375; C1758; C1769; J0692; J0696; J2001; J2704; J3010; J3370; J3490

== ENCOUNTER 2019-05-14 13:11 | Inpatient (IN) | payer MEDICARE, BC ==
--- NOTE | 2019-05-14 13:48 | RAD ---
XR Chest 1 View Portable HISTORY: Cough COMPARISON: 05/03/2019 FINDINGS: There is chronic elevation the right hemidiaphragm. The heart size is normal. The lungs are well expanded without focal areas of consolidation, pneumothorax or large pleural effusions. There is mild pulmonary vascular congestion.
[2019-05-14 13:54] LABS: Hemoglobin 7.2 g/dL (12.0-16.0); Mean Corpuscular HGB CONC 29.6 g/dL (32.0-36.0); Mean Corpuscular Hemoglobin 26.8 pg (27.0-31.0); Mean Corpuscular Volume 90.4 fL (78.0-98.0); Mean Platelet Volume 7.9 fL (7.4-10.4); Platelet Count 398 thou/uL (130-400); RBC Distribution Width 16.1 % (11.5-14.5); Red Blood Cell (RBC) Count 2.69 mill/uL (4.20-5.40); White Blood Cell (WBC) Count 9.6 thou/uL (4.8-10.8)
[2019-05-14 13:55] LABS: #Eosinphils 0.1 thou/uL (0.0-0.7); #Lymphocytes 1.2 thou/uL (1.20-3.40); #Monocytes 0.8 thou/uL (0.11-0.59); #Neutrophils 7.5 thou/uL (1.40-6.50); %Basophils 0.4 % (0.0-1.0); %Eosinophils 1.2 % (0.0-10.0); %Lymphocytes 12.6 % (21.0-51.0); %Neutrophils 77.8 % (42.0-75.0)
[2019-05-14 14:21] LABS: Anion Gap 14 mmol/L (10-20); BUN (Urea Nitrogen) 39 mg/dL (9.8-20.1); Calc. Creatinine Clearance 0 mL/min (70-130); Calcium 8.8 mg/dL (7.8-10.44); Carbon Dioxide 32 mmol/L (23-31); Chloride 104 mmol/L (98-107); Estimated GFR-MDRD 17; Glucose 108 mg/dL (83-110); Potassium 5.3 mmol/L (3.5-5.1); Sodium 145 mmol/L (136-145)
[2019-05-14 14:27] LABS: Helmet Cells SLIGHT = 2-5 cells (100X) (0-1/hpf); Hypochromia SLIGHT = 6-15 cells (100X) (0-5/hpf); MDiff Complete? YES; Platelet Morphology Comment Appears Adequate; Polychromasia SLIGHT = 2-3 cells (100X) (0-2/hpf); Schistocytes SLIGHT = 2-5 cells (100X) (0-1/hpf); Tear Drops SLIGHT = 2-5 cells (100X) (0-1/hpf)
[2019-05-14 16:28] LABS: Bilirubin Negative (Negative); Blood, Urine 3+ (Negative); Clarity Turbid (Clear); Glucose, Urine (Dipstick) Normal (Negative); Leukocyte 500 Leu/uL (Negative); Nitrite Negative (Negative); Protein, Urine (Dipstick) 30 mg/dL (Neg-Trace); RBC/HPF 21-50 HPF (0-3); Squamous Epithelial 0-3 HPF (0-3); Urobilinogen Normal mg/dL (Less than 2); WBC/HPF Greater than 50 HPF (0-3)
[2019-05-14 16:29] LABS: Bacteria/HPF 1+ HPF (None Seen)
[2019-05-14] MEDS ORDERED: Acetaminophen 325 MG TAB PO PRN ×2 (16:51→22:21)
[2019-05-14] MEDS ORDERED: Ondansetron PF 4 MG/2 ML Vial IVP PRN ×2 (16:51→22:21)
[2019-05-14] MEDS ORDERED: Vancomycin HCl 1 GM in Premix Bag 1 BAG IVPB SCH (17:00)
--- NOTE | 2019-05-14 18:19 | CON ---
DATE OF CONSULTATION: REASON FOR CONSULTATION: Hyperkalemia and acute renal failure. HISTORY OF PRESENT ILLNESS: A very pleasant 83-year-old female, being seen at [facility], presented to the hospital after a complicated UTI with hydronephrosis. The patient was noted to have a creatinine of 3.1. The patient has had nausea, vomiting, and poor p.o. intake for many days. The patient has had chronic leg swelling. The patient denies any chest pain, nausea, or vomiting. PAST MEDICAL HISTORY: Hypertension, COPD, acute kidney injury with CKD, anemia; history of mitral regurgitation, normal ejection fraction; history of Alzheimer, constipation, seizure disorder, hemorrhoidectomy, fungal UTI, and cataract surgery. HOME MEDICATIONS: List reviewed. HOSPITAL MEDICATIONS: Reviewed. ALLERGIES: REVIEWED. REVIEW OF SYSTEMS: A 15-point review of system was performed and negative except all noted above. GENERAL: HEAD: NECK: No swelling or lumps. NOSE: No epistaxis or discharge. EYES: No diplopia or pain. RESPIRATORY: CARDIOVASCULAR: GASTROINTESTINAL: /FOOD STYLIST: MUSCULOSKELETAL: No joint pain. NEUROPSYCHIATRIC SYSTEMS: No suicidal ideation. No ideation. SKIN: Denies any rash or ulcer. CONSTITUTIONAL: No fever or chills. PHYSICAL EXAMINATION: General: The patient is awake and alert. VITAL SIGNS: pulse 75, breathing 16, blood pressure 105/65. GENERAL APPEARANCE AND MENTAL STATUS: Fair. HEAD/NECK: Normocephalic. Atraumatic. EYES: EOMI. No deformity. EARS: Clear. No ulcers. NOSE: Intact. No lesions. MOUTH: Clear. No discharge. THROAT: Clear. No exudate. LUNGS: Clear. No crackles. CARDIAC: S1, S2. No rub. ABDOMEN: Benign. Bowel sounds positive. GENITALIA/RECTUM: Bustos absent. BACK/EXTREMITIES: Lower extremities have edema. NEUROLOGICAL: Alert and motor intact. SKIN: LYMPHATICS: LABORATORY DATA: Reviewed. ASSESSMENT AND PLAN: 1. Acute kidney injury with chronic kidney disease, most likely due to urinary tract infection and decreased effective arterial blood volume. Continue hydration gently. 2. Anemia, management per primary team, most likely anemia of chronic kidney disease as well as anemia of chronic disease. 3. Nephrolithiasis. Would recommend checking a PTH. 4. Low vitamin D level. We will recommend starting the patient on . All the above findings were discussed with the patient and her son, who was present during interview. Job ID: [id number]
--- NOTE | 2019-05-14 18:39 | HP ---
PRIMARY CARE PROVIDER: Kevon Lopez MD CHIEF COMPLAINT: Generalized weakness. HISTORY OF PRESENT ILLNESS: Ms. Carcamo is a pleasant 83-year-old lady who was seen at [facility] on May 14, 2019. The patient herself is unable to provide any significant history. Collateral history was obtained from review of medical record, discussion with emergency room physician, and discussion with the patient's son, Dr. Joss Carcamo. The patient's son reports that the patient was diagnosed with Alzheimer disease in 2009. She was hospitalized at this facility from January 27 to of this year for acute exacerbation of congestive heart failure as well as supraventricular tachycardia. She was subsequently hospitalized from February 03 to 2018 for provoked seizures secondary to acute respiratory acidosis and hypercapnia. During that hospitalization, she was seen by Neurology Service. She was started on Keppra. She was hospitalized again from February 16 to 2018 for encephalopathy, likely secondary to medications as well as possible right lower lobe pneumonia. Keppra was discontinued prior to that hospitalization in the outpatient setting because it was felt that Keppra was contributing to her lethargy. She was again hospitalized from March 01 to 2018, for CHF exacerbation and acute on chronic stage 3 renal failure. She was rehospitalized from March 18 to 2018, for acute encephalopathy. During the last two hospitalizations mentioned, she was treated with BiPAP. It was felt that cause of her acute encephalopathy was most likely delirium that is waxing and waning. She was again hospitalized from March 23 to 2018, for recurrent seizures, myoclonic type. She was started on Lamictal during that hospitalization. She was subsequently readmitted from April 29 to 2019, for Barbara bacteremia and urinary tract infection with candidemia. During that hospitalization, she was found to have an 8 mm obstructing left UVJ calculus. She underwent cystoscopy and left double-J stent placement during that hospitalization by Dr. Jacinto. Following that, she was discharged to [facility] for inpatient rehab. She has been there for approximately a week. Today, her son was asked to pick her up from rehab because she was not progressing well. He went to pick her up. After he took her and put her in the car, she vomited. She was reportedly complaining of abdominal pain and has been having a lot of eructations recently. She also reportedly lost 20-pound weight recently. She has not been eating or drinking well over the last few days. REVIEW OF SYSTEMS: Could not be completed because the patient is not reliably answering questions. PAST MEDICAL HISTORY: Hypothyroidism, hypertension, urosepsis, Alzheimer disease, chronic constipation, congestive heart failure, seizure disorder, candidemia, candiduria, nephrolithiasis, benign positional vertigo, decubitus ulcer. PAST SURGICAL HISTORY: Left kidney open stone removal in 2015, benign hematoma of breast bilaterally, hemorrhoidectomy, cataract surgery, cystoscopy and ureteric stent placement, left knee surgery, right cataract surgery. FAMILY HISTORY: Could not obtain. SOCIAL HISTORY: She quit smoking 40 years ago. No history of alcohol use or recreational drug use. ALLERGIES: SHE IS ALLERGIC TO PENICILLIN. HER SON REPORTS THAT THE ALLERGY IS SKIN RASH. CURRENT MEDICATIONS: As dictated by Dr. Bearden in his discharge summary dated May 07, 2019. PHYSICAL EXAMINATION: GENERAL: On examination, Ms. Carcamo is awake, alert, not in acute distress. VITAL SIGNS: Blood pressure is 102/59, pulse 68, respiratory rate 13, and oxygen saturation 100% on 2 L of oxygen. She is afebrile. EYES: No scleral icterus. No conjunctival pallor. ENT: Dry mucosal membranes. No oropharyngeal erythema or exudates. NECK: Supple. Nontender. Trachea is midline. RESPIRATORY: Accessory muscles of breathing are not active. Chest wall movements are symmetric bilaterally. Lungs are clear to auscultation without wheeze, rhonchi, or crepitations. CARDIOVASCULAR: S1 and S2 are heard, regular. ABDOMEN: Soft. Nontender. Bowel sounds are heard. NEUROLOGIC: Cranial nerves 2 through 12 are intact. MUSCULOSKELETAL: Right lower extremity more swollen compared to left, son reports that this is a chronic finding. SKIN: No rashes. LYMPHATIC: No cervical lymphadenopathy. PSYCHIATRIC: Normal mood. Normal affect. The patient is oriented to person. She knows that she is in [place]. LABORATORY DATA: Ms. Carcamo's labs and investigations were reviewed. Chest x-ray shows chronic elevation of the right hemidiaphragm. There are no focal areas of consolidation. She has mild pulmonary vascular congestion. She has normal white count, normocytic anemia with hemoglobin 7.2, last known hemoglobin was 7.4 on May 11, 2019. Normal sodium, elevated potassium of 5.3, elevated blood urea nitrogen of 39, elevated creatinine of 3.13, her creatinine was 1.89 on May 10, 2019. Normal lactic acid. Urinalysis positive for leukocyte esterase. Urinalysis also shows bacteria. ASSESSMENT AND PLAN: Ms. Carcamo is a pleasant 83-year-old lady who was seen at [facility] on May 14, 2019. Her problem list includes: 1. Acute on chronic stage 3 renal failure: Ms. Carcamo is presenting with acute on chronic stage 3 renal failure. She will be admitted to the hospital for further management. Nephrotoxic medications will be held, including losartan. We will recheck her creatinine. We will also consult her die turner, Dr. Kaplan. 2. Urinary tract infection: Previous urine culture grew Barbara. However, in the past, she has had urinary tract infection with Klebsiella pneumoniae. We will start her on broad-spectrum antibiotic. Given her history of penicillin allergy, we will administer meropenem. We will continue her on Diflucan for candiduria. 3. History of vomiting: We will add IV metronidazole in case she aspirated during today's episode of vomiting. We will deescalate antibiotics once she is clinically improved. 4. Weight loss: We will consult Gastroenterology Service for opinion and help with management. 5. History of seizures: We will continue Lamictal. 6. Hypertension: Monitor vital signs, titrate antihypertensives as needed. Hold losartan. 7. Hypothyroidism: Continue levothyroxine. Many thanks for allowing me to participate in your patient's care. Please feel free to contact me with any questions or concerns. LEVEL OF RISK: Moderate. LEVEL OF COMPLEXITY: Moderate. Job ID: [id number]
[2019-05-14 18:55] LABS: Anion Gap 14 mmol/L (10-20); BUN (Urea Nitrogen) 39 mg/dL (9.8-20.1); Calc. Creatinine Clearance 0 mL/min (70-130); Calcium 8.3 mg/dL (7.8-10.44); Carbon Dioxide 28 mmol/L (23-31); Chloride 107 mmol/L (98-107); Estimated GFR-MDRD 19; Glucose 112 mg/dL (83-110); Potassium 5.1 mmol/L (3.5-5.1); Sodium 144 mmol/L (136-145)
--- NOTE | 2019-05-14 19:24 | CT ---
CT ABDOMEN 05/14/19 PROVIDED CLINICAL HISTORY: Acute kidney injury. FINDINGS: Comparison 04/29/19. Persistent elevation of the right hemidiaphragm with adjacent passive atelectatic change. Numerous gallstones are again demonstrated. Large right renal cyst is again seen. There is a nonobstructing 4 mm right renal calculus. There has been interval placement of a left ureteral stent, the proximal coil of which is located within the U PJ/proximal left ureter region. There is persistent left hydronephrosis, appearing less conspicuous t thomson on prior. The liver, spleen, pancreas, and adrenal glands demonstrate a stable unenhanced CT appearance. There is no bowel dilatation, inflammatory fat stranding, free fluid or lymph node enlargement appare nt. Extensive vascular calcifications are seen. The osseous structures demonstrate no concerning lytic or blastic lesions. IMPRESSION: Ureteral stent positioning as described. Persistent but improved left hydronephrosis. POS: PAT
[2019-05-14 19:53] VITALS: BMI 21.9
[2019-05-14] MEDS: Sodium Chloride 0.9% 1,000 ML IV SCH (20:19)
[2019-05-14] MEDS ORDERED: Atorvastatin Calcium 20 MG TAB PO SCH (21:00)
[2019-05-14] MEDS ORDERED: Heparin 5,000 UNITS/ML VIAL SC SCH (21:00)
[2019-05-14] MEDS ORDERED: Meropenem 1 GM in Sodium Chloride 0.9% 100 ML IVPB SCH (22:00)
[2019-05-14] MEDS: Meropenem 500 MG in Sodium Chloride 0.9% 100 ML IVPB SCH (22:25)
[2019-05-14] MEDS: metroNIDAZOLE 500 MG in Premix Bag 1 BAG IVPB SCH (22:25)
[2019-05-15] MEDS: metroNIDAZOLE 500 MG in Premix Bag 1 BAG IVPB SCH ×2 (05:28→14:25)
[2019-05-15] MEDS: Levothyroxine Sodium 25 MCG TAB PO SCH (05:28)
[2019-05-15] MEDS ORDERED: Levothyroxine Sodium 25 MCG TAB PO SCH (06:00)
[2019-05-15] MEDS ORDERED: Ferrous Sulfate 325 MG TAB PO SCH (08:00)
[2019-05-15] MEDS: Aspirin 81 mg Enteric Coated Tablet PO SCH (08:53)
[2019-05-15] MEDS: Fluconazole 100 MG TAB PO SCH (08:53)
[2019-05-15] MEDS: Ferrous Sulfate 325 MG TAB PO SCH ×2 (08:53→17:59)
[2019-05-15] MEDS: Heparin 5,000 UNITS/ML VIAL SC SCH ×3 (08:54→20:27)
[2019-05-15] MEDS: lamoTRIgine 100 MG TAB PO SCH (08:54)
[2019-05-15] MEDS: Senokot S 8.6-50 MG TAB PO SCH ×2 (08:54→20:27)
[2019-05-15] MEDS ORDERED: Fluconazole 100 MG TAB PO SCH (09:00)
[2019-05-15] MEDS ORDERED: Amlodipine 5 MG TAB PO SCH ×2 (09:00)
[2019-05-15] MEDS ORDERED: Aspirin 81 mg Enteric Coated Tablet PO SCH (09:00)
[2019-05-15 10:00] LABS: Anion Gap 13 mmol/L (10-20); BUN (Urea Nitrogen) 32 mg/dL (9.8-20.1); Calc. Creatinine Clearance 16 mL/min (70-130); Calcium 8.1 mg/dL (7.8-10.44); Carbon Dioxide 29 mmol/L (23-31); Chloride 108 mmol/L (98-107); Estimated GFR-MDRD 22; Glucose 88 mg/dL (83-110); Potassium 4.6 mmol/L (3.5-5.1); Sodium 145 mmol/L (136-145)
--- NOTE | 2019-05-15 10:03 | PRG ---
DATE OF SERVICE: 05/15/2019 SUBJECTIVE: An 83-year-old female being seen for acute kidney injury. The patient denies any nausea, vomiting, or chest pain. OBJECTIVE: See above. The patient is awake and alert. VITAL SIGNS: Afebrile, pulse 75, breathing 16, and blood pressure 94/52. GENERAL APPEARANCE AND MENTAL STATUS: Fair. HEAD/NECK: Normocephalic. Atraumatic. EYES: EOMI. No deformity. EARS: Clear. No ulcers. NOSE: Intact. No lesions. MOUTH: Clear. No discharge. THROAT: Clear. No exudate. LUNGS: Clear. No crackles. CARDIAC: S1, S2. No rub. ABDOMEN: Benign. Bowel sounds positive. GENITALIA/RECTUM: Bustos absent. BACK/EXTREMITIES: Edema 0+. NEUROLOGICAL: Alert and motor intact. SKIN: LYMPHATICS: LABORATORY DATA: Showed hemoglobin is 7.2. Potassium is 5.1. Today's labs are pending. ASSESSMENT AND PLAN: 1. Acute kidney injury with chronic kidney disease, improving. 2. Hypertension, stable. 3. Anemia, stable. 4. Hyperkalemia, improved. No indication for dialysis. Continue aggressive hydration. 5. Hyperparathyroidism. We will start calcitriol 0.25 every other day. Job ID: [id number]
[2019-05-15 10:04] LABS: Phosphorus 3.7 mg/dL (2.3-4.7)
[2019-05-15] MEDS: Meropenem 500 MG in Sodium Chloride 0.9% 100 ML IVPB SCH (10:41)
--- NOTE | 2019-05-15 14:26 | CON ---
DATE OF CONSULTATION: 05/15/2019 REQUESTING PHYSICIAN: Choco Vogt MD REASON FOR CONSULTATION: Weight loss and anemia. HISTORY OF PRESENT ILLNESS: Aileen Carcamo is a very pleasant 83-year-old woman. She has history significant for Alzheimer's dementia and congestive heart failure. She has had multiple hospitalizations over the past year. In the past 3 months, she has been hospitalized for SVT, seizures with encephalopathy, worsening of chronic kidney disease. She has had Barbara UTI with bacteremia, which is being treated. She has also had other UTIs with Klebsiella. During the most recent hospitalization, she was found to have left renal stone with hydronephrosis and underwent left ureteral stent placement. She had been at a rehab facility for some time. During all this time over the past year, she has lost about 50 pounds of weight and also been noted to have progressive worsening anemia. She was not really progressing at the rehab facility, not eating well, had some vomiting, which was nonbloody, and was readmitted here with acute on chronic kidney injury. She has been seen by Dr. Kaplan. She is getting rehydrated and with some improvement in creatinine since arrival yesterday. She is indeed noted to be anemic with hemoglobin 7.2. This is normocytic with MCV 90.4. There has been no report of any hematemesis, melena, or hematochezia. She does have a known external hemorrhoid with a prior hemorrhoidectomy, with occasional small amount of bleeding from that. She tends toward constipation. Her last bowel movement was about 5 days ago and she was evidently manually disimpacted 3 days ago. She is not reporting any abdominal pain. She appears quite comfortable and pleasant. REVIEW OF SYSTEMS: Full review of systems including constitutional, head, eyes, ears, nose, throat, GI, , cardiovascular, respiratory, musculoskeletal, neurologic systems is negative except as noted in the HPI. PAST MEDICAL HISTORY: Alzheimer's dementia, CHF, SVT, seizures, chronic kidney disease, encephalopathy, Barbara urinary tract infection with bacteremia, Klebsiella urinary tract infection, nephrolithiasis with left ureteral stent, hypothyroidism, hemorrhoidectomy in 1972, decubitus ulcer, colonoscopy around 2005 was evidently normal, and chronic constipation. SOCIAL HISTORY: She is a former smoker, but quit back many years ago. No alcohol use. The patient's son is Dr. Joss Carcamo, a hand surgeon here at this facility. FAMILY HISTORY: Negative for colon cancer. PHYSICAL EXAMINATION: VITAL SIGNS: Temperature 97.8, pulse 66, blood pressure 90/51, and oxygen saturation 98% on 2 L nasal cannula. GENERAL: An 83-year-old woman, sitting up in chair comfortably, in no distress. MENTAL: She is awake and alert, pleasantly disoriented, unable to answer any questions regarding symptoms. SKIN: No jaundice. No rashes were palpable. I know she has decubitus ulceration, which I did not examine today, but there is good documentation of this in the chart. EYES: No scleral icterus. Extraocular movements intact. ENT: Mucous membranes moist. No oral lesions. LYMPH: No submandibular or supraclavicular lymphadenopathy. THYROID: Nontender to palpation. HEART: Regular rate and rhythm. LUNGS: Clear to auscultation bilaterally. ABDOMEN: Nondistended. Bowel sounds present. Abdomen is soft, nontender to palpation. EXTREMITIES: No peripheral edema. VESSELS: Radial pulses 2+ bilaterally. NEURO: The patient does not follow commands. Moves all extremities. LABORATORY STUDIES: WBC 9.6, hemoglobin 7.2, hematocrit 24.3, MCV 90.4, and platelets 398. Sodium 145, potassium 4.6, BUN 32, creatinine 2.50, glucose 88, and phosphorus 3.7. PTH is 162.0, which is elevated. Calcium is 8.1. Urinalysis shows 21 to 50 rbc's and greater than 50 wbc's. Blood culture showed no growth today. Preliminary urine culture shows mixed skin princess. IMAGING STUDIES: Chest x-ray showed chronic elevation of the right hemidiaphragm. CT of the abdomen demonstrated left-sided ureteral stent. There are multiple gallstones. There is a right renal cystic lesion, which is large. Normal-appearing bowel, liver, spleen, and pancreas. ASSESSMENT AND PLAN: 1. Weight loss, 50 pounds over the past year, 20 pounds over the past couple of months. 2. Anemia, this is normocytic, also evidently progressive over the past year. Consider anemia of chronic disease or chronic kidney disease, but also possible iron deficiency component to this. We will check iron studies, B12, and folic acid with morning labs. 3. Loss of appetite. I had a long discussion with the patient's son today. Her constellation of symptoms could certainly be consistent with primary GI pathology. CT scan was not really suggestive of anything, but EGD and colonoscopy would certainly be warranted to evaluate for ulcer disease, malignancy, inflammatory disease, etc. Dr. Carcamo agrees and desires to proceed. The patient ate lunch today, so we will have her on clear liquids tomorrow, administer bowel preparation tomorrow evening, and plan for EGD and colonoscopy the following day (Friday). Please call back in the meantime with any questions or concerns. Job ID: [id number]
[2019-05-15] MEDS: Sodium Chloride 0.9% 1,000 ML IV SCH (17:26)
[2019-05-15] MEDS ORDERED: Vancomycin HCl 500 MG in Sodium Chloride 0.9% 100 ML IVPB SCH (18:00)
--- NOTE | 2019-05-15 19:52 | PDOC.HOSPP ---
- Subjective Encounter Date: 05/15/19 Encounter Time: 14:00 Subjective: no overnight events. This afternoon, sitting comfortably in chair and has no complaints. - Objective Vital Signs & Weight: Vital Signs (12 hours) Temp Pulse Pulse Resp BP BP Pulse Ox 05/15/19 19:07 97.9 F 71 16 94/58 L 98 05/15/19 15:08 98.0 F 67 16 101/59 L 98 05/15/19 13:52 65 93/53 L 05/15/19 12:02 97.8 F 66 16 90/51 L 98 Weight Admit Weight 132 lb Weight 132 lb I&O: 05/14/19 05/15/19 05/16/19 06:59 06:59 06:59 Intake Total 200 840 Output Total 500 300 Balance -300 540 Result Diagrams: 05/14/19 13:36 05/15/19 09:21 Radiology Reviewed by me: Yes Hospitalist ROS - Review of Systems Constitutional: denies: fever, chills, sweats, weakness, malaise, other Eyes: denies: pain, vision change, conjunctivae inflammation, eyelid inflammation, redness, other Respiratory: denies: cough, dry, shortness of breath, hemoptysis, SOB with excertion, pleuritic pain, sputum, wheezing, other Cardiovascular: denies: chest pain, palpitations, orthopnea, paroxysmal noc. dyspnea, edema, light headedness, other Gastrointestinal: denies: nausea, vomiting, abdominal pain, diarrhea, constipation, melena, hematochezia, other Genitourinary: denies: dysuria, frequency, incontinence, hematuria, retention, other Neurological: reports: weakness, confusion - Medication Medications: Active Medications Generic Name Dose Route Start Last Admin Trade Name Freq PRN Reason Stop Dose Admin Acetaminophen 650 mg 05/14/19 22:21 05/15/19 03:37 Tylenol PO 650 mg Q4H PRN Administration Headache/Fever/Mild Pain (1-3) Aspirin 81 mg 05/15/19 09:00 05/15/19 08:53 Ecotrin PO 81 mg DAILY JENNIFER Administration Ferrous Sulfate 325 mg 05/15/19 08:00 05/15/19 17:59 Feosol PO 325 mg BID-WM JENNIFER Administration Fluconazole 200 mg 05/15/19 09:00 05/15/19 08:53 Diflucan PO 200 mg DAILY JENNIFER Administration Heparin Sodium (Porcine) 5,000 units 05/15/19 09:00 05/15/19 14:34 Heparin SC 5,000 units TID JENNIFER Administration Sodium Chloride 1,000 mls @ 50 mls/hr 05/14/19 18:00 05/15/19 17:26 Normal Saline 0.9% IV 1,000 mls .Q20H JENNIFER Administration Lamotrigine 100 mg 05/15/19 09:00 05/15/19 08:54 Lamictal PO 100 mg QAM JENNIFER Administration Levothyroxine Sodium 25 mcg 05/15/19 06:00 05/15/19 05:28 Synthroid PO 25 mcg 0600 JENNIFER Administration Ranolazine 500 mg 05/15/19 09:00 05/15/19 08:54 Ranexa PO 500 mg BID JENNIFER Administration Senna/Docusate Sodium 1 tab 05/15/19 09:00 05/15/19 08:54 Senokot S PO 1 tab BID JENNIFER Administration - Exam General Appearance: NAD, awake alert ENT: normocephalic atraumatic, no oropharyngeal lesions, moist mucosa Neck: supple, symmetric, no JVD, no thyromegaly, no lymphadenopathy, no carotid bruit Heart: RRR Respiratory: CTAB, no wheezes, no rales, no ronchi, normal chest expansion, no tachypnea, normal percussion Gastrointestinal: soft, non-tender, non-distended, normal bowel sounds, no palpable masses, no hepatomegaly, no splenomegaly, no bruit Extremities: no cyanosis, no clubbing, no edema Neurological: cranial nerve grossly intact, normal sensation to touch, no new deficit Neurological - other findings: A&O x 0 Psychiatric: normal affect Hosp A/P - Plan Ms. Carcamo is a pleasant 83-year-old lady who was seen at [facility] on May 14, 2019 who presented with general weakness and confusion. 1. Acute on chronic stage 3 renal failure: dominant etiology prerenal in context of recently reduced PO intake and improving hydronephrosis based on imaging Cr downtrending -continue fluids -avoid nephrotoxic agents 2. Urinary tract infection: -grew candidemia in context of ureteral stent placement -per son, urologist requested to continue Fluconazole for total of 2 weeks -urine culture this admission negative, afebrile, no leukocytosis -continue fluconazole -discontinued other antibiotics 3. History of vomiting: -resolved -stop flagyl IV since no signs or symptoms of pneumonia 4. Chronic normocytic anemia -HgB progressively downtrending -hemodynamically stable -folate, iron, B12 considering possible mixed anemia -GI onboard, planned EGD and colonoscopy on Friday 5. History of seizures: We will continue Lamictal. 6. Hypertension -hold losartan in context of SONALI -amlodipine held in context of borderline hypotension 7. Hypothyroidism: Continue levothyroxine.
[2019-05-15] MEDS: Atorvastatin Calcium 20 MG TAB PO SCH (20:27)
[2019-05-16 04:39] LABS: #Basophils 0.1 thou/uL (0.0-0.2); #Eosinphils 0.2 thou/uL (0.0-0.7); #Lymphocytes 1.5 thou/uL (1.20-3.40); #Neutrophils 5.8 thou/uL (1.40-6.50); %Basophils 0.7 % (0.0-1.0); %Lymphocytes 18.1 % (21.0-51.0); %Monocytes 11.3 % (0.0-10.0); Hemoglobin 6.4 g/dL (12.0-16.0); Mean Corpuscular HGB CONC 29.9 g/dL (32.0-36.0); Mean Corpuscular Hemoglobin 27.4 pg (27.0-31.0); Mean Corpuscular Volume 91.6 fL (78.0-98.0); Mean Platelet Volume 8.1 fL (7.4-10.4); Platelet Count 266 thou/uL (130-400); RBC Distribution Width 15.9 % (11.5-14.5); Red Blood Cell (RBC) Count 2.34 mill/uL (4.20-5.40); White Blood Cell (WBC) Count 8.5 thou/uL (4.8-10.8)
[2019-05-16 05:04] LABS: Iron 59 ug/dL (50-170); Iron Binding Capacity, Total 178 mcg/dL (265-497)
[2019-05-16 05:05] LABS: Anion Gap 12 mmol/L (10-20); BUN (Urea Nitrogen) 33 mg/dL (9.8-20.1); Calc. Creatinine Clearance 16 mL/min (70-130); Calcium 8.1 mg/dL (7.8-10.44); Carbon Dioxide 28 mmol/L (23-31); Chloride 110 mmol/L (98-107); Estimated GFR-MDRD 23; Glucose 80 mg/dL (83-110); Iron 58 ug/dL (50-170); Iron Binding Capacity, Total 179 mcg/dL (265-497); Potassium 4.3 mmol/L (3.5-5.1); Sodium 146 mmol/L (136-145)
[2019-05-16] MEDS: Levothyroxine Sodium 25 MCG TAB PO SCH (05:17)
[2019-05-16 05:46] LABS: Ferritin 213.55 ng/mL (10-291)
[2019-05-16] MEDS: Fluconazole 100 MG TAB PO SCH (09:01)
[2019-05-16] MEDS: Aspirin 81 mg Enteric Coated Tablet PO SCH (09:01)
[2019-05-16] MEDS: Ferrous Sulfate 325 MG TAB PO SCH ×2 (09:01→17:00)
[2019-05-16] MEDS: Calcitriol 0.25 MCG CAP PO SCH (09:01)
[2019-05-16] MEDS: lamoTRIgine 100 MG TAB PO SCH (09:02)
[2019-05-16] MEDS: Senokot S 8.6-50 MG TAB PO SCH ×2 (09:02→21:33)
[2019-05-16] MEDS: Heparin 5,000 UNITS/ML VIAL SC SCH ×3 (09:02→21:30)
[2019-05-16] MEDS: Folic Acid 1 MG TAB PO SCH (09:04)
--- NOTE | 2019-05-16 10:42 | PRG ---
DATE OF SERVICE: 05/16/2019 SUBJECTIVE: Ms. Carcamo has no complaints. She had an okay night last night. Her son reports that she did have one darker bowel movement overnight. Hemoglobin declined to 6.4, and she is set to receive a unit of blood later today. She is otherwise hemodynamically stable. OBJECTIVE: VITAL SIGNS: Temperature 98, pulse 80, blood pressure 102/56, and 95% oxygen saturation on 2 L nasal cannula. GENERAL: No acute distress. HEART: Regular rate and rhythm. LUNGS: Clear to auscultation bilaterally. ABDOMEN: Soft and nontender. EXTREMITIES: No peripheral edema. LABORATORY STUDIES: Hemoglobin 6.4, MCV 91.6, WBCs 8.5, and platelets 266. BUN 33, creatinine 2.43, sodium 146, potassium 4.3, ferritin is 213.5, iron 59, TIBC 178 with 33% saturation, so not consistent with iron deficiency. Vitamin B12 is normal at 272. Folic acid level is low at 4.4. ASSESSMENT/PLAN: 1. Weight loss. 2. Anemia, normocytic. 3. Loss of appetite. 4. Folic acid deficiency. I discussed with the patient's son our plan is still to proceed with diagnostic EGD and colonoscopy tomorrow after bowel preparation this evening. We discussed that the iron studies are not really indicative of iron deficiency, but rather more consistent with anemia of chronic disease. On the other hand, her folic acid level is low. 5. Further recommendations following endoscopy tomorrow. Job ID: [id number]
[2019-05-16] MEDS: Sodium Chloride 0.45% 1,000 ML IV SCH (12:42)
--- NOTE | 2019-05-16 12:52 | PRG ---
DATE OF SERVICE: 05/16/2019 SUBJECTIVE: An 83-year-old female, being seen for acute kidney injury. The patient denied nausea, vomiting, or chest pain. OBJECTIVE: CONSTITUTIONAL: The patient is awake and alert. VITAL SIGNS: Afebrile, pulse 86, breathing 16, and blood pressure 115/64. GENERAL APPEARANCE AND MENTAL STATUS: Fair. HEAD/NECK: Normocephalic. Atraumatic. EYES: EOMI. No deformity. EARS: Clear. No ulcers. NOSE: Intact. No lesions. MOUTH: Clear. No discharge. THROAT: Clear. No exudate. LUNGS: Clear. No crackles. CARDIAC: S1, S2. No rub. ABDOMEN: Benign. Bowel sounds positive. GENITALIA/RECTUM: Bustos absent. BACK/EXTREMITIES: Edema 0+. NEUROLOGICAL: Alert and motor intact. SKIN: LYMPHATICS: LABORATORY DATA: Labs showed hemoglobin 6.4. Sodium 146 and creatinine 2.4. ASSESSMENT AND PLAN: 1. Acute kidney injury with chronic kidney disease stage 4, improved. 2. Hypertension, stable. 3. Hyponatremia, we will recommend changing the IV fluids to half NS. 4. Anemia, would recommend transfusion. Job ID: [id number]
[2019-05-16 14:00] LABS: Hemoglobin 7.5 g/dL (12.0-16.0); Platelet Count 261 thou/uL (130-400)
--- NOTE | 2019-05-16 14:12 | PDOC.HOSPP ---
- Subjective Encounter Date: 05/16/19 Encounter Time: 10:00 Subjective: no overnight events. This morning, feels better, more alert and oriented, and talkative - Objective Vital Signs & Weight: Vital Signs (12 hours) Temp Pulse Pulse Resp BP BP Pulse Ox 05/16/19 12:34 98.6 F 70 16 115/64 05/16/19 11:59 98.1 F 80 16 128/77 95 05/16/19 10:53 98.6 F 68 17 95/58 L 05/16/19 10:19 98.7 F 75 16 101/59 L 05/16/19 07:11 95 05/16/19 07:06 98.0 F 80 16 102/56 L 95 05/16/19 04:10 97.4 F L 87 18 127/58 L 96 Weight Admit Weight 132 lb Weight 132 lb I&O: 05/15/19 05/16/19 05/17/19 06:59 06:59 06:59 Intake Total 200 840 350 Output Total 500 300 Balance -300 540 350 Result Diagrams: 05/16/19 13:52 05/16/19 04:23 Hospitalist ROS - Review of Systems Constitutional: denies: fever, chills, sweats, weakness, malaise, other Eyes: denies: pain, vision change, conjunctivae inflammation, eyelid inflammation, redness, other Respiratory: denies: cough, dry, shortness of breath, hemoptysis, SOB with excertion, pleuritic pain, sputum, wheezing, other Cardiovascular: denies: chest pain, palpitations, orthopnea, paroxysmal noc. dyspnea, edema, light headedness, other Gastrointestinal: denies: nausea, vomiting, abdominal pain, diarrhea, constipation, melena, hematochezia, other Genitourinary: denies: dysuria, frequency, incontinence, hematuria, retention, other Neurological: denies: weakness, numbness, incoordination, change in speech, confusion, seizures, other - Medication Medications: Active Medications Generic Name Dose Route Start Last Admin Trade Name Freq PRN Reason Stop Dose Admin Acetaminophen 650 mg 05/14/19 22:21 05/15/19 03:37 Tylenol PO 650 mg Q4H PRN Administration Headache/Fever/Mild Pain (1-3) Aspirin 81 mg 05/15/19 09:00 05/16/19 09:01 Ecotrin PO 81 mg DAILY JENNIFER Administration Atorvastatin Calcium 20 mg 05/15/19 21:00 05/15/19 20:27 Lipitor PO 20 mg HS JENNIFER Administration Calcitriol 0.25 mcg 05/16/19 09:00 05/16/19 09:01 Rocaltrol PO 0.25 mcg DAILY JENNIFER Administration Ferrous Sulfate 325 mg 05/15/19 08:00 05/16/19 09:01 Feosol PO 325 mg BID-WM JENNIFER Administration Fluconazole 200 mg 05/15/19 09:00 05/16/19 09:01 Diflucan PO 200 mg DAILY JENNIFER Administration Folic Acid 1 mg 05/16/19 09:00 05/16/19 09:04 Folvite PO 1 mg DAILY JENNIFER Administration Heparin Sodium (Porcine) 5,000 units 05/15/19 09:00 05/16/19 09:02 Heparin SC 5,000 units TID JENNIFER Administration Sodium Chloride 1,000 mls @ 50 mls/hr 05/16/19 08:30 05/16/19 12:42 1/2 Normal Saline IV 1,000 mls .Q20H JENNIFER Administration Lamotrigine 100 mg 05/15/19 09:00 05/16/19 09:02 Lamictal PO 100 mg QAM JENNIFER Administration Levothyroxine Sodium 25 mcg 05/15/19 06:00 05/16/19 05:17 Synthroid PO 25 mcg 0600 JENNIFER Administration Ranolazine 500 mg 05/15/19 09:00 05/16/19 09:02 Ranexa PO 500 mg BID JENNIFER Administration Senna/Docusate Sodium 1 tab 05/15/19 09:00 05/16/19 09:02 Senokot S PO 1 tab BID JENNIFER Administration - Exam General Appearance: NAD, awake alert Eye: PERRL ENT: normocephalic atraumatic, no oropharyngeal lesions, moist mucosa Heart: RRR, no murmur, no gallops, no rubs, normal peripheral pulses Respiratory: CTAB, no wheezes, no rales, no ronchi, normal chest expansion, no tachypnea, normal percussion Gastrointestinal: soft, non-tender, non-distended, normal bowel sounds, no palpable masses, no hepatomegaly, no splenomegaly, no bruit Extremities - other findings: RLE edema to knee level, chronic; no LLE edema Psychiatric: normal affect, normal behavior, A&O x 3 Hosp A/P - Plan Ms. Carcamo is a pleasant 83-year-old lady who was seen at [facility] on May 14, 2019 who presented with general weakness and confusion. 1. acute on chronic normocytic anemia -HgB progressively downtrended, but overnight dropped by 1g -no overt bleeding -hemodynamically stable -folate low, iron studies c/w chronic inflammatory anemia -supplemented folate -GI onboard, planned EGD and colonoscopy 05/16; will prep today 2. Acute on chronic stage 3 renal failure: dominant etiology prerenal in context of recently reduced PO intake and improving hydronephrosis based on imaging Cr downtrending -continue fluids -avoid nephrotoxic agents 3. Urinary tract infection: -grew candidemia in context of ureteral stent placement -per son, urologist requested to continue Fluconazole for total of 2 weeks -urine culture this admission negative, afebrile, no leukocytosis -continue fluconazole; stop on 05/18 4. History of seizures: We will continue Lamictal. 5. Hypertension -hold losartan and amlodipine in context of borderline hypotension 6. Hypothyroidism: Continue levothyroxine.
[2019-05-16] MEDS ORDERED: GoLYTELY 4,000 ml Bottle PO SCH (18:00)
[2019-05-16 20:26] LABS: Hemoglobin 8.5 g/dL (12.0-16.0)
[2019-05-16] MEDS: Atorvastatin Calcium 20 MG TAB PO SCH (21:30)
[2019-05-17 03:57] LABS: Hemoglobin 7.3 g/dL (12.0-16.0)
[2019-05-17 04:20] LABS: Anion Gap 14 mmol/L (10-20); BUN (Urea Nitrogen) 24 mg/dL (9.8-20.1); Calc. Creatinine Clearance 20 mL/min (70-130); Calcium 7.9 mg/dL (7.8-10.44); Carbon Dioxide 25 mmol/L (23-31); Chloride 107 mmol/L (98-107); Estimated GFR-MDRD 30; Glucose 69 mg/dL (83-110); Potassium 3.7 mmol/L (3.5-5.1); Sodium 142 mmol/L (136-145)
[2019-05-17] MEDS: Sodium Chloride 0.45% 1,000 ML IV SCH ×2 (06:21→17:55)
[2019-05-17] MEDS: Levothyroxine Sodium 25 MCG TAB PO SCH (06:27)
[2019-05-17] MEDS ORDERED: Fleet Enema 133 ML BOT PR SCH (08:00)
[2019-05-17] MEDS ORDERED: PROPOFOL 200 MG/20 ML VIAL ONE (09:57)
--- NOTE | 2019-05-17 11:03 | PRG ---
DATE OF SERVICE: 05/17/2019 SUBJECTIVE: 83-year-old female being seen for acute kidney injury. The patient denied nausea, vomiting or chest pain. OBJECTIVE: CONSTITUTIONAL: The patient is awake and alert. VITAL SIGNS: Pulse 75, breathing 16, blood pressure 110/63. GENERAL APPEARANCE AND MENTAL STATUS: Fair. HEAD/NECK: Normocephalic. Atraumatic. EYES: EOMI. No deformity. EARS: Clear. No ulcers. NOSE: Intact. No lesions. MOUTH: Clear. No discharge. THROAT: Clear. No exudate. LUNGS: Clear. No crackles. CARDIAC: S1, S2. No rub. ABDOMEN: Benign. Bowel sounds positive. GENITALIA/RECTUM: Bustos absent. BACK/EXTREMITIES: Edema 0+. NEUROLOGICAL: Alert and motor intact. SKIN: LYMPHATICS: LABORATORY DATA: Lab showed hemoglobin 7.3, creatinine 1.8. ASSESSMENT AND PLAN: 1. Acute kidney injury with chronic kidney disease stage 3. 2. Hypertension. 3. Anemia, stable. 4. Medication based on GFR, appropriate, Lasix and losartan for now. Job ID: [id number]
[2019-05-17] MEDS: Folic Acid 1 MG TAB PO SCH (14:22)
[2019-05-17] MEDS: Aspirin 81 mg Enteric Coated Tablet PO SCH (14:22)
[2019-05-17] MEDS: Ferrous Sulfate 325 MG TAB PO SCH ×2 (14:22→17:49)
[2019-05-17] MEDS: Calcitriol 0.25 MCG CAP PO SCH (14:22)
[2019-05-17] MEDS: Fluconazole 100 MG TAB PO SCH (14:22)
[2019-05-17] MEDS: lamoTRIgine 100 MG TAB PO SCH (14:23)
[2019-05-17] MEDS: Senokot S 8.6-50 MG TAB PO SCH ×2 (14:23→19:54)
[2019-05-17] MEDS: Heparin 5,000 UNITS/ML VIAL SC SCH ×3 (14:23→19:53)
--- NOTE | 2019-05-17 14:35 | OP ---
DATE OF PROCEDURE: 05/17/2019 BAKER HELPER SURGEON: None. PROCEDURES PERFORMED: 1. Esophagogastroduodenoscopy with biopsies. 2. Colonoscopy with snare polypectomy. INDICATIONS: 1. Weight loss. 2. Anemia, normocytic. 3. Loss of appetite. 4. Folic acid deficiency. MEDICATIONS: See Anesthesia record. FINDINGS: After discussion of the risks, benefits, and alternatives of the procedure, informed consent was obtained and witnessed. Pre-endoscopic cardiopulmonary examination was satisfactory. Time-out was performed before sedation was achieved. Sedation was achieved with Anesthesia assistance in the endoscopy unit. A Pentax adult upper endoscope was placed into the oropharynx and passed through the cricopharyngeus under direct visualization. The esophageal mucosa appeared normal throughout with a normal-appearing Z-line. The endoscope was advanced into the stomach. Forward and retroflexed views of the entire gastric mucosa were obtained. The gastric mucosa appeared normal throughout. The endoscope was passed into the first and second portions of the duodenum. There were two small nonbleeding arteriovenous malformations visualized in the first and second portions of the duodenum. These were nonbleeding. I did obtain biopsies from the second portion of the duodenum to rule out celiac disease. The endoscope was then removed and the patient was repositioned. Digital rectal exam was performed, which was unremarkable. A Pentax adult colonoscope was inserted into the anus and passed forward to the cecum in the usual fashion. The cecal base was identified by the appendiceal orifice as well as the ileocecal valve. The terminal ileum was not intubated. The colonoscope was slowly withdrawn in a gradual and circumferential manner with careful examination of the entire colonic mucosa. The quality of the prep was adequate. In the descending colon, there are four polyps measuring from 3 to 15 mm in size. A couple of the larger ones were pedunculated and one of them was slowly oozing. All 4 polyps were removed with hot snare and retrieved for pathology. In the sigmoid colon, there were 2 more polyps measuring 8 to 12 mm in size, semipedunculated. These were completely removed with hot snare and retrieved for pathology. There was sigmoid diverticulosis. Internal hemorrhoids were demonstrated on careful forward view in the rectum. The colonoscope was completely withdrawn and the patient allowed to recover. The patient tolerated the procedure well. There were no immediate postprocedure complications. IMPRESSION: 1. A few small nonbleeding duodenal arteriovenous malformations. 2. Otherwise normal esophagogastroduodenoscopy, with duodenal biopsies obtained. 3. Descending colon polyps measuring 3 to 15 mm, one of which was oozing. All removed with hot snare and retrieved for pathology. 4. Two sigmoid polyps measuring 8 to 12 mm, completely removed with hot snare and retrieved for pathology. 5. Sigmoid diverticulosis. 6. Internal hemorrhoids. RECOMMENDATIONS: 1. Regular diet. 2. Folic acid supplementation. 3. Follow up pathology on the duodenal biopsies and colon polyps. 4. No repeat colonoscopy is recommended, due to the patient's advanced age and frailty. GI will sign off. Please call back if needed. Job ID: [id number]
[2019-05-17] MEDS: Vancomycin HCl 1 GM in Premix Bag 1 BAG IVPB SCH (15:04)
--- NOTE | 2019-05-17 15:13 | RAD ---
Portable frontal chest radiograph: 05/17/2019 COMPARISON: 05/14/2019 HISTORY: Fever FINDINGS: There is dense pleural and parenchymal opacity in the right lung base with obscuration of t he right hemidiaphragm in the right heart border which suggest stable right basilar consolidation/collapse with possible right pleural fluid. Heart and mediastinal contours are stable. Left lung is clear. No pneumothorax is seen. IMPRESSION: Stable appearance of the chest as detailed above.
[2019-05-17] MEDS: metroNIDAZOLE 500 MG in Premix Bag 1 BAG IVPB SCH ×2 (16:10→23:31)
[2019-05-17 16:19] LABS: Bilirubin Negative (Negative); Blood, Urine 3+ (Negative); Clarity Turbid (Clear); Glucose, Urine (Dipstick) Normal (Negative); Leukocyte 500 Leu/uL (Negative); Nitrite Negative (Negative); Protein, Urine (Dipstick) 70 mg/dL (Neg-Trace); Urobilinogen Normal mg/dL (Less than 2); WBC/HPF Greater than 50 HPF (0-3)
[2019-05-17 16:20] LABS: Bacteria/HPF Rare-Few HPF (None Seen); RBC/HPF 21-50 HPF (0-3)
[2019-05-17 16:21] LABS: Urine Culture Reflex No No
--- NOTE | 2019-05-17 17:22 | PDOC.HOSPP ---
- Subjective Encounter Date: 05/17/19 Encounter Time: 11:00 Subjective: no overnight events. Patient did not adhere to oral golytly so enema was administered in AM. Pending EGD and colonoscopy - Objective Vital Signs & Weight: Vital Signs (12 hours) Temp Pulse Pulse Resp BP BP Pulse Ox 05/17/19 16:15 99.9 F H 98 17 91/56 L 98 05/17/19 13:45 102.4 F H 107 H 16 138/64 99 05/17/19 10:26 98.8 F 82 16 107/62 05/17/19 07:59 97.8 F 77 16 110/63 05/17/19 07:48 97.8 F 87 17 106/68 95 05/17/19 07:34 97.8 F 87 17 106/68 Weight Admit Weight 132 lb Weight 142 lb 6.4 oz I&O: 05/16/19 05/17/19 05/18/19 06:59 06:59 06:59 Intake Total 840 5120 350 Output Total 300 400 Balance 540 4720 350 Result Diagrams: 05/17/19 14:18 05/17/19 03:41 Hospitalist ROS - Review of Systems Constitutional: denies: fever, chills, sweats, weakness, malaise, other Respiratory: denies: cough, dry, shortness of breath, hemoptysis, SOB with excertion, pleuritic pain, sputum, wheezing, other Cardiovascular: denies: chest pain, palpitations, orthopnea, paroxysmal noc. dyspnea, edema, light headedness, other Gastrointestinal: denies: nausea, vomiting, abdominal pain, diarrhea, constipation, melena, hematochezia, other Genitourinary: denies: dysuria, frequency, incontinence, hematuria, retention, other - Medication Medications: Active Medications Generic Name Dose Route Start Last Admin Trade Name Freq PRN Reason Stop Dose Admin Acetaminophen 650 mg 05/14/19 22:21 05/15/19 03:37 Tylenol PO 650 mg Q4H PRN Administration Headache/Fever/Mild Pain (1-3) Aspirin 81 mg 05/15/19 09:00 05/17/19 14:22 Ecotrin PO 81 mg DAILY JENNIFER Administration Atorvastatin Calcium 20 mg 05/15/19 21:00 05/16/19 21:30 Lipitor PO 20 mg HS JENNIFER Administration Calcitriol 0.25 mcg 05/16/19 09:00 05/17/19 14:22 Rocaltrol PO 0.25 mcg DAILY JENNIFER Administration Ferrous Sulfate 325 mg 05/15/19 08:00 05/17/19 14:22 Feosol PO 325 mg BID-WM JENNIFER Administration Fluconazole 200 mg 05/15/19 09:00 05/17/19 14:22 Diflucan PO 200 mg DAILY JENNIFER Administration Folic Acid 1 mg 05/16/19 09:00 05/17/19 14:22 Folvite PO 1 mg DAILY JENNIFER Administration Heparin Sodium (Porcine) 5,000 units 05/15/19 09:00 05/17/19 15:03 Heparin SC Not Given TID JENNIFER Sodium Chloride 1,000 mls @ 50 mls/hr 05/16/19 08:30 05/17/19 06:21 1/2 Normal Saline IV Not Given .Q20H JENNIFER Vancomycin HCl 1 gm/ Device 200 mls @ 200 mls/hr 05/17/19 15:00 05/17/19 15: 04 IVPB 200 mls 0300,1500 JENNIFER Administration Metronidazole 500 mg/ Device 100 mls @ 100 mls/hr 05/17/19 18:00 05/17/19 16: 10 IVPB 100 mls Q6HR JENNIFER Administration Lamotrigine 100 mg 05/15/19 09:00 05/17/19 14:23 Lamictal PO 100 mg QAM JENNIFER Administration Levothyroxine Sodium 25 mcg 05/15/19 06:00 05/17/19 06:27 Synthroid PO 25 mcg 0600 JENNIFER Administration Ranolazine 500 mg 05/15/19 09:00 05/17/19 14:23 Ranexa PO 500 mg BID JENNIFER Administration Senna/Docusate Sodium 1 tab 05/15/19 09:00 05/17/19 14:23 Senokot S PO Not Given BID [facility] - Exam General Appearance: NAD, awake alert General - other findings: alert and oriented x 0 Eye: PERRL Neck: supple, symmetric, no JVD, no thyromegaly, no lymphadenopathy, no carotid bruit Heart: RRR, no murmur, no gallops, no rubs, normal peripheral pulses Respiratory: CTAB, no wheezes, no rales, no ronchi, normal chest expansion, no tachypnea, normal percussion Gastrointestinal: soft, non-tender, non-distended, normal bowel sounds, no palpable masses, no hepatomegaly, no splenomegaly, no bruit, no guarding, no rigidity. negative: distended Neurological: no weakness, no focal deficits, no new deficit Psychiatric: normal affect, normal behavior. negative: oriented to person, oriented to place, oriented to time Hosp A/P - Plan Ms. Carcamo is a pleasant 83-year-old lady who was seen at [facility] on May 14, 2019 who presented with general weakness and confusion. 1. acute on chronic normocytic anemia -HgB progressively downtrended, but overnight dropped by 1g -no overt bleeding -hemodynamically stable -folate low, iron studies c/w chronic inflammatory anemia -HgB borderline low prior to EGD and colonoscopy; transfused 1xPRBC 2. Acute on chronic stage 3 renal failure: dominant etiology prerenal in context of recently reduced PO intake and improving hydronephrosis based on imaging -improving; basline ~ 1.5-1.7; currently 1.9 -continue fluids -avoid nephrotoxic agents 3. Urinary tract infection: -grew candidemia in context of ureteral stent placement -per son, urologist requested to continue Fluconazole for total of 2 weeks -urine culture this admission negative, afebrile, no leukocytosis -continue fluconazole; stop on 05/18 4. History of seizures: We will continue Lamictal. 5. Hypertension -hold losartan and amlodipine in context of borderline hypotension 6. Hypothyroidism: Continue levothyroxine.
--- NOTE | 2019-05-17 17:30 | PDOC.BPN ---
- Brief Progress Note #hypotonic hyponatremia -likely due to reduced sodium intake based on urine studies -per Dr. Stone, placed patient on hypotonic IVF -will continue to follow #Fever -s/p colonoscopy and EGD, febrile 102.4, tachycardia -qSOFA 0/3 -on exam, no findings but complains of abdominal tenderness; no guarding -started infectious workup; vanc and zosyn (possible aspiration or GI perforation)
[2019-05-17] MEDS: Atorvastatin Calcium 20 MG TAB PO SCH (19:53)
[2019-05-18] MEDS: Vancomycin HCl 1 GM in Premix Bag 1 BAG IVPB SCH (03:09)
[2019-05-18] MEDS ORDERED: Pharmacy to Dose 1 EACH : VANC IVPB PRN (03:11)
[2019-05-18 04:33] LABS: Anion Gap 10 mmol/L (10-20); BUN (Urea Nitrogen) 21 mg/dL (9.8-20.1); Calc. Creatinine Clearance 22 mL/min (70-130); Calcium 7.7 mg/dL (7.8-10.44); Carbon Dioxide 26 mmol/L (23-31); Chloride 109 mmol/L (98-107); Estimated GFR-MDRD 31; Glucose 95 mg/dL (83-110); Potassium 3.4 mmol/L (3.5-5.1); Sodium 142 mmol/L (136-145)
[2019-05-18 04:44] LABS: #Lymphocytes 0.6 thou/uL (1.20-3.40); #Monocytes 0.8 thou/uL (0.11-0.59); #Neutrophils 8.6 thou/uL (1.40-6.50); %Basophils 0.1 % (0.0-1.0); %Eosinophils 0.2 % (0.0-10.0); %Lymphocytes 5.6 % (21.0-51.0); %Monocytes 7.8 % (0.0-10.0); %Neutrophils 86.3 % (42.0-75.0); Hemoglobin 7.7 g/dL (12.0-16.0); Mean Corpuscular HGB CONC 30.3 g/dL (32.0-36.0); Mean Corpuscular Hemoglobin 27.6 pg (27.0-31.0); Mean Corpuscular Volume 91.1 fL (78.0-98.0); Mean Platelet Volume 8.7 fL (7.4-10.4); Platelet Count 176 thou/uL (130-400); RBC Distribution Width 15.1 % (11.5-14.5); White Blood Cell (WBC) Count 9.9 thou/uL (4.8-10.8)
[2019-05-18] MEDS: Levothyroxine Sodium 25 MCG TAB PO SCH (05:03)
[2019-05-18] MEDS: metroNIDAZOLE 500 MG in Premix Bag 1 BAG IVPB SCH (05:03)
[2019-05-18] MEDS ORDERED: Potassium Chloride 20 MEQ TAB PO SCH (08:13)
--- NOTE | 2019-05-18 08:32 | PRG ---
DATE OF SERVICE: 05/18/2019 SUBJECTIVE: Patient was seen and examined at bedside and overnight events noted. Patient denies any shortness of breath or chest pain or palpitation. No history of nausea or vomiting or diarrhea or fever or chills or cramps. OBJECTIVE: GENERAL: This is an elderly female, in no apparent distress. VITAL SIGNS: Temperature . Heart rate 78. Respiratory rate 18. Blood pressure 108/68. HEENT: Atraumatic, normocephalic. Oral mucosa is moist NECK: Supple. CARDIOVASCULAR: S1, S2 heard. Rate and rhythm regular. RESPIRATORY: Clear to auscultation. GASTROINTESTINAL: Abdomen is soft. MUSCULOSKELETAL: No tenderness. No edema. DERMATOLOGIC: No skin rash. NEUROLOGIC: Alert and awake and oriented X3. No focal neurologic deficits. Moving all the extremities. PSYCHIATRIC: Mood and affect normal. LABORATORY DATA: Potassium 3.4, BUN is 21, and creatinine is 1.8. ASSESSMENT AND PLAN: 1. Acute kidney injury on chronic kidney disease stage 3 with improvement in renal function. 2. Hypokalemia, replaced. 3. Edema, controlled. 4. . 5. Chronic anemia. We will continue on low dose of IV fluids at 50 mL/h, avoid nephrotoxins, and we will follow. Continue supportive care. Replace potassium. Job ID: [id number]
[2019-05-18] MEDS: Ferrous Sulfate 325 MG TAB PO SCH ×2 (08:47→16:38)
[2019-05-18] MEDS: Aspirin 81 mg Enteric Coated Tablet PO SCH (08:47)
[2019-05-18] MEDS: lamoTRIgine 100 MG TAB PO SCH (08:48)
[2019-05-18] MEDS: Folic Acid 1 MG TAB PO SCH (08:48)
[2019-05-18] MEDS: Calcitriol 0.25 MCG CAP PO SCH (08:48)
[2019-05-18] MEDS: Senokot S 8.6-50 MG TAB PO SCH ×2 (08:48→20:16)
[2019-05-18] MEDS: Heparin 5,000 UNITS/ML VIAL SC SCH ×3 (08:48→20:16)
[2019-05-18 12:07] LABS: Hemoglobin 8.5 g/dL (12.0-16.0)
[2019-05-18] MEDS ORDERED: Vancomycin HCl 750 MG in Sodium Chloride 0.9% 250 ML 250 ML IVPB SCH (16:00)
--- NOTE | 2019-05-18 18:13 | PRG ---
DATE OF SERVICE: 05/18/2019 SUBJECTIVE: Ms. Carcamo had transient fever yesterday following endoscopy. Temperature got up to 102.4, but within 4 hours, this has gone back to normal. She has been having no abdominal pain at all. No nausea or vomiting. She has no complaints for me today and seems to be in good spirits, tolerating a regular diet. OBJECTIVE: VITAL SIGNS: Temperature 98.6, pulse 80, blood pressure 114/69, 93% oxygen saturation on room air. GENERAL: Pleasant, in good spirits. No acute distress. HEART: Regular rate and rhythm. LUNGS: Clear to auscultation bilaterally. ABDOMEN: Bowel sounds present. Soft, nontender to deep palpation throughout. EXTREMITIES: No peripheral edema. LABORATORY STUDIES: WBC 9.9, hemoglobin 8.5, and platelets 176. Sodium 142, potassium 3.4, BUN 21, creatinine 1.89, calcium 7.7, magnesium 2.0. Urinalysis shows greater than 50 wbc's. Urine culture from admission is growing MRSA. Blood cultures from admission show no growth at 48 hours. Blood cultures from yesterday afternoon show no growth to date. Pathology is back on duodenal biopsies and colon polyps removed yesterday. The duodenal biopsies were normal. The descending colon polyps represent tubular adenomas. The two sigmoid polyps were tubulovillous adenomas, one with focal high-grade dysplasia. IMAGING STUDIES: Chest x-ray from yesterday afternoon showed stable appearance with stable right basilar consolidation. ASSESSMENT AND PLAN: 1. Weight loss. 2. Chronic anemia. 3. Folic acid deficiency. 4. Duodenal arteriovenous malformations. Endoscopy yesterday was essentially unrevealing with regard to weight loss and loss of appetite. There is no inflammatory disease noted. The duodenal arteriovenous malformations may be a source of slow chronic blood loss, and it is possible she has further small bowel arteriovenous malformations, but on the other hand, she really does not have significant iron deficiency. Weight loss is likely multifactorial secondary to her dementia, overall frailty, and multiple recent illnesses with UTIs, etc. She is tolerating a regular diet. 5. Multiple colon polyps removed yesterday, including sigmoid tubulovillous adenoma with high-grade dysplasia. All polyps were completely removed yesterday, one of the sigmoid polyps did have high-grade dysplasia. Due to the patient's age and overall frailty, I am not going to recommend we repeat any surveillance colonoscopies going forward. GI will sign off. Please call back anytime with questions or concerns. Job ID: [id number]
[2019-05-18] MEDS: Atorvastatin Calcium 20 MG TAB PO SCH (20:16)
[2019-05-19 03:36] VITALS: BP 124/66; TEMP 98.3
[2019-05-19] MEDS: Sodium Chloride 0.45% 1,000 ML IV SCH (04:59)
[2019-05-19] MEDS: Levothyroxine Sodium 25 MCG TAB PO SCH (05:24)
--- NOTE | 2019-05-20 02:14 | PQF ---
SAP Manager Dental Crystal Reports Winform Viewer DUDLEYJUDY ALEX ALVA [id number] [id number] CLINICAL DOCUMENTATION CLARIFICATION FORM: POST DISCHARGE Addendum to original discharge summary date: ____ Late entry note date: __ Date: 05/20/19 ATTN: Alex Burns Please exercise your independent, professional judgment in responding to the clarification form. Clinical indicators are provided on the bottom of this form for your review Can you please further clarify the condition of the patient based on the clinical indicators below? Please check appropriate box(s): [ x ] Protein Calorie Malnutrition: [ x ] Mild [ ] Moderate [ ] Severe [ ] Other Malnutrition (please specify) __ [ ] Underweight without malnutrition [ ] Cachexia [ ] Other diagnosis [ ] Unable to determine In addition, please specify: Present on Admission (POA): [ x ] Yes [ ] No [ ] Unable to determine CLINICAL INDICATORS - SIGNS / SYMPTOMS / LABS BMI 23.4 H and P pg.1- Generalized weakness H and P pg.3- History of vomiting H and P pg.3- weight loss Consult 05/15 Dr. Conrad pg.- weight loss 50 pounds over the past year, 20 pounds over the past couple of months OP report pg.1- folate acid deficiency PN 05/18 pg.1- descending colon polyps represents tubular adenomas PN pg.1- weight loss multifactorial secondary to her dementia, overall frailty , and multiple recent illness RISK FACTORS Alzheimer's disease- H and P pg.1 83 years old- H and P pg.1 Hypothyroidism- H and P pg.1 Hypertension- H and P pg.2 D 3- H and P pg.3 UTI- H and P pg.3 Anemia- Consult pg.3 TREATMENT: GI Consult 05/[address] 05/14 Supplemental folate- Hospitalist PN pg.5 IV fluids- MAR EGD with biopsies- OP report pg.1 Colonoscopy with polypectomy- OP report pg.1 Dietary consult Moderate Malnutrition (in acute illness) Energy Intake: <75% of estimated energy requirement for > 7 days Weight Loss: 1-2%/1 week; 5%/ 1 month; 7.5%/3 months Other: mild body fat loss; mild muscle mass loss; mild fluid accumulation; Severe Malnutrition (in acute illness) Energy Intake: < 50% of estimated energy requirement for > 5 days Weight Loss: >1-2%/1 week; >5%/1 month; >7.5%/3 months Other: moderate body fat loss; moderate muscle mass loss; moderate- severe fluid accumulation; measurably reduced rn diabetes strength Moderate Malnutrition (in chronic illness) Energy Intake: <75% of estimated energy requirement for >1 month Weight Loss: 5%/1 month; 7.5%/3 months; 10%/6 months; 20%/1 year Other: mild body fat loss; mild muscle mass loss; mild fluid accumulation Severe Malnutrition (in chronic illness) Energy Intake: <75% of estimated energy requirement for >1 month Weight Loss: >5%/1 month; >7.5%/3 months; >10%/6 months; >20%/1 year Other: severe body fat loss; severe muscle mass loss; severe fluid accumulation ; measurably reduced rn diabetes strength (This form is maintained as a part of the permanent medical record) 2014 [employer]. All Rights Reserved Leon [email or web address] [not [email or web address]] [email or web address]
--- NOTE | 2019-05-20 09:29 | DIS ---
DATE OF ADMISSION: 05/14/2019 DATE OF DISCHARGE: 05/19/2019 HOSPITAL COURSE: Ms. Carcamo is an 83-year-old female, with a medical history of Alzheimer disease, who presented for general weakness and confusion. She was diagnosed with [id number] normocytic anemia and underwent an EGD and colonoscopy during which a few small nonbleeding duodenal arteriovenous malformations as well as descending colon polyps, one of which was bleeding, and two sigmoid polyps were found. The bleeding and nonbleeding polyps were removed with hot snare. During her inpatient stay prior to EGD and colonoscopy, the patient had to be transfused twice. In addition, blood labs found that she had a folic acid deficiency. After the procedure, the patient remained hemodynamically stable. Her strength and energy improved, and her hemoglobin remained stable. She was discharged hemodynamically stable and at her baseline state. PHYSICAL EXAMINATION: VITAL SIGNS: Unremarkable on exam. GENERAL: She was in no apparent distress. Alert and oriented x1, only to self. HEENT: She was atraumatic, atraumatic, with no cranial lesions. CARDIAC: Regular rate and rhythm. S1 and S2 appreciated. No gallops and no murmurs. LUNGS: Clear to auscultation bilaterally. No rales, no rhonchi, no wheezing. No tachypnea. ABDOMEN: Nondistended. No tenderness. No guarding. Normal bowel sounds. EXTREMITIES: No lesions in the upper or lower extremities. No edema. PSYCHIATRIC: Proper mood and affect. Alert and oriented x1. ASSESSMENT AND PLAN: 1. Ms. Carcamo is an 83-year-old female who presented with generalized weakness and confusion due to xprxd-[id number] normocytic anemia. She was found to have a bleeding polyp in the colon that was snared. In addition to that, she was found to have low folate levels and iron studies were consistent with chronic inflammatory anemia. On the day of discharge, she was hemodynamically stable and her hemoglobin was stable. 2. [id number] stage 3 renal failure. The abdominal pathology was prerenal in context of recently reduced p.o. intake and improving hydronephrosis based on imaging. On the day of discharge, the patient was at baseline renal function, namely creatinine levels of 1.5-1.7 after being supplemented with IV fluids. 3. Urinary tract infection. The patient was diagnosed with prior candidemia in the context of ureteral stent placement. As an inpatient, she was continued on fluconazole. On discharge, she was continued on fluconazole as per her urologist for a total duration of 2 weeks. 1. Hypertension. The patient's losartan was held due to acute kidney injury of chronic kidney disease but prior to discharge, it was resumed. Job ID: [id number]
== END 2019-05-19 05:55 | DRG 683 ==
LOC: ERS 13:11 → T4-A 17:15 → 2NO 19:41
PROVIDERS: ADMIT Internal Medicine; ATTEND Internal Medicine
PROC: 30233N1 Transfusion of Nonautologous Red Blood Cells into Peripheral Vein, Percutaneous Approach (ICD-10-PCS; 2019-05-16)
PROC: 0DB98ZX Excision of Duodenum, Via Natural or Artificial Opening Endoscopic, Diagnostic (ICD-10-PCS; principal; 2019-05-17)
PROC: 0DBM8ZZ Excision of Descending Colon, Via Natural or Artificial Opening Endoscopic (ICD-10-PCS; 2019-05-17)
PROC: 0DBN8ZZ Excision of Sigmoid Colon, Via Natural or Artificial Opening Endoscopic (ICD-10-PCS; 2019-05-17)
DX: N17.9 Acute kidney failure, unspecified (principal); I13.0 Hypertensive heart and chronic kidney disease with heart failure and stage 1 through stage 4 chronic kidney disease, or unspecified chronic kidney disease; E87.1 Hypo-osmolality and hyponatremia; E44.1 Mild protein-calorie malnutrition; G30.9 Alzheimer's disease, unspecified; F02.80 Dementia in other diseases classified elsewhere, unspecified severity, without behavioral disturbance, psychotic disturbance, mood disturbance, and anxiety; E03.9 Hypothyroidism, unspecified; K59.09 Other constipation; I50.9 Heart failure, unspecified; G40.909 Epilepsy, unspecified, not intractable, without status epilepticus; N13.6 Pyonephrosis; D52.9 Folate deficiency anemia, unspecified; K31.819 Angiodysplasia of stomach and duodenum without bleeding; K57.30 Diverticulosis of large intestine without perforation or abscess without bleeding; K64.8 Other hemorrhoids; D63.1 Anemia in chronic kidney disease; N18.3 Chronic kidney disease, stage 3 (moderate); E87.5 Hyperkalemia; L89.152 Pressure ulcer of sacral region, stage 2; D12.4 Benign neoplasm of descending colon; R63.4 Abnormal weight loss; E87.6 Hypokalemia; Z88.0 Allergy status to penicillin; Z79.890 Hormone replacement therapy; Z79.899 Other long term (current) drug therapy; Z79.4 Long term (current) use of insulin; Z87.891 Personal history of nicotine dependence; Z68.23 Body mass index [BMI] 23.0-23.9, adult
CPT/HCPCS: 36415; 36430; 71045; 74150; 80048; 81001; 81003; 81015; 82306; 82607; 82728; 82746; 83540; 83550; 83605; 83735; 83970; 84100; 85014; 85018; 85025; 86850; 86900; 86901; 87040; 87077; 87086; 87186; 88305; 93005; 93010; 96361; 96374; A4353; J1644; J2185; J2704; J3370; J3490; P9016

== ENCOUNTER 2019-05-28 05:51 | Day surgery (SDC) | payer BC ==
[2019-05-27 11:05] VITALS: BMI 18.9
--- NOTE | 2019-05-27 20:39 | HP ---
CHIEF COMPLAINT: Left ureter stone. HISTORY: Ms. Carcamo is an 83-year-old female who presented to the emergency room on 04/30/2019, with distal left ureteral stone and associated obstruction. She had a urinalysis consistent with urinary tract infection. She was taken the operating room and a left double-J stent was placed. She has since been treated for her infection and returns now for definitive management of the stone. PAST MEDICAL HISTORY: Alzheimer's dementia, kidney stone disease, congestive heart failure, chronic renal insufficiency, hypothyroidism, hypertension. ALLERGIES: PENICILLIN. MEDICATIONS: Please see chart. Chronic medications: Include: 1. Lipitor. 2. Lasix. 3. Ranexa. 4. Namenda. 5. Norvasc. 6. Losartan. 7. Levothyroxine. SOCIAL HISTORY: She is the mother of hand surgeon, Dr. Carcamo, here at [facility]. She is an ex-smoker, having quit over 10 years ago. Denies excessive alcohol use. PAST SURGICAL HISTORY: Includes open left kidney stone surgery for staghorn calculus, cataract surgery, hemorrhoidectomy. FAMILY HISTORY: Noncontributory. REVIEW OF SYSTEMS: RESPIRATORY: Denies any new breathing difficulties. CARDIOVASCULAR: Denies new chest pain or palpitations. GASTROINTESTINAL: Denies chronic constipation or diarrhea. PHYSICAL EXAMINATION: GENERAL: She is awake, alert. She is in no distress. HEENT: Normocephalic, atraumatic. NECK: Supple without masses. CHEST: Clear. CARDIOVASCULAR: No murmurs auscultated. IMPRESSION: Ms. Carcamo is status post cystoscopy and left double-J stent placement for a distal left ureteral stone. She presents now for definitive stone management. We have recommended ureteroscopy with laser lithotripsy, stone extraction, stent placement. Plan cystoscopy, left ureteroscopy, laser lithotripsy and stone extraction with possible stent Placement. Job ID: [id number]
[2019-05-28] MEDS ORDERED: Fentanyl 100 MCG/2 ML VIAL ONE (06:48)
[2019-05-28] MEDS ORDERED: Iothalamate Meglumine 60% 50 ML VIAL FS ONE (07:21)
[2019-05-28] MEDS ORDERED: Levofloxacin 500 mg/D5W 100 ml Premix Bag ONE (07:21)
[2019-05-28] MEDS ORDERED: Rocuronium Bromide 10 MG/ML (10ML VIAL) ONE (09:51)
[2019-05-28] MEDS ORDERED: Ondansetron PF 4 MG/2 ML Vial ONE (09:51)
[2019-05-28] MEDS ORDERED: Glycopyrrolate 0.2 MG/ML 5 ML SYRINGE ONE (09:51)
[2019-05-28] MEDS ORDERED: Dexamethasone 20 MG/5 ML VIAL ONE (09:51)
[2019-05-28] MEDS ORDERED: PROPOFOL 200 MG/20 ML VIAL ONE (09:51)
--- NOTE | 2019-05-28 15:17 | OP ---
DATE OF PROCEDURE: 05/28/2019 PREOPERATIVE DIAGNOSIS: Left ureter stone. POSTOPERATIVE DIAGNOSIS: Left ureter stone. PROCEDURE: Cystoscopy, left ureteroscopy, laser lithotripsy, stone extraction, left ureteral stent placement. ANESTHESIA: General. INDICATIONS: Ms. Carcamo presented to the hospital with flank pain and fever. She was noted to have a large distal ureteral stone and was taken to the operating room for stent placement. The stent has now been in place for approximately 2 weeks. She presents now for definitive stone management. DESCRIPTION OF PROCEDURE: The patient was given general anesthesia and IV antibiotics. She was sterilely prepped and draped in a lithotomy position. A cystoscope was passed into the bladder and the bladder examined in its entirety. There were no mucosal lesions. Left ureteral stent was grasped and brought out through the urethral meatus. A guidewire was passed through the stent and the rigid ureteroscopy was performed up to a large distal left ureteral stone. Holmium laser lithotripsy was utilized to fragment the stone into multiple pieces. Basket extraction of all fragments was performed. A 6 x 26 double-J stent was then passed over the guidewire and coiled in the left renal pelvis and the bladder was determined fluoroscopically and cystoscopically. The bladder was drained. The scope was removed. The patient was transferred from the operative room to the recovery room in stable condition. COMPLICATION: None. ESTIMATED BLOOD LOSS: Less than 5 mL. Job ID: [id number]
== END 2019-05-28 11:45 | disposition home or self-care (01) ==
LOC: SDC 05:51
PROVIDERS: ATTEND Urology
PROC: 0TF78ZZ Fragmentation in Left Ureter, Via Natural or Artificial Opening Endoscopic (ICD-10-PCS; principal; 2019-05-28)
PROC: 0T778DZ Dilation of Left Ureter with Intraluminal Device, Via Natural or Artificial Opening Endoscopic (ICD-10-PCS; principal; 2019-05-28)
DX: N20.1 Calculus of ureter (principal); G30.9 Alzheimer's disease, unspecified; F02.80 Dementia in other diseases classified elsewhere, unspecified severity, without behavioral disturbance, psychotic disturbance, mood disturbance, and anxiety; I13.0 Hypertensive heart and chronic kidney disease with heart failure and stage 1 through stage 4 chronic kidney disease, or unspecified chronic kidney disease; N18.9 Chronic kidney disease, unspecified; I50.9 Heart failure, unspecified; E03.9 Hypothyroidism, unspecified; Z87.891 Personal history of nicotine dependence; Z79.82 Long term (current) use of aspirin; Z79.899 Other long term (current) drug therapy; Z88.0 Allergy status to penicillin
CPT/HCPCS: 76000; 82365; 88300; C1769; J1100; J1956; J2405; J2704; J3010

== ENCOUNTER 2019-06-23 16:39 | Inpatient (IN) | payer MEDICARE, BC ==
[2019-06-23] MEDS ORDERED: MEROPENEM 1 GM/50 ML 1 GM in Premix Bag 1 BAG IVPB SCH (17:45)
[2019-06-23 17:48] LABS: Hemoglobin 10.4 g/dL (12.0-16.0); Mean Corpuscular HGB CONC 31.9 g/dL (32.0-36.0); Mean Corpuscular Hemoglobin 29.5 pg (27.0-31.0); Mean Corpuscular Volume 92.4 fL (78.0-98.0); Mean Platelet Volume 9.3 fL (7.4-10.4); Platelet Count 241 thou/uL (130-400); RBC Distribution Width 14.8 % (11.5-14.5); Red Blood Cell (RBC) Count 3.52 mill/uL (4.20-5.40); White Blood Cell (WBC) Count 16.2 thou/uL (4.8-10.8)
[2019-06-23] MEDS ORDERED: Acetaminophen 500 MG TAB ONE (18:02)
[2019-06-23 18:04] LABS: ALT (SGPT) 14 U/L (8-55); AST (SGOT) 24 U/L (5-34); Alkaline Phosphatase 161 U/L (40-110); Anion Gap 12 mmol/L (10-20); BUN (Urea Nitrogen) 29 mg/dL (9.8-20.1); Bilirubin, Total 0.5 mg/dL (0.2-1.2); Calc. Creatinine Clearance 0 mL/min (70-130); Calcium 8.8 mg/dL (7.8-10.44); Carbon Dioxide 27 mmol/L (23-31); Chloride 113 mmol/L (98-107); Estimated GFR-MDRD 24; Globulin 3.4 g/dL (2.4-3.5); Glucose 105 mg/dL (83-110); Potassium 3.7 mmol/L (3.5-5.1); Protein, Total 6.4 g/dL (6.0-8.3); Sodium 148 mmol/L (136-145)
[2019-06-23 18:06] LABS: Anisocytosis SLIGHT = 6-15 cells (100X) (0-5/hpf); Band 6 % (5-11); Lymphocytes 7 % (21-51); MDiff Complete? YES; Monocytes 10 % (0-10); Neutrophil 77 % (42-75); Ovalocytes SLIGHT = 2-5 cells (100X) (0-1/hpf); Platelet Morphology Comment Appears Adequate; Polychromasia SLIGHT = 2-3 cells (100X) (0-2/hpf); Spherocytes SLIGHT = 1-5 cells (100X) (None Seen)
--- NOTE | 2019-06-23 18:20 | RAD ---
SINGLE VIEW OF THE CHEST: 06/23/19 COMPARISON: 05/17/19. HISTORY: Sepsis and fever. FINDINGS: Single view of the chest shows normal sized cardiomediastinal silhouette. Low lung volumes are seen. Increased interstitial markings are present. There is no evidence of consolidation or pleural effusio n. There is stable fullness along the right superior mediastinum. A calcified granuloma projects over the right lung. IMPRESSION: Stable exam. POS: C
--- NOTE | 2019-06-23 18:46 | CT ---
CT ABDOMEN AND PELVIS WITHOUT CONTRAST: 06/23/19 COMPARISON: 05/14/19 HISTORY: Diarrhea for the past several days. TECHNIQUE: Multiple contiguous axial images were obtained in a CT of the abdomen and pelvis without contrast. Sa gittal and coronal reformats were performed. FINDINGS: There is stable hypodensities in the bilateral kidneys which likely represent cysts. Calcifications i n the hilar region of both kidneys likely represent vascular calcifications. Atherosclerotic calcific ations are seen in the aorta. There appear to be multiple gallstones within the gallbladder. The liver, adrenal glands, and pancre as are unremarkable, although evaluation is limited without IV contrast. There is a stable hypodensit y in the spleen measuring 1.8 cm in size. The previously seen ureteral stent has been removed. There are scattered diverticula in the colon. High density is seen within the fluid and the rectum wh ich could represent previous contrast or blood. No obvious colonic mass is seen on this limited nonco ntrast examination. The small bowel is normal in caliber. Degenerative changes are seen in the spine. Calcified granulomas are seen in the right lung base. Adj acent atelectasis is seen. IMPRESSION: 1. No evidence of acute intra-abdominal/pelvic abnormality. 2. Bilateral renal cysts. 3. Cholelithiasis. 4. Stable splenic hypodensity is nonspecific. 5. Diverticulosis. POS: C
[2019-06-23 18:56] LABS: Bacteria/HPF None Seen HPF (None Seen); Bilirubin Negative (Negative); Blood, Urine 1+ (Negative); Clarity Clear (Clear); Glucose, Urine (Dipstick) Normal (Negative); Leukocyte 75 Leu/uL (Negative); Nitrite Negative (Negative); Protein, Urine (Dipstick) 20 mg/dL (Neg-Trace); RBC/HPF 0-3 HPF (0-3); Squamous Epithelial 0-3 HPF (0-3); Urobilinogen Normal mg/dL (Less than 2); WBC/HPF 0-3 HPF (0-3)
--- NOTE | 2019-06-23 19:52 | ULT ---
Right upper quadrant ultrasound: 06/23/2019 COMPARISON: None HISTORY: Fever and pain TECHNIQUE: Multiplanar grayscale sonographic imaging of right upper quadrant FINDINGS: The pancreas is not well assessed secondary to bowel gas and body habitus. Hepatic parenchy ma appears grossly unremarkable, partially obscured as well. The nurses' association counselor reports a negative Bacon's sign. Common bile duct measures approximately 5 mm, withi n normal limits. No gallbladder wall thickening or pericholecystic fluid. Multiple echogenic foci with shadowing within the gallbladder lumen noted, evidence of cholelithiasis. Right kidney is poorly assessed on this examination. There is a large cyst emanating from the upper pole the right kidney measuring at least 7 cm. IMPRESSION: Cholelithiasis with no sonographic evidence of cholecystitis or biliary dilatation.
[2019-06-23 20:54] LABS: Lactic Acid 0.9 mmol/L (0.5-2.2)
[2019-06-23] MEDS ORDERED: Pantoprazole 40 MG VIAL ONE (20:54)
[2019-06-23] MEDS ORDERED: Acetaminophen 325 MG TAB PO PRN (21:37)
[2019-06-23] MEDS ORDERED: Ondansetron ODT 4 MG TAB SL PRN (21:37)
[2019-06-23] MEDS ORDERED: Ondansetron PF 4 MG/2 ML Vial IVP PRN ×2 (21:37→23:09)
[2019-06-23 22:32] VITALS: BMI 21.2
[2019-06-23] MEDS ORDERED: Dextrose 5% in Water 1,000 ML IV PRN (23:09)
[2019-06-23] MEDS ORDERED: HumaLOG 300 UNITS/3 ML VIAL SC PRN ×2 (23:09)
[2019-06-23] MEDS ORDERED: Dextrose 50% Abboject 50 ML SYRINGE SLOW IVP PRN (23:09)
[2019-06-23] MEDS ORDERED: Ondansetron ODT 4 MG TAB PO PRN (23:09)
[2019-06-23] MEDS ORDERED: Sodium Chloride 0.9% 1,000 ML IV SCH (23:15)
--- NOTE | 2019-06-24 00:43 | HP ---
PRIMARY CARE PHYSICIAN: Dr. Lopez. CHIEF COMPLAINT: Generalized weakness and diarrhea. HISTORY OF PRESENT ILLNESS: The history of present illness is taken from Peyton Carcamo, the patient's son as the patient is currently unable to give a history due to advanced Alzheimer disease as well as weakness. Ms. Carcamo is a pleasant female, who has history of Alzheimer disease for the past 12 years, as well as hypertension. She also has a history of nephrolithiasis and recently had a cystoscopy with laser lithotripsy and stone extraction by Dr. More and then she also had a recent hospital admission for urinary tract infection with sepsis and at that time she also had a GI bleed due to colon polyps. These were removed and she was subsequently discharged initially to rehab and then back to assisted living. Her son says that he had gone to check on her and noticed that she was a bit lethargic and she had been having diarrhea all day. The home health nurse also said she was unable to assist getting with transfers and getting her clothes off and on and this is unusual for her. For this reason, they brought her to the emergency room for evaluation. In the ER, she was found to have guaiac-positive stools. She was also febrile and noted that her white blood cell count was elevated and as a result, she is being admitted for further evaluation. Otherwise, no further history is obtainable. In the ER, she was cultured blood cultures were taken. She was given vancomycin, meropenem, and IV Protonix as well as Tylenol and is currently admitted for treatment. REVIEW OF SYSTEMS: Unobtainable due to the patient's dementia. PAST MEDICAL HISTORY: She has Alzheimer disease, chronic kidney disease stage 3, hypertension, hypothyroidism, chronic diastolic heart failure, nephrolithiasis, seizure disorder. PAST SURGICAL HISTORY: She had left knee surgery, hemorrhoidectomy, an open stone retrieval, cataract surgery, recent cystoscopy with lithotripsy and stone extraction and ureteral stent placement. ALLERGIES: TO PENICILLIN. SOCIAL HISTORY: She currently resides in an assisted living. She is a former smoker. She quit about 10 years ago. No alcohol use. No drug use. CODE STATUS: Full code. FAMILY HISTORY: Unknown. MEDICATIONS: Taken from the patient's emergency room records and includes: 1. Clonidine 0.1 mg every 6 hours. 2. Levothyroxine 50 mcg daily. 3. Losartan 50 mg twice daily. 4. Rivastigmine 1.5 mg twice daily. 5. Amlodipine 5 mg daily. 6. MiraLAX 17 g daily. 7. Pantoprazole 40 mg daily. 8. Aldactone 25 mg daily. 9. Potassium chloride 10 mEq daily. 10. Ranexa 500 mg twice daily. 11. Senna 1 tablet daily. 12. Loperamide 2 mg daily. 13. Simethicone p.r.n. 14. Lasix 40 mg once daily. PHYSICAL EXAMINATION: GENERAL: She is awake, but a bit lethargic. She will not talk or respond to me, but will open her eyes. She is well developed and well nourished. VITAL SIGNS: Blood pressure was 107/65, heart rate 109, respiratory rate of 17, temperature is 101.7. HEENT: Her pupils are equal, round, and reactive. Extraocular muscles are intact. Her sclerae anicteric. Throat she has dry mucous membranes. NECK: No adenopathy, no bruits. LUNGS: Clear to auscultation. No wheezing. No rales. CARDIOVASCULAR: She has a normal S1, S2. There is no S3 or S4. No murmurs, clicks or rubs. ABDOMEN: Soft, nontender, and nondistended. Positive for bowel sounds. No rebound. No guarding. No organomegaly. EXTREMITIES: She has significant edema of the right lower extremity. There is also some erythema and redness. NEUROLOGIC: Grossly nonfocal. SKIN AND INTEGUMENT: She does have some chronic venous stasis changes and some mild erythema of the right lower extremity. LABORATORY DATA: Her white blood cell count was 16.2, hemoglobin 10.4, hematocrit is 32.5, and platelet count is 241. The sodium is 148, potassium 3.7, chloride is 113, CO2 is 27, BUN of 29, creatinine 2.31, glucose is 105. Urinalysis, she had a positive leukocyte esterase, but no bacteria seen, 1+ blood. IMAGING: She had a CT scan of the abdomen and pelvis showing evidence of cholelithiasis with multiple stones and some evidence of diverticulosis. She also had an ultrasound of the abdomen showing cholelithiasis, but no biliary duct dilatation. No signs of cholecystitis. ASSESSMENT: This is a pleasant 83-year-old female, who presents with generalized weakness and gastrointestinal bleed as well as findings suspicious for possible early sepsis. 1. With the diarrhea and occult positive stools, currently, her hemoglobin and hematocrit is stable at 10, which is higher than her previous hospitalization. However, she could be hemoconcentrated and I suspect the hemoglobin will drop with hydration. We will place her on Protonix IV b.i.d., get stool studies and consider GI consult. 2. Possible sepsis. The etiology is unknown. However, her right leg is a bit swollen and red. She may have an underlying cellulitis. In the meantime, we will continue broad-spectrum antibiotics and follow up on culture results. 3. Chronic kidney disease. She has mild urdsw-yj-kedifek kidney injury, likely due to volume depletion. Hopefully this should correct with hydration. 4. Hypertension. We will need to reconcile and restart her antihypertensive medications. 5. Hypothyroidism. She appears clinically euthyroid. We will reconcile and restart her levothyroxine and further recommendations to follow. Job ID: [id number]
[2019-06-24 05:00] LABS: #Lymphocytes 1.3 thou/uL (1.20-3.40); #Neutrophils 9.8 thou/uL (1.40-6.50); %Basophils 0.1 % (0.0-1.0); %Eosinophils 0.4 % (0.0-10.0); %Lymphocytes 10.6 % (21.0-51.0); %Monocytes 8.4 % (0.0-10.0); %Neutrophils 80.5 % (42.0-75.0); Hemoglobin 8.4 g/dL (12.0-16.0); Mean Corpuscular Volume 93.5 fL (78.0-98.0); Mean Platelet Volume 9.6 fL (7.4-10.4); Platelet Count 185 thou/uL (130-400); RBC Distribution Width 14.6 % (11.5-14.5); Red Blood Cell (RBC) Count 2.91 mill/uL (4.20-5.40); White Blood Cell (WBC) Count 12.2 thou/uL (4.8-10.8)
[2019-06-24 05:22] LABS: Anion Gap 14 mmol/L (10-20); BUN (Urea Nitrogen) 26 mg/dL (9.8-20.1); Calc. Creatinine Clearance 18 mL/min (70-130); Calcium 7.8 mg/dL (7.8-10.44); Carbon Dioxide 23 mmol/L (23-31); Chloride 116 mmol/L (98-107); Estimated GFR-MDRD 31; Glucose 86 mg/dL (83-110); Sodium 150 mmol/L (136-145)
[2019-06-24 05:28] LABS: Potassium 2.9 mmol/L (3.5-5.1)
[2019-06-24] MEDS: Levothyroxine Sodium 25 MCG TAB PO SCH (05:28)
[2019-06-24] MEDS ORDERED: Potassium Chloride 20 MEQ TAB PO SCH ×2 (05:45→12:45)
--- NOTE | 2019-06-24 07:32 | ULT ---
US Venous Doppler Rt Unilat History: Right lower extremity edema and swelling. Comparison: None. Findings: Real-time grayscale, color, and spectral analysis of the right lower extremity venous syste m was performed. The common femoral, femoral, proximal portions greater saphenous and deep femoral veins as well as the popliteal and posterior tibial veins were interrogated. Normal flow, augmentation, and compression. Moderate superficial edema in the calf. Impression: No deep venous thrombosis.
[2019-06-24] MEDS: Amlodipine 5 MG TAB PO SCH (08:51)
[2019-06-24] MEDS: lamoTRIgine 100 MG TAB PO SCH (09:00)
[2019-06-24] MEDS: Heparin 5,000 UNITS/ML VIAL SC SCH ×2 (09:00→21:41)
[2019-06-24] MEDS: Pantoprazole 40 MG VIAL IVP SCH ×2 (09:00→22:54)
[2019-06-24] MEDS ORDERED: Vancomycin HCl 1 GM in Premix Bag 1 BAG IVPB SCH (09:00)
[2019-06-24] MEDS: Cefepime 1 GM in Sodium Chloride 0.9% 100 ML IVPB SCH (12:48)
[2019-06-24] MEDS: Acetaminophen 325 MG TAB PO PRN ×2 (12:49→19:05)
[2019-06-24] MEDS: Dextrose 5% in Water 1,000 ML IV SCH (12:49)
--- NOTE | 2019-06-24 12:58 | PRG ---
DATE OF SERVICE: 06/24/2019 SUBJECTIVE: The patient is seen and examined at the bedside. Her general condition is fair, although her blood pressure is running on the lower side. She does not have much complaints to offer. OBJECTIVE: VITAL SIGNS: Blood pressure is 95/56, pulse is 74, temperature is 98.4, respiratory rate is 18, and O2 saturation is 100 on nasal cannula. HEENT: Her sclerae are nonicteric. Conjunctivae palish. Oral mucosa is dry. NECK: Supple. LUNGS: Clear. HEART: S1 and S2 normal. No S3. No S4. ABDOMEN: Soft, nondistended. Bowel sounds present. EXTREMITIES: 1+ peripheral edema similar bilaterally. NEUROLOGICAL: She fell short when she is asked to follow my commands as she is not oriented to place all the time, but she is able to move her all 4 extremities. LABORATORY DATA: Labs showed white count of 12.2, hemoglobin of 8.4, hematocrit 27.2, and platelet count is 185,000. Sodium of 150, potassium 2.9, chloride 116, BUN of 26, creatinine 1.87, glucose 114, and calcium 7.8. Microbiology, lactoferrin elevated, Shiga toxin negative, C difficile toxins and antigen negative. Campylobacter antigen negative. Blood cultures negative. Fecal occult blood test positive. Influenza type A and B negative. negative for DVTs. IMPRESSION: 1. Diarrhea with positive guaiac stools. 2. Hemoglobin dropped by 2 g in one day, most likely secondary to IV fluids. 3. Dehydration. 4. Chronic kidney disease, improved with fluids. 5. Hypertension, stable. 6. Hypothyroidism. PLAN: I am going to switch her fluids to a D5 water at 75 mL/h. She will have 2 doses of potassium chloride 40 mEq each for her level of 2.9 today. We will check her magnesium level too. We will discontinue vancomycin. Continue cefepime. We are waiting for GI consultation with Dr. Gray. We will continue DVT prophylaxis with heparin. Job ID: [id number]
--- NOTE | 2019-06-24 17:54 | CON ---
DATE OF CONSULTATION: 06/24/2019 CHIEF COMPLAINT: Dark stools and diarrhea. HISTORY OF PRESENT ILLNESS: Ms. Carcamo is an 83-year-old woman, who was transferred from assisted living to the emergency room due to lethargy and decreased ability to assist with transfers along with some diarrhea and dark stools. She currently is arousable, and she is able to tell me her name and reports no abdominal discomfort or other complaints. She has had no nausea, vomiting, or abdominal pain reported. The rest of the history is obtained from the chart due to her underlying Alzheimer dementia. PAST MEDICAL HISTORY: Alzheimer disease, chronic kidney disease, hypertension, hypothyroidism, diastolic heart failure, kidney stone, and seizure disorder. She underwent EGD and colonoscopy in April of 2019, at which time, she was found to have some large colon polyps with high-grade dysplasia. These were all completely removed. 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 PAST SURGICAL HISTORY: Knee surgery, hemorrhoidectomy, kidney stone removal, cataract surgery, cystoscopy, EGD, and colonoscopy. FAMILY HISTORY: Negative for GI malignancies. SOCIAL HISTORY: No alcohol, tobacco, or drugs. ALLERGIES: PENICILLIN. MEDICATIONS: Prior to admission: 1. Furosamide. 2. Simethicone. 3. Loperamide. 4. Senna. 5. Ranexa. 6. Potassium chloride. 7. Aldactone. 8. Pantoprazole. 9. MiraLAX. 10. Amlodipine. 11. Rivastigmine. 12. Losartan. 13. Levothyroxine. 14. Clonidine. REVIEW OF SYSTEMS: Unobtainable due to her dementia, but reports negative answers to any questions of discomfort. PHYSICAL EXAMINATION: VITAL SIGNS: Temperature 98.4, pulse 74, blood pressure 93/59. GENERAL: She is in no acute distress. Awake when aroused and oriented to her name. HEENT: Her eyes have no scleral icterus. Oropharynx is clear without lesions. LYMPHATICS: No cervical or supraclavicular lymphadenopathy. LUNGS: Clear to auscultation bilaterally. HEART: Regular rate and rhythm without murmur. ABDOMEN: Soft, nontender, and nondistended. Bowel sounds are present. EXTREMITIES: No lower extremity edema. RECTAL: Reveals dark green, almost black stool in the rectal vault. LABORATORY DATA: White blood cell count 12.2, hemoglobin is 8.4. Her hemoglobin when she was discharged from the hospital less than a month ago was 8.5. She was hemoconcentrated on admission with her white count, hemoglobin, and platelets all higher, that dropped with rehydration. Her hemoglobin on admission yesterday was 10.4. Creatinine 1.87, sodium 150. IMPRESSION: 1. Melena. She has dark green to black stool, however, has been taking iron. No other obvious overt bleeding. She had just had esophagogastroduodenoscopy, that showed some small arteriovenous malformations last month and multiple colon polyps removed. One of these had high-grade dysplasia, but was completely removed endoscopically. Her hemoglobin decreased from yesterday to today; however, she was significantly hemoconcentrated on presentation with her white blood cell count, hemoglobin, and platelets all dropping with rehydration. She also had stshs-lv-sivirir renal insufficiency with drop in her creatinine after rehydration. Her hemoglobin on discharge less than a month ago was 8.5. I do not think she has had acute drop in her blood count with this presentation; however, we will follow the trend of her hemoglobin. I doubt that she is acutely bleeding, but will have to follow. We will cover her with proton-pump inhibitor in the meantime. 2. Advanced Alzheimer disease. 3. Hypernatremia. 4. Dujqt-ml-smwohbz renal insufficiency. 5. Admission with lethargy. She appears to be back more towards her baseline function now. 6. Diarrhea. The patient reportedly had diarrhea prior to admission. Nursing reports she only had one mucoid stool this morning, and she has now smear in her diaper this afternoon, but she has had no significant diarrhea today. She did have stool studies that were negative for Clostridium difficile. Her lactoferrin was positive. Campylobacter antigen and Shiga toxin were negative. RECOMMENDATIONS: 1. We will follow the trend of her hemoglobin. 2. Proton-pump inhibitor. 3. Hold iron supplementation for now. 4. Rehydration. She has received IV fluids. 5. We would hold further endoscopy unless she has obvious significant overt bleeding. Job ID: [id number]
[2019-06-24] MEDS ORDERED: Vancomycin HCl 500 MG in Sodium Chloride 0.9% 100 ML IVPB SCH (18:00)
[2019-06-24] MEDS: Atorvastatin Calcium 20 MG TAB PO SCH (21:41)
[2019-06-25] MEDS: Acetaminophen 325 MG TAB PO PRN ×4 (00:20→20:52)
[2019-06-25] MEDS: Cefepime 1 GM in Sodium Chloride 0.9% 100 ML IVPB SCH (00:20)
[2019-06-25] MEDS ORDERED: Loperamide HCl 2 MG CAP PO PRN (01:27)
[2019-06-25] MEDS: Dextrose 5% in Water 1,000 ML IV SCH ×2 (01:30→09:54)
[2019-06-25 04:58] LABS: #Eosinphils 0.3 thou/uL (0.0-0.7); #Lymphocytes 1.4 thou/uL (1.20-3.40); #Neutrophils 7.4 thou/uL (1.40-6.50); %Basophils 0.1 % (0.0-1.0); %Eosinophils 2.9 % (0.0-10.0); %Lymphocytes 13.6 % (21.0-51.0); %Monocytes 9.6 % (0.0-10.0); %Neutrophils 73.8 % (42.0-75.0); Hemoglobin 9.1 g/dL (12.0-16.0); Mean Corpuscular HGB CONC 31.3 g/dL (32.0-36.0); Mean Corpuscular Hemoglobin 29.8 pg (27.0-31.0); Mean Corpuscular Volume 95.2 fL (78.0-98.0); Mean Platelet Volume 9.2 fL (7.4-10.4); Platelet Count 211 thou/uL (130-400); RBC Distribution Width 14.6 % (11.5-14.5); Red Blood Cell (RBC) Count 3.05 mill/uL (4.20-5.40); White Blood Cell (WBC) Count 10.1 thou/uL (4.8-10.8)
[2019-06-25 05:08] LABS: Anion Gap 13 mmol/L (10-20); BUN (Urea Nitrogen) 26 mg/dL (9.8-20.1); Calc. Creatinine Clearance 17 mL/min (70-130); Calcium 8.1 mg/dL (7.8-10.44); Carbon Dioxide 22 mmol/L (23-31); Chloride 117 mmol/L (98-107); Estimated GFR-MDRD 30; Glucose 103 mg/dL (83-110); Potassium 3.7 mmol/L (3.5-5.1); Sodium 148 mmol/L (136-145)
[2019-06-25] MEDS: Levothyroxine Sodium 25 MCG TAB PO SCH (05:43)
[2019-06-25] MEDS: lamoTRIgine 100 MG TAB PO SCH (09:55)
[2019-06-25] MEDS: Heparin 5,000 UNITS/ML VIAL SC SCH ×2 (09:55→20:51)
[2019-06-25] MEDS: Amlodipine 5 MG TAB PO SCH (09:58)
[2019-06-25] MEDS: Pantoprazole 40 MG VIAL IVP SCH ×2 (09:58→20:53)
[2019-06-25] MEDS: cefTRIAXone\\ROCEPHIN 1 GM in Sodium Chloride 0.9% 100 ML IVPB SCH (11:01)
--- NOTE | 2019-06-25 11:14 | PRG ---
DATE OF SERVICE: 06/25/2019 SUBJECTIVE: The patient is seen and examined at bedside. She complains about the pain in her rectal area. Apparently, she had several bowel movements yesterday and her rectal area is getting raw and order was given by the inhouse officer for rectal tube placement which was done. OBJECTIVE: VITAL SIGNS: Blood pressure is 84/58, pulse is 82, respiratory rate is 20, and O2 saturation is 98% on 2 L by nasal cannula, temperature is 99.4, that is the maximal temperature for the last 24 hours. HEENT: Head is atraumatic and normocephalic. Sclerae are nonicteric. Conjunctivae palish. Oral mucosa is slightly dry. NECK: Supple. LUNGS: Right base is dull, breath sounds diminished at this area. HEART: S1, S2 normal. No S3. No S4. ABDOMEN: Soft, nontender. Bowel sounds are present. No organomegaly. EXTREMITIES: 1+ peripheral edema around left ankle. NEUROLOGICAL: She is alert and oriented x1. She is able to move her all 4 extremities. She does not have any motor deficits. LABORATORY DATA: Labs showed white count of 10.1, hemoglobin of 9.1, hematocrit 29.1, platelet count 211. Sodium 148, potassium 3.7, chloride 117, CO2 of 22, BUN 26, creatinine 1.92. Glycemia is ranging from 113-133. Calcium 8.1, glucose 103. Microbiology, no new findings. IMPRESSION: 1. Enteritis with positive guaiac stools. 2. Anemia. 3. Dehydration. 4. Hypernatremia and hyperchloremia. 5. Chronic kidney disease. 6. Hypertension, chronic, stable. 7. Hypothyroidism, on replacement. PLAN: We are going to continue D5 water at 50 mL/h. Her potassium was corrected. I am going to switch her to Rocephin and metronidazole for her enteritis. We will continue rectal tube. We will continue DVT prophylaxis and her white count is getting stabilized. She seems to be improving mentally. Job ID: [id number]
[2019-06-25] MEDS: metroNIDAZOLE 500 MG in Premix Bag 1 BAG IVPB SCH ×3 (11:59→23:57)
--- NOTE | 2019-06-25 16:44 | PRG ---
DATE OF SERVICE: 06/25/2019 SUBJECTIVE: Ms. Carcamo had increased diarrhea today. She had a rectal tube placed. OBJECTIVE: VITAL SIGNS: Temperature 98.1, pulse 87, and blood pressure 104/65. GENERAL: She is in no acute distress. She is arousable and responds to basic questions. LUNGS: Clear to auscultation bilaterally. HEART: Regular rate and rhythm without murmur. ABDOMEN: Soft, nontender, and nondistended. Bowel sounds are present. EXTREMITIES: No lower extremity edema. LABORATORY DATA: White blood cell count 10.1, hemoglobin 9.1, and platelets 211. Creatinine 1.92. IMPRESSION: 1. Acute diarrhea. Stools negative for Clostridium difficile. Lactoferrin was present. Campylobacter and Shiga toxin were negative. 2. Gastrointestinal bleed. Her hemoglobin is stable compared to her time of last hospital discharge. 3. Dehydration. She was hemoconcentrated on presentation and now her blood counts have improved with rehydration. 4. Hypernatremia. 5. Elevated white blood cell count on presentation has returned to normal. RECOMMENDATIONS: 1. In light of the diarrhea, if she has no focal infectious source identified, then consider tapering off the antibiotics and adding probiotics. 2. There is no evidence of significant bleeding at this time. 3. We will continue to follow. Job ID: [id number]
[2019-06-25] MEDS: Atorvastatin Calcium 20 MG TAB PO SCH (20:52)
[2019-06-26] MEDS: Dextrose 5% in Water 1,000 ML IV SCH ×2 (04:19→18:38)
[2019-06-26] MEDS: Levothyroxine Sodium 25 MCG TAB PO SCH (05:09)
[2019-06-26] MEDS: metroNIDAZOLE 500 MG in Premix Bag 1 BAG IVPB SCH ×2 (05:10→11:32)
[2019-06-26 08:38] LABS: #Eosinphils 0.4 thou/uL (0.0-0.7); #Lymphocytes 1.4 thou/uL (1.20-3.40); #Monocytes 0.8 thou/uL (0.11-0.59); #Neutrophils 5.1 thou/uL (1.40-6.50); %Basophils 0.5 % (0.0-1.0); %Eosinophils 5.4 % (0.0-10.0); %Lymphocytes 17.6 % (21.0-51.0); %Neutrophils 66.4 % (42.0-75.0); Hemoglobin 9.2 g/dL (12.0-16.0); Mean Corpuscular HGB CONC 31.2 g/dL (32.0-36.0); Mean Corpuscular Hemoglobin 29.3 pg (27.0-31.0); Mean Corpuscular Volume 94.1 fL (78.0-98.0); Mean Platelet Volume 8.9 fL (7.4-10.4); Platelet Count 225 thou/uL (130-400); RBC Distribution Width 14.5 % (11.5-14.5); Red Blood Cell (RBC) Count 3.14 mill/uL (4.20-5.40); White Blood Cell (WBC) Count 7.8 thou/uL (4.8-10.8)
[2019-06-26 08:56] LABS: Anion Gap 13 mmol/L (10-20); BUN (Urea Nitrogen) 20 mg/dL (9.8-20.1); Calc. Creatinine Clearance 23 mL/min (70-130); Calcium 7.8 mg/dL (7.8-10.44); Carbon Dioxide 22 mmol/L (23-31); Chloride 111 mmol/L (98-107); Estimated GFR-MDRD 42; Glucose 101 mg/dL (83-110); Potassium 3.6 mmol/L (3.5-5.1); Sodium 142 mmol/L (136-145)
[2019-06-26] MEDS: Heparin 5,000 UNITS/ML VIAL SC SCH ×2 (09:37→20:44)
[2019-06-26] MEDS: Pantoprazole 40 MG VIAL IVP SCH (09:38)
[2019-06-26] MEDS: lamoTRIgine 100 MG TAB PO SCH (09:41)
[2019-06-26] MEDS: cefTRIAXone\\ROCEPHIN 1 GM in Sodium Chloride 0.9% 100 ML IVPB SCH (11:32)
[2019-06-26] MEDS: Acetaminophen 325 MG TAB PO PRN ×2 (12:18→20:43)
--- NOTE | 2019-06-26 12:51 | PDOC.HOSPP ---
- Subjective Encounter Date: 06/26/19 Encounter Time: 11:15 Subjective: awake, sitting in chair and eating with Carlos Alberto (son) she did drink most of her milk shake and is trying to eat fish no sob or pain - Objective Vital Signs & Weight: Vital Signs (12 hours) Temp Pulse Resp BP Pulse Ox 06/26/19 11:00 98.5 F 91 17 108/72 96 06/26/19 07:48 98.7 F 85 17 105/68 98 06/26/19 05:11 95 06/26/19 04:00 98.7 F 81 20 104/65 92 L Weight Admit Weight 112 lb 6.4 oz Weight 112 lb 6.4 oz I&O: 06/25/19 06/26/19 06/27/19 06:59 06:59 06:59 Intake Total 1528 2320 Output Total 1300 Balance 1528 1020 Result Diagrams: 06/26/19 08:26 06/26/19 08:26 Additional Labs: Accuchecks 06/26/19 06/26/19 06/25/19 10:52 06:11 20:12 POC Glucose 88 86 132 H 06/25/19 16:55 POC Glucose 114 H Hospitalist ROS - Medication Medications: Active Medications Generic Name Dose Route Start Last Admin Trade Name Freq PRN Reason Stop Dose Admin Acetaminophen 650 mg 06/23/19 23:09 06/26/19 12:18 Tylenol PO 650 mg Q4H PRN Administration Headache/Fever/Mild Pain (1-3) Atorvastatin Calcium 20 mg 06/24/19 21:00 06/25/19 20:52 Lipitor PO 20 mg HS JENNIFER Administration Heparin Sodium (Porcine) 5,000 units 06/24/19 09:00 06/26/19 09:37 Heparin SC 5,000 units BID JENNIFER Administration Dextrose/Water 1,000 mls @ 75 mls/hr 06/24/19 12:15 06/26/19 04:19 D5w IV 1,000 mls .[id number] JENNIFER Administration Ceftriaxone Sodium 1 gm/ 100 mls @ 200 mls/hr 06/25/19 11:00 06/26/19 11:32 Sodium Chloride IVPB Not Given Q24HR JENNIFER Metronidazole 500 mg/ Device 100 mls @ 100 mls/hr 06/25/19 12:00 06/26/19 11: 32 IVPB Not Given Q6HR JENNIFER Lamotrigine 100 mg 06/24/19 09:00 06/26/19 09:41 Lamictal PO 100 mg DAILY JENNIFER Administration Levothyroxine Sodium 25 mcg 06/24/19 06:00 06/26/19 05:09 Synthroid PO 25 mcg 0600 JENNIFER Administration Loperamide HCl 2 mg 06/25/19 01:27 06/25/19 04:10 Imodium PO 2 mg DAILYPRN PRN Administration Diarrhea/Loose Stools Pantoprazole Sodium 40 mg 06/24/19 09:00 06/26/19 09:38 Protonix IVP 40 mg Q12HR JENNIFER Administration Ranolazine 500 mg 06/24/19 09:00 06/26/19 09:41 Ranexa PO 500 mg BID JENNIFER Administration Sodium Chloride 10 ml 06/25/19 21:00 06/26/19 09:41 Flush - Normal Saline IVF 10 ml Q12HR JENNIFER Administration - Exam General Appearance: awake alert Eye: PERRL, anicteric sclera ENT: no oropharyngeal lesions, dry oral mucosa Neck: supple, no JVD Heart: RRR, no murmur Respiratory: no wheezes, no rales, rhonchi Gastrointestinal: soft, non-tender, non-distended, normal bowel sounds Extremities: no cyanosis, 1+ LE edema Neurological: cranial nerve grossly intact, no focal deficits Hosp A/P (1) Diarrhea Code(s): R19.7 - DIARRHEA, UNSPECIFIED Status: Acute Qualifiers: Diarrhea type: unspecified type Qualified Code(s): R19.7 - Diarrhea, unspecified (2) Dehydration, moderate Code(s): E86.0 - DEHYDRATION Status: Acute (3) Seizure Code(s): R56.9 - UNSPECIFIED CONVULSIONS Status: Chronic (4) CKD (chronic kidney disease) stage 3, GFR 30-59 ml/min Code(s): N18.3 - CHRONIC KIDNEY DISEASE, STAGE 3 (MODERATE) Status: Chronic (5) Dementia Code(s): F03.90 - UNSPECIFIED DEMENTIA WITHOUT BEHAVIORAL DISTURBANCE Status: Chronic Qualifiers: Dementia type: Alzheimer's disease (6) Diastolic CHF Code(s): I50.30 - UNSPECIFIED DIASTOLIC (CONGESTIVE) HEART FAILURE Status: Chronic Qualifiers: Heart failure chronicity: chronic Qualified Code(s): I50.32 - Chronic diastolic (congestive) heart failure (7) HTN (hypertension) Code(s): I10 - ESSENTIAL (PRIMARY) HYPERTENSION Status: Chronic Qualifiers: Hypertension type: essential hypertension Qualified Code(s): I10 - Essential (primary) hypertension (8) Hypothyroidism Code(s): E03.9 - HYPOTHYROIDISM, UNSPECIFIED Status: Chronic Qualifiers: Hypothyroidism type: unspecified Qualified Code(s): E03.9 - Hypothyroidism , unspecified (9) Physical deconditioning Code(s): R53.81 - OTHER MALAISE Status: Chronic - Plan encourage po intake, is she takes adequate oral fluids then dc iv fluids tx to medical floor stool studies are -ve for infectious etiology diarrhea is resolving may remove rectal tube in am continue lipitor, lamotrigine, synthroid, protonix and ranexa dc iv antibiotics d/w she lives at [facility] in [facility] and has 6hrs of personal counselor daily. has pedal and lower leg edema, yazan hose below knees
--- NOTE | 2019-06-26 15:03 | PRG ---
DATE OF SERVICE: 06/26/2019 SUBJECTIVE: Ms. Carcamo has rectal tube in place and is still having liquid stools. Her volume has decreased, but still with 150 mL of liquid stool over the last few hours. She reports no discomfort or abdominal pain and is more alert and interactive today. OBJECTIVE: VITAL SIGNS: Temperature 98.5, pulse 91, blood pressure 108/72. GENERAL: She is in no acute distress. LUNGS: Clear to auscultation bilaterally. HEART: Regular rate and rhythm without murmur. ABDOMEN: Soft, nontender, nondistended. Bowel sounds are present. EXTREMITIES: No lower extremity edema. LABORATORY DATA: White blood cell count 7.8, hemoglobin 9.2, platelets 225. Creatinine 1.45. IMPRESSION: 1. Acute diarrhea with liquidy stool requiring rectal tube placement due to skin breakdown. 2. Anemia. Her hemoglobin is stable. RECOMMENDATIONS: 1. Consider discontinuation of her antibiotics if there is no specific organism to treat at this point. She may be having worsening diarrhea related to her antibiotics. 2. We would try a lactose-free diet for now until the diarrhea improves. Job ID: [id number]
[2019-06-26] MEDS: Atorvastatin Calcium 20 MG TAB PO SCH (20:42)
[2019-06-27] MEDS: Levothyroxine Sodium 25 MCG TAB PO SCH (05:54)
[2019-06-27] MEDS: Acetaminophen 325 MG TAB PO PRN (05:54)
[2019-06-27 06:24] LABS: Anion Gap 12 mmol/L (10-20); BUN (Urea Nitrogen) 18 mg/dL (9.8-20.1); Calc. Creatinine Clearance 26 mL/min (70-130); Calcium 7.9 mg/dL (7.8-10.44); Carbon Dioxide 21 mmol/L (23-31); Chloride 109 mmol/L (98-107); Estimated GFR-MDRD 48; Glucose 85 mg/dL (83-110); Potassium 3.7 mmol/L (3.5-5.1); Sodium 138 mmol/L (136-145)
[2019-06-27] MEDS: lamoTRIgine 100 MG TAB PO SCH (08:29)
[2019-06-27] MEDS: Heparin 5,000 UNITS/ML VIAL SC SCH ×2 (08:29→20:07)
--- NOTE | 2019-06-27 14:23 | PDOC.HOSPP ---
- Subjective Encounter Date: 06/27/19 Encounter Time: 09:15 Subjective: awake, not oriented, has not eaten her breakfast this am per staff had behavioural issues overnight (screaming) no diarrhea - Objective Vital Signs & Weight: Vital Signs (12 hours) Temp Pulse Resp BP Pulse Ox 06/27/19 07:46 98.3 F 81 20 104/69 95 06/27/19 05:56 98 F 81 20 108/65 95 Weight Admit Weight 112 lb 6.4 oz Weight 112 lb 6.4 oz I&O: 06/26/19 06/27/19 06/28/19 06:59 06:59 06:59 Intake Total 2320 500 Output Total 1300 50 Balance 1020 450 Result Diagrams: 06/26/19 08:26 06/27/19 05:18 Hospitalist ROS - Medication Medications: Active Medications Generic Name Dose Route Start Last Admin Trade Name Freq PRN Reason Stop Dose Admin Acetaminophen 650 mg 06/23/19 23:09 06/27/19 05:54 Tylenol PO 650 mg Q4H PRN Administration Headache/Fever/Mild Pain (1-3) Atorvastatin Calcium 20 mg 06/24/19 21:00 06/26/19 20:42 Lipitor PO 20 mg HS JENNIFER Administration Heparin Sodium (Porcine) 5,000 units 06/24/19 09:00 06/27/19 08:29 Heparin SC 5,000 units BID JENNIFER Administration Lamotrigine 100 mg 06/24/19 09:00 06/27/19 08:29 Lamictal PO 100 mg DAILY JENNIFER Administration Levothyroxine Sodium 25 mcg 06/24/19 06:00 06/27/19 05:54 Synthroid PO 25 mcg 0600 JENNIFER Administration Loperamide HCl 2 mg 06/25/19 01:27 06/25/19 04:10 Imodium PO 2 mg DAILYPRN PRN Administration Diarrhea/Loose Stools Ranolazine 500 mg 06/24/19 09:00 06/27/19 08:29 Ranexa PO 500 mg BID JENNIFER Administration Sodium Chloride 10 ml 06/25/19 21:00 06/27/19 08:44 Flush - Normal Saline IVF Not Given Q12HR JENNIFER - Exam General Appearance: awake alert Eye: PERRL, anicteric sclera ENT: no oropharyngeal lesions, dry oral mucosa Neck: supple, symmetric Heart: no murmur, no gallops Respiratory: no wheezes, no rales Gastrointestinal: soft, non-tender, non-distended, normal bowel sounds Extremities: no cyanosis, no edema Neurological: cranial nerve grossly intact, no focal deficits Hosp A/P (1) Diarrhea Code(s): R19.7 - DIARRHEA, UNSPECIFIED Status: Acute Qualifiers: Diarrhea type: unspecified type Qualified Code(s): R19.7 - Diarrhea, unspecified (2) Dehydration, moderate Code(s): E86.0 - DEHYDRATION Status: Acute (3) Seizure Code(s): R56.9 - UNSPECIFIED CONVULSIONS Status: Chronic (4) CKD (chronic kidney disease) stage 3, GFR 30-59 ml/min Code(s): N18.3 - CHRONIC KIDNEY DISEASE, STAGE 3 (MODERATE) Status: Chronic (5) Dementia Code(s): F03.90 - UNSPECIFIED DEMENTIA WITHOUT BEHAVIORAL DISTURBANCE Status: Chronic Qualifiers: Dementia type: Alzheimer's disease (6) Diastolic CHF Code(s): I50.30 - UNSPECIFIED DIASTOLIC (CONGESTIVE) HEART FAILURE Status: Chronic Qualifiers: Heart failure chronicity: chronic Qualified Code(s): I50.32 - Chronic diastolic (congestive) heart failure (7) HTN (hypertension) Code(s): I10 - ESSENTIAL (PRIMARY) HYPERTENSION Status: Chronic Qualifiers: Hypertension type: essential hypertension Qualified Code(s): I10 - Essential (primary) hypertension (8) Hypothyroidism Code(s): E03.9 - HYPOTHYROIDISM, UNSPECIFIED Status: Chronic Qualifiers: Hypothyroidism type: unspecified Qualified Code(s): E03.9 - Hypothyroidism , unspecified (9) Physical deconditioning Code(s): R53.81 - OTHER MALAISE Status: Chronic - Plan encourage po intake, she pulled her iv out stool studies are -ve for infectious etiology diarrhea has resolved, her rectal tube is removed continue lipitor, lamotrigine, synthroid, protonix and ranexa she lives at [facility] facility in [facility] and has 6hrs of personal attendant daily. has pedal and lower leg edema, yazan hose below knees is she allows. Has FTT adult and likely advance dementia.
--- NOTE | 2019-06-27 14:31 | PRG ---
DATE OF SERVICE: 06/27/2019 SUBJECTIVE: Ms. Carcamo has had decrease in the diarrhea. Her rectal tube has been discontinued. She takes small amounts orally. OBJECTIVE: ABDOMEN: Soft and nontender. Bowel sounds are present. GENERAL: She is awake and responsive. LUNGS: Clear to auscultation bilaterally. HEART: Regular rate and rhythm. EXTREMITIES: No lower extremity edema. IMPRESSION AND PLAN: 1. Diarrhea, appears to be improving. This may have been antibiotic related. Her antibiotics have since been discontinued. 2. Anemia, stable. We can cut the pantoprazole back to once daily. 3. I will sign off, please call if GI can help. Job ID: [id number] MTDD
[2019-06-27] MEDS: Atorvastatin Calcium 20 MG TAB PO SCH (20:06)
[2019-06-28] MEDS: Levothyroxine Sodium 25 MCG TAB PO SCH (05:33)
[2019-06-28 07:57] LABS: ALT (SGPT) 11 U/L (8-55); AST (SGOT) 12 U/L (5-34); Albumin 2.3 g/dL (3.4-4.8); Alkaline Phosphatase 172 U/L (40-110); Anion Gap 8 mmol/L (10-20); BUN (Urea Nitrogen) 16 mg/dL (9.8-20.1); Bilirubin, Total 0.3 mg/dL (0.2-1.2); Calc. Creatinine Clearance 26 mL/min (70-130); Calcium 8.2 mg/dL (7.8-10.44); Carbon Dioxide 26 mmol/L (23-31); Chloride 113 mmol/L (98-107); Estimated GFR-MDRD 49; Globulin 2.8 g/dL (2.4-3.5); Glucose 89 mg/dL (83-110); Potassium 3.8 mmol/L (3.5-5.1); Protein, Total 5.1 g/dL (6.0-8.3); Sodium 143 mmol/L (136-145)
[2019-06-28] MEDS: Heparin 5,000 UNITS/ML VIAL SC SCH ×2 (08:31→21:02)
[2019-06-28] MEDS: lamoTRIgine 100 MG TAB PO SCH (08:32)
[2019-06-28 10:01] LABS: Hemoglobin 8.6 g/dL (12.0-16.0); Mean Corpuscular HGB CONC 32.5 g/dL (32.0-36.0); Mean Corpuscular Hemoglobin 30.5 pg (27.0-31.0); Mean Corpuscular Volume 93.9 fL (78.0-98.0); Mean Platelet Volume 8.3 fL (7.4-10.4); Platelet Count 239 thou/uL (130-400); RBC Distribution Width 14.7 % (11.5-14.5); Red Blood Cell (RBC) Count 2.81 mill/uL (4.20-5.40); White Blood Cell (WBC) Count 7.3 thou/uL (4.8-10.8)
[2019-06-28 10:02] LABS: Band 4 % (5-11); Eosinophils 3 % (0-10); Hypochromia SLIGHT = 6-15 cells (100X) (0-5/hpf); Lymphocytes 27 % (21-51); MDiff Complete? YES; Metamyelocyte 2 % (0-0); Monocytes 5 % (0-10); Myelocyte 5 % (0-0); Neutrophil 54 % (42-75); Platelet Morphology Comment Appears Adequate; Polychromasia SLIGHT = 2-3 cells (100X) (0-2/hpf)
--- NOTE | 2019-06-28 15:43 | PDOC.HOSPP ---
- Subjective Encounter Date: 06/28/19 Encounter Time: 07:00 Subjective: awake, responds well to verbal stimuli, not fully oriented is not eating much per staff, drank a mighty shake this am with 2 bites of breakfast. - Objective Vital Signs & Weight: Vital Signs (12 hours) Temp Pulse Resp BP Pulse Ox 06/28/19 07:45 98.7 F 76 16 111/68 97 Weight Admit Weight 112 lb 6.4 oz Weight 112 lb 6.4 oz I&O: 06/27/19 06/28/19 06/29/19 06:59 06:59 06:59 Intake Total 500 500 Output Total 50 Balance 450 500 Result Diagrams: 06/28/19 07:24 06/28/19 07:24 Additional Labs: Accuchecks 06/28/19 06/28/19 12:45 05:39 POC Glucose 90 94 Hospitalist ROS - Medication Medications: Active Medications Generic Name Dose Route Start Last Admin Trade Name Freq PRN Reason Stop Dose Admin Acetaminophen 650 mg 06/23/19 23:09 06/27/19 05:54 Tylenol PO 650 mg Q4H PRN Administration Headache/Fever/Mild Pain (1-3) Atorvastatin Calcium 20 mg 06/24/19 21:00 06/27/19 20:06 Lipitor PO 20 mg HS JENNIFER Administration Heparin Sodium (Porcine) 5,000 units 06/24/19 09:00 06/28/19 08:31 Heparin SC 5,000 units BID JENNIFER Administration Lamotrigine 100 mg 06/24/19 09:00 06/28/19 08:32 Lamictal PO 100 mg DAILY JENNIFER Administration Levothyroxine Sodium 25 mcg 06/24/19 06:00 06/28/19 05:33 Synthroid PO 25 mcg 0600 JENNIFER Administration Loperamide HCl 2 mg 06/25/19 01:27 06/25/19 04:10 Imodium PO 2 mg DAILYPRN PRN Administration Diarrhea/Loose Stools Pantoprazole Sodium 40 mg 06/28/19 09:00 06/28/19 08:32 Protonix PO 40 mg DAILY JENNIFER Administration Ranolazine 500 mg 06/24/19 09:00 06/28/19 08:32 Ranexa PO 500 mg BID JENNIFER Administration Sodium Chloride 10 ml 06/25/19 21:00 06/28/19 08:33 Flush - Normal Saline IVF 10 ml Q12HR JENNIFER Administration - Exam General Appearance: awake alert Eye: PERRL, anicteric sclera ENT: no oropharyngeal lesions, moist mucosa Neck: supple, no JVD Heart: RRR, no murmur Respiratory: no wheezes, no rales Gastrointestinal: soft, non-tender, non-distended, normal bowel sounds Extremities: no cyanosis, no edema Neurological: cranial nerve grossly intact, no focal deficits Hosp A/P (1) Diarrhea Code(s): R19.7 - DIARRHEA, UNSPECIFIED Status: Resolved Qualifiers: Diarrhea type: unspecified type Qualified Code(s): R19.7 - Diarrhea, unspecified (2) Dehydration, moderate Code(s): E86.0 - DEHYDRATION Status: Resolved (3) Seizure Code(s): R56.9 - UNSPECIFIED CONVULSIONS Status: Chronic (4) CKD (chronic kidney disease) stage 3, GFR 30-59 ml/min Code(s): N18.3 - CHRONIC KIDNEY DISEASE, STAGE 3 (MODERATE) Status: Chronic (5) Dementia Code(s): F03.90 - UNSPECIFIED DEMENTIA WITHOUT BEHAVIORAL DISTURBANCE Status: Chronic Qualifiers: Dementia type: Alzheimer's disease (6) Diastolic CHF Code(s): I50.30 - UNSPECIFIED DIASTOLIC (CONGESTIVE) HEART FAILURE Status: Chronic Qualifiers: Heart failure chronicity: chronic Qualified Code(s): I50.32 - Chronic diastolic (congestive) heart failure (7) HTN (hypertension) Code(s): I10 - ESSENTIAL (PRIMARY) HYPERTENSION Status: Chronic Qualifiers: Hypertension type: essential hypertension Qualified Code(s): I10 - Essential (primary) hypertension (8) Hypothyroidism Code(s): E03.9 - HYPOTHYROIDISM, UNSPECIFIED Status: Chronic Qualifiers: Hypothyroidism type: unspecified Qualified Code(s): E03.9 - Hypothyroidism , unspecified (9) Physical deconditioning Code(s): R53.81 - OTHER MALAISE Status: Chronic (10) Moderate protein-calorie malnutrition Code(s): E44.0 - MODERATE PROTEIN-CALORIE MALNUTRITION Status: Chronic - Plan encourage po intake, she might like cold milk shakes?, may dc lactose free diet if she will consume milk shakes has very poor nutrition and barely eating solid diet. 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 has pedal and lower leg edema, yazan hose below knees is she allows. Has FTT adult and likely advance dementia. D/w case management if family wants snf/NH placement
[2019-06-28] MEDS: Atorvastatin Calcium 20 MG TAB PO SCH (21:02)
[2019-06-29] MEDS: Levothyroxine Sodium 25 MCG TAB PO SCH (05:54)
[2019-06-29] MEDS: Heparin 5,000 UNITS/ML VIAL SC SCH ×2 (08:58→21:21)
[2019-06-29] MEDS: lamoTRIgine 100 MG TAB PO SCH (08:58)
--- NOTE | 2019-06-29 12:11 | PDOC.HOSPP ---
- Subjective Encounter Date: 06/29/19 Encounter Time: 09:15 Subjective: awake, not in distress responds to verbal stimuli, is not oriented drinks strawberry milkshakes but doesn't eat much per staff fed her fish and she drank a milk shake last night per staff no diarrhea - Objective Vital Signs & Weight: Vital Signs (12 hours) Temp Pulse Resp BP Pulse Ox 06/29/19 08:00 98.8 F 86 86 H 116/76 94 L Weight Admit Weight 112 lb 6.4 oz Weight 112 lb 6.4 oz I&O: 06/28/19 06/29/19 06/30/19 06:59 06:59 06:59 Intake Total 500 Balance 500 Result Diagrams: 06/28/19 07:24 06/28/19 07:24 Additional Labs: Accuchecks 06/29/19 06/29/19 06/28/19 11:47 05:58 20:05 POC Glucose 88 102 137 H 06/28/19 06/28/19 16:49 12:45 POC Glucose 111 H 90 Hospitalist ROS - Medication Medications: Active Medications Generic Name Dose Route Start Last Admin Trade Name Freq PRN Reason Stop Dose Admin Acetaminophen 650 mg 06/23/19 23:09 06/27/19 05:54 Tylenol PO 650 mg Q4H PRN Administration Headache/Fever/Mild Pain (1-3) Atorvastatin Calcium 20 mg 06/24/19 21:00 06/28/19 21:02 Lipitor PO 20 mg HS JENNIFER Administration Heparin Sodium (Porcine) 5,000 units 06/24/19 09:00 06/29/19 08:58 Heparin SC 5,000 units BID JENNIFER Administration Lamotrigine 100 mg 06/24/19 09:00 06/29/19 08:58 Lamictal PO 100 mg DAILY JENNIFER Administration Levothyroxine Sodium 25 mcg 06/24/19 06:00 06/29/19 05:54 Synthroid PO 25 mcg 0600 JENNIFER Administration Loperamide HCl 2 mg 06/25/19 01:27 06/25/19 04:10 Imodium PO 2 mg DAILYPRN PRN Administration Diarrhea/Loose Stools Pantoprazole Sodium 40 mg 06/28/19 09:00 06/29/19 08:58 Protonix PO 40 mg DAILY JENNIFER Administration Ranolazine 500 mg 06/24/19 09:00 06/29/19 08:58 Ranexa PO 500 mg BID JENNIFER Administration Sodium Chloride 10 ml 06/25/19 21:00 06/29/19 08:59 Flush - Normal Saline IVF Not Given Q12HR JENNIFER - Exam General Appearance: awake alert Eye: PERRL, anicteric sclera ENT: no oropharyngeal lesions, moist mucosa Neck: supple, no JVD Heart: no murmur, no gallops Respiratory: no wheezes, no rales Gastrointestinal: soft, non-tender, non-distended, normal bowel sounds Extremities: no cyanosis, no edema Neurological: cranial nerve grossly intact, no focal deficits Hosp A/P (1) Diarrhea Code(s): R19.7 - DIARRHEA, UNSPECIFIED Status: Resolved Qualifiers: Diarrhea type: unspecified type Qualified Code(s): R19.7 - Diarrhea, unspecified (2) Dehydration, moderate Code(s): E86.0 - DEHYDRATION Status: Resolved (3) Seizure Code(s): R56.9 - UNSPECIFIED CONVULSIONS Status: Chronic (4) CKD (chronic kidney disease) stage 3, GFR 30-59 ml/min Code(s): N18.3 - CHRONIC KIDNEY DISEASE, STAGE 3 (MODERATE) Status: Chronic (5) Dementia Code(s): F03.90 - UNSPECIFIED DEMENTIA WITHOUT BEHAVIORAL DISTURBANCE Status: Chronic Qualifiers: Dementia type: Alzheimer's disease (6) Diastolic CHF Code(s): I50.30 - UNSPECIFIED DIASTOLIC (CONGESTIVE) HEART FAILURE Status: Chronic Qualifiers: Heart failure chronicity: chronic Qualified Code(s): I50.32 - Chronic diastolic (congestive) heart failure (7) HTN (hypertension) Code(s): I10 - ESSENTIAL (PRIMARY) HYPERTENSION Status: Chronic Qualifiers: Hypertension type: essential hypertension Qualified Code(s): I10 - Essential (primary) hypertension (8) Hypothyroidism Code(s): E03.9 - HYPOTHYROIDISM, UNSPECIFIED Status: Chronic Qualifiers: Hypothyroidism type: unspecified Qualified Code(s): E03.9 - Hypothyroidism , unspecified (9) Physical deconditioning Code(s): R53.81 - OTHER MALAISE Status: Chronic (10) Moderate protein-calorie malnutrition Code(s): E44.0 - MODERATE PROTEIN-CALORIE MALNUTRITION Status: Chronic - Plan encourage po intake, she can drink as many milk shakes she can. has very poor nutrition and barely eating solid diet. 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 has pedal and lower leg edema, yazan hose below knees is she allows. Has FTT adult and likely advance dementia. D/w case management, awaiting placement at [facility]
[2019-06-29] MEDS: Atorvastatin Calcium 20 MG TAB PO SCH (21:21)
[2019-06-30] MEDS: Levothyroxine Sodium 25 MCG TAB PO SCH (05:57)
[2019-06-30] MEDS: Heparin 5,000 UNITS/ML VIAL SC SCH (08:44)
[2019-06-30] MEDS: lamoTRIgine 100 MG TAB PO SCH (08:44)
[2019-06-30 11:49] VITALS: BP 118/75; TEMP 98.4
--- NOTE | 2019-06-30 13:00 | PDOC.HOSPP ---
- Subjective Encounter Date: 06/30/19 Encounter Time: 07:30 Subjective: still sleepy, not in distress nods her head and opens eyes but prefers to sleep back - Objective Vital Signs & Weight: Vital Signs (12 hours) Temp Pulse Resp BP Pulse Ox 06/30/19 11:48 98.4 F 78 18 118/75 94 L 06/30/19 08:40 98 06/30/19 08:00 98.1 F 68 16 142/85 H 98 Weight Admit Weight 112 lb 6.4 oz Weight 112 lb 6.4 oz I&O: 06/29/19 06/30/19 07/01/19 06:59 06:59 06:59 Intake Total 300 Balance 300 Result Diagrams: 06/28/19 07:24 06/28/19 07:24 Additional Labs: Accuchecks 06/30/19 06/30/19 06/29/19 11:51 04:20 19:42 POC Glucose 86 94 98 06/29/19 16:48 POC Glucose 110 - Exam Eye: PERRL, anicteric sclera ENT: no oropharyngeal lesions, dry oral mucosa Neck: supple, no JVD Heart: RRR, no murmur Respiratory: no wheezes, no rales Gastrointestinal: soft, non-tender, non-distended, normal bowel sounds Extremities: no cyanosis, 1+ LE edema Neurological: cranial nerve grossly intact, no focal deficits Hosp A/P (1) Diarrhea Code(s): R19.7 - DIARRHEA, UNSPECIFIED Status: Resolved Qualifiers: Diarrhea type: unspecified type Qualified Code(s): R19.7 - Diarrhea, unspecified (2) Dehydration, moderate Code(s): E86.0 - DEHYDRATION Status: Resolved (3) Seizure Code(s): R56.9 - UNSPECIFIED CONVULSIONS Status: Chronic (4) CKD (chronic kidney disease) stage 3, GFR 30-59 ml/min Code(s): N18.3 - CHRONIC KIDNEY DISEASE, STAGE 3 (MODERATE) Status: Chronic (5) Dementia Code(s): F03.90 - UNSPECIFIED DEMENTIA WITHOUT BEHAVIORAL DISTURBANCE Status: Chronic Qualifiers: Dementia type: Alzheimer's disease (6) Diastolic CHF Code(s): I50.30 - UNSPECIFIED DIASTOLIC (CONGESTIVE) HEART FAILURE Status: Chronic Qualifiers: Heart failure chronicity: chronic Qualified Code(s): I50.32 - Chronic diastolic (congestive) heart failure (7) HTN (hypertension) Code(s): I10 - ESSENTIAL (PRIMARY) HYPERTENSION Status: Chronic Qualifiers: Hypertension type: essential hypertension Qualified Code(s): I10 - Essential (primary) hypertension (8) Hypothyroidism Code(s): E03.9 - HYPOTHYROIDISM, UNSPECIFIED Status: Chronic Qualifiers: Hypothyroidism type: unspecified Qualified Code(s): E03.9 - Hypothyroidism , unspecified (9) Physical deconditioning Code(s): R53.81 - OTHER MALAISE Status: Chronic (10) Moderate protein-calorie malnutrition Code(s): E44.0 - MODERATE PROTEIN-CALORIE MALNUTRITION Status: Chronic - Plan encourage po intake, provide as many milk shakes she can drink. has very poor nutrition and barely eating solid diet. stool studies are -ve for infectious etiology diarrhea has resolved continue lipitor, lamotrigine, synthroid, protonix and ranexa she lives at 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 has pedal and lower leg edema, yazan hose below knees is she allows. Has FTT adult and likely advance dementia. DC pt to [facility] unable to reach her son this am to give updates
--- NOTE | 2019-06-30 15:44 | DIS ---
DATE OF ADMISSION: 06/23/2019 DATE OF DISCHARGE: 06/30/2019 [address] DISPOSITION: [facility] PRIMARY DISCHARGE DIAGNOSES: 1. Diarrheal illness on admission with ujnurwax-dy-[id number] dehydration, resolved. No infectious cause was apparent. 2. Failure to thrive with moderate protein-calorie malnutrition. 3. Advanced age. 4. Underlying dementia. 5. Seizure disorder. 6. Chronic kidney disease stage 3. 7. Hypothyroidism. 8. Diastolic congestive heart failure. 9. Hypertension. 10. Severe deconditioning with the patient being bed-bound. PROCEDURES DONE DURING HOSPITALIZATION: 1. Chest x-ray done, showed stable exam. 2. Right upper quadrant ultrasound done, showed cholelithiasis with no evidence of cholecystitis or biliary dilatation. Common duct was 5 mm. No gallbladder wall thickening or pericholecystic fluid was seen. 3. CT of the abdomen and pelvis done, showed no evidence of acute intraabdominal or pelvic abnormality. Bilateral renal cysts, cholelithiasis, stable splenic hypodensity which is nonspecific, diverticulosis but no diverticulitis. 4. Venous ultrasound of right lower extremity done, showed no evidence of DVT. 5. Stool studies including C diff, Campylobacter antigen, Shiga toxin were all negative. 6. Initial white count of 16. Discharge white count of 7.3, H and H of 8.6 and 26, platelet count 239. MCV is 93 on the day of discharge. Discharge BUN and creatinine are 16 and 1.25. Albumin is 2.3. Initial BUN and creatinine were 29 and 2.3 on admission. She had a sodium of 148 on the day of admission. DISCHARGE MEDICATIONS: 1. Norvasc 5 mg daily. 2. Omeprazole 20 mg daily. 3. Ranexa extended release 500 mg twice daily. 4. Senna 8.6 mg p.o. daily. 5. Aspirin 81 mg p.o. daily. 6. Lipitor 20 mg p.o. at bedtime. 7. Ferrous sulfate 325 mg p.o. daily. 8. Lamictal 100 mg p.o. daily. 9. Levothyroxine 25 mcg p.o. daily. ALLERGIES: ALLERGIC TO PENICILLIN. INPATIENT ADJUNCT PSYCHOLOGY FACULTY MEMBER: Dr. Jeevan Abraham for Gastroenterology. BRIEF COURSE DURING HOSPITALIZATION: The patient initially was brought to emergency room for generalized weakness and diarrhea. She has had kugmwqyf-[id number]-ttrfjg dehydration with acute kidney injury as well on admission. The patient is 83 years old with advanced age and underlying dementia as well with poor oral intake and failure to thrive. Ms. Carcamo was gently hydrated along with initial broad-spectrum antibiotics being given. Her stool studies have been negative and all her antibiotics were discontinued. Ms. Carcamo's renal function trended back to baseline, but the patient has poor oral intake. She likes strawberry milkshakes, but eats very poorly any solid food. She seems to like some fish fillet, which Dr. Carcamo was trying to feed her during her stay here. Her overall prognosis is guarded. She has very poor functional status and is essentially bed bound. At the time of discharge, the patient is barely eating 10% to 20% of her tray. In view of progressive deconditioning with underlying dementia and advanced age, she is being discharged to [facility] for further recuperation. A total of 35 minutes was spent on discharge plan. Please see a [id number] documentation for the day of discharge on [employer]. Job ID: [id number]
== END 2019-06-30 12:39 | DRG 378 ==
LOC: ERS 16:39 → 2SE 20:14 → T4-A 06-26 14:38
PROVIDERS: ADMIT Internal Medicine; ATTEND Internal Medicine
DX: K92.1 Melena (principal); N17.9 Acute kidney failure, unspecified; I13.0 Hypertensive heart and chronic kidney disease with heart failure and stage 1 through stage 4 chronic kidney disease, or unspecified chronic kidney disease; I50.32 Chronic diastolic (congestive) heart failure; E44.0 Moderate protein-calorie malnutrition; E87.0 Hyperosmolality and hypernatremia; K52.9 Noninfective gastroenteritis and colitis, unspecified; E03.9 Hypothyroidism, unspecified; G30.9 Alzheimer's disease, unspecified; F02.80 Dementia in other diseases classified elsewhere, unspecified severity, without behavioral disturbance, psychotic disturbance, mood disturbance, and anxiety; K59.00 Constipation, unspecified; F41.9 Anxiety disorder, unspecified; E11.22 Type 2 diabetes mellitus with diabetic chronic kidney disease; N18.3 Chronic kidney disease, stage 3 (moderate); G40.909 Epilepsy, unspecified, not intractable, without status epilepticus; E86.0 Dehydration; E87.8 Other disorders of electrolyte and fluid balance, not elsewhere classified; D63.1 Anemia in chronic kidney disease; D72.829 Elevated white blood cell count, unspecified; Z79.890 Hormone replacement therapy; Z88.0 Allergy status to penicillin; Z79.899 Other long term (current) drug therapy; Z79.4 Long term (current) use of insulin; Z74.01 Bed confinement status; Z68.21 Body mass index [BMI] 21.0-21.9, adult; Z87.891 Personal history of nicotine dependence
CPT/HCPCS: 36415; 36416; 51701; 71045; 74176; 76705; 80048; 80053; 81003; 81015; 82274; 82533; 83605; 83630; 83735; 85025; 87040; 87076; 87149; 87324; 87427; 87449; 87804; 93005; 96361; 96365; 96366; 96367; 96375; A4353; C9113; J0692; J0696; J1644; J2185; J3370; J3490

== ENCOUNTER 2020-03-06 23:07 | Inpatient (IN) | payer MEDICARE, BC ==
[~2020-03-06 23:07] MED LIST changes: -ISOVUE-370 76%-LOCM 1 ML ONE; +Iopamidol-370 76% 500 ML 1 ML ONE
--- NOTE | 2020-03-06 23:29 | CT ---
CT head noncontrast HISTORY: Hypertension. CVA. COMPARISON: 12/24/2019. FINDINGS: There is no evidence of acute intracranial hemorrhage or infarct. Diffuse cortical atrophy again demonstrated. Prominent chronic ischemic small vessel disease throughout the periventricular white matter. Old lacunar infarcts at each basal ganglia. There is no mass effect or shift of midline structures. IMPRESSION : Prominent chronic ischemic disease and other chronic-type findings are stable. No acute intracranial abnormalities are demonstrated. Findings were called to Dr. Cruz in the emergency department at 2323 hours Code CR.
[2020-03-06 23:31] LABS: #Basophils 0.1 thou/uL (0.0-0.2); #Eosinphils 0.2 thou/uL (0.0-0.7); #Lymphocytes 3.2 thou/uL (1.20-3.40); #Monocytes 0.9 thou/uL (0.11-0.59); #Neutrophils 4.9 thou/uL (1.40-6.50); %Basophils 1.1 % (0.0-1.0); %Eosinophils 1.8 % (0.0-10.0); %Lymphocytes 34.6 % (21.0-51.0); %Monocytes 9.6 % (0.0-10.0); Hemoglobin 12.2 g/dL (12.0-16.0); Mean Corpuscular Hemoglobin 28.5 pg (27.0-31.0); Mean Corpuscular Volume 91.8 fL (78.0-98.0); Mean Platelet Volume 8.7 fL (7.4-10.4); Platelet Count 265 thou/uL (130-400); RBC Distribution Width 14.9 % (11.5-14.5); Red Blood Cell (RBC) Count 4.27 mill/uL (4.20-5.40); White Blood Cell (WBC) Count 9.2 thou/uL (4.8-10.8)
[2020-03-06 23:37] LABS: PTT 26.6 sec (22.9-36.1); Prothrombin Time 13.6 sec (12.0-14.7)
--- NOTE | 2020-03-06 23:53 | CT ---
CT arteriogram neck with IV contrast and 3-D imaging CT arteriogram head with IV contrast and 3-D imaging HISTORY: CVA. FINDINGS: There is good contrast opacification of the great vessels just above the level of the aorti c arch with good flow into each carotid and vertebral system. Arteries are tortuous. Scattered calcification. At each proximal internal carotid artery, stenosis is less than 50%. [place] of [place] is intact. Good flow into each cerebral and cerebellar system. Narrowing of the supr aclinoid portion of the right internal carotid artery by calcification. Prominent chronic ischemic small vessel disease again demonstrated. A 2.2 cm smoothly marginated cystic lesion is noted at the right thyroid lobe. The inferior most images partially demonstrate a lobular low-density mass within the posterior aspect of the right lung above the level of the hilum. IMPRESSION : Atherosclerosis. No acute vascular abnormalities are demonstrated. Partially visualized low density masslike lesion within the right lung. A dedicated CT chest with IV contrast would be most appropriate for further characterization and evaluation for any other lung lesions. Findings were called to Dr. Cruz in the emergency department at 2345 hours Code CR.
[2020-03-07 00:30] LABS: Albumin 3.5 g/dL (3.4-4.8)
[2020-03-07 00:31] LABS: Chloride 106 mmol/L (98-107); Potassium 4.1 mmol/L (3.5-5.1)
[2020-03-07 00:32] LABS: Calcium 9.3 mg/dL (7.8-10.44); Sodium 140 mmol/L (136-145)
[2020-03-07 00:33] LABS: Globulin 3.5 g/dL (2.4-3.5); Glucose 143 mg/dL (83-110)
[2020-03-07 00:34] LABS: Anion Gap 15 mmol/L (10-20); Carbon Dioxide 23 mmol/L (23-31)
[2020-03-07 00:35] LABS: Bilirubin, Total 0.4 mg/dL (0.2-1.2)
[2020-03-07 00:36] LABS: Alkaline Phosphatase 316 U/L (40-110); Calc. Creatinine Clearance 0 mL/min (70-130)
[2020-03-07 00:37] LABS: BUN (Urea Nitrogen) 24 mg/dL (9.8-20.1)
[2020-03-07 00:38] LABS: AST (SGOT) 22 U/L (5-34)
[2020-03-07 00:39] LABS: ALT (SGPT) 23 U/L (8-55); CK (CPK) 47 U/L (29-168)
[2020-03-07] MEDS ORDERED: Labetalol HCl 100 MG/20 ML VIAL ONE (00:56)
[2020-03-07 01:19] LABS: Bacteria/HPF None Seen HPF (None Seen); Bilirubin Negative (Negative); Blood, Urine 3+ (Negative); Clarity Clear (Clear); Glucose, Urine (Dipstick) Normal (Negative); Ketone, Urine Negative (Negative); Leukocyte Negative Leu/uL (Negative); Nitrite Negative (Negative); Protein, Urine (Dipstick) 20 mg/dL (Neg-Trace); RBC/HPF 21-50 HPF (0-3); Specific Gravity, Urine 1.034 (1.002-1.036); Squamous Epithelial 0-3 HPF (0-3); Urobilinogen Normal mg/dL (Less than 2)
[2020-03-07 02:54] LABS: #Lymphocytes 0.9 thou/uL (1.20-3.40); #Monocytes 0.3 thou/uL (0.11-0.59); #Neutrophils 6.2 thou/uL (1.40-6.50); %Basophils 0.1 % (0.0-1.0); %Eosinophils 0.3 % (0.0-10.0); %Lymphocytes 12.3 % (21.0-51.0); %Monocytes 4.1 % (0.0-10.0); %Neutrophils 83.2 % (42.0-75.0); Hemoglobin 12.2 g/dL (12.0-16.0); Mean Corpuscular HGB CONC 32.3 g/dL (32.0-36.0); Mean Corpuscular Hemoglobin 28.8 pg (27.0-31.0); Mean Corpuscular Volume 89.2 fL (78.0-98.0); Mean Platelet Volume 9.2 fL (7.4-10.4); Platelet Count 200 thou/uL (130-400); Red Blood Cell (RBC) Count 4.22 mill/uL (4.20-5.40); White Blood Cell (WBC) Count 7.5 thou/uL (4.8-10.8)
[2020-03-07 03:22] LABS: Anion Gap 18 mmol/L (10-20); BUN (Urea Nitrogen) 24 mg/dL (9.8-20.1); Calc. Creatinine Clearance 0 mL/min (70-130); Calcium 9.5 mg/dL (7.8-10.44); Carbon Dioxide 18 mmol/L (23-31); Chloride 109 mmol/L (98-107); Cholesterol 233 mg/dl (< 200 Desired); Glucose 131 mg/dL (83-110); HDL Cholesterol 78 mg/dL (>60 Neg Risk); LDL Cholesterol, Calculated 140 mg/dL; Potassium 4.9 mmol/L (3.5-5.1); Sodium 140 mmol/L (136-145); Triglycerides 73 mg/dL (Less than 150)
[2020-03-07 03:52] LABS: Troponin I 0.019 ng/mL (< 0.028)
--- NOTE | 2020-03-07 04:29 | HP ---
REASON FOR ADMISSION: Seizures. HISTORY OF PRESENT ILLNESS: This is an 84-year-old female patient, who resides at a custodial. Reported to have a change in her mental status, although she is demented. Her blood pressure was found to be elevated. She then developed a seizure. When EMS arrived, she was postictal. There was a concern for a stroke. She was brought to the ER concurrently. As per her son who is a physician in our hospital, patient is not back to her normal status. She appears to be comfortable, in no acute distress, but as per him, she is not behaving as usual. I did review her records and it seems that patient was admitted to our hospital in June of this year. At that time, she had diarrhea and dehydration. She was also admitted in April with acute on chronic anemia, underwent an EGD and colonoscopy that revealed small nonbleeding duodenal AV malformation. PAST MEDICAL HISTORY: 1. Alzheimer dementia. 2. Chronic kidney disease stage 3. 3. High blood pressure. 4. Hypothyroidism. 5. Chronic diastolic heart failure. 6. Nephrolithiasis. 7. Seizures. PAST SURGICAL HISTORY: 1. Left knee surgery. 2. Hemorrhoidectomy. 3. Cataract surgery. 4. Cystoscopy with lithotripsy and stone extraction and ureteral stent placement. ALLERGIES: PENICILLIN. SOCIAL HISTORY: She does not smoke. Does not drink alcohol. She is a former smoker. FAMILY HISTORY: Noncontributory. REVIEW OF SYSTEMS: Unable to obtain. She is confused. PHYSICAL EXAMINATION: GENERAL: She is awake, alert, but she is confused. VITAL SIGNS: Her blood pressure is 178/93, heart rate of 67, saturating 99% on room air. HEENT: Head is nontraumatic, normocephalic. Pupils equal, reactive. Extraocular movements are intact. Nonicteric sclerae. Well injected conjunctivae. Oral mucosa normal. Nasal mucosa normal. NECK: Supple. No adenopathy. No murmur. Thyroid is not palpable. Trachea is midline. No supraclavicular adenopathy. HEART: S1, S2 regular. No murmur. No gallops. No friction rubs. No displacement of PMI. LUNGS: Poor inspiratory effort. ABDOMEN: Bowel sounds are positive. Slightly tender abdomen, but patient does complain of pain everywhere, I palpate her even on her chest area. EXTREMITIES: 1+ pitting edema in bilateral lower extremities. NEURO: She is moving her upper extremities, not able to perform a complete neurological examination. LABORATORY DATA: Blood work shows WBC of 9.3, hemoglobin of 12.2, platelets of 265. INR 1. PTT 26.6. Sodium 140, potassium 4.1, bicarb 23, creatinine 1.5. Previous creatinine 1.3, alkaline phosphatase 316. Urinalysis negative for nitrites, negative for leukocyte esterase, and has 4-[address] of the head with IV contrast shows atherosclerosis, no acute vascular abnormalities demonstrated, partially visualized low-density masslike lesion within the right lung. It indicated CT chest with IV contrast would be most appropriate for further characterization and evaluation for any other lung lesions. ASSESSMENT AND PLAN: This is an 84-year-old female patient who is known to have history of seizures and after reviewing her records, patient was on Keppra, but could not tolerate that medication. Neurology did transition her to Lamictal. As per her son, patient has poorly controlled seizures, has been having recurrence of seizures. Lamictal was the latest medication that was introduced. Her Aricept and her neostigmine were stopped as well. She presents again with uncontrolled seizures. She is currently most likely postictal. It is also possible that she had stroke. Neurology. Patient will be admitted to the stroke unit. We will maintain her on baby aspirin. We will practice permissive hypertension. We will do an MRI of the brain and echocardiogram. We will consult Neurology for further recommendation concerning an antiepileptic regimen. For DVT prophylaxis, she will be heparin subcutaneously. Renal system, electrolytes. Patient does have chronic kidney disease. We will continue to monitor that. I did discuss code status with her son. He wishes her to be full code. In regards of the incidental finding on the CAT scan of the head in regards of the lung nodules, I will discuss with her son and most likely, we will pursue a dedicated CT of the chest. On the other hand, we cannot use IV contrast because of her kidney function. Job ID: [id number]
[2020-03-07 05:41] LABS: Troponin I 0.027 ng/mL (< 0.028)
[2020-03-07] MEDS ORDERED: HYDROcodone/Acetaminophen 5/325 mg Tablet PO PRN (08:09)
[2020-03-07] MEDS ORDERED: Loratadine 10 MG TAB PO PRN (08:09)
[2020-03-07] MEDS ORDERED: Ondansetron ODT 4 MG TAB PO PRN (08:09)
[2020-03-07] MEDS ORDERED: Loperamide HCl 2 MG CAP PO PRN (08:09)
[2020-03-07] MEDS ORDERED: Diabetic Tussin 200 MG/10 ML UDCUP PO PRN (08:09)
[2020-03-07] MEDS ORDERED: hydrALAZINE 20 MG/ML VIAL SLOW IVP PRN (08:09)
[2020-03-07] MEDS ORDERED: Zolpidem Tartrate 5 MG TAB PO PRN (08:09)
[2020-03-07] MEDS ORDERED: Ondansetron PF 4 MG/2 ML Vial IVP PRN (08:09)
[2020-03-07] MEDS ORDERED: Calcium Carbonate 500 MG ChewTAB PO PRN (08:09)
[2020-03-07] MEDS ORDERED: Sodium Chloride 0.65% Nasal 44 ML BOT EA NARE PRN (08:09)
[2020-03-07] MEDS ORDERED: Bisacodyl 5 MG TAB PO PRN (08:09)
[2020-03-07] MEDS ORDERED: Cepastat Lozenges 1 LOZ PO PRN (08:09)
[2020-03-07] MEDS ORDERED: Senokot S 8.6-50 MG TAB PO PRN (08:09)
[2020-03-07] MEDS ORDERED: Aspirin 325 mg Enteric Coated Tablet PO SCH (09:00)
[2020-03-07] MEDS ORDERED: Heparin 5,000 UNITS/ML VIAL SC SCH (09:00)
[2020-03-07] MEDS ORDERED: Heparin 10,000 UNITS/ 10 ML VIAL ONE (09:09)
[2020-03-07] MEDS ORDERED: Aspirin Chewable 81 MG TAB ONE (09:09)
--- NOTE | 2020-03-07 09:43 | PDOC.HOSPP ---
- Subjective Encounter Date: 03/07/20 Encounter Time: 07:00 Subjective: Patient seen and examined. No overnight events - Objective Result Diagrams: 03/07/20 02:41 03/07/20 02:41 Additional Labs: Accuchecks 03/06/20 23:15 POC Glucose 135 H Radiology Reviewed by me: Yes (CT [place] and CT brain reviewed) EKG Reviewed by me: Yes Hospitalist ROS - Review of Systems ROS unobtainable: due to mental status - Exam General Appearance: NAD, ill appearing Eye: PERRL, anicteric sclera ENT: normocephalic atraumatic, no oropharyngeal lesions Neck: supple, symmetric, no JVD, no thyromegaly Heart: RRR, no murmur, no gallops, no rubs Respiratory: no wheezes, no rales, no ronchi Gastrointestinal: soft, non-tender, non-distended, normal bowel sounds Extremities: no clubbing, no edema Neurological: no focal deficits Neurological - other findings: She moves all 4 limbs Musculoskeletal: normal tone, generalized weakness, diffuse muscle atrophy Psychiatric: not oriented Hosp A/P (1) Encephalopathy acute Code(s): G93.40 - ENCEPHALOPATHY, UNSPECIFIED Status: Acute (2) Lung nodule Code(s): R91.1 - SOLITARY PULMONARY NODULE Status: Acute (3) CKD (chronic kidney disease) stage 3, GFR 30-59 ml/min Code(s): N18.3 - CHRONIC KIDNEY DISEASE, STAGE 3 (MODERATE) * DO NOT USE * Status: Chronic Qualifiers: Chronic kidney disease stage 3 subtype: stage 3b (GFR 30-44) Qualified Code(s): N18.32 - Chronic kidney disease, stage 3b (4) Dementia Code(s): F03.90 - UNSPECIFIED DEMENTIA WITHOUT BEHAVIORAL DISTURBANCE Status: Chronic Qualifiers: Dementia type: Alzheimer's disease Dementia behavioral disturbance: without behavioral disturbance (5) Diastolic CHF Code(s): I50.30 - UNSPECIFIED DIASTOLIC (CONGESTIVE) HEART FAILURE Status: Chronic Qualifiers: Heart failure chronicity: chronic Qualified Code(s): I50.32 - Chronic diastolic (congestive) heart failure (6) HTN (hypertension) Code(s): I10 - ESSENTIAL (PRIMARY) HYPERTENSION Status: Chronic Qualifiers: Hypertension type: essential hypertension Qualified Code(s): I10 - Essent ial (primary) hypertension (7) Hypothyroidism Code(s): E03.9 - HYPOTHYROIDISM, UNSPECIFIED Status: Chronic Qualifiers: Hypothyroidism type: unspecified Qualified Code(s): E03.9 - Hypothyroidism, unspecified (8) Moderate protein-calorie malnutrition Code(s): E44.0 - MODERATE PROTEIN-CALORIE MALNUTRITION Status: Chronic (9) Physical deconditioning Code(s): R53.81 - OTHER MALAISE Status: Chronic (10) Seizure Code(s): R56.9 - UNSPECIFIED CONVULSIONS Status: Chronic (11) GERD (gastroesophageal reflux disease) Code(s): K21.9 - GASTRO-ESOPHAGEAL REFLUX DISEASE WITHOUT ESOPHAGITIS Status: Chronic Qualifiers: Esophagitis presence: without esophagitis Qualified Code(s): K21.9 - Gastro-esophageal reflux disease without esophagitis (12) Dyslipidemia Code(s): E78.5 - HYPERLIPIDEMIA, UNSPECIFIED Status: Chronic - Plan old records reviewed/req, PT/OT, DVT proph w/heparin Plan Regarding pulmonary nodule on the right lung just above the hilum, patient will need CT chest with contrast but because of renal function and yesterday she had contrast with CT angiography will prefer to do CT chest with contrast tomorrow, Patient will need gentle IV fluid today because she appears clinically slightly dehydrated, Tomorrow we will repeat labs and if renal function is better than today then will consider doing CT chest with contrast, doubt patient will be any candidate for any biopsy of the lung given her overall condition, Today neurology is consulted and patient is plan for MRI brain, EEG Neurology to adjust her seizure medication to prevent recurrent seizure and will consider discharging her tomorrow if remains stable after CT chest with contrast.
[2020-03-07] MEDS ORDERED: Acetaminophen 325 MG TAB PO PRN (09:54)
[2020-03-07] MEDS: Aspirin 325 mg Enteric Coated Tablet PO SCH (10:20)
--- NOTE | 2020-03-07 10:25 | CT ---
CT arteriogram neck with IV contrast and 3-D imaging CT arteriogram head with IV contrast and 3-D imaging HISTORY: CVA. FINDINGS: There is good contrast opacification of the great vessels just above the level of the aorti c arch with good flow into each carotid and vertebral system. Arteries are tortuous. Scattered calcification. At each proximal internal carotid artery, stenosis is less than 50%. [place] is intact. Good flow into each cerebral and cerebellar system. Narrowing of the supr aclinoid portion of the right internal carotid artery by calcification. Prominent chronic ischemic small vessel disease again demonstrated. A 2.2 cm smoothly marginated cystic lesion is noted at the right thyroid lobe. The inferior most images partially demonstrate a lobular low-density mass within the posterior aspect of the right lung above the level of the hilum. IMPRESSION : Atherosclerosis. No acute vascular abnormalities are demonstrated. Partially visualized low density masslike lesion within the right lung. A dedicated CT chest with IV contrast would be most appropriate for further characterization and evaluation for any other lung lesions. Findings were called to Dr. Cruz in the emergency department at 2345 hours Code CR. Transcribed Date/Time: 03/07/2020 10:25 AM
--- NOTE | 2020-03-07 11:57 | MRI ---
MRI BRAIN WITHOUT CONTRAST: Date: 03/07/2020 HISTORY: Level I stroke. Hypertension. COMPARISON: 03/19/2019. FINDINGS: Changes of cortical atrophy and chronic small vessel ischemic disease again seen. The ventricular siz e is stable and the basilar cisterns are patent. No evidence of acute infarct, hemorrhage, midline shift, or abnormal extra-axial fluid collections ar e seen. There is a small amount of free fluid in the right mastoid air cells. The visualized paranasa l sinuses are well aerated. IMPRESSION: Chronic changes. No evidence of acute intracranial process. POS: AH
[2020-03-07 14:29] LABS: SARS-CoV-2 MS2 Positive; SARS-CoV-2 N Gene Negative; SARS-CoV-2 S Gene Negative; SARS-CoV-2 by NAA Not Detected (NotDetected); SARS-CoV-2 orf1ab Negative
--- NOTE | 2020-03-07 14:33 | CON ---
NEUROLOGY CONSULTATION DATE OF CONSULTATION: 03/07/2020 REASON FOR CONSULTATION: Altered mental status/seizures. HISTORY OF PRESENT ILLNESS: Ms. Carcamo is an 84-year-old female, who is a care home resident, presented to the emergency room with altered mental status. The patient does have baseline dementia, but according to the son, she developed some confusion and receptive aphasia. There is also report about a seizure from the records and she arrived postictal person. She has been having issues with word finding difficulties. History is obtained from the son and also from review of the medical records. The patient is unable to provide the history. REVIEW OF SYSTEMS: Unobtainable due to mental status. PAST MEDICAL HISTORY: Alzheimer dementia, chronic kidney disease stage 3, hypertension, hypothyroidism, chronic diastolic heart failure, nephrolithiasis, epilepsy. PAST SURGICAL HISTORY: Left knee surgery, hemorrhoidectomy, cataract surgery, cystoscopy with lithotripsy and stone extraction and ureteral stent placement. ALLERGIES: PENICILLIN. SOCIAL HISTORY: There is no documented history of smoking, alcohol, illegal drug use. She is a former smoker. Exam [id number]/93 [id number] 16 General Appearance: NAD, ill appearing Eye: PERRL, anicteric sclera ENT: normocephalic atraumatic, no oropharyngeal lesions Neck: supple, symmetric, no JVD, no thyromegaly Heart: RRR, no murmur, no gallops, no rubs Respiratory: no wheezes, no rales, no ronchi Gastrointestinal: soft, non-tender, non-distended, normal bowel sounds Extremities: no clubbing, no edema Neurological: no focal deficits Neurological -Mental status; the patient is alert and oriented to person only. She is not oriented to place, month, or year. Speech is clear. Motor; muscle tone and bulk are normal. Moving all 4 extremities equally and symmetrically. Sensory, withdraws to nailbed pressure bilaterally. Cranial nerves 2 through 12 intact. Cerebellar, did not cooperate with the testing. Gait deferred due to the patient's safety reason. DATA REVIEWED: I reviewed the MRI of the brain, which was negative for acute intracranial pathology. CTA of the head and neck did not reveal hemodynamically significant stenosis. ASSESSMENT AND PLAN: (1) Encephalopathy acute Code(s): G93.40 - ENCEPHALOPATHY, UNSPECIFIED Status: Acute (2) Lung nodule Code(s): R91.1 - SOLITARY PULMONARY NODULE Status: Acute (3) CKD (chronic kidney disease) stage 3, GFR 30-59 ml/min Code(s): N18.3 - CHRONIC KIDNEY DISEASE, STAGE 3 (MODERATE) * DO NOT USE * Status: Chronic Qualifiers: Chronic kidney disease stage 3 subtype: stage 3b (GFR 30-44) Qualified Code(s): N18.32 - Chronic kidney disease, stage 3b (4) Dementia Code(s): F03.90 - UNSPECIFIED DEMENTIA WITHOUT BEHAVIORAL DISTURBANCE Status: Chronic Qualifiers: Dementia type: Alzheimer's disease Dementia behavioral disturbance: without behavioral disturbance (5) Diastolic CHF Code(s): I50.30 - UNSPECIFIED DIASTOLIC (CONGESTIVE) HEART FAILURE Status: Chronic Qualifiers: Heart failure chronicity: chronic Qualified Code(s): I50.32 - Chronic diastolic (congestive) heart failure (6) HTN (hypertension) Code(s): I10 - ESSENTIAL (PRIMARY) HYPERTENSION Status: Chronic Qualifiers: Hypertension type: essential hypertension Qualified Code(s): I10 - Essential (primary) hypertension (7) Hypothyroidism Code(s): E03.9 - HYPOTHYROIDISM, UNSPECIFIED Status: Chronic Qualifiers: Hypothyroidism type: unspecified Qualified Code(s): E03.9 - Hypothyroidism, unspecified (8) Moderate protein-calorie malnutrition Code(s): E44.0 - MODERATE PROTEIN-CALORIE MALNUTRITION Status: Chronic (9) Physical deconditioning Code(s): R53.81 - OTHER MALAISE Status: Chronic (10) Seizure Code(s): R56.9 - UNSPECIFIED CONVULSIONS Status: Chronic (11) GERD (gastroesophageal reflux disease) Code(s): K21.9 - GASTRO-ESOPHAGEAL REFLUX DISEASE WITHOUT ESOPHAGITIS Status: Chronic Qualifiers: Esophagitis presence: without esophagitis Qualified Code(s): K21.9 - Gastro-esophageal reflux disease without esophagitis (12) Dyslipidemia Code(s): E78.5 - HYPERLIPIDEMIA, UNSPECIFIED Status: Chronic Ms. Aileen Carcamo is an 84-year-old female with history significant for seizure disorder, presented with possible breakthrough seizure. The patient is pretty much in the baseline, but she does have receptive aphasia per son. MRI of the brain reviewed which was negative for acute intracranial pathology. EEG did not show any ongoing seizure activity. CT of the head and neck did not reveal hemodynamically significant stenosis. Neuro checks every 4 hours. Observe seizure precaution. Ativan 2 mg IV for seizure greater than 2 minutes. Check Lamictal level. The patient is on Lamictal 100 mg daily. Dose of Lamictal increased to 50 mg p.o. q.a.m. and 75 mg p.o. q.p.m. Continue home medication. Formal speech evaluation regarding receptive aphasia. Continue medical management per primary team. Plan discussed in detail with the patient's son, Dr. Carcamo. The patient is stable from neurological perspective and can be discharged with outpatient speech therapy. Plan was discussed with the primary attending Dr. Camarena. Patient does have pulmonary nodule and needs work-up with the inpatient neurologist today as patient which will be determined by the primary attending.. Thank you for the consult. Job ID: [id number] [facility]
[2020-03-07] MEDS: Dextrose 5 %-0.45 % NaCl 1,000 ML IV SCH (15:07)
--- NOTE | 2020-03-07 15:07 | PDOC.EEG ---
Neurology EEG Report - Report Report: This EEG was performed using 24 channel [place] video digital EEG machine with 24 disc electrodes. This was a routine EEG recording. Background: The posterior background rhythm is 6 to 7 Hz. Minimal reactivity seen with eye opening and closure. Hyperventilation: Not performed. Photic stimulation. No significant response seen with photic stimulation. EEG diagnosis: Occasional irregular theta activity seen during the recording. Nonsustained slow posterior background rhythm. Clinical interpretation: This EEG is consistent with moderate generalized nonspecific cerebral dysfunction.
[2020-03-07 19:41] VITALS: BMI 19.9
[2020-03-07] MEDS: lamoTRIgine 25 MG TAB PO SCH (22:02)
[2020-03-07] MEDS: Heparin 5,000 UNITS/ML VIAL SC SCH (22:02)
[2020-03-08] MEDS: Dextrose 5 %-0.45 % NaCl 1,000 ML IV SCH (07:13)
[2020-03-08] MEDS: lamoTRIgine 100 MG TAB PO SCH (09:23)
[2020-03-08] MEDS: Heparin 5,000 UNITS/ML VIAL SC SCH ×2 (09:24→21:40)
[2020-03-08] MEDS: Aspirin 325 mg Enteric Coated Tablet PO SCH (09:51)
[2020-03-08] MEDS: Aspirin 81 mg Enteric Coated Tablet PO SCH (09:56)
[2020-03-08 12:54] LABS: Anion Gap 9 mmol/L (10-20); BUN (Urea Nitrogen) 23 mg/dL (9.8-20.1); Calc. Creatinine Clearance 29 mL/min (70-130); Calcium 9.2 mg/dL (7.8-10.44); Carbon Dioxide 28 mmol/L (23-31); Chloride 106 mmol/L (98-107); Glucose 92 mg/dL (83-110); Potassium 3.7 mmol/L (3.5-5.1); Sodium 139 mmol/L (136-145)
[2020-03-08] MEDS ORDERED: Amlodipine 5 MG TAB PO SCH (13:30)
--- NOTE | 2020-03-08 13:54 | PDOC.NEUPN ---
- Subjective Encounter Date: 03/08/20 Subjective: No reported seizures since the last 24 years. - Objective Vital Signs & Weight: Vital Signs (12 hours) Temp Pulse Pulse Resp BP BP Pulse Ox 03/08/20 12:55 79 135/87 03/08/20 11:09 97.7 F 72 16 155/97 H 100 03/08/20 10:18 95 174/104 H 03/08/20 07:30 97.4 F L 92 16 183/96 H 95 03/08/20 04:00 97.4 F L 97 16 151/91 H Weight Admit Weight 123 lb 9.6 oz Weight 123 lb 9.6 oz I&O: 03/07/20 03/08/20 03/09/20 06:59 06:59 06:59 Intake Total 160 Balance 160 Result Diagrams: 03/07/20 02:41 03/08/20 12:26 Radiology Reviewed by me: Yes EKG Reviewed by me: Yes ROS - Review of Systems ROS unobtainable: due to mental status (dementia) - Medication Medications: Active Medications Generic Name Dose Route Start Last Admin Trade Name Evaristoq PRN Reason Stop Dose Admin Aspirin 81 mg 03/08/20 09:00 03/08/20 09:56 Aspirin 81 Mg Enteric Coated Tablet PO 81 mg DAILY JENNIFER Administration Heparin Sodium (Porcine) 5,000 units 03/07/20 21:00 03/08/20 09:24 Heparin 5,000 Units/Ml Vial SC 5,000 units Q12HR JENNIFER Administration Dextrose/Sodium Chloride 1,000 mls @ 50 mls/hr 03/07/20 10:00 03/08/20 07:13 D5 1/2 Ns IV Not Given .Q20H JENNIFER Lamotrigine 50 mg 03/08/20 09:00 03/08/20 09:23 Lamotrigine 100 Mg Tab PO 50 mg QAM JENNIFER Administration Lamotrigine 75 mg 03/07/20 21:00 03/07/20 22:02 Lamotrigine 25 Mg Tab PO 75 mg QPM JENNIFER Administration - Exam General Appearance: awake alert Eye: PERRL ENT: normocephalic atraumatic Neck: supple Respiratory: CTAB Cardiovascular: RRR Gastrointestinal: soft Extremities: no cyanosis Skin: normal turgor Neurological: no focal deficits, no new deficit Musculoskeletal: normal tone, normal strength, no muscle wasting PSYCH: normal affect, oriented to person Results - Labs Result Diagrams: 03/07/20 02:41 03/08/20 12:26 Lab results: WBC 7.5 thou/uL (4.8-10.8) 03/07/20 02:41 Hgb 12.2 g/dL (12.0-16.0) 03/07/20 02:41 Hct 37.7 % (36.0-47.0) 03/07/20 02:41 MCV 89.2 fL (78.0-98.0) 03/07/20 02:41 Plt Count 200 thou/uL (130-400) 03/07/20 02:41 Neutrophils % 83.2 % (42.0-75.0) H 03/07/20 02:41 Sodium 139 mmol/L (136-145) 03/08/20 12:26 Potassium 3.7 mmol/L (3.5-5.1) 03/08/20 12:26 Chloride 106 mmol/L (98-107) 03/08/20 12:26 Carbon Dioxide 28 mmol/L (23-31) 03/08/20 12:26 BUN 23 mg/dL (9.8-20.1) H 03/08/20 12:26 Creatinine 1.23 mg/dL (0.6-1.1) H 03/08/20 12:26 Glucose 92 mg/dL (83-110) 03/08/20 12:26 Calcium 9.2 mg/dL (7.8-10.44) 03/08/20 12:26 Total Bilirubin 0.4 mg/dL (0.2-1.2) 03/07/20 00:12 AST 22 U/L (5-34) 03/07/20 00:12 ALT 23 U/L (8-55) 03/07/20 00:12 Alkaline Phosphatase 316 U/L (40-110) H 03/07/20 00:12 Creatine Kinase 47 U/L (29-168) 03/07/20 00:12 Troponin I 0.027 ng/mL (< 0.028) 03/07/20 05:06 Serum Total Protein 7.0 g/dL (6.0-8.3) 03/07/20 00:12 Albumin 3.5 g/dL (3.4-4.8) 03/07/20 00:12 Urine Ketones Negative mg/dL (Negative) 03/07/20 01:02 Urine Blood 3+ (Negative) A 03/07/20 01:02 Urine Nitrite Negative (Negative) 03/07/20 01:02 Ur Leukocyte Esterase Negative Paulina/uL (Negative) 03/07/20 01:02 Urine RBC 21-50 HPF (0-3) A 03/07/20 01:02 Urine WBC 4-6 HPF (0-3) A 03/07/20 01:02 Ur Squamous Epith Cells 0-3 HPF (0-3) 03/07/20 01:02 Urine Bacteria None Seen HPF (None Seen) 03/07/20 01:02 - Radiology Interpretation MRI - head Additional Comment: No acute intracranial pathology. PN A/P (1) Encephalopathy acute Code(s): G93.40 - ENCEPHALOPATHY, UNSPECIFIED Status: Acute (2) Dyslipidemia Code(s): E78.5 - HYPERLIPIDEMIA, UNSPECIFIED Status: Chronic (3) GERD (gastroesophageal reflux disease) Code(s): K21.9 - GASTRO-ESOPHAGEAL REFLUX DISEASE WITHOUT ESOPHAGITIS Status: Chronic Qualifiers: Esophagitis presence: without esophagitis Qualified Code(s): K21.9 - Gastro-esophageal reflux disease without esophagitis (4) SONALI (acute kidney injury) Code(s): N17.9 - ACUTE KIDNEY FAILURE, UNSPECIFIED Status: Acute (5) Dementia Code(s): F03.90 - UNSPECIFIED DEMENTIA WITHOUT BEHAVIORAL DISTURBANCE Status: Chronic Qualifiers: Dementia type: Alzheimer's disease Dementia behavioral disturbance: without behavioral disturbance (6) Diastolic CHF Code(s): I50.30 - UNSPECIFIED DIASTOLIC (CONGESTIVE) HEART FAILURE Status: Chronic Qualifiers: Heart failure chronicity: chronic Qualified Code(s): I50.32 - Chronic diastolic (congestive) heart failure (7) HTN (hypertension) Code(s): I10 - ESSENTIAL (PRIMARY) HYPERTENSION Status: Chronic Qualifiers: Hypertension type: essential hypertension Qualified Code(s): I10 - Essential (primary) hypertension (8) Hypothyroidism Code(s): E03.9 - HYPOTHYROIDISM, UNSPECIFIED Status: Chronic Qualifiers: Hypothyroidism type: unspecified Qualified Code(s): E03.9 - Hypothyroidism, unspecified (9) Seizure Code(s): R56.9 - UNSPECIFIED CONVULSIONS Status: Chronic - Plan Daily Plan: PT/OT, speech therapy, DVT proph w/SCDs Ms. Carcamo presented with altered mental status. Concern about breakthrough seizures. Lamictal dose adjusted. No further seizures since admission. MRI Brain reviewed which was negative for acute intracranial pathology. EEG reviewed which was negative for seizure activity. 2D Echo showed normal LVEF. Lamictal dose increased to 50 mg po qam and 75 mg o qpm. Observe seizure precautions. Ativan 2 mg IV for seizure greater than 2 minutes. Lung nodule- work up per primary team. Speech eval for receptive aphasia most likely due to chronic small essel disease with worsening dementia PT/OT. Continue home medications. Continue medical management per primary team. Plan discussed with the nursing staff.
--- NOTE | 2020-03-08 17:58 | PDOC.HOSPP ---
- Subjective Encounter Date: 03/08/20 Encounter Time: 10:30 Subjective: Patient up in bed pleasantly confused - Objective Vital Signs & Weight: Vital Signs (12 hours) Temp Pulse Pulse Resp BP BP BP 03/08/20 15:25 97.9 F 73 20 168/84 H 03/08/20 14:48 72 142/84 H 03/08/20 12:55 79 135/87 03/08/20 11:09 97.7 F 72 16 155/97 H 03/08/20 10:18 95 174/104 H 03/08/20 07:30 97.4 F L 92 16 183/96 H Pulse Ox 03/08/20 15:25 100 03/08/20 14:48 03/08/20 12:55 03/08/20 11:09 100 03/08/20 10:18 03/08/20 07:30 95 Weight Admit Weight 123 lb 9.6 oz Weight 123 lb 9.6 oz I&O: 03/07/20 03/08/20 03/09/20 06:59 06:59 06:59 Intake Total 160 Balance 160 Result Diagrams: 03/07/20 02:41 03/08/20 12:26 Hospitalist ROS - Review of Systems Other: Unable to obtain - Medication Medications: Active Medications Generic Name Dose Route Start Last Admin Trade Name Meaghan PRN Reason Stop Dose Admin Aspirin 81 mg 03/08/20 09:00 03/08/20 09:56 Aspirin 81 Mg Enteric Coated Tablet PO 81 mg DAILY JENNIFER Administration Heparin Sodium (Porcine) 5,000 units 03/07/20 21:00 03/08/20 09:24 Heparin 5,000 Units/Ml Vial SC 5,000 units Q12HR JENNIFER Administration Dextrose/Sodium Chloride 1,000 mls @ 50 mls/hr 03/07/20 10:00 03/08/20 07:13 D5 1/2 Ns IV Not Given .Q20H JENNIFER Lamotrigine 50 mg 03/08/20 09:00 03/08/20 09:23 Lamotrigine 100 Mg Tab PO 50 mg QAM JENNIFER Administration Lamotrigine 75 mg 03/07/20 21:00 03/07/20 22:02 Lamotrigine 25 Mg Tab PO 75 mg QPM JENNIFER Administration - Exam Heart: negative: RRR, no murmur, no gallops, no rubs, normal peripheral pulses, irregular, diminshed peripheral pulses, murmur present, II/IV, III/IV Respiratory: negative: CTAB, no wheezes, no rales, no ronchi, normal chest expansion, no tachypnea, normal percussion, rales, rhonchi, tachypneic, wheezes Gastrointestinal: negative: soft, non-tender, non-distended, normal bowel sounds, no palpable masses, no hepatomegaly, no splenomegaly, no bruit, no guarding, no rigidity, tender to palpation, distended, diminished bowl sounds, voluntary guarding Extremities: 1+ LE edema Hosp A/P (1) Encephalopathy acute Code(s): G93.40 - ENCEPHALOPATHY, UNSPECIFIED Status: Acute (2) Lung nodule Code(s): R91.1 - SOLITARY PULMONARY NODULE Status: Acute (3) GERD (gastroesophageal reflux disease) Code(s): K21.9 - GASTRO-ESOPHAGEAL REFLUX DISEASE WITHOUT ESOPHAGITIS Status: Chronic Qualifiers: Esophagitis presence: without esophagitis Qualified Code(s): K21.9 - Gastro-esophageal reflux disease without esophagitis (4) CKD (chronic kidney disease) stage 3, GFR 30-59 ml/min Code(s): N18.3 - CHRONIC KIDNEY DISEASE, STAGE 3 (MODERATE) * DO NOT USE * Status: Chronic Qualifiers: Chronic kidney disease stage 3 subtype: stage 3b (GFR 30-44) Qualified Code(s): N18.32 - Chronic kidney disease, stage 3b (5) HTN (hypertension) Code(s): I10 - ESSENTIAL (PRIMARY) HYPERTENSION Status: Chronic Qualifiers: Hypertension type: essential hypertension Qualified Code(s): I10 - Essential (primary) hypertension (6) Moderate protein-calorie malnutrition Code(s): E44.0 - MODERATE PROTEIN-CALORIE MALNUTRITION Status: Chronic - Plan Patient is MRI brain negative. EEG no acute seizure disorder. Per neurology's recommendation will change Lamictal as recommended. Spoke with speech therapy who recommended grounded food with extra sauce and thin liquids. Patient does have a right lung pulmonary nodule she will need a work-up as an outpatient. Patient will be discharged to her shelter facility. She is pleasantly confused.
[2020-03-08] MEDS: lamoTRIgine 25 MG TAB PO SCH (21:40)
[2020-03-09] MEDS: Dextrose 5 %-0.45 % NaCl 1,000 ML IV SCH ×2 (02:11→21:45)
[2020-03-09] MEDS: Heparin 5,000 UNITS/ML VIAL SC SCH ×2 (09:37→21:43)
[2020-03-09] MEDS: lamoTRIgine 100 MG TAB PO SCH (09:37)
[2020-03-09] MEDS: Aspirin 81 mg Enteric Coated Tablet PO SCH (09:37)
--- NOTE | 2020-03-09 13:09 | PDOC.NEUPN ---
- Subjective Encounter Date: 03/09/20 Subjective: Ms. Carcamo seems tired but oriented to person. She knows her name and date of which seems to be her baseline. - Objective Vital Signs & Weight: Vital Signs (12 hours) Temp Pulse Resp BP BP BP BP 03/09/20 11:55 98.1 F 74 20 129/82 03/09/20 10:10 138/87 159/85 H 03/09/20 08:23 98.0 F 95 20 169/87 H 03/09/20 08:00 98 F 95 20 169/87 H 03/09/20 05:00 98.1 F 89 16 178/97 H Pulse Ox 03/09/20 11:55 100 03/09/20 10:10 03/09/20 08:23 96 03/09/20 08:00 96 03/09/20 05:00 96 Weight Admit Weight 123 lb 9.6 oz Weight 123 lb 9.6 oz I&O: 03/08/20 03/09/20 03/10/20 06:59 06:59 06:59 Intake Total 160 475 Output Total 825 Balance 160 -350 Result Diagrams: 03/07/20 02:41 03/08/20 12:26 Radiology Reviewed by me: Yes EKG Reviewed by me: Yes ROS - Review of Systems ROS unobtainable: due to mental status - Medication Medications: Active Medications Generic Name Dose Route Start Last Admin Trade Name Evaristoq PRN Reason Stop Dose Admin Aspirin 81 mg 03/08/20 09:00 03/09/20 09:37 Aspirin 81 Mg Enteric Coated Tablet PO 81 mg DAILY JENNIFER Administration Heparin Sodium (Porcine) 5,000 units 03/07/20 21:00 03/09/20 09:37 Heparin 5,000 Units/Ml Vial SC 5,000 units Q12HR JENNIFER Administration Dextrose/Sodium Chloride 1,000 mls @ 50 mls/hr 03/07/20 10:00 03/09/20 02:11 D5 1/2 Ns IV Not Given .Q20H JENNIFER Lamotrigine 50 mg 03/08/20 09:00 03/09/20 09:37 Lamotrigine 100 Mg Tab PO 50 mg QAM JENNIFER Administration Lamotrigine 75 mg 03/07/20 21:00 03/08/20 21:40 Lamotrigine 25 Mg Tab PO 75 mg QPM JENNIFER Administration - Exam General Appearance: NAD Eye: PERRL ENT: normocephalic atraumatic Neck: supple Respiratory: CTAB Cardiovascular: RRR Gastrointestinal: soft Extremities: no cyanosis Skin: normal turgor Neurological: no new deficit Musculoskeletal: normal tone, normal strength, no muscle wasting PSYCH: normal affect, normal behavior, oriented to person Results - Labs Result Diagrams: 03/07/20 02:41 03/08/20 12:26 Lab results: WBC 7.5 thou/uL (4.8-10.8) 03/07/20 02:41 Hgb 12.2 g/dL (12.0-16.0) 03/07/20 02:41 Hct 37.7 % (36.0-47.0) 03/07/20 02:41 MCV 89.2 fL (78.0-98.0) 03/07/20 02:41 Plt Count 200 thou/uL (130-400) 03/07/20 02:41 Neutrophils % 83.2 % (42.0-75.0) H 03/07/20 02:41 Sodium 139 mmol/L (136-145) 03/08/20 12:26 Potassium 3.7 mmol/L (3.5-5.1) 03/08/20 12:26 Chloride 106 mmol/L (98-107) 03/08/20 12:26 Carbon Dioxide 28 mmol/L (23-31) 03/08/20 12:26 BUN 23 mg/dL (9.8-20.1) H 03/08/20 12:26 Creatinine 1.23 mg/dL (0.6-1.1) H 03/08/20 12:26 Glucose 92 mg/dL (83-110) 03/08/20 12:26 Calcium 9.2 mg/dL (7.8-10.44) 03/08/20 12:26 Total Bilirubin 0.4 mg/dL (0.2-1.2) 03/07/20 00:12 AST 22 U/L (5-34) 03/07/20 00:12 ALT 23 U/L (8-55) 03/07/20 00:12 Alkaline Phosphatase 316 U/L (40-110) H 03/07/20 00:12 Creatine Kinase 47 U/L (29-168) 03/07/20 00:12 Troponin I 0.027 ng/mL (< 0.028) 03/07/20 05:06 Serum Total Protein 7.0 g/dL (6.0-8.3) 03/07/20 00:12 Albumin 3.5 g/dL (3.4-4.8) 03/07/20 00:12 Urine Ketones Negative mg/dL (Negative) 03/07/20 01:02 Urine Blood 3+ (Negative) A 03/07/20 01:02 Urine Nitrite Negative (Negative) 03/07/20 01:02 Ur Leukocyte Esterase Negative Paulina/uL (Negative) 03/07/20 01:02 Urine RBC 21-50 HPF (0-3) A 03/07/20 01:02 Urine WBC 4-6 HPF (0-3) A 03/07/20 01:02 Ur Squamous Epith Cells 0-3 HPF (0-3) 03/07/20 01:02 Urine Bacteria None Seen HPF (None Seen) 03/07/20 01:02 - Radiology Interpretation MRI - head Additional Comment: MRI of the brain did not reveal acute intracranial pathology. She does have significant chronic small vessel disease. PN A/P (1) Encephalopathy acute Code(s): G93.40 - ENCEPHALOPATHY, UNSPECIFIED Status: Acute (2) Dyslipidemia Code(s): E78.5 - HYPERLIPIDEMIA, UNSPECIFIED Status: Chronic (3) GERD (gastroesophageal reflux disease) Code(s): K21.9 - GASTRO-ESOPHAGEAL REFLUX DISEASE WITHOUT ESOPHAGITIS Status: Chronic Qualifiers: Esophagitis presence: without esophagitis Qualified Code(s): K21.9 - Gastro -esophageal reflux disease without esophagitis (4) SONALI (acute kidney injury) Code(s): N17.9 - ACUTE KIDNEY FAILURE, UNSPECIFIED Status: Acute (5) Dementia Code(s): F03.90 - UNSPECIFIED DEMENTIA WITHOUT BEHAVIORAL DISTURBANCE Status: Chronic Qualifiers: Dementia type: Alzheimer's disease Dementia behavioral disturbance: without behavioral disturbance (6) Diastolic CHF Code(s): I50.30 - UNSPECIFIED DIASTOLIC (CONGESTIVE) HEART FAILURE Status: Chronic Qualifiers: Heart failure chronicity: chronic Qualified Code(s): I50.32 - Chronic diastolic (congestive) heart failure (7) HTN (hypertension) Code(s): I10 - ESSENTIAL (PRIMARY) HYPERTENSION Status: Chronic Qualifiers: Hypertension type: essential hypertension Qualified Code(s): I10 - Essential (primary) hypertension (8) Hypothyroidism Code(s): E03.9 - HYPOTHYROIDISM, UNSPECIFIED Status: Chronic Qualifiers: Hypothyroidism type: unspecified Qualified Code(s): E03.9 - Hypothyroidism, unspecified (9) Seizure Code(s): R56.9 - UNSPECIFIED CONVULSIONS Status: Chronic - Plan Daily Plan: PT/OT, speech therapy, DVT proph w/SCDs Ms. Carcamo presented with altered mental status. There was concern about breakthrough seizures. Lamictal dose adjusted. No further seizures since admission. Patient participated with physical therapy today and seems diet at the time of rounding but oriented to person. She knows her name and also her date of . She followed commands intermittently. MRI Brain reviewed which was negative for acute intracranial pathology. EEG reviewed which was negative for seizure activity. 2D Echo showed normal LVEF. Continue Lamictal dose 50 mg po qam and 75 mg o qpm. Observe seizure precautions. Ativan 2 mg IV for seizure greater than 2 minutes. Lung nodule- work up per primary team. Speech eval for receptive aphasia most likely due to chronic small essel disease with worsening dementia PT/OT. Continue home medications. Continue medical management per primary team. Plan discussed with the nursing staff.
--- NOTE | 2020-03-09 15:36 | CT ---
CT Brain WO Con History: Decreased level of consciousness Comparison: CT brain 2 days prior. MRI brain 2 days prior Findings: No acute hemorrhage or infarct. Moderate atrophy. Extensive microvascular ischemic changes. Calvarium is intact. Paranasal sinuses and mastoids are clear Impression: No acute intracranial abnormality.
--- NOTE | 2020-03-09 15:59 | PDOC.HOSPP ---
- Subjective Encounter Date: 03/09/20 Encounter Time: 12:45 Subjective: pt up working with physical therapy - Objective Vital Signs & Weight: Vital Signs (12 hours) Temp Pulse Resp BP BP BP BP 03/09/20 11:55 98.1 F 74 20 129/82 03/09/20 10:10 138/87 159/85 H 03/09/20 08:23 98.0 F 95 20 169/87 H 03/09/20 08:00 98 F 95 20 169/87 H 03/09/20 05:00 98.1 F 89 16 178/97 H Pulse Ox 03/09/20 11:55 100 03/09/20 10:10 03/09/20 08:23 96 03/09/20 08:00 96 03/09/20 05:00 96 Weight Admit Weight 123 lb 9.6 oz Weight 123 lb 9.6 oz I&O: 03/08/20 03/09/20 03/10/20 06:59 06:59 06:59 Intake Total 160 475 Output Total 825 Balance 160 -350 Result Diagrams: 03/07/20 02:41 03/08/20 12:26 Hospitalist ROS - Review of Systems Other: unable to obtain - Medication Medications: Active Medications Generic Name Dose Route Start Last Admin Trade Name Freq PRN Reason Stop Dose Admin Aspirin 81 mg 03/08/20 09:00 03/09/20 09:37 Aspirin 81 Mg Enteric Coated Tablet PO 81 mg DAILY JENNIFER Administration Heparin Sodium (Porcine) 5,000 units 03/07/20 21:00 03/09/20 09:37 Heparin 5,000 Units/Ml Vial SC 5,000 units Q12HR JENNIFER Administration Dextrose/Sodium Chloride 1,000 mls @ 50 mls/hr 03/07/20 10:00 03/09/20 02:11 D5 1/2 Ns IV Not Given .Q20H JENNIFER Lamotrigine 50 mg 03/08/20 09:00 03/09/20 09:37 Lamotrigine 100 Mg Tab PO 50 mg QAM JENNIFER Administration Lamotrigine 75 mg 03/07/20 21:00 03/08/20 21:40 Lamotrigine 25 Mg Tab PO 75 mg QPM JENNIFER Administration - Exam Respiratory: negative: CTAB, no wheezes, no rales, no ronchi, normal chest expansion, no tachypnea, normal percussion, rales, rhonchi, tachypneic, wheezes Gastrointestinal: negative: soft, non-tender, non-distended, normal bowel sounds, no palpable masses, no hepatomegaly, no splenomegaly, no bruit, no guarding, no rigidity, tender to palpation, distended, diminished bowl sounds, voluntary guarding Extremities: negative: no cyanosis, no clubbing, no edema, 1+ LE edema, 2+ LE edema, clubbing Hosp A/P (1) Encephalopathy acute Code(s): G93.40 - ENCEPHALOPATHY, UNSPECIFIED Status: Acute (2) Lung nodule Code(s): R91.1 - SOLITARY PULMONARY NODULE Status: Acute (3) GERD (gastroesophageal reflux disease) Code(s): K21.9 - GASTRO-ESOPHAGEAL REFLUX DISEASE WITHOUT ESOPHAGITIS Status: Chronic Qualifiers: Esophagitis presence: without esophagitis Qualified Code(s): K21.9 - Gastro-esophageal reflux disease without esophagitis (4) CKD (chronic kidney disease) stage 3, GFR 30-59 ml/min Code(s): N18.3 - CHRONIC KIDNEY DISEASE, STAGE 3 (MODERATE) * DO NOT USE * Status: Chronic Qualifiers: Chronic kidney disease stage 3 subtype: stage 3b (GFR 30-44) Qualified Code(s): N18.32 - Chronic kidney disease, stage 3b (5) HTN (hypertension) Code(s): I10 - ESSENTIAL (PRIMARY) HYPERTENSION Status: Chronic Qualifiers: Hypertension type: essential hypertension Qualified Code(s): I10 - Essential (primary) hypertension (6) Moderate protein-calorie malnutrition Code(s): E44.0 - MODERATE PROTEIN-CALORIE MALNUTRITION Status: Chronic - Plan Patient is MRI brain negative. EEG no acute seizure disorder. Per neurology's recommendation will change Lamictal as recommended. Spoke with speech therapy who recommended grounded food with extra sauce and thin liquids. Patient does have a right lung pulmonary nodule she will need a work-up as an outpatient. [facility] She is pleasantly confused. 03/09 pt was working with PT this am, however nurse called states that pt has been not waking up. ct head done no acute process. Went to evaluate the pt she opens her eyes and does answer. Possible subclinical seizure? will hold discharge and will ask neurology to reevaluate her.
--- NOTE | 2020-03-09 17:21 | PDOC.EEG ---
Neurology EEG Report - Report Report: This EEG was performed using 24 channel Volumental video digital EEG machine with 24 disc electrodes. This was a routine EEG recording. Background: The posterior background rhythm is 7 to 8 Hz. Minimal reactivity seen with eye opening and closure. Hyperventilation: Not performed. Photic stimulation. No significant response seen with photic stimulation. EEG diagnosis: Occasional irregular theta activity seen during the recording. Nonsustained slow posterior background rhythm. Clinical interpretation: This EEG is consistent with mild generalized nonspecific cerebral dysfunction.
[2020-03-09] MEDS: lamoTRIgine 25 MG TAB PO SCH (21:56)
[2020-03-10 05:52] LABS: Bilirubin Negative (Negative); Blood, Urine Negative (Negative); Clarity Turbid (Clear); Glucose, Urine (Dipstick) Normal (Negative); Ketone, Urine Negative (Negative); Leukocyte 500 Leu/uL (Negative); Nitrite Negative (Negative); Protein, Urine (Dipstick) 30 mg/dL (Neg-Trace); Specific Gravity, Urine 1.019 (1.002-1.036); Urobilinogen Normal mg/dL (Less than 2); WBC/HPF Greater than 50 HPF (0-3)
[2020-03-10 05:56] LABS: Bacteria/HPF 1+ HPF (None Seen)
[2020-03-10] MEDS: Heparin 5,000 UNITS/ML VIAL SC SCH ×2 (10:38→21:11)
[2020-03-10] MEDS: lamoTRIgine 100 MG TAB PO SCH (10:38)
[2020-03-10] MEDS: Aspirin 81 mg Enteric Coated Tablet PO SCH (10:38)
[2020-03-10 11:02] LABS: ALT (SGPT) 12 U/L (8-55); AST (SGOT) 15 U/L (5-34); Albumin 3.1 g/dL (3.4-4.8); Alkaline Phosphatase 256 U/L (40-110); Anion Gap 13 mmol/L (10-20); BUN (Urea Nitrogen) 22 mg/dL (9.8-20.1); Bilirubin, Total 0.3 mg/dL (0.2-1.2); Calc. Creatinine Clearance 26 mL/min (70-130); Calcium 9.1 mg/dL (7.8-10.44); Carbon Dioxide 24 mmol/L (23-31); Chloride 106 mmol/L (98-107); Globulin 3.3 g/dL (2.4-3.5); Glucose 102 mg/dL (83-110); Potassium 3.8 mmol/L (3.5-5.1); Protein, Total 6.4 g/dL (6.0-8.3); Sodium 139 mmol/L (136-145)
--- NOTE | 2020-03-10 11:40 | PDOC.NEUPN ---
- Subjective Encounter Date: 03/10/20 Subjective: Ms. Carcamo is alert and awake this morning and oriented to her name. Yesterday she had an episode of increased somnolence. Stat HCT and EEG maldonado done which were negative. She returned to her baseline in few hours. - Objective Vital Signs & Weight: Vital Signs (12 hours) Temp Pulse Resp BP BP Pulse Ox 03/10/20 11:32 98.1 F 75 16 136/77 98 03/10/20 08:00 99.2 F 83 14 154/87 H 99 03/10/20 04:31 98 F 84 16 128/82 97 03/10/20 01:00 98 F 93 16 108/59 L 96 Weight Admit Weight 123 lb 9.6 oz Weight 123 lb 9.6 oz I&O: 03/09/20 03/10/20 03/11/20 06:59 06:59 06:59 Intake Total 475 250 Output Total 825 200 Balance -350 50 Result Diagrams: 03/07/20 02:41 03/10/20 10:14 ROS - Review of Systems ROS unobtainable: due to mental status - Medication Medications: Active Medications Generic Name Dose Route Start Last Admin Trade Name Freq PRN Reason Stop Dose Admin Aspirin 81 mg 03/08/20 09:00 03/10/20 10:38 Aspirin 81 Mg Enteric Coated Tablet PO 81 mg DAILY JENNIFER Administration Heparin Sodium (Porcine) 5,000 units 03/07/20 21:00 03/10/20 10:38 Heparin 5,000 Units/Ml Vial SC 5,000 units Q12HR JENNIFER Administration Dextrose/Sodium Chloride 1,000 mls @ 50 mls/hr 03/07/20 10:00 03/09/20 21:45 D5 1/2 Ns IV 1,000 mls .Q20H JENNIFER Administration Lamotrigine 50 mg 03/08/20 09:00 03/10/20 10:38 Lamotrigine 100 Mg Tab PO 50 mg QAM JENNIFER Administration Lamotrigine 75 mg 03/07/20 21:00 03/09/20 21:56 Lamotrigine 25 Mg Tab PO Not Given QPM JENNIFER Sodium Chloride 10 ml 03/07/20 02:14 03/09/20 21:44 Flush - Normal Saline 10 Ml Syringe IVF 10 ml PRN PRN Administration Saline Flush - Exam General Appearance: awake alert Eye: PERRL ENT: normocephalic atraumatic Neck: supple Respiratory: CTAB Cardiovascular: RRR Gastrointestinal: soft Extremities: no cyanosis Skin: normal turgor Neurological: no new deficit Musculoskeletal: normal tone, no muscle wasting PSYCH: normal affect, normal behavior, oriented to person Results - Labs Result Diagrams: 03/07/20 02:41 03/10/20 10:14 Lab results: WBC 7.5 thou/uL (4.8-10.8) 03/07/20 02:41 Hgb 12.2 g/dL (12.0-16.0) 03/07/20 02:41 Hct 37.7 % (36.0-47.0) 03/07/20 02:41 MCV 89.2 fL (78.0-98.0) 03/07/20 02:41 Plt Count 200 thou/uL (130-400) 03/07/20 02:41 Neutrophils % 83.2 % (42.0-75.0) H 03/07/20 02:41 Sodium 139 mmol/L (136-145) 03/10/20 10:14 Potassium 3.8 mmol/L (3.5-5.1) 03/10/20 10:14 Chloride 106 mmol/L (98-107) 03/10/20 10:14 Carbon Dioxide 24 mmol/L (23-31) 03/10/20 10:14 BUN 22 mg/dL (9.8-20.1) H 03/10/20 10:14 Creatinine 1.37 mg/dL (0.6-1.1) H 03/10/20 10:14 Glucose 102 mg/dL (83-110) 03/10/20 10:14 Calcium 9.1 mg/dL (7.8-10.44) 03/10/20 10:14 Total Bilirubin 0.3 mg/dL (0.2-1.2) 03/10/20 10:14 AST 15 U/L (5-34) 03/10/20 10:14 ALT 12 U/L (8-55) 03/10/20 10:14 Alkaline Phosphatase 256 U/L (40-110) H 03/10/20 10:14 Creatine Kinase 47 U/L (29-168) 03/07/20 00:12 Troponin I 0.027 ng/mL (< 0.028) 03/07/20 05:06 Serum Total Protein 6.4 g/dL (6.0-8.3) 03/10/20 10:14 Albumin 3.1 g/dL (3.4-4.8) L 03/10/20 10:14 Urine Ketones Negative mg/dL (Negative) 03/10/20 03:30 Urine Blood Negative (Negative) 03/10/20 03:30 Urine Nitrite Negative (Negative) 03/10/20 03:30 Ur Leukocyte Esterase 500 Paulina/uL (Negative) A 03/10/20 03:30 Urine RBC 11-20 HPF (0-3) A 03/10/20 03:30 Urine WBC Greater than 50 HPF (0-3) A 03/10/20 03:30 Ur Squamous Epith Cells 11-20 HPF (0-3) A 03/10/20 03:30 Urine Bacteria 1+ HPF (None Seen) A 03/10/20 03:30 - Radiology Interpretation CT scan - head Additional Comment: Negative for acute intracranial pathology PN A/P (1) Encephalopathy acute Code(s): G93.40 - ENCEPHALOPATHY, UNSPECIFIED Status: Acute (2) Dyslipidemia Code(s): E78.5 - HYPERLIPIDEMIA, UNSPECIFIED Status: Chronic (3) GERD (gastroesophageal reflux disease) Code(s): K21.9 - GASTRO-ESOPHAGEAL REFLUX DISEASE WITHOUT ESOPHAGITIS Status: Chronic Qualifiers: Esophagitis presence: without esophagitis Qualified Code(s): K21.9 - Gastro-esophageal reflux disease without esophagitis (4) SONALI (acute kidney injury) Code(s): N17.9 - ACUTE KIDNEY FAILURE, UNSPECIFIED Status: Acute (5) Dementia Code(s): F03.90 - UNSPECIFIED DEMENTIA WITHOUT BEHAVIORAL DISTURBANCE Status: Chronic Qualifiers: Dementia type: Alzheimer's disease Dementia behavioral disturbance: without behavioral disturbance (6) Diastolic CHF Code(s): I50.30 - UNSPECIFIED DIASTOLIC (CONGESTIVE) HEART FAILURE Status: Chronic Qualifiers: Heart failure chronicity: chronic Qualified Code(s): I50.32 - Chronic diastolic (congestive) heart failure (7) HTN (hypertension) Code(s): I10 - ESSENTIAL (PRIMARY) HYPERTENSION Status: Chronic Qualifiers: Hypertension type: essential hypertension Qualified Code(s): I10 - Essential (primary) hypertension (8) Hypothyroidism Code(s): E03.9 - HYPOTHYROIDISM, UNSPECIFIED Status: Chronic Qualifiers: Hypothyroidism type: unspecified Qualified Code(s): E03.9 - Hypothyroidism, unspecified (9) Seizure Code(s): R56.9 - UNSPECIFIED CONVULSIONS Status: Chronic - Plan Daily Plan: PT/OT, speech therapy, DVT proph w/SCDs Ms. Carcamo presented with altered mental status. There was concern about breakthrough seizures. Lamictal dose adjusted. No further seizures since admission. Yesterday, she had an episode of increased somnolence. Stat HCT and EEG maldonado done which were negative. She returned to her baseline in few hours.Today she is alert and oriented to herself. HCT from 03/09/2020 reviewed which was negative for acute intracranial pathology EEG from 03/09/2020 reviewed which was negative for seizure activity. MRI Brain reviewed which was negative for acute intracranial pathology. EEG reviewed which was negative for seizure activity. 2D Echo showed normal LVEF. Continue Lamictal dose 50 mg po qam and 75 mg po qpm. Observe seizure precautions. Ativan 2 mg IV for seizure greater than 2 minutes. Lung nodule- work up per primary team. Speech eval for receptive aphasia most likely due to chronic small essel disease with worsening dementia is completed. Speech is on board. PT/OT. Continue home medications. Continue medical management per primary team. Plan discussed with the nursing staff.
--- NOTE | 2020-03-10 14:26 | PDOC.HOSPP ---
- Subjective Encounter Date: 03/10/20 Encounter Time: 10:30 Subjective: pt up in bed no complains. she is pleasantly confused. - Objective Vital Signs & Weight: Vital Signs (12 hours) Temp Pulse Resp BP Pulse Ox 03/10/20 11:32 98.1 F 75 16 136/77 98 03/10/20 08:00 99.2 F 83 14 154/87 H 99 03/10/20 04:31 98 F 84 16 128/82 97 Weight Admit Weight 123 lb 9.6 oz Weight 123 lb 9.6 oz I&O: 03/09/20 03/10/20 03/11/20 06:59 06:59 06:59 Intake Total 475 250 Output Total 825 200 Balance -350 50 Result Diagrams: 03/07/20 02:41 03/10/20 10:14 Hospitalist ROS - Review of Systems Cardiovascular: denies: chest pain, palpitations, orthopnea, paroxysmal noc. dyspnea, edema, light headedness, other Gastrointestinal: denies: nausea, vomiting, abdominal pain, diarrhea, constipation, melena, hematochezia, other Genitourinary: denies: dysuria, frequency, incontinence, hematuria, retention, other - Medication Medications: Active Medications Generic Name Dose Route Start Last Admin Trade Name Freq PRN Reason Stop Dose Admin Aspirin 81 mg 03/08/20 09:00 03/10/20 10:38 Aspirin 81 Mg Enteric Coated Tablet PO 81 mg DAILY JENNIFER Administration Heparin Sodium (Porcine) 5,000 units 03/07/20 21:00 03/10/20 10:38 Heparin 5,000 Units/Ml Vial SC 5,000 units Q12HR JENNIFER Administration Dextrose/Sodium Chloride 1,000 mls @ 50 mls/hr 03/07/20 10:00 03/09/20 21:45 D5 1/2 Ns IV 1,000 mls .Q20H JENNIFER Administration Lamotrigine 50 mg 03/08/20 09:00 03/10/20 10:38 Lamotrigine 100 Mg Tab PO 50 mg QAM JENNIFER Administration Lamotrigine 75 mg 03/07/20 21:00 03/09/20 21:56 Lamotrigine 25 Mg Tab PO Not Given QPM JENNIFER Sodium Chloride 10 ml 03/07/20 02:14 03/09/20 21:44 Flush - Normal Saline 10 Ml Syringe IVF 10 ml PRN PRN Administration Saline Flush - Exam Heart: negative: RRR, no murmur, no gallops, no rubs, normal peripheral pulses, irregular, diminshed peripheral pulses, murmur present, II/IV, III/IV Respiratory: negative: CTAB, no wheezes, no rales, no ronchi, normal chest expansion, no tachypnea, normal percussion, rales, rhonchi, tachypneic, wheezes Gastrointestinal: negative: soft, non-tender, non-distended, normal bowel sounds, no palpable masses, no hepatomegaly, no splenomegaly, no bruit, no guarding, no rigidity, tender to palpation, distended, diminished bowl sounds, voluntary guarding Extremities: negative: no cyanosis, no clubbing, no edema, 1+ LE edema, 2+ LE edema, clubbing Hosp A/P (1) Encephalopathy acute Code(s): G93.40 - ENCEPHALOPATHY, UNSPECIFIED Status: Acute (2) Lung nodule Code(s): R91.1 - SOLITARY PULMONARY NODULE Status: Acute (3) GERD (gastroesophageal reflux disease) Code(s): K21.9 - GASTRO-ESOPHAGEAL REFLUX DISEASE WITHOUT ESOPHAGITIS Status: Chronic Qualifiers: Esophagitis presence: without esophagitis Qualified Code(s): K21.9 - Gastro-esophageal reflux disease without esophagitis (4) CKD (chronic kidney disease) stage 3, GFR 30-59 ml/min Code(s): N18.3 - CHRONIC KIDNEY DISEASE, STAGE 3 (MODERATE) * DO NOT USE * Status: Chronic Qualifiers: Chronic kidney disease stage 3 subtype: stage 3b (GFR 30-44) Qualified Code(s): N18.32 - Chronic kidney disease, stage 3b (5) HTN (hypertension) Code(s): I10 - ESSENTIAL (PRIMARY) HYPERTENSION Status: Chronic Qualifiers: Hypertension type: essential hypertension Qualified Code(s): I10 - Essential (primary) hypertension (6) Moderate protein-calorie malnutrition Code(s): E44.0 - MODERATE PROTEIN-CALORIE MALNUTRITION Status: Chronic - Plan Patient is MRI brain negative. EEG no acute seizure disorder. Per neurology's recommendation will change Lamictal as recommended. Spoke with speech therapy who recommended grounded food with extra sauce and thin liquids. Patient does have a right lung pulmonary nodule she will need a work-up as an outpatient. Patient will be discharged to her long-term facility. She is pleasantly confused. 03/09 pt was working with PT this am, however nurse called states that pt has been not waking up. ct head done no acute process. Went to evaluate the pt she opens her eyes and does answer. Possible subclinical seizure? will hold discharge and will ask neurology to reevaluate her. 03/10 pt is back to her baseline. she had a episode yest eeg negative, ct head negative. pt will need snf nurse outreach case manager working on it. will continue current meds.
[2020-03-10] MEDS: Dextrose 5 %-0.45 % NaCl 1,000 ML IV SCH (19:14)
[2020-03-10] MEDS: lamoTRIgine 25 MG TAB PO SCH (21:11)
[2020-03-11] MEDS: Aspirin 81 mg Enteric Coated Tablet PO SCH (11:09)
[2020-03-11] MEDS: lamoTRIgine 100 MG TAB PO SCH (11:09)
[2020-03-11] MEDS: Heparin 5,000 UNITS/ML VIAL SC SCH ×2 (11:09→22:02)
--- NOTE | 2020-03-11 13:50 | PDOC.NEUPN ---
- Subjective Encounter Date: 03/11/20 Subjective: Ms. Carcamo is alert and awake and oriented to her name. - Objective Vital Signs & Weight: Vital Signs (12 hours) Temp Pulse Resp BP BP Pulse Ox 03/11/20 12:00 97.8 F 70 18 174/88 H 94 L 03/11/20 08:00 98.2 F 70 20 181/104 H 97 03/11/20 07:45 95 03/11/20 04:00 97.4 F L 66 16 154/88 H 93 L Weight Admit Weight 123 lb 9.6 oz Weight 123 lb 9.6 oz I&O: 03/10/20 03/11/20 03/12/20 06:59 06:59 06:59 Intake Total 250 822 360 Output Total 200 1850 250 Balance 50 -1028 110 Result Diagrams: 03/07/20 02:41 03/10/20 10:14 Radiology Reviewed by me: Yes EKG Reviewed by me: Yes ROS - Review of Systems ROS unobtainable: due to mental status - Medication Medications: Active Medications Generic Name Dose Route Start Last Admin Trade Name Freq PRN Reason Stop Dose Admin Aspirin 81 mg 03/08/20 09:00 03/11/20 11:09 Aspirin 81 Mg Enteric Coated Tablet PO 81 mg DAILY JENNIFER Administration Heparin Sodium (Porcine) 5,000 units 03/07/20 21:00 03/11/20 11:09 Heparin 5,000 Units/Ml Vial SC 5,000 units Q12HR JENNIFER Administration Dextrose/Sodium Chloride 1,000 mls @ 50 mls/hr 03/07/20 10:00 03/10/20 19:14 D5 1/2 Ns IV Not Given .Q20H JENNIFER Lamotrigine 50 mg 03/08/20 09:00 03/11/20 11:09 Lamotrigine 100 Mg Tab PO 50 mg QAM JENNIFER Administration Lamotrigine 75 mg 03/07/20 21:00 03/10/20 21:11 Lamotrigine 25 Mg Tab PO 75 mg QPM JENNIFER Administration Senna/Docusate Sodium 2 tab 03/07/20 08:09 03/11/20 11:09 Senokot S 8.6-50 Mg Tab PO 2 tab BIDPRN PRN Administration Constipation Sodium Chloride 10 ml 03/07/20 02:14 03/09/20 21:44 Flush - Normal Saline 10 Ml Syringe IVF 10 ml PRN PRN Administration Saline Flush - Exam General Appearance: awake alert Eye: PERRL ENT: normocephalic atraumatic Neck: supple Respiratory: CTAB Cardiovascular: RRR Gastrointestinal: soft Extremities: no cyanosis Skin: normal turgor Neurological: no new deficit Musculoskeletal: normal tone, no muscle wasting PSYCH: normal affect, normal behavior, oriented to person Results - Labs Result Diagrams: 03/07/20 02:41 03/10/20 10:14 Lab results: WBC 7.5 thou/uL (4.8-10.8) 03/07/20 02:41 Hgb 12.2 g/dL (12.0-16.0) 03/07/20 02:41 Hct 37.7 % (36.0-47.0) 03/07/20 02:41 MCV 89.2 fL (78.0-98.0) 03/07/20 02:41 Plt Count 200 thou/uL (130-400) 03/07/20 02:41 Neutrophils % 83.2 % (42.0-75.0) H 03/07/20 02:41 Sodium 139 mmol/L (136-145) 03/10/20 10:14 Potassium 3.8 mmol/L (3.5-5.1) 03/10/20 10:14 Chloride 106 mmol/L (98-107) 03/10/20 10:14 Carbon Dioxide 24 mmol/L (23-31) 03/10/20 10:14 BUN 22 mg/dL (9.8-20.1) H 03/10/20 10:14 Creatinine 1.37 mg/dL (0.6-1.1) H 03/10/20 10:14 Glucose 102 mg/dL (83-110) 03/10/20 10:14 Calcium 9.1 mg/dL (7.8-10.44) 03/10/20 10:14 Total Bilirubin 0.3 mg/dL (0.2-1.2) 03/10/20 10:14 AST 15 U/L (5-34) 03/10/20 10:14 ALT 12 U/L (8-55) 03/10/20 10:14 Alkaline Phosphatase 256 U/L (40-110) H 03/10/20 10:14 Creatine Kinase 47 U/L (29-168) 03/07/20 00:12 Troponin I 0.027 ng/mL (< 0.028) 03/07/20 05:06 Serum Total Protein 6.4 g/dL (6.0-8.3) 03/10/20 10:14 Albumin 3.1 g/dL (3.4-4.8) L 03/10/20 10:14 Urine Ketones Negative mg/dL (Negative) 03/10/20 03:30 Urine Blood Negative (Negative) 03/10/20 03:30 Urine Nitrite Negative (Negative) 03/10/20 03:30 Ur Leukocyte Esterase 500 Paulina/uL (Negative) A 03/10/20 03:30 Urine RBC 11-20 HPF (0-3) A 03/10/20 03:30 Urine WBC Greater than 50 HPF (0-3) A 03/10/20 03:30 Ur Squamous Epith Cells 11-20 HPF (0-3) A 03/10/20 03:30 Urine Bacteria 1+ HPF (None Seen) A 03/10/20 03:30 - Radiology Interpretation MRI - head Additional Comment: MRI negative for acute intracranial pathology. PN A/P (1) Encephalopathy acute Code(s): G93.40 - ENCEPHALOPATHY, UNSPECIFIED Status: Acute (2) Dyslipidemia Code(s): E78.5 - HYPERLIPIDEMIA, UNSPECIFIED Status: Chronic (3) GERD (gastroesophageal reflux disease) Code(s): K21.9 - GASTRO-ESOPHAGEAL REFLUX DISEASE WITHOUT ESOPHAGITIS Status: Chronic Qualifiers: Esophagitis presence: without esophagitis Qualified Code(s): K21.9 - Gastro-esophageal reflux disease without esophagitis (4) SONALI (acute kidney injury) Code(s): N17.9 - ACUTE KIDNEY FAILURE, UNSPECIFIED Status: Acute (5) Dementia Code(s): F03.90 - UNSPECIFIED DEMENTIA WITHOUT BEHAVIORAL DISTURBANCE Status: Chronic Qualifiers: Dementia type: Alzheimer's disease Dementia behavioral disturbance: without behavioral disturbance (6) Diastolic CHF Code(s): I50.30 - UNSPECIFIED DIASTOLIC (CONGESTIVE) HEART FAILURE Status: Chronic Qualifiers: Heart failure chronicity: chronic Qualified Code(s): I50.32 - Chronic diastolic (congestive) heart failure (7) HTN (hypertension) Code(s): I10 - ESSENTIAL (PRIMARY) HYPERTENSION Status: Chronic Qualifiers: Hypertension type: essential hypertension Qualified Code(s): I10 - Essential (primary) hypertension (8) Hypothyroidism Code(s): E03.9 - HYPOTHYROIDISM, UNSPECIFIED Status: Chronic Qualifiers: Hypothyroidism type: unspecified Qualified Code(s): E03.9 - Hypothyroidism, unspecified (9) Seizure Code(s): R56.9 - UNSPECIFIED CONVULSIONS Status: Chronic - Plan Daily Plan: PT/OT, speech therapy, DVT proph w/SCDs Ms. Carcamo presented with altered mental status. There was concern about breakthrough seizures. Lamictal dose adjusted. No further seizures since admission. Patient stable and no reported acute events since the last 24 hours Continue Lamictal 50 mg po qam and 75 mg po qpm. Observe seizure precautions. Ativan 2 mg IV for seizure greater than 2 minutes. HCT from 03/09/2020 reviewed which was negative for acute intracranial pathology EEG from 03/09/2020 reviewed which was negative for seizure activity. MRI Brain reviewed which was negative for acute intracranial pathology. EEG reviewed which was negative for seizure activity. 2D Echo showed normal LVEF. Lung nodule- work up per primary team. Speech eval for receptive aphasia is completed. Speech is on board. PT/OT. Continue home medications. Continue medical management per primary team. Plan discussed with the nursing staff.
[2020-03-11] MEDS ORDERED: Acetaminophen 500 MG TAB PO PRN (14:00)
--- NOTE | 2020-03-11 14:00 | PDOC.HOSPP ---
- Subjective Encounter Date: 03/11/20 Encounter Time: 10:30 Subjective: pt up in bed confused - Objective Vital Signs & Weight: Vital Signs (12 hours) Temp Pulse Resp BP BP Pulse Ox 03/11/20 12:00 97.8 F 70 18 174/88 H 94 L 03/11/20 08:00 98.2 F 70 20 181/104 H 97 03/11/20 07:45 95 03/11/20 04:00 97.4 F L 66 16 154/88 H 93 L Weight Admit Weight 123 lb 9.6 oz Weight 123 lb 9.6 oz I&O: 03/10/20 03/11/20 03/12/20 06:59 06:59 06:59 Intake Total 250 822 360 Output Total 200 1850 250 Balance 50 -1028 110 Result Diagrams: 03/07/20 02:41 03/10/20 10:14 Hospitalist ROS - Review of Systems Other: pt confused - Medication Medications: Active Medications Generic Name Dose Route Start Last Admin Trade Name Freq PRN Reason Stop Dose Admin Aspirin 81 mg 03/08/20 09:00 03/11/20 11:09 Aspirin 81 Mg Enteric Coated Tablet PO 81 mg DAILY JENNIFER Administration Heparin Sodium (Porcine) 5,000 units 03/07/20 21:00 03/11/20 11:09 Heparin 5,000 Units/Ml Vial SC 5,000 units Q12HR JENNIFER Administration Dextrose/Sodium Chloride 1,000 mls @ 50 mls/hr 03/07/20 10:00 03/10/20 19:14 D5 1/2 Ns IV Not Given .Q20H JENNIFER Lamotrigine 50 mg 03/08/20 09:00 03/11/20 11:09 Lamotrigine 100 Mg Tab PO 50 mg QAM JENNIFER Administration Lamotrigine 75 mg 03/07/20 21:00 03/10/20 21:11 Lamotrigine 25 Mg Tab PO 75 mg QPM JENNIFER Administration Senna/Docusate Sodium 2 tab 03/07/20 08:09 03/11/20 11:09 Senokot S 8.6-50 Mg Tab PO 2 tab BIDPRN PRN Administration Constipation Sodium Chloride 10 ml 03/07/20 02:14 03/09/20 21:44 Flush - Normal Saline 10 Ml Syringe IVF 10 ml PRN PRN Administration Saline Flush - Exam Heart: negative: RRR, no murmur, no gallops, no rubs, normal peripheral pulses, irregular, diminshed peripheral pulses, murmur present, II/IV, III/IV Respiratory: negative: CTAB, no wheezes, no rales, no ronchi, normal chest expansion, no tachypnea, normal percussion, rales, rhonchi, tachypneic, wheezes Gastrointestinal: negative: soft, non-tender, non-distended, normal bowel sounds, no palpable masses, no hepatomegaly, no splenomegaly, no bruit, no guarding, no rigidity, tender to palpation, distended, diminished bowl sounds, voluntary guarding Extremities: negative: no cyanosis, no clubbing, no edema, 1+ LE edema, 2+ LE edema, clubbing Hosp A/P (1) Encephalopathy acute Code(s): G93.40 - ENCEPHALOPATHY, UNSPECIFIED Status: Acute (2) Lung nodule Code(s): R91.1 - SOLITARY PULMONARY NODULE Status: Acute (3) GERD (gastroesophageal reflux disease) Code(s): K21.9 - GASTRO-ESOPHAGEAL REFLUX DISEASE WITHOUT ESOPHAGITIS Status: Chronic Qualifiers: Esophagitis presence: without esophagitis Qualified Code(s): K21.9 - Gastro-esophageal reflux disease without esophagitis (4) CKD (chronic kidney disease) stage 3, GFR 30-59 ml/min Code(s): N18.3 - CHRONIC KIDNEY DISEASE, STAGE 3 (MODERATE) * DO NOT USE * Status: Chronic Qualifiers: Chronic kidney disease stage 3 subtype: stage 3b (GFR 30-44) Qualified Code(s): N18.32 - Chronic kidney disease, stage 3b (5) HTN (hypertension) Code(s): I10 - ESSENTIAL (PRIMARY) HYPERTENSION Status: Chronic Qualifiers: Hypertension type: essential hypertension Qualified Code(s): I10 - Essential (primary) hypertension (6) Moderate protein-calorie malnutrition Code(s): E44.0 - MODERATE PROTEIN-CALORIE MALNUTRITION Status: Chronic - Plan Patient is MRI brain negative. EEG no acute seizure disorder. Per neurology's recommendation will change Lamictal as recommended. Spoke with speech therapy who recommended grounded food with extra sauce and thin liquids. Patient does have a right lung pulmonary nodule she will need a work-up as an outpatient. Patient will be discharged to her longterm facility. She is pleasantly confused. 03/09 pt was working with PT this am, however nurse called states that pt has been not waking up. ct head done no acute process. Went to evaluate the pt she opens her eyes and does answer. Possible subclinical seizure? will hold discharge and will ask neurology to reevaluate her. 03/10 pt is back to her baseline. she had a episode yest eeg negative, ct head negative. pt will need snf case reviewer working on it. will continue current meds. 03/11 will stop iv fluids. pt needs placement to snf.
[2020-03-11] MEDS: Dextrose 5 %-0.45 % NaCl 1,000 ML IV SCH (16:26)
[2020-03-11] MEDS: lamoTRIgine 25 MG TAB PO SCH (22:02)
[2020-03-12] MEDS: Levothyroxine Sodium 25 MCG TAB PO SCH (06:07)
[2020-03-12] MEDS ORDERED: Aspirin 81 mg Enteric Coated Tablet PO SCH (09:00)
[2020-03-12] MEDS: Heparin 5,000 UNITS/ML VIAL SC SCH ×2 (11:04→21:25)
[2020-03-12] MEDS: Ferrous Sulfate 325 MG TAB PO SCH (11:04)
[2020-03-12] MEDS: Aspirin 81 mg Enteric Coated Tablet PO SCH (11:04)
[2020-03-12] MEDS: lamoTRIgine 100 MG TAB PO SCH (11:05)
[2020-03-12] MEDS: Senokot 8.6 MG TAB PO SCH (11:05)
--- NOTE | 2020-03-12 16:06 | PDOC.HOSPP ---
- Subjective Encounter Date: 03/12/20 Encounter Time: 09:00 Subjective: pt appears drowsy this am. - Objective Vital Signs & Weight: Vital Signs (12 hours) Temp Pulse Pulse Pulse Resp BP BP 03/12/20 13:30 104 H 87 142/83 H 145/72 H 03/12/20 11:10 97.6 F 82 15 03/12/20 07:16 98.6 F 69 17 BP Pulse Ox 03/12/20 13:30 03/12/20 11:10 137/87 95 03/12/20 07:16 167/91 H 98 Weight Admit Weight 123 lb 9.6 oz Weight 123 lb 9.6 oz I&O: 03/11/20 03/12/20 03/13/20 06:59 06:59 06:59 Intake Total 822 700 Output Total 1850 500 Balance -1028 200 Result Diagrams: 03/07/20 02:41 03/10/20 10:14 Hospitalist ROS - Review of Systems Other: unable to obtain - Medication Medications: Active Medications Generic Name Dose Route Start Last Admin Trade Name Freq PRN Reason Stop Dose Admin Acetaminophen 500 mg 03/11/20 14:00 03/11/20 22:01 Acetaminophen 500 Mg Tab PO 500 mg TIDPRN PRN Administration Pain Aspirin 81 mg 03/08/20 09:00 03/12/20 11:04 Aspirin 81 Mg Enteric Coated Tablet PO Not Given DAILY JENNIFER Ferrous Sulfate 325 mg 03/12/20 09:00 03/12/20 11:04 Ferrous Sulfate 325 Mg Tab PO Not Given DAILY [facility] Heparin Sodium (Porcine) 5,000 units 03/07/20 21:00 03/12/20 11:04 Heparin 5,000 Units/Ml Vial SC 5,000 units Q12HR JENNIFER Administration Lamotrigine 50 mg 03/08/20 09:00 03/12/20 11:05 Lamotrigine 100 Mg Tab PO Not Given QAM JENNIFER Lamotrigine 75 mg 03/07/20 21:00 03/11/20 22:02 Lamotrigine 25 Mg Tab PO 75 mg QPM JENNIFER Administration Levothyroxine Sodium 25 mcg 03/12/20 06:00 03/12/20 06:07 Levothyroxine Sodium 25 Mcg Tab PO Not Given 0600 [facility] Pantoprazole Sodium 40 mg 03/12/20 09:00 03/12/20 11:05 Pantoprazole 40 Mg Tab PO Not Given DAILY JENNIFER Ranolazine 500 mg 03/11/20 21:00 03/12/20 11:05 Ranolazine 500 Mg Tab PO Not Given BID JENNIFER Senna 1 tab 03/12/20 09:00 03/12/20 11:05 Senokot 8.6 Mg Tab PO Not Given DAILY JENNIFER Senna/Docusate Sodium 2 tab 03/07/20 08:09 03/11/20 11:09 Senokot S 8.6-50 Mg Tab PO 2 tab BIDPRN PRN Administration Constipation Sodium Chloride 10 ml 03/07/20 02:14 03/09/20 21:44 Flush - Normal Saline 10 Ml Syringe IVF 10 ml PRN PRN Administration Saline Flush - Exam Heart: negative: RRR, no murmur, no gallops, no rubs, normal peripheral pulses, irregular, diminshed peripheral pulses, murmur present, II/IV, III/IV Respiratory: negative: CTAB, no wheezes, no rales, no ronchi, normal chest expansion, no tachypnea, normal percussion, rales, rhonchi, tachypneic, wheezes Gastrointestinal: negative: soft, non-tender, non-distended, normal bowel sounds, no palpable masses, no hepatomegaly, no splenomegaly, no bruit, no guarding, no rigidity, tender to palpation, distended, diminished bowl sounds, voluntary guarding Extremities: negative: no cyanosis, no clubbing, no edema, 1+ LE edema, 2+ LE edema, clubbing Hosp A/P (1) Encephalopathy acute Code(s): G93.40 - ENCEPHALOPATHY, UNSPECIFIED Status: Acute (2) Lung nodule Code(s): R91.1 - SOLITARY PULMONARY NODULE Status: Acute (3) GERD (gastroesophageal reflux disease) Code(s): K21.9 - GASTRO-ESOPHAGEAL REFLUX DISEASE WITHOUT ESOPHAGITIS Status: Chronic Qualifiers: Esophagitis presence: without esophagitis Qualified Code(s): K21.9 - Gastro-esophageal reflux disease without esophagitis (4) CKD (chronic kidney disease) stage 3, GFR 30-59 ml/min Code(s): N18.3 - CHRONIC KIDNEY DISEASE, STAGE 3 (MODERATE) * DO NOT USE * Status: Chronic Qualifiers: Chronic kidney disease stage 3 subtype: stage 3b (GFR 30-44) Qualified Code(s): N18.32 - Chronic kidney disease, stage 3b (5) HTN (hypertension) Code(s): I10 - ESSENTIAL (PRIMARY) HYPERTENSION Status: Chronic Qualifiers: Hypertension type: essential hypertension Qualified Code(s): I10 - Essential (primary) hypertension (6) Moderate protein-calorie malnutrition Code(s): E44.0 - MODERATE PROTEIN-CALORIE MALNUTRITION Status: Chronic - Plan Patient is MRI brain negative. EEG no acute seizure disorder. Per neurology's recommendation will change Lamictal as recommended. Spoke with speech therapy who recommended grounded food with extra sauce and thin liquids. Patient does have a right lung pulmonary nodule she will need a work-up as an outpatient. Patient will be discharged to her senior care facility. She is pleasantly confused. 03/09 pt was working with PT this am, however nurse called states that pt has been not waking up. ct head done no acute process. Went to evaluate the pt she opens her eyes and does answer. Possible subclinical seizure? will hold discharge and will ask neurology to reevaluate her. 03/10 pt is back to her baseline. she had a episode yest eeg negative, ct head negative. pt will need snf case management coordinator working on it. will continue current meds. 03/11 will stop iv fluids. pt needs placement to snf. 03/12 pt very drowsy this am but then woke up and walked with PT and ate lunch. will continue dvt ppx.
--- NOTE | 2020-03-12 18:28 | PDOC.NEUPN ---
- Subjective Encounter Date: 03/12/20 Subjective: Patient awake, alert and knows her name. - Objective Vital Signs & Weight: Vital Signs (12 hours) Temp Pulse Pulse Pulse Resp BP BP 03/12/20 16:00 98.7 F 91 18 03/12/20 13:30 104 H 87 142/83 H 145/72 H 03/12/20 11:10 97.6 F 82 15 03/12/20 07:16 98.6 F 69 17 BP Pulse Ox 03/12/20 16:00 134/78 94 L 03/12/20 13:30 03/12/20 11:10 137/87 95 03/12/20 07:16 167/91 H 98 Weight Admit Weight 123 lb 9.6 oz Weight 123 lb 9.6 oz I&O: 03/11/20 03/12/20 03/13/20 06:59 06:59 06:59 Intake Total 822 700 Output Total 1850 500 Balance -1028 200 Result Diagrams: 03/07/20 02:41 03/10/20 10:14 Radiology Reviewed by me: Yes EKG Reviewed by me: Yes ROS - Review of Systems ROS unobtainable: due to mental status (dementia) - Medication Medications: Active Medications Generic Name Dose Route Start Last Admin Trade Name Freq PRN Reason Stop Dose Admin Acetaminophen 500 mg 03/11/20 14:00 03/11/20 22:01 Acetaminophen 500 Mg Tab PO 500 mg TIDPRN PRN Administration Pain Aspirin 81 mg 03/08/20 09:00 03/12/20 11:04 Aspirin 81 Mg Enteric Coated Tablet PO Not Given DAILY JENNIFER Ferrous Sulfate 325 mg 03/12/20 09:00 03/12/20 11:04 Ferrous Sulfate 325 Mg Tab PO Not Given DAILY JENNIFER Heparin Sodium (Porcine) 5,000 units 03/07/20 21:00 03/12/20 11:04 Heparin 5,000 Units/Ml Vial SC 5,000 units Q12HR JENNIFER Administration Lamotrigine 50 mg 03/08/20 09:00 03/12/20 11:05 Lamotrigine 100 Mg Tab PO Not Given QAM JENNIFER Lamotrigine 75 mg 03/07/20 21:00 03/11/20 22:02 Lamotrigine 25 Mg Tab PO 75 mg QPM JENNIFER Administration Levothyroxine Sodium 25 mcg 03/12/20 06:00 11/15/20 06:07 Levothyroxine Sodium 25 Mcg Tab PO Not Given 0600 JENNIFER Pantoprazole Sodium 40 mg 03/12/20 09:00 03/12/20 11:05 Pantoprazole 40 Mg Tab PO Not Given DAILY JENNIFER Ranolazine 500 mg 03/11/20 21:00 03/12/20 11:05 Ranolazine 500 Mg Tab PO Not Given BID JENNIFER Senna 1 tab 03/12/20 09:00 03/12/20 11:05 Senokot 8.6 Mg Tab PO Not Given DAILY JENNIFER Senna/Docusate Sodium 2 tab 03/07/20 08:09 03/11/20 11:09 Senokot S 8.6-50 Mg Tab PO 2 tab BIDPRN PRN Administration Constipation Sodium Chloride 10 ml 03/07/20 02:14 03/09/20 21:44 Flush - Normal Saline 10 Ml Syringe IVF 10 ml PRN PRN Administration Saline Flush - Exam General Appearance: awake alert Eye: PERRL ENT: normocephalic atraumatic Neck: supple Respiratory: CTAB Cardiovascular: RRR Gastrointestinal: soft Extremities: no cyanosis Skin: normal turgor Neurological: no focal deficits Musculoskeletal: no muscle wasting PSYCH: normal affect, normal behavior, oriented to person Results - Labs Result Diagrams: 03/07/20 02:41 03/10/20 10:14 Lab results: WBC 7.5 thou/uL (4.8-10.8) 03/07/20 02:41 Hgb 12.2 g/dL (12.0-16.0) 03/07/20 02:41 Hct 37.7 % (36.0-47.0) 03/07/20 02:41 MCV 89.2 fL (78.0-98.0) 03/07/20 02:41 Plt Count 200 thou/uL (130-400) 03/07/20 02:41 Neutrophils % 83.2 % (42.0-75.0) H 03/07/20 02:41 Sodium 139 mmol/L (136-145) 03/10/20 10:14 Potassium 3.8 mmol/L (3.5-5.1) 03/10/20 10:14 Chloride 106 mmol/L (98-107) 03/10/20 10:14 Carbon Dioxide 24 mmol/L (23-31) 03/10/20 10:14 BUN 22 mg/dL (9.8-20.1) H 03/10/20 10:14 Creatinine 1.37 mg/dL (0.6-1.1) H 03/10/20 10:14 Glucose 102 mg/dL (83-110) 03/10/20 10:14 Calcium 9.1 mg/dL (7.8-10.44) 03/10/20 10:14 Total Bilirubin 0.3 mg/dL (0.2-1.2) 03/10/20 10:14 AST 15 U/L (5-34) 03/10/20 10:14 ALT 12 U/L (8-55) 03/10/20 10:14 Alkaline Phosphatase 256 U/L (40-110) H 03/10/20 10:14 Creatine Kinase 47 U/L (29-168) 03/07/20 00:12 Troponin I 0.027 ng/mL (< 0.028) 03/07/20 05:06 Serum Total Protein 6.4 g/dL (6.0-8.3) 03/10/20 10:14 Albumin 3.1 g/dL (3.4-4.8) L 03/10/20 10:14 Urine Ketones Negative mg/dL (Negative) 03/10/20 03:30 Urine Blood Negative (Negative) 03/10/20 03:30 Urine Nitrite Negative (Negative) 03/10/20 03:30 Ur Leukocyte Esterase 500 Paulina/uL (Negative) A 03/10/20 03:30 Urine RBC 11-20 HPF (0-3) A 03/10/20 03:30 Urine WBC Greater than 50 HPF (0-3) A 03/10/20 03:30 Ur Squamous Epith Cells 11-20 HPF (0-3) A 03/10/20 03:30 Urine Bacteria 1+ HPF (None Seen) A 03/10/20 03:30 - Radiology Interpretation MRI - head Additional Comment: Negative for acute pathology PN A/P (1) Encephalopathy acute Code(s): G93.40 - ENCEPHALOPATHY, UNSPECIFIED Status: Acute (2) Dyslipidemia Code(s): E78.5 - HYPERLIPIDEMIA, UNSPECIFIED Status: Chronic (3) GERD (gastroesophageal reflux disease) Code(s): K21.9 - GASTRO-ESOPHAGEAL REFLUX DISEASE WITHOUT ESOPHAGITIS Status: Chronic Qualifiers: Esophagitis presence: without esophagitis Qualified Code(s): K21.9 - Gastro-esophageal reflux disease without esophagitis (4) SONALI (acute kidney injury) Code(s): N17.9 - ACUTE KIDNEY FAILURE, UNSPECIFIED Status: Acute (5) Dementia Code(s): F03.90 - UNSPECIFIED DEMENTIA WITHOUT BEHAVIORAL DISTURBANCE Status: Chronic Qualifiers: Dementia type: Alzheimer's disease Dementia behavioral disturbance: without behavioral disturbance (6) Diastolic CHF Code(s): I50.30 - UNSPECIFIED DIASTOLIC (CONGESTIVE) HEART FAILURE Status: Chronic Qualifiers: Heart failure chronicity: chronic Qualified Code(s): I50.32 - Chronic diastolic (congestive) heart failure (7) HTN (hypertension) Code(s): I10 - ESSENTIAL (PRIMARY) HYPERTENSION Status: Chronic Qualifiers: Hypertension type: essential hypertension Qualified Code(s): I10 - Essential (primary) hypertension (8) Hypothyroidism Code(s): E03.9 - HYPOTHYROIDISM, UNSPECIFIED Status: Chronic Qualifiers: Hypothyroidism type: unspecified Qualified Code(s): E03.9 - Hypothyroidism, unspecified (9) Seizure Code(s): R56.9 - UNSPECIFIED CONVULSIONS Status: Chronic - Plan Daily Plan: PT/OT, speech therapy, DVT proph w/SCDs Ms. Carcamo presented with altered mental status and dementia. She is at her baseline. Patient stable and no reported acute events since the last 24 hours No further seizures since admission. Continue Lamictal 50 mg po qam and 75 mg po qpm. Observe seizure precautions. Ativan 2 mg IV for seizure greater than 2 minutes. HCT from 03/09/2020 reviewed which was negative for acute intracranial pathology EEG from 03/09/2020 reviewed which was negative for seizure activity. MRI Brain reviewed which was negative for acute intracranial pathology. EEG reviewed which was negative for seizure activity. 2D Echo showed normal LVEF. Lung nodule- work up per primary team. Speech eval for receptive aphasia is completed. Speech is on board. PT/OT. Continue home medications. Continue medical management per primary team. Plan discussed with the nursing staff.
[2020-03-12] MEDS: lamoTRIgine 25 MG TAB PO SCH (21:25)
[2020-03-13 05:42] LABS: #Eosinphils 0.1 thou/uL (0.0-0.7); #Lymphocytes 1.6 thou/uL (1.20-3.40); #Monocytes 0.8 thou/uL (0.11-0.59); #Neutrophils 3.9 thou/uL (1.40-6.50); %Basophils 0.5 % (0.0-1.0); %Eosinophils 1.3 % (0.0-10.0); %Lymphocytes 24.8 % (21.0-51.0); %Monocytes 12.1 % (0.0-10.0); %Neutrophils 61.4 % (42.0-75.0); Hemoglobin 10.3 g/dL (12.0-16.0); Mean Corpuscular HGB CONC 30.8 g/dL (32.0-36.0); Mean Corpuscular Hemoglobin 27.7 pg (27.0-31.0); Mean Corpuscular Volume 89.8 fL (78.0-98.0); Platelet Count 219 thou/uL (130-400); RBC Distribution Width 14.6 % (11.5-14.5); Red Blood Cell (RBC) Count 3.73 mill/uL (4.20-5.40); White Blood Cell (WBC) Count 6.3 thou/uL (4.8-10.8)
[2020-03-13 06:04] LABS: Anion Gap 10 mmol/L (10-20); BUN (Urea Nitrogen) 23 mg/dL (9.8-20.1); Calc. Creatinine Clearance 28 mL/min (70-130); Calcium 8.9 mg/dL (7.8-10.44); Carbon Dioxide 25 mmol/L (23-31); Chloride 111 mmol/L (98-107); Glucose 103 mg/dL (83-110); Potassium 4.1 mmol/L (3.5-5.1); Sodium 142 mmol/L (136-145)
[2020-03-13] MEDS: Levothyroxine Sodium 25 MCG TAB PO SCH (06:20)
[2020-03-13] MEDS: Ferrous Sulfate 325 MG TAB PO SCH (07:58)
[2020-03-13] MEDS: Senokot 8.6 MG TAB PO SCH (07:59)
[2020-03-13] MEDS: Aspirin 81 mg Enteric Coated Tablet PO SCH (07:59)
[2020-03-13] MEDS: lamoTRIgine 100 MG TAB PO SCH (07:59)
[2020-03-13] MEDS: Heparin 5,000 UNITS/ML VIAL SC SCH (08:00)
[2020-03-13] MEDS ORDERED: Cipro 250 MG TAB PO SCH ×2 (09:15→20:00)
--- NOTE | 2020-03-13 13:51 | PDOC.NEUPN ---
- Subjective Encounter Date: 03/13/20 Subjective: Ms. Carcamo has npo complaints reports in the last 24 hours . She is awake, alert and following commands appropriately - Objective Vital Signs & Weight: Vital Signs (12 hours) Temp Pulse Resp BP BP Pulse Ox 03/13/20 11:07 98.6 F 92 16 115/70 96 03/13/20 07:43 98.8 F 72 16 160/77 H 94 L 03/13/20 03:55 97.9 F 64 18 105/76 96 Weight Admit Weight 123 lb 9.6 oz Weight 123 lb 9.6 oz I&O: 03/12/20 03/13/20 03/14/20 06:59 06:59 06:59 Intake Total 700 440 Output Total 500 250 Balance 200 190 Result Diagrams: 03/13/20 04:37 03/13/20 04:37 Radiology Reviewed by me: Yes EKG Reviewed by me: Yes ROS - Review of Systems ROS unobtainable: due to mental status (dementia) - Medication Medications: Active Medications Generic Name Dose Route Start Last Admin Trade Name Freq PRN Reason Stop Dose Admin Acetaminophen 500 mg 03/11/20 14:00 03/11/20 22:01 Acetaminophen 500 Mg Tab PO 500 mg TIDPRN PRN Administration Pain Aspirin 81 mg 03/08/20 09:00 03/13/20 07:59 Aspirin 81 Mg Enteric Coated Tablet PO 81 mg DAILY JENNIFER Administration Ferrous Sulfate 325 mg 03/12/20 09:00 03/13/20 07:58 Ferrous Sulfate 325 Mg Tab PO 325 mg DAILY JENNIFER Administration Heparin Sodium (Porcine) 5,000 units 03/07/20 21:00 03/13/20 08:00 Heparin 5,000 Units/Ml Vial SC 5,000 units Q12HR JENNIFER Administration Lamotrigine 50 mg 03/08/20 09:00 03/13/20 07:59 Lamotrigine 100 Mg Tab PO 50 mg QAM JENNIFER Administration Lamotrigine 75 mg 03/07/20 21:00 03/12/20 21:25 Lamotrigine 25 Mg Tab PO 75 mg QPM JENNIFER Administration Levothyroxine Sodium 25 mcg 03/12/20 06:00 03/13/20 06:20 Levothyroxine Sodium 25 Mcg Tab PO 25 mcg 0600 JENNIFER Administration Pantoprazole Sodium 40 mg 03/12/20 09:00 03/13/20 07:58 Pantoprazole 40 Mg Tab PO 40 mg DAILY JENNIEFR Administration Ranolazine 500 mg 03/11/20 21:00 03/13/20 12:32 Ranolazine 500 Mg Tab PO 500 mg BID JENNIFER Administration Senna 1 tab 03/12/20 09:00 03/13/20 07:59 Senokot 8.6 Mg Tab PO 1 tab DAILY JENNIFER Administration Senna/Docusate Sodium 2 tab 03/07/20 08:09 03/11/20 11:09 Senokot S 8.6-50 Mg Tab PO 2 tab BIDPRN PRN Administration Constipation Sodium Chloride 10 ml 03/07/20 02:14 03/09/20 21:44 Flush - Normal Saline 10 Ml Syringe IVF 10 ml PRN PRN Administration Saline Flush - Exam General Appearance: awake alert Eye: PERRL ENT: normocephalic atraumatic Neck: supple Respiratory: CTAB Cardiovascular: RRR Gastrointestinal: soft Extremities: no cyanosis Skin: normal turgor Neurological: no focal deficits, no new deficit Musculoskeletal: normal tone, no muscle wasting PSYCH: normal affect, normal behavior, oriented to person Results - Labs Result Diagrams: 03/13/20 04:37 03/13/20 04:37 Lab results: WBC 6.3 thou/uL (4.8-10.8) 03/13/20 04:37 Hgb 10.3 g/dL (12.0-16.0) L 03/13/20 04:37 Hct 33.5 % (36.0-47.0) L 03/13/20 04:37 MCV 89.8 fL (78.0-98.0) 03/13/20 04:37 Plt Count 219 thou/uL (130-400) 03/13/20 04:37 Neutrophils % 61.4 % (42.0-75.0) 03/13/20 04:37 Sodium 142 mmol/L (136-145) 03/13/20 04:37 Potassium 4.1 mmol/L (3.5-5.1) 03/13/20 04:37 Chloride 111 mmol/L (98-107) H 03/13/20 04:37 Carbon Dioxide 25 mmol/L (23-31) 03/13/20 04:37 BUN 23 mg/dL (9.8-20.1) H 03/13/20 04:37 Creatinine 1.26 mg/dL (0.6-1.1) H 03/13/20 04:37 Glucose 103 mg/dL (83-110) 03/13/20 04:37 Calcium 8.9 mg/dL (7.8-10.44) 03/13/20 04:37 Total Bilirubin 0.3 mg/dL (0.2-1.2) 03/10/20 10:14 AST 15 U/L (5-34) 03/10/20 10:14 ALT 12 U/L (8-55) 03/10/20 10:14 Alkaline Phosphatase 256 U/L (40-110) H 03/10/20 10:14 Creatine Kinase 47 U/L (29-168) 03/07/20 00:12 Troponin I 0.027 ng/mL (< 0.028) 03/07/20 05:06 Serum Total Protein 6.4 g/dL (6.0-8.3) 03/10/20 10:14 Albumin 3.1 g/dL (3.4-4.8) L 03/10/20 10:14 Urine Ketones Negative mg/dL (Negative) 03/10/20 03:30 Urine Blood Negative (Negative) 03/10/20 03:30 Urine Nitrite Negative (Negative) 03/10/20 03:30 Ur Leukocyte Esterase 500 Paulina/uL (Negative) A 03/10/20 03:30 Urine RBC 11-20 HPF (0-3) A 03/10/20 03:30 Urine WBC Greater than 50 HPF (0-3) A 03/10/20 03:30 Ur Squamous Epith Cells 11-20 HPF (0-3) A 03/10/20 03:30 Urine Bacteria 1+ HPF (None Seen) A 03/10/20 03:30 - Radiology Interpretation MRI - head Additional Comment: negative for acute intracranial pathology PN A/P (1) Encephalopathy acute Code(s): G93.40 - ENCEPHALOPATHY, UNSPECIFIED Status: Acute (2) Dyslipidemia Code(s): E78.5 - HYPERLIPIDEMIA, UNSPECIFIED Status: Chronic (3) GERD (gastroesophageal reflux disease) Code(s): K21.9 - GASTRO-ESOPHAGEAL REFLUX DISEASE WITHOUT ESOPHAGITIS Status: Chronic Qualifiers: Esophagitis presence: without esophagitis Qualified Code(s): K21.9 - Gastro-esophageal reflux disease without esophagitis (4) SONALI (acute kidney injury) Code(s): N17.9 - ACUTE KIDNEY FAILURE, UNSPECIFIED Status: Acute (5) Dementia Code(s): F03.90 - UNSPECIFIED DEMENTIA WITHOUT BEHAVIORAL DISTURBANCE Status: Chronic Qualifiers: Dementia type: Alzheimer's disease Dementia behavioral disturbance: without behavioral disturbance (6) Diastolic CHF Code(s): I50.30 - UNSPECIFIED DIASTOLIC (CONGESTIVE) HEART FAILURE Status: Chronic Qualifiers: Heart failure chronicity: chronic Qualified Code(s): I50.32 - Chronic diastolic (congestive) heart failure (7) HTN (hypertension) Code(s): I10 - ESSENTIAL (PRIMARY) HYPERTENSION Status: Chronic Qualifiers: Hypertension type: essential hypertension Qualified Code(s): I10 - Essential (primary) hypertension (8) Hypothyroidism Code(s): E03.9 - HYPOTHYROIDISM, UNSPECIFIED Status: Chronic Qualifiers: Hypothyroidism type: unspecified Qualified Code(s): E03.9 - Hypothyroidism, unspecified (9) Seizure Code(s): R56.9 - UNSPECIFIED CONVULSIONS Status: Chronic - Plan Daily Plan: PT/OT, speech therapy, DVT proph w/SCDs Ms. Carcamo presented with altered mental status and dementia. She is at her baseline and alert to herself. No reported acute events since the last 24 hours She has no further seizures since admission. Continue Lamictal 50 mg po qam and 75 mg po qpm. Observe seizure precautions. Ativan 2 mg IV for seizure greater than 2 minutes. MRI Brain reviewed which was negative for acute intracranial pathology. EEG reviewed which was negative for seizure activity. 2D Echo showed normal LVEF. Lung nodule- work up per primary team. Speech eval for receptive aphasia is completed. Speech is on board. PT/OT. Continue home medications. Continue medical management per primary team. CM on board regarding discharge planning Plan discussed with the nursing staff.
[2020-03-13 15:23] VITALS: TEMP 98.7
[2020-03-13 15:49] VITALS: BP 148/85
--- NOTE | 2020-03-15 06:28 | PQF ---
CLINICAL DOCUMENTATION CLARIFICATION FORM: Dear : Alisia Main Date / Time: 03/15/20 0628 Please exercise your independent, professional judgment in responding to the clarification form. Clinical indicators are provided on the bottom of this form for your review In your clinical opinion based on clinical findings below, can you please identify the etiology of Altered mental status if due to: Please check appropriate box(es): [ X ] Seizure [ X ] Alzheimers Dementia [ X ] Other diagnosis, please specify _ worsening dementia [ ] Unable to determine Physician Signature: Alisia Main Date/Time: For continuity of documentation, please document condition throughout progress notes and discharge summary. Thank You To be completed by CDI/Coding staff for physician review: Present Clinical Indicators - Signs / Symptoms / Labs Results and Location in Medical Record [X] BP 178/91, Pulse 81, Resp 16, Temp 97.6 Vital sign 03/07 [X] CT brain : Prominent chronic ischemic disease and other chronic findings are stable Imaging Dr Levi 03/05 [X] MRI brain : No evidence of acute intracranial process Imaging Dr Yeh 03/07 [X] EEG : consistent with moderate generalized nonspecifc cerebral dysfunction Procedure Dr Crump 03/07 [X] Reported to have change in her mental status, although she is demented H&P p1 Dr Allen 03/07 [X] She develop seizure H&P p1 Dr Allen 03/07 [X] Per son, pt has poorly controlled seizures H&P p2 Dr Allen 03/07 [X] Acute Encephalopathy Consult Alisia Su 03/07 [X] EEG did not show any seizure activity Consult Alisia Su 03/07 [X] The patient is alert and oriented to person only. She is not oriented to place, month or year Consult 03/07 Present Risk Factors Results and Location in Medical Record [X] 84 year-old Female H&P p1 Dr Allen 03/07 [X] Alzhemier dementia H&P p1 Dr Allen 03/07 [X] HTN H&P p1 Dr Allen 03/07 [X] CHF H&P p1 Dr Allen 03/07 [X] CKD H&P p1 Dr Allen 03/07 [X] Moderate PCM PN 03/07 [X] Former Smoker Consult 03/07 [X] SONALI PN 03/08 Present Treatments Results and Location in Medical Record [X] IVF NS 1L JUL 06 [X] Lamictal 75 mg oral JUL 06 [X] Ambien 5 mg oral JUL 06 [X] Neurology consult Consult Alisia Su 03/07 CDS/Natural Resource Specialist Signature: Aileen Rojo Phone #: ext [phone] Date/Time: 03/15/2020 0628 This is a permanent part of the Medical Record [facility]
--- NOTE | 2020-03-15 06:29 | PQF ---
CLINICAL DOCUMENTATION CLARIFICATION FORM: Dear : Alisia Main Date / Time: 03/15/20 0629 Please exercise your independent, professional judgment in responding to the clarification form. Clinical indicators are provided on the bottom of this form for your review In your clinical opinion based on clinical findings below, can you please further specify type of Encephalopathy: Please check appropriate box(es): [ ] Metabolic [ ] Toxic [ x ] In the setting of underlying dementia [ x ] Other diagnosis (please specify) __worsening dementia [ x] Unspecified Physician Signature: Alisia Main MD Date/Time: 03/15/2020 For continuity of documentation, please document condition throughout progress notes and discharge summary. Thank You. To be completed by CDI/Coding staff for physician review: Present Clinical Indicators - Signs / Symptoms / Labs Results and Location in Medical Record [X] BP 178/91, Pulse 81, Resp 16, Temp 97.6 Vital sign 03/07 [X] CT brain : Prominent chronic ischemic disease and other chronic findings are stable Imaging Dr Levi 03/05 [X] MRI brain : No evidence of acute intracranial process Imaging Dr Yeh 03/07 [X] EEG : consistent with moderate generalized nonspecifc cerebral dysfunction Procedure Dr Crump 03/07 [X] Reported to have change in her mental status, although she is demented H&P p1 Dr Allen 03/07 [X] She develop seizure H&P p1 Dr Allen 03/07 [X] Per son, pt has poorly controlled seizures H&P p2 Dr Allen 03/07 [X] Acute Encephalopathy Consult Alisia Su 03/07 [X] The patient is alert and oriented to person only. She is not oriented to place, month or year Consult 03/07 Present Risk Factors Results and Location in Medical Record [X] 84 year-old Female H&P p1 Dr Allen 03/07 [X] Alzhemier dementia H&P p1 Dr Allen 03/07 [X] HTN H&P p1 Dr Allen 03/07 [X] CHF H&P p1 Dr Allen 03/07 [X] CKD H&P p1 Dr Allen 03/07 [X] Hypothyroidism H&P p1 Dr Allen 03/07 [X] Moderate PCM PN 03/07 [X] Former Smoker Consult 03/07 [X] SONALI PN 03/08 Present Treatments Results and Location in Medical Record [X] IVF NS 1L JUL 06 [X] Lamictal 75 mg oral JUL 06 [X] Ambien 5 mg oral JUL 06 [X] Neurology consult Consult Alisia Su 03/07 CDS/Property Insurance Claims Examiner Signature: Aileen Ivelisse Rojo Phone #: ext [phone] Date/Time: 03/15/2020 0629 This is a permanent part of the Medical Record [facility]
--- NOTE | 2020-03-18 13:10 | EKG ---
Test Reason : Blood Pressure : / mmHG Vent. Rate : 086 BPM Atrial Rate : 086 BPM P-R Int : 140 ms QRS Dur : 078 ms QT Int : 384 ms P-R-T Axes : 035 -12 031 degrees QTc Int : 459 ms Normal sinus rhythm Normal ECG Confirmed by SUNIL GARCIA ([id number]), features editor ELVIA CRUZ ([id number]) on 03/18/2020 1:10:31 PM Referred By: Confirmed By:SUNIL GARCIA
== END 2020-03-13 17:30 | DRG 57 ==
LOC: ERS 23:07 → ERHOLD 03-07 01:31 → 2SE 03-07 15:52 → OBSVTOIN 03-09 15:26
PROVIDERS: ADMIT Internal Medicine; ATTEND Internal Medicine
DX: G30.9 Alzheimer's disease, unspecified (principal); I50.32 Chronic diastolic (congestive) heart failure; E44.0 Moderate protein-calorie malnutrition; Z68.1 Body mass index [BMI] 19.9 or less, adult; I13.0 Hypertensive heart and chronic kidney disease with heart failure and stage 1 through stage 4 chronic kidney disease, or unspecified chronic kidney disease; N17.9 Acute kidney failure, unspecified; G93.49 Other encephalopathy; G40.909 Epilepsy, unspecified, not intractable, without status epilepticus; F02.80 Dementia in other diseases classified elsewhere, unspecified severity, without behavioral disturbance, psychotic disturbance, mood disturbance, and anxiety; R91.1 Solitary pulmonary nodule; N18.32 Chronic kidney disease, stage 3b; K21.9 Gastro-esophageal reflux disease without esophagitis; E03.9 Hypothyroidism, unspecified; Z87.442 Personal history of urinary calculi; Z98.49 Cataract extraction status, unspecified eye; Z88.0 Allergy status to penicillin; Z79.899 Other long term (current) drug therapy; Z79.82 Long term (current) use of aspirin
CPT/HCPCS: 36415; 36416; 70450; 70496; 70498; 70551; 80048; 80053; 80061; 80175; 81003; 81015; 82550; 84484; 85025; 85610; 85730; 87077; 87086; 87186; 87635; 93005; 93306; 95816; 95819; 96374; G0378; J1644; Q9967; U0003

== ENCOUNTER 2020-06-10 12:09 | Emergency (ER) | payer BC ==
[2020-06-10 12:45] LABS: #Basophils 0.1 thou/uL (0.0-0.2); #Eosinphils 0.2 thou/uL (0.0-0.7); #Lymphocytes 1.3 thou/uL (1.20-3.40); #Monocytes 0.7 thou/uL (0.11-0.59); #Neutrophils 5.2 thou/uL (1.40-6.50); %Basophils 0.7 % (0.0-1.0); %Lymphocytes 17.6 % (21.0-51.0); %Neutrophils 69.6 % (42.0-75.0); Hemoglobin 11.7 g/dL (12.0-16.0); Mean Corpuscular HGB CONC 31.7 g/dL (32.0-36.0); Mean Corpuscular Hemoglobin 28.5 pg (27.0-31.0); Mean Corpuscular Volume 89.9 fL (78.0-98.0); Mean Platelet Volume 8.3 fL (7.4-10.4); Platelet Count 247 thou/uL (130-400); Red Blood Cell (RBC) Count 4.09 mill/uL (4.20-5.40); White Blood Cell (WBC) Count 7.4 thou/uL (4.8-10.8)
[2020-06-10 13:11] LABS: ALT (SGPT) 34 U/L (8-55); AST (SGOT) 33 U/L (5-34); Albumin 3.6 g/dL (3.4-4.8); Alkaline Phosphatase 271 U/L (40-110); Anion Gap 15 mmol/L (10-20); BUN (Urea Nitrogen) 23 mg/dL (9.8-20.1); Bilirubin, Total 0.4 mg/dL (0.2-1.2); Calc. Creatinine Clearance 0 mL/min (70-130); Calcium 9.4 mg/dL (7.8-10.44); Carbon Dioxide 21 mmol/L (23-31); Chloride 109 mmol/L (98-107); Globulin 3.8 g/dL (2.4-3.5); Glucose 108 mg/dL (83-110); Potassium 5.3 mmol/L (3.5-5.1); Protein, Total 7.4 g/dL (5.8-8.1); Sodium 140 mmol/L (136-145)
[2020-06-10 13:24] LABS: Bilirubin Negative (Negative); Blood, Urine Negative (Negative); Clarity Clear (Clear); Glucose, Urine (Dipstick) Normal (Negative); Ketone, Urine Negative (Negative); Leukocyte Negative Leu/uL (Negative); Nitrite Negative (Negative); Protein, Urine (Dipstick) Negative (Neg-Trace); Specific Gravity, Urine 1.014 (1.002-1.036); Urobilinogen Normal mg/dL (Less than 2)
--- NOTE | 2020-06-10 14:08 | CT ---
BRAIN CT WITHOUT IV CONTRAST: 06/10/20 HISTORY: Injury from trauma. COMPARISON: 03/09/20. FINDINGS: Prominent atrophy and chronic white matter ischemic changes bilaterally, stable. No focal mass or mid line shift. No intra or extra-axial hemorrhage. Minimal sinus mucosal disease. The mastoids appear cl ear of acute process. IMPRESSION: Stable atrophy and chronic white matter ischemic change. No mass or bleed. Mild sinus mucosal disease . No evidence for acute infract. POS: RRE
--- NOTE | 2020-06-10 14:13 | CT ---
CT OF THE CERVICAL SPINE WITHOUT CONTRAST: 06/10/20 COMPARISON: 12/24/19 HISTORY: [facility] with altered mental status. Neck pain. TECHNIQUE: Multiple contiguous axial images were obtained in a CT of the cervical spine without contrast. Sagitt al and coronal reformats were performed. FINDINGS: There is severe degenerative changes of the cervical spine. The vertebral bodies demonstrate normal h eight without acute fracture or subluxation. No prevertebral soft tissue swelling is seen. The posterior facets are well aligned. Normal alignment of the cervical spine with the skull base is seen. There is a stable circumscribed mass in the right upper lobe measuring 1.8 cm in size. Calcifications are seen in the carotid arteries. IMPRESSION: 1. No evidence of acute C-spine abnormality. 2. Moderate to severe degenerative changes of the cervical spine as above. 3. There is a nodule in the right lung apex. Follow-up of this nodule is again recommended. Code LN POS: EAA
== END 2020-06-10 14:39 ==
LOC: ERS 12:09
DX: E86.0 Dehydration (principal); E03.9 Hypothyroidism, unspecified; I11.0 Hypertensive heart disease with heart failure; I50.9 Heart failure, unspecified; G30.9 Alzheimer's disease, unspecified; F17.200 Nicotine dependence, unspecified, uncomplicated; Z79.82 Long term (current) use of aspirin; Z79.899 Other long term (current) drug therapy; W18.30XA Fall on same level, unspecified, initial encounter
CPT/HCPCS: 51701; 70450; 72125; 80053; 81003; 82550; 84146; 85025; 87077; 87086; 87186

== ENCOUNTER 2020-06-20 17:55 | Emergency (ER) | payer MEDICARE, BC ==
[2020-06-20] MEDS ORDERED: Vancomycin HCl 1 GM in Sodium Chloride 0.9% 250 ML 250 ML IVPB SCH (19:00)
[2020-06-20] MEDS ORDERED: Nitrofurantoin Macrocrystal 50 MG CAP PO SCH (19:00)
== END 2020-06-20 21:19 | disposition home or self-care (01) ==
LOC: ERS 17:55
DX: R82.79 Other abnormal findings on microbiological examination of urine (principal); B95.2 Enterococcus as the cause of diseases classified elsewhere; I50.9 Heart failure, unspecified; I11.0 Hypertensive heart disease with heart failure; E03.9 Hypothyroidism, unspecified; F17.210 Nicotine dependence, cigarettes, uncomplicated; Z79.82 Long term (current) use of aspirin; Z79.899 Other long term (current) drug therapy
CPT/HCPCS: 87040; 96365; 96366; J3370; J7050

== ENCOUNTER 2020-06-27 15:53 | Inpatient (IN) | payer MEDICARE, BC ==
[2020-06-27 17:11] LABS: #Eosinphils 0.1 thou/uL (0.0-0.7); #Lymphocytes 1.1 thou/uL (1.20-3.40); #Monocytes 0.7 thou/uL (0.11-0.59); #Neutrophils 3.5 thou/uL (1.40-6.50); %Basophils 0.5 % (0.0-1.0); %Eosinophils 2.4 % (0.0-10.0); %Lymphocytes 19.9 % (21.0-51.0); %Neutrophils 64.2 % (42.0-75.0); Hemoglobin 11.3 g/dL (12.0-16.0); Mean Corpuscular HGB CONC 30.6 g/dL (32.0-36.0); Mean Corpuscular Hemoglobin 28.6 pg (27.0-31.0); Mean Corpuscular Volume 93.4 fL (78.0-98.0); Platelet Count 260 thou/uL (130-400); RBC Distribution Width 14.7 % (11.5-14.5); Red Blood Cell (RBC) Count 3.94 mill/uL (4.20-5.40); White Blood Cell (WBC) Count 5.5 thou/uL (4.8-10.8)
[2020-06-27 17:34] LABS: ALT (SGPT) 18 U/L (8-55); AST (SGOT) 19 U/L (5-34); Alkaline Phosphatase 276 U/L (40-110); Anion Gap 14 mmol/L (10-20); BUN (Urea Nitrogen) 45 mg/dL (9.8-20.1); Bilirubin, Total 0.5 mg/dL (0.2-1.2); Calc. Creatinine Clearance 0 mL/min (70-130); Calcium 9.6 mg/dL (7.8-10.44); Carbon Dioxide 22 mmol/L (23-31); Chloride 109 mmol/L (98-107); Globulin 3.6 g/dL (2.4-3.5); Glucose 119 mg/dL (83-110); Magnesium 2.4 mg/dL (1.6-2.6); Potassium 5.2 mmol/L (3.5-5.1); Protein, Total 7.6 g/dL (5.8-8.1); Sodium 140 mmol/L (136-145)
[2020-06-27 17:38] LABS: Bacteria/HPF None Seen HPF (None Seen); Bilirubin Negative (Negative); Blood, Urine Negative (Negative); Clarity Clear (Clear); Glucose, Urine (Dipstick) Normal (Negative); Ketone, Urine Negative (Negative); Leukocyte Negative Leu/uL (Negative); Nitrite Negative (Negative); Protein, Urine (Dipstick) 30 mg/dL (Neg-Trace); RBC/HPF 0-3 HPF (0-3); Specific Gravity, Urine 1.019 (1.002-1.036); Squamous Epithelial 0-3 HPF (0-3); Urobilinogen Normal mg/dL (Less than 2); WBC/HPF 0-3 HPF (0-3)
[2020-06-27 21:28] LABS: Troponin I 0.024 ng/mL (< 0.028)
[2020-06-27] MEDS ORDERED: Ondansetron PF 4 MG/2 ML Vial IVP PRN (22:15)
[2020-06-27] MEDS ORDERED: Sodium Chloride 0.9% 1,000 ML IV SCH (22:15)
[2020-06-27] MEDS ORDERED: Acetaminophen 325 MG TAB PO PRN (22:15)
[2020-06-27] MEDS ORDERED: Ondansetron ODT 4 MG TAB SL PRN (22:15)
[2020-06-27 22:30] VITALS: BMI 21.0
[2020-06-28 00:32] LABS: Troponin I 0.023 ng/mL (< 0.028)
[2020-06-28] MEDS ORDERED: Acetaminophen 650 MG Suppository PR PRN (01:59)
[2020-06-28 03:10] LABS: SARS-CoV-2 PCR by NAA Not Detected (NotDetected)
[2020-06-28 04:41] LABS: #Eosinphils 0.2 thou/uL (0.0-0.7); #Lymphocytes 1.2 thou/uL (1.20-3.40); #Monocytes 0.7 thou/uL (0.11-0.59); #Neutrophils 3.7 thou/uL (1.40-6.50); %Basophils 0.7 % (0.0-1.0); %Eosinophils 2.9 % (0.0-10.0); %Lymphocytes 19.8 % (21.0-51.0); %Monocytes 12.3 % (0.0-10.0); %Neutrophils 64.3 % (42.0-75.0); Hemoglobin 10.9 g/dL (12.0-16.0); Mean Corpuscular HGB CONC 30.4 g/dL (32.0-36.0); Mean Corpuscular Hemoglobin 28.4 pg (27.0-31.0); Mean Corpuscular Volume 93.4 fL (78.0-98.0); Mean Platelet Volume 8.2 fL (7.4-10.4); Platelet Count 240 thou/uL (130-400); RBC Distribution Width 14.8 % (11.5-14.5); Red Blood Cell (RBC) Count 3.84 mill/uL (4.20-5.40); White Blood Cell (WBC) Count 5.8 thou/uL (4.8-10.8)
[2020-06-28 04:52] LABS: Anion Gap 14 mmol/L (10-20); BUN (Urea Nitrogen) 38 mg/dL (9.8-20.1); Calc. Creatinine Clearance 19 mL/min (70-130); Calcium 9.2 mg/dL (7.8-10.44); Carbon Dioxide 17 mmol/L (23-31); Chloride 114 mmol/L (98-107); Glucose 107 mg/dL (83-110); Potassium 4.4 mmol/L (3.5-5.1); Sodium 141 mmol/L (136-145)
[2020-06-28 04:54] LABS: Lactic Acid 1.2 mmol/L (0.5-2.2)
[2020-06-28] MEDS ORDERED: Sodium Bicarbonate 150 MEQ in Dextrose 5% in Water 1,000 ML IV SCH (06:30)
[2020-06-28] MEDS ORDERED: Nitrofurantoin Monohyd/M-Cryst 100 MG CAP PO SCH (21:00)
[2020-06-28] MEDS: levETIRAcetam 500 MG TAB PO SCH (21:46)
[2020-06-28] MEDS: lamoTRIgine 25 MG TAB PO SCH (22:08)
[2020-06-29] MEDS: Levothyroxine Sodium 25 MCG TAB PO SCH (06:24)
[2020-06-29] MEDS: levETIRAcetam 500 MG TAB PO SCH ×2 (09:08→20:47)
[2020-06-29] MEDS: Fluconazole 100 MG TAB PO SCH (09:09)
[2020-06-29] MEDS: Aspirin 81 mg Enteric Coated Tablet PO SCH (09:09)
[2020-06-29] MEDS: Ferrous Sulfate 325 MG TAB PO SCH (09:09)
[2020-06-29] MEDS: lamoTRIgine 100 MG TAB PO SCH (09:10)
[2020-06-29] MEDS: Senokot 8.6 MG TAB PO SCH (09:10)
[2020-06-29] MEDS: Amlodipine 5 MG TAB PO SCH (09:10)
[2020-06-29] MEDS: Acetaminophen 325 MG TAB PO PRN (09:15)
[2020-06-29 13:38] LABS: Calcium 8.7 mg/dL (7.8-10.44); Chloride 112 mmol/L (98-107); Potassium 4.3 mmol/L (3.5-5.1); Sodium 144 mmol/L (136-145)
[2020-06-29 13:39] LABS: Glucose 86 mg/dL (83-110)
[2020-06-29 13:40] LABS: Carbon Dioxide 26 mmol/L (23-31)
[2020-06-29 13:42] LABS: Calc. Creatinine Clearance 24 mL/min (70-130)
[2020-06-29 13:43] LABS: BUN (Urea Nitrogen) 25 mg/dL (9.8-20.1)
[2020-06-29 19:58] LABS: Anion Gap 10 mmol/L (10-20)
[2020-06-29] MEDS: lamoTRIgine 25 MG TAB PO SCH (20:47)
[2020-06-30] MEDS: Levothyroxine Sodium 25 MCG TAB PO SCH (05:41)
[2020-06-30] MEDS: Fluconazole 100 MG TAB PO SCH (08:08)
[2020-06-30] MEDS: lamoTRIgine 100 MG TAB PO SCH (08:08)
[2020-06-30] MEDS: Aspirin 81 mg Enteric Coated Tablet PO SCH (08:08)
[2020-06-30] MEDS: Amlodipine 5 MG TAB PO SCH ×2 (08:09→08:11)
[2020-06-30] MEDS: levETIRAcetam 500 MG TAB PO SCH ×2 (08:09→20:45)
[2020-06-30] MEDS: Senokot 8.6 MG TAB PO SCH (08:10)
[2020-06-30] MEDS: Ferrous Sulfate 325 MG TAB PO SCH (08:10)
[2020-06-30] MEDS: Acetaminophen 325 MG TAB PO PRN (08:15)
[2020-06-30] MEDS: lamoTRIgine 25 MG TAB PO SCH (20:46)
[2020-07-01] MEDS: Levothyroxine Sodium 25 MCG TAB PO SCH (06:00)
[2020-07-01] MEDS: Ferrous Sulfate 325 MG TAB PO SCH (08:50)
[2020-07-01] MEDS: levETIRAcetam 500 MG TAB PO SCH ×2 (08:50→20:01)
[2020-07-01] MEDS: Fluconazole 100 MG TAB PO SCH (08:51)
[2020-07-01] MEDS: lamoTRIgine 100 MG TAB PO SCH (08:51)
[2020-07-01] MEDS: Amlodipine 5 MG TAB PO SCH (08:51)
[2020-07-01] MEDS: Aspirin 81 mg Enteric Coated Tablet PO SCH (08:52)
[2020-07-01] MEDS: Senokot 8.6 MG TAB PO SCH (08:52)
[2020-07-01] MEDS: lamoTRIgine 25 MG TAB PO SCH (20:01)
[2020-07-02] MEDS: Levothyroxine Sodium 25 MCG TAB PO SCH (05:05)
[2020-07-02 06:08] LABS: Anion Gap 11 mmol/L (10-20); BUN (Urea Nitrogen) 20 mg/dL (9.8-20.1); Calc. Creatinine Clearance 27 mL/min (70-130); Calcium 8.8 mg/dL (7.8-10.44); Carbon Dioxide 23 mmol/L (23-31); Chloride 112 mmol/L (98-107); Glucose 84 mg/dL (83-110); Potassium 4.2 mmol/L (3.5-5.1); Sodium 142 mmol/L (136-145)
[2020-07-02] MEDS: Fluconazole 100 MG TAB PO SCH (08:11)
[2020-07-02] MEDS: Senokot 8.6 MG TAB PO SCH (08:11)
[2020-07-02] MEDS: lamoTRIgine 100 MG TAB PO SCH (08:12)
[2020-07-02] MEDS: Aspirin 81 mg Enteric Coated Tablet PO SCH (08:12)
[2020-07-02] MEDS: Amlodipine 5 MG TAB PO SCH (08:12)
[2020-07-02] MEDS: Ferrous Sulfate 325 MG TAB PO SCH (08:12)
[2020-07-02] MEDS: levETIRAcetam 500 mg/5 ml Oral Solution PO SCH ×2 (08:13→21:00)
[2020-07-02] MEDS: lamoTRIgine 25 MG TAB PO SCH (21:01)
[2020-07-03] MEDS: Levothyroxine Sodium 25 MCG TAB PO SCH (05:30)
[2020-07-03] MEDS: lamoTRIgine 100 MG TAB PO SCH (09:22)
[2020-07-03] MEDS: levETIRAcetam 500 mg/5 ml Oral Solution PO SCH (09:22)
[2020-07-03] MEDS: Senokot 8.6 MG TAB PO SCH (09:22)
[2020-07-03] MEDS: Aspirin 81 mg Enteric Coated Tablet PO SCH (09:23)
[2020-07-03] MEDS: Amlodipine 5 MG TAB PO SCH (09:23)
[2020-07-03] MEDS: Ferrous Sulfate 325 MG TAB PO SCH (09:23)
[2020-07-03 16:43] VITALS: BP 156/69; TEMP 97.7
== END 2020-07-03 18:07 | DRG 101 ==
LOC: ERS 15:53 → 2NO 18:38 → OBSVTOIN 06-28 17:27 → T4-B 07-01 17:03
PROVIDERS: ADMIT Student in an Organized Health Care Education/Training Program; ATTEND Internal Medicine
DX: G40.919 Epilepsy, unspecified, intractable, without status epilepticus (principal); I13.0 Hypertensive heart and chronic kidney disease with heart failure and stage 1 through stage 4 chronic kidney disease, or unspecified chronic kidney disease; I50.32 Chronic diastolic (congestive) heart failure; N17.9 Acute kidney failure, unspecified; E87.2 Acidosis; E44.0 Moderate protein-calorie malnutrition; Z20.822 Contact with and (suspected) exposure to COVID-19; E03.9 Hypothyroidism, unspecified; G30.9 Alzheimer's disease, unspecified; N18.32 Chronic kidney disease, stage 3b; E78.5 Hyperlipidemia, unspecified; K21.9 Gastro-esophageal reflux disease without esophagitis; M79.89 Other specified soft tissue disorders; F02.80 Dementia in other diseases classified elsewhere, unspecified severity, without behavioral disturbance, psychotic disturbance, mood disturbance, and anxiety; D63.1 Anemia in chronic kidney disease; G93.89 Other specified disorders of brain; K59.09 Other constipation; Z79.82 Long term (current) use of aspirin; Z79.890 Hormone replacement therapy; Z79.899 Other long term (current) drug therapy; Z98.890 Other specified postprocedural states; Z87.891 Personal history of nicotine dependence; Z88.0 Allergy status to penicillin; Z68.21 Body mass index [BMI] 21.0-21.9, adult
CPT/HCPCS: 36415; 51701; 70450; 71045; 80048; 80053; 80175; 81003; 81015; 83605; 83735; 83880; 84146; 84443; 84484; 85025; 87086; 87635; 93005; 94760; 95712; 95819; 95957; 96374; G0378; J7070; U0003; U0005

== ENCOUNTER 2020-09-17 18:37 | Inpatient (IN) | payer MEDICARE, BC ==
[2020-09-17] MEDS ORDERED: Pantoprazole 40 MG VIAL ONE (19:28)
[2020-09-17 19:47] LABS: INR-International Normal Ratio 0.9; PTT 24.7 sec (22.9-36.1); Prothrombin Time 12.6 sec (12.0-14.7)
[2020-09-17 19:55] LABS: #Basophils 0.1 thou/uL (0.0-0.2); #Eosinphils 0.2 thou/uL (0.0-0.7); #Lymphocytes 1.3 thou/uL (1.20-3.40); #Monocytes 1.1 thou/uL (0.11-0.59); #Neutrophils 6.1 thou/uL (1.40-6.50); %Basophils 0.8 % (0.0-1.0); %Eosinophils 2.8 % (0.0-10.0); %Lymphocytes 14.8 % (21.0-51.0); %Monocytes 12.3 % (0.0-10.0); %Neutrophils 69.4 % (42.0-75.0); Mean Corpuscular HGB CONC 32.5 g/dL (32.0-36.0); Mean Corpuscular Hemoglobin 30.6 pg (27.0-31.0); Mean Corpuscular Volume 94.1 fL (78.0-98.0); Mean Platelet Volume 8.7 fL (7.4-10.4); Platelet Count 210 thou/uL (130-400); RBC Distribution Width 13.9 % (11.5-14.5); Red Blood Cell (RBC) Count 3.59 mill/uL (4.20-5.40); White Blood Cell (WBC) Count 8.7 thou/uL (4.8-10.8)
[2020-09-17 19:58] LABS: ALT (SGPT) 50 U/L (8-55); AST (SGOT) 52 U/L (5-34); Albumin 3.3 g/dL (3.4-4.8); Alkaline Phosphatase 344 U/L (40-110); Anion Gap 14 mmol/L (10-20); BUN (Urea Nitrogen) 41 mg/dL (9.8-20.1); Bilirubin, Total 0.4 mg/dL (0.2-1.2); CK (CPK) 34 U/L (29-168); Calc. Creatinine Clearance 0 mL/min (70-130); Calcium 9.1 mg/dL (7.8-10.44); Carbon Dioxide 23 mmol/L (23-31); Chloride 109 mmol/L (98-107); Globulin 3.3 g/dL (2.4-3.5); Glucose 135 mg/dL (83-110); Lipase 58 U/L (8-78); Protein, Total 6.6 g/dL (5.8-8.1); Sodium 141 mmol/L (136-145)
[2020-09-17 20:19] LABS: CKMB 1.2 ng/mL (0-6.6)
[2020-09-17 21:01] LABS: Bilirubin Negative (Negative); Blood, Urine Trace (Negative); Clarity Turbid (Clear); Glucose, Urine (Dipstick) Normal (Negative); Ketone, Urine Negative (Negative); Leukocyte 500 Leu/uL (Negative); Nitrite Negative (Negative); Protein, Urine (Dipstick) 30 mg/dL (Neg-Trace); RBC/HPF 0-3 HPF (0-3); Specific Gravity, Urine 1.018 (1.002-1.036); Squamous Epithelial 0-3 HPF (0-3); Urobilinogen Normal mg/dL (Less than 2); WBC/HPF Greater than 50 HPF (0-3)
[2020-09-17] MEDS ORDERED: Ondansetron ODT 4 MG TAB PO PRN (21:03)
[2020-09-17] MEDS ORDERED: Ondansetron PF 4 MG/2 ML Vial IVP PRN (21:03)
[2020-09-17] MEDS ORDERED: Acetaminophen 325 MG TAB PO PRN (21:03)
[2020-09-17 21:06] LABS: Bacteria/HPF 1+ HPF (None Seen)
[2020-09-17] MEDS: Pantoprazole 80 MG, Admixture Fee 1 EACH in Sodium Chloride 0.9% 100 ML IVPB SCH (22:03)
[2020-09-17] MEDS: cefTRIAXone\\ROCEPHIN 1 GM in Sodium Chloride 0.9% 100 ML IVPB SCH (22:22)
[2020-09-17] MEDS: Sodium Chloride 0.9% 1,000 ML IV SCH (22:24)
[2020-09-17 23:01] LABS: Hemoglobin 8.4 g/dL (12.0-16.0)
[2020-09-18 01:19] LABS: Troponin I Less than 0.010 ng/mL (< 0.028)
[2020-09-18 03:34] VITALS: BMI 19.5
[2020-09-18 05:17] LABS: #Eosinphils 0.2 thou/uL (0.0-0.7); #Lymphocytes 1.2 thou/uL (1.20-3.40); #Monocytes 0.8 thou/uL (0.11-0.59); #Neutrophils 5.4 thou/uL (1.40-6.50); %Basophils 0.4 % (0.0-1.0); %Eosinophils 3.2 % (0.0-10.0); %Lymphocytes 14.9 % (21.0-51.0); %Monocytes 10.9 % (0.0-10.0); %Neutrophils 70.5 % (42.0-75.0); Hemoglobin 7.9 g/dL (12.0-16.0); Mean Corpuscular HGB CONC 33.3 g/dL (32.0-36.0); Mean Corpuscular Hemoglobin 31.1 pg (27.0-31.0); Mean Corpuscular Volume 93.5 fL (78.0-98.0); Mean Platelet Volume 8.3 fL (7.4-10.4); Platelet Count 164 thou/uL (130-400); RBC Distribution Width 13.8 % (11.5-14.5); Red Blood Cell (RBC) Count 2.53 mill/uL (4.20-5.40); White Blood Cell (WBC) Count 7.7 thou/uL (4.8-10.8)
[2020-09-18 05:33] LABS: Anion Gap 7 mmol/L (10-20); BUN (Urea Nitrogen) 32 mg/dL (9.8-20.1); Calc. Creatinine Clearance 28 mL/min (70-130); Calcium 8.3 mg/dL (7.8-10.44); Carbon Dioxide 24 mmol/L (23-31); Chloride 115 mmol/L (98-107); Glucose 98 mg/dL (83-110); Potassium 4.5 mmol/L (3.5-5.1); Sodium 141 mmol/L (136-145)
[2020-09-18 05:41] LABS: Troponin I 0.014 ng/mL (< 0.028)
[2020-09-18 07:42] LABS: SARS-CoV-2 NAA Rapid Test Not Detected (NotDetected)
[2020-09-18] MEDS: Sodium Chloride 0.9% 1,000 ML IV SCH ×2 (08:45→17:21)
[2020-09-18] MEDS: Pantoprazole 80 MG, Admixture Fee 1 EACH in Sodium Chloride 0.9% 100 ML IVPB SCH ×2 (08:45→21:38)
[2020-09-18 08:47] LABS: Hemoglobin 7.7 g/dL (12.0-16.0)
[2020-09-18 09:06] LABS: Iron 39 ug/dL (50-170); Iron Binding Capacity, Total 213 mcg/dL (265-497)
[2020-09-18] MEDS ORDERED: GoLYTELY 4,000 ml Bottle PO SCH (13:00)
[2020-09-18] MEDS ORDERED: hydrALAZINE 25 MG TAB PO SCH (13:30)
[2020-09-18] MEDS: lamoTRIgine 25 MG TAB PO SCH (21:39)
[2020-09-18] MEDS: hydrALAZINE 25 MG TAB PO SCH (21:39)
[2020-09-18] MEDS: levETIRAcetam 500 mg/5 ml Oral Solution PO SCH (21:39)
[2020-09-18] MEDS: cefTRIAXone\\ROCEPHIN 1 GM in Sodium Chloride 0.9% 100 ML IVPB SCH (21:41)
[2020-09-19] MEDS: Sodium Chloride 0.9% 1,000 ML IV SCH ×2 (04:47→14:43)
[2020-09-19] MEDS: Levothyroxine Sodium 25 MCG TAB PO SCH (07:24)
[2020-09-19] MEDS: Pantoprazole 80 MG, Admixture Fee 1 EACH in Sodium Chloride 0.9% 100 ML IVPB SCH ×2 (07:41→18:22)
[2020-09-19 08:20] LABS: #Eosinphils 0.3 thou/uL (0.0-0.7); #Lymphocytes 1.1 thou/uL (1.20-3.40); #Monocytes 0.6 thou/uL (0.11-0.59); #Neutrophils 5.6 thou/uL (1.40-6.50); %Basophils 0.6 % (0.0-1.0); %Eosinophils 3.4 % (0.0-10.0); %Monocytes 8.5 % (0.0-10.0); %Neutrophils 73.6 % (42.0-75.0); Hemoglobin 7.3 g/dL (12.0-16.0); Mean Corpuscular HGB CONC 31.6 g/dL (32.0-36.0); Mean Corpuscular Hemoglobin 29.7 pg (27.0-31.0); Mean Corpuscular Volume 93.9 fL (78.0-98.0); Mean Platelet Volume 8.1 fL (7.4-10.4); Platelet Count 163 thou/uL (130-400); RBC Distribution Width 13.7 % (11.5-14.5); Red Blood Cell (RBC) Count 2.45 mill/uL (4.20-5.40); White Blood Cell (WBC) Count 7.6 thou/uL (4.8-10.8)
[2020-09-19 08:39] LABS: Anion Gap 8 mmol/L (10-20); BUN (Urea Nitrogen) 21 mg/dL (9.8-20.1); Calc. Creatinine Clearance 41 mL/min (70-130); Calcium 8.1 mg/dL (7.8-10.44); Carbon Dioxide 24 mmol/L (23-31); Chloride 115 mmol/L (98-107); Glucose 82 mg/dL (83-110); Potassium 3.7 mmol/L (3.5-5.1); Sodium 143 mmol/L (136-145)
[2020-09-19] MEDS: levETIRAcetam 500 mg/5 ml Oral Solution PO SCH ×2 (09:00→20:39)
[2020-09-19] MEDS: hydrALAZINE 25 MG TAB PO SCH ×3 (09:00→20:40)
[2020-09-19] MEDS: lamoTRIgine 100 MG TAB PO SCH (09:00)
[2020-09-19] MEDS: lamoTRIgine 25 MG TAB PO SCH (20:40)
[2020-09-19] MEDS: cefTRIAXone\\ROCEPHIN 1 GM in Sodium Chloride 0.9% 100 ML IVPB SCH (23:31)
[2020-09-20] MEDS: Sodium Chloride 0.9% 1,000 ML IV SCH ×3 (01:31→23:31)
[2020-09-20 05:04] LABS: #Basophils 0.1 thou/uL (0.0-0.2); #Eosinphils 0.2 thou/uL (0.0-0.7); #Lymphocytes 1.2 thou/uL (1.20-3.40); #Monocytes 0.6 thou/uL (0.11-0.59); #Neutrophils 4.8 thou/uL (1.40-6.50); %Basophils 0.8 % (0.0-1.0); %Lymphocytes 16.9 % (21.0-51.0); %Monocytes 8.3 % (0.0-10.0); Hemoglobin 7.7 g/dL (12.0-16.0); Mean Corpuscular HGB CONC 32.9 g/dL (32.0-36.0); Mean Corpuscular Hemoglobin 30.4 pg (27.0-31.0); Mean Corpuscular Volume 92.5 fL (78.0-98.0); Mean Platelet Volume 7.9 fL (7.4-10.4); Platelet Count 149 thou/uL (130-400); RBC Distribution Width 13.7 % (11.5-14.5); Red Blood Cell (RBC) Count 2.54 mill/uL (4.20-5.40); White Blood Cell (WBC) Count 6.8 thou/uL (4.8-10.8)
[2020-09-20] MEDS: Pantoprazole 80 MG, Admixture Fee 1 EACH in Sodium Chloride 0.9% 100 ML IVPB SCH ×2 (05:40→17:01)
[2020-09-20] MEDS: Levothyroxine Sodium 25 MCG TAB PO SCH (06:02)
[2020-09-20] MEDS: hydrALAZINE 25 MG TAB PO SCH ×5 (09:16→20:34)
[2020-09-20] MEDS: levETIRAcetam 500 mg/5 ml Oral Solution PO SCH ×2 (09:17→20:32)
[2020-09-20] MEDS: lamoTRIgine 100 MG TAB PO SCH (09:17)
[2020-09-20] MEDS ORDERED: PROPOFOL 200 MG/20 ML VIAL ONE (13:02)
[2020-09-20] MEDS ORDERED: Lidocaine 1% PF 5 ML VIAL ONE (13:02)
[2020-09-20] MEDS ORDERED: Fleet Enema 133 ML BOT PR SCH (13:15)
[2020-09-20] MEDS ORDERED: Iron, Sodium Ferric Gluconate 250 MG in Sodium Chloride 0.9% 250 ML 250 ML IVPB SCH (13:30)
[2020-09-20] MEDS: Polyethylene Glycol 3350 17 GM Packet PO SCH (20:32)
[2020-09-20] MEDS: lamoTRIgine 25 MG TAB PO SCH (20:33)
[2020-09-20] MEDS: cefTRIAXone\\ROCEPHIN 1 GM in Sodium Chloride 0.9% 100 ML IVPB SCH (22:18)
[2020-09-21] MEDS: Sodium Chloride 0.9% 1,000 ML IV SCH ×4 (00:32→23:12)
[2020-09-21] MEDS: Pantoprazole 80 MG, Admixture Fee 1 EACH in Sodium Chloride 0.9% 100 ML IVPB SCH (03:05)
[2020-09-21 05:35] LABS: #Eosinphils 0.1 thou/uL (0.0-0.7); #Lymphocytes 1.1 thou/uL (1.20-3.40); #Monocytes 0.6 thou/uL (0.11-0.59); #Neutrophils 12.4 thou/uL (1.40-6.50); %Basophils 0.1 % (0.0-1.0); %Eosinophils 0.4 % (0.0-10.0); %Lymphocytes 7.6 % (21.0-51.0); %Monocytes 4.3 % (0.0-10.0); %Neutrophils 87.6 % (42.0-75.0); Hemoglobin 9.7 g/dL (12.0-16.0); Mean Corpuscular Volume 93.8 fL (78.0-98.0); Mean Platelet Volume 8.2 fL (7.4-10.4); Platelet Count 214 thou/uL (130-400); RBC Distribution Width 13.9 % (11.5-14.5); Red Blood Cell (RBC) Count 3.24 mill/uL (4.20-5.40); White Blood Cell (WBC) Count 14.2 thou/uL (4.8-10.8)
[2020-09-21] MEDS: Levothyroxine Sodium 25 MCG TAB PO SCH (05:42)
[2020-09-21 05:49] LABS: Anion Gap 12 mmol/L (10-20); BUN (Urea Nitrogen) 14 mg/dL (9.8-20.1); Calc. Creatinine Clearance 30 mL/min (70-130); Calcium 7.7 mg/dL (7.8-10.44); Carbon Dioxide 19 mmol/L (23-31); Chloride 115 mmol/L (98-107); Glucose 121 mg/dL (83-110); Potassium 3.4 mmol/L (3.5-5.1); Sodium 143 mmol/L (136-145)
[2020-09-21] MEDS: hydrALAZINE 25 MG TAB PO SCH ×3 (09:59→23:25)
[2020-09-21] MEDS: lamoTRIgine 100 MG TAB PO SCH (09:59)
[2020-09-21] MEDS: Polyethylene Glycol 3350 17 GM Packet PO SCH ×2 (10:00→23:03)
[2020-09-21] MEDS: levETIRAcetam 500 mg/5 ml Oral Solution PO SCH ×2 (10:00→23:00)
[2020-09-21 11:58] LABS: #Eosinphils 0.1 thou/uL (0.0-0.7); #Lymphocytes 1.1 thou/uL (1.20-3.40); #Monocytes 0.9 thou/uL (0.11-0.59); #Neutrophils 9.8 thou/uL (1.40-6.50); %Basophils 0.2 % (0.0-1.0); %Eosinophils 0.7 % (0.0-10.0); %Lymphocytes 9.4 % (21.0-51.0); %Monocytes 7.5 % (0.0-10.0); %Neutrophils 82.3 % (42.0-75.0); Hemoglobin 8.8 g/dL (12.0-16.0); Mean Corpuscular HGB CONC 33.3 g/dL (32.0-36.0); Mean Corpuscular Hemoglobin 30.8 pg (27.0-31.0); Mean Corpuscular Volume 92.5 fL (78.0-98.0); Mean Platelet Volume 7.9 fL (7.4-10.4); Platelet Count 209 thou/uL (130-400); Red Blood Cell (RBC) Count 2.84 mill/uL (4.20-5.40); White Blood Cell (WBC) Count 11.9 thou/uL (4.8-10.8)
[2020-09-21] MEDS ORDERED: Sodium Chloride 0.9% 1,000 ML IV SCH (15:30)
[2020-09-21] MEDS: lamoTRIgine 25 MG TAB PO SCH (23:03)
[2020-09-21] MEDS: cefTRIAXone\\ROCEPHIN 1 GM in Sodium Chloride 0.9% 100 ML IVPB SCH (23:11)
[2020-09-22] MEDS: Levothyroxine Sodium 25 MCG TAB PO SCH (06:35)
[2020-09-22] MEDS: lamoTRIgine 100 MG TAB PO SCH (09:00)
[2020-09-22] MEDS: levETIRAcetam 500 mg/5 ml Oral Solution PO SCH (09:01)
[2020-09-22] MEDS: hydrALAZINE 25 MG TAB PO SCH ×2 (09:04→15:47)
[2020-09-22] MEDS: Polyethylene Glycol 3350 17 GM Packet PO SCH (09:04)
[2020-09-22] MEDS: Sodium Chloride 0.9% 1,000 ML IV SCH ×2 (09:05→17:58)
[2020-09-22 12:34] LABS: #Eosinphils 0.4 thou/uL (0.0-0.7); #Lymphocytes 1.4 thou/uL (1.20-3.40); #Monocytes 0.9 thou/uL (0.11-0.59); #Neutrophils 6.7 thou/uL (1.40-6.50); %Basophils 0.5 % (0.0-1.0); %Eosinophils 4.7 % (0.0-10.0); %Lymphocytes 14.9 % (21.0-51.0); %Monocytes 9.6 % (0.0-10.0); %Neutrophils 70.4 % (42.0-75.0); Hemoglobin 8.3 g/dL (12.0-16.0); Mean Corpuscular HGB CONC 32.3 g/dL (32.0-36.0); Mean Corpuscular Hemoglobin 30.2 pg (27.0-31.0); Mean Corpuscular Volume 93.5 fL (78.0-98.0); Platelet Count 183 thou/uL (130-400); RBC Distribution Width 14.2 % (11.5-14.5); Red Blood Cell (RBC) Count 2.73 mill/uL (4.20-5.40); White Blood Cell (WBC) Count 9.6 thou/uL (4.8-10.8)
[2020-09-22 15:40] VITALS: TEMP 97.7
[2020-09-22] MEDS ORDERED: Sodium Chloride 0.9% 500 ML IV SCH (15:45)
[2020-09-22 15:48] VITALS: BP 154/87
== END 2020-09-22 19:45 | DRG 378 ==
LOC: ERS 18:37 → 2SE 20:11
PROVIDERS: ADMIT Student in an Organized Health Care Education/Training Program; ATTEND Emergency Medicine
DX: K57.31 Diverticulosis of large intestine without perforation or abscess with bleeding (principal); D62 Acute posthemorrhagic anemia; I50.32 Chronic diastolic (congestive) heart failure; I13.0 Hypertensive heart and chronic kidney disease with heart failure and stage 1 through stage 4 chronic kidney disease, or unspecified chronic kidney disease; E44.0 Moderate protein-calorie malnutrition; N17.9 Acute kidney failure, unspecified; N30.00 Acute cystitis without hematuria; Z68.1 Body mass index [BMI] 19.9 or less, adult; E03.9 Hypothyroidism, unspecified; G30.9 Alzheimer's disease, unspecified; K56.41 Fecal impaction; G40.909 Epilepsy, unspecified, not intractable, without status epilepticus; N18.32 Chronic kidney disease, stage 3b; R53.81 Other malaise; E78.5 Hyperlipidemia, unspecified; K21.9 Gastro-esophageal reflux disease without esophagitis; R60.0 Localized edema; Z20.822 Contact with and (suspected) exposure to COVID-19; F02.80 Dementia in other diseases classified elsewhere, unspecified severity, without behavioral disturbance, psychotic disturbance, mood disturbance, and anxiety; Z88.0 Allergy status to penicillin; Z79.82 Long term (current) use of aspirin; Z79.899 Other long term (current) drug therapy; Z98.890 Other specified postprocedural states; Z87.891 Personal history of nicotine dependence
CPT/HCPCS: 36415; 51702; 71045; 74177; 80048; 80053; 81003; 81015; 82274; 82550; 82553; 82728; 83540; 83550; 83690; 83880; 84484; 85025; 85610; 85730; 86850; 86900; 86901; 93005; 96365; C9113; J0696; J2704; J2916; J3490; J7050; Q9967; U0002

== ENCOUNTER 2021-01-08 19:06 | Inpatient (IN) | payer MEDICARE, BC ==
[2021-01-08 19:45] LABS: #Eosinphils 0.1 thou/uL (0.0-0.7); #Lymphocytes 1.4 thou/uL (1.20-3.40); #Monocytes 0.7 thou/uL (0.11-0.59); #Neutrophils 5.3 thou/uL (1.40-6.50); %Basophils 0.3 % (0.0-1.0); %Eosinophils 1.8 % (0.0-10.0); %Lymphocytes 17.9 % (21.0-51.0); %Monocytes 9.8 % (0.0-10.0); %Neutrophils 70.2 % (42.0-75.0); Hemoglobin 8.9 g/dL (12.0-16.0); Mean Corpuscular HGB CONC 32.3 g/dL (32.0-36.0); Mean Corpuscular Volume 89.8 fL (78.0-98.0); Mean Platelet Volume 7.5 fL (7.4-10.4); Platelet Count 332 thou/uL (130-400); RBC Distribution Width 14.9 % (11.5-14.5); Red Blood Cell (RBC) Count 3.07 mill/uL (4.20-5.40); White Blood Cell (WBC) Count 7.5 thou/uL (4.8-10.8)
[2021-01-08 19:57] LABS: Prothrombin Time 12.7 sec (12.0-14.7)
[2021-01-08 19:58] LABS: PTT 29.7 sec (22.9-36.1)
[2021-01-08 20:07] LABS: ALT (SGPT) 19 U/L (8-55); AST (SGOT) 30 U/L (5-34); Albumin 3.6 g/dL (3.4-4.8); Alkaline Phosphatase 226 U/L (40-110); Anion Gap 15 mmol/L (10-20); BUN (Urea Nitrogen) 29 mg/dL (9.8-20.1); Bilirubin, Total 0.3 mg/dL (0.2-1.2); Calc. Creatinine Clearance 0 mL/min (70-130); Calcium 9.6 mg/dL (7.8-10.44); Carbon Dioxide 24 mmol/L (23-31); Chloride 107 mmol/L (98-107); Globulin 3.4 g/dL (2.4-3.5); Glucose 124 mg/dL (83-110); Sodium 141 mmol/L (136-145)
[2021-01-08 20:40] LABS: Bacteria/HPF None Seen HPF (None Seen); Bilirubin Negative (Negative); Blood, Urine 2+ (Negative); Clarity Clear (Clear); Glucose, Urine (Dipstick) Normal (Negative); Ketone, Urine Negative (Negative); Leukocyte Negative Leu/uL (Negative); Nitrite Negative (Negative); Protein, Urine (Dipstick) 20 mg/dL (Neg-Trace); Specific Gravity, Urine 1.018 (1.002-1.036); Squamous Epithelial 0-3 HPF (0-3); Urobilinogen Normal mg/dL (Less than 2); WBC/HPF 0-3 HPF (0-3)
[2021-01-09] MEDS ORDERED: Cefepime 2 GM in Sodium Chloride 0.9% 100 ML IVPB SCH (01:45)
[2021-01-09] MEDS ORDERED: Lorazepam 2 MG/ML VIAL SLOW IVP PRN (12:38)
[2021-01-09] MEDS ORDERED: Aspirin 300 MG Suppository PR SCH (13:00)
[2021-01-09] MEDS: Sodium Chloride 0.9% 1,000 ML IV SCH ×2 (13:16→20:16)
[2021-01-09 14:03] LABS: Hemoglobin A1c 4.9 % (4.0-6.0)
[2021-01-09 14:12] LABS: Cardiac Risk 3.5 (Less than 4.5)
[2021-01-10] MEDS: Sodium Chloride 0.9% 1,000 ML IV SCH ×2 (01:09→11:21)
[2021-01-10] MEDS ORDERED: Aspirin 300 MG Suppository PR SCH (09:00)
[2021-01-10 16:57] LABS: #Eosinphils 0.2 thou/uL (0.0-0.7); #Lymphocytes 1.5 thou/uL (1.20-3.40); #Monocytes 0.9 thou/uL (0.11-0.59); %Basophils 0.2 % (0.0-1.0); %Eosinophils 2.1 % (0.0-10.0); %Lymphocytes 20.1 % (21.0-51.0); %Monocytes 11.2 % (0.0-10.0); %Neutrophils 66.4 % (42.0-75.0); Hemoglobin 7.6 g/dL (12.0-16.0); Mean Corpuscular HGB CONC 31.3 g/dL (32.0-36.0); Mean Corpuscular Hemoglobin 27.7 pg (27.0-31.0); Mean Corpuscular Volume 88.6 fL (78.0-98.0); Mean Platelet Volume 7.5 fL (7.4-10.4); Platelet Count 241 thou/uL (130-400); RBC Distribution Width 14.7 % (11.5-14.5); Red Blood Cell (RBC) Count 2.74 mill/uL (4.20-5.40); White Blood Cell (WBC) Count 7.5 thou/uL (4.8-10.8)
[2021-01-10 17:15] LABS: Anion Gap 9 mmol/L (10-20); BUN (Urea Nitrogen) 16 mg/dL (9.8-20.1); Calc. Creatinine Clearance 29 mL/min (70-130); Calcium 8.6 mg/dL (7.8-10.44); Carbon Dioxide 26 mmol/L (23-31); Chloride 111 mmol/L (98-107); Glucose 93 mg/dL (83-110); Sodium 142 mmol/L (136-145)
[2021-01-10] MEDS ORDERED: Senokot 8.6 MG TAB PO PRN (17:29)
[2021-01-10] MEDS ORDERED: Ferrous Sulfate 325 MG TAB PO SCH (17:30)
[2021-01-10] MEDS ORDERED: Atorvastatin Calcium 40 MG TAB PO SCH (21:00)
[2021-01-10] MEDS ORDERED: lamoTRIgine 25 MG TAB PO SCH (21:00)
[2021-01-10] MEDS ORDERED: Fleet Enema 133 ML BOT PR SCH (23:30)
[2021-01-11] MEDS ORDERED: Levothyroxine Sodium 25 MCG TAB PO SCH (06:00)
[2021-01-11 07:47] LABS: Hemoglobin 7.9 g/dL (12.0-16.0); Mean Corpuscular HGB CONC 31.1 g/dL (32.0-36.0); Mean Corpuscular Hemoglobin 27.6 pg (27.0-31.0); Mean Corpuscular Volume 88.7 fL (78.0-98.0); Mean Platelet Volume 7.5 fL (7.4-10.4); Platelet Count 240 thou/uL (130-400); RBC Distribution Width 14.8 % (11.5-14.5); Red Blood Cell (RBC) Count 2.88 mill/uL (4.20-5.40); White Blood Cell (WBC) Count 7.4 thou/uL (4.8-10.8)
[2021-01-11] MEDS ORDERED: lamoTRIgine 25 MG TAB PO SCH (09:00)
[2021-01-11] MEDS ORDERED: Amlodipine 5 MG TAB PO SCH (09:00)
[2021-01-11] MEDS ORDERED: Aspirin 81 mg Enteric Coated Tablet PO SCH (09:00)
[2021-01-11 15:42] VITALS: BP 147/82; TEMP 98
== END 2021-01-11 19:04 | disposition home health service (06) | DRG 69 ==
LOC: ERS 19:06 → 3SE 23:07 → OBSVTOIN 01-10 17:32
PROVIDERS: ADMIT Student in an Organized Health Care Education/Training Program; ATTEND Internal Medicine
DX: G45.9 Transient cerebral ischemic attack, unspecified (principal); N17.9 Acute kidney failure, unspecified; I50.32 Chronic diastolic (congestive) heart failure; D64.9 Anemia, unspecified; E78.5 Hyperlipidemia, unspecified; E03.9 Hypothyroidism, unspecified; G30.9 Alzheimer's disease, unspecified; F02.80 Dementia in other diseases classified elsewhere, unspecified severity, without behavioral disturbance, psychotic disturbance, mood disturbance, and anxiety; I11.0 Hypertensive heart disease with heart failure; F41.9 Anxiety disorder, unspecified; R73.9 Hyperglycemia, unspecified; K21.9 Gastro-esophageal reflux disease without esophagitis; G40.909 Epilepsy, unspecified, not intractable, without status epilepticus; I08.1 Rheumatic disorders of both mitral and tricuspid valves; M19.90 Unspecified osteoarthritis, unspecified site; I25.5 Ischemic cardiomyopathy; Z87.891 Personal history of nicotine dependence; Z79.899 Other long term (current) drug therapy; Z79.890 Hormone replacement therapy; Z90.49 Acquired absence of other specified parts of digestive tract; Z98.49 Cataract extraction status, unspecified eye; Z87.442 Personal history of urinary calculi; Z88.0 Allergy status to penicillin
CPT/HCPCS: 36415; 36416; 70450; 70551; 80048; 80053; 80061; 80175; 81003; 81015; 83036; 84443; 84484; 85025; 85027; 85610; 85730; 87086; 93005; 93306; 93880; 94760; 95712; 95819; 95957; 96374; 96375; G0378; J0692; J2060; J3490; J7050

== ENCOUNTER 2021-02-09 18:51 | Inpatient (IN) | payer MEDICARE, BC ==
[2021-02-09 20:58] LABS: #Lymphocytes 1.3 thou/uL (1.20-3.40); #Neutrophils 15.6 thou/uL (1.40-6.50); %Basophils 0.1 % (0.0-1.0); %Eosinophils 0.1 % (0.0-10.0); %Lymphocytes 6.6 % (21.0-51.0); %Monocytes 10.7 % (0.0-10.0); %Neutrophils 82.5 % (42.0-75.0); Hemoglobin 9.8 g/dL (12.0-16.0); Mean Corpuscular HGB CONC 31.1 g/dL (32.0-36.0); Mean Corpuscular Hemoglobin 27.5 pg (27.0-31.0); Mean Corpuscular Volume 88.5 fL (78.0-98.0); Mean Platelet Volume 8.7 fL (7.4-10.4); Platelet Count 282 thou/uL (130-400); Red Blood Cell (RBC) Count 3.54 mill/uL (4.20-5.40); White Blood Cell (WBC) Count 18.9 thou/uL (4.8-10.8)
[2021-02-09 21:23] LABS: ALT (SGPT) 26 U/L (8-55); AST (SGOT) 31 U/L (5-34); Albumin 3.5 g/dL (3.4-4.8); Alkaline Phosphatase 276 U/L (40-110); Anion Gap 16 mmol/L (10-20); BUN (Urea Nitrogen) 35 mg/dL (9.8-20.1); Bilirubin, Total 0.6 mg/dL (0.2-1.2); Calc. Creatinine Clearance 0 mL/min (70-130); Calcium 9.4 mg/dL (7.8-10.44); Carbon Dioxide 24 mmol/L (23-31); Chloride 109 mmol/L (98-107); Globulin 3.2 g/dL (2.4-3.5); Glucose 140 mg/dL (83-110); Potassium 4.7 mmol/L (3.5-5.1); Protein, Total 6.7 g/dL (5.8-8.1); Sodium 144 mmol/L (136-145)
[2021-02-09 21:35] LABS: Bacteria/HPF 4+ HPF (None Seen); Bilirubin Negative (Negative); Blood, Urine 2+ (Negative); Clarity Extra Turbid (Clear); Glucose, Urine (Dipstick) Normal (Negative); Ketone, Urine Negative (Negative); Leukocyte 500 Leu/uL (Negative); Nitrite 1+ (Negative); Protein, Urine (Dipstick) 100 mg/dL (Neg-Trace); Specific Gravity, Urine 1.014 (1.002-1.036); Squamous Epithelial None Seen HPF (0-3); Urobilinogen Normal mg/dL (Less than 2); WBC/HPF Greater than 50 HPF (0-3)
[2021-02-10] MEDS ORDERED: Ondansetron ODT 4 MG TAB PO PRN (00:52)
[2021-02-10] MEDS ORDERED: Acetaminophen 650 MG Suppository PR PRN (00:52)
[2021-02-10] MEDS ORDERED: Ondansetron PF 4 MG/2 ML Vial IVP PRN (00:52)
[2021-02-10] MEDS: Sodium Chloride 0.9% 1,000 ML IV SCH ×2 (03:25→16:20)
[2021-02-10] MEDS ORDERED: [UNRECOGNIZED DRUG - REMARK] IVPB PRN (04:04)
[2021-02-10] MEDS ORDERED: Dextrose 5% in Water 1,000 ML IV PRN (04:25)
[2021-02-10] MEDS ORDERED: Dextrose 50% Abboject 50 ML SYRINGE SLOW IVP PRN (04:25)
[2021-02-10] MEDS ORDERED: HumaLOG 300 UNITS/3 ML VIAL SC PRN ×2 (04:25)
[2021-02-10 06:26] LABS: #Eosinphils 0.1 thou/uL (0.0-0.7); #Lymphocytes 1.4 thou/uL (1.20-3.40); #Monocytes 1.4 thou/uL (0.11-0.59); #Neutrophils 14.7 thou/uL (1.40-6.50); %Basophils 0.2 % (0.0-1.0); %Eosinophils 0.3 % (0.0-10.0); %Lymphocytes 7.9 % (21.0-51.0); %Monocytes 8.1 % (0.0-10.0); %Neutrophils 83.5 % (42.0-75.0); Hemoglobin 9.4 g/dL (12.0-16.0); Mean Corpuscular HGB CONC 30.6 g/dL (32.0-36.0); Mean Corpuscular Hemoglobin 27.6 pg (27.0-31.0); Mean Corpuscular Volume 90.1 fL (78.0-98.0); Mean Platelet Volume 8.9 fL (7.4-10.4); Platelet Count 235 thou/uL (130-400); RBC Distribution Width 14.8 % (11.5-14.5); Red Blood Cell (RBC) Count 3.39 mill/uL (4.20-5.40); White Blood Cell (WBC) Count 17.7 thou/uL (4.8-10.8)
[2021-02-10] MEDS: Enoxaparin Sodium 30 MG/0.3 ML SYRINGE SC SCH (08:47)
[2021-02-10] MEDS ORDERED: Senokot 8.6 MG TAB PO PRN (12:51)
[2021-02-10] MEDS ORDERED: Ferrous Sulfate 325 MG TAB PO SCH (13:15)
[2021-02-10] MEDS ORDERED: lamoTRIgine 100 MG TAB PO SCH (13:15)
[2021-02-10] MEDS ORDERED: Levothyroxine Sodium 25 MCG TAB PO SCH (13:15)
[2021-02-10 14:38] LABS: ALT (SGPT) 26 U/L (8-55); AST (SGOT) 28 U/L (5-34); Albumin 3.3 g/dL (3.4-4.8); Alkaline Phosphatase 264 U/L (40-110); Anion Gap 11 mmol/L (10-20); BUN (Urea Nitrogen) 27 mg/dL (9.8-20.1); Bilirubin, Total 0.4 mg/dL (0.2-1.2); Calc. Creatinine Clearance 22 mL/min (70-130); Calcium 9.4 mg/dL (7.8-10.44); Carbon Dioxide 22 mmol/L (23-31); Chloride 113 mmol/L (98-107); Globulin 3.6 g/dL (2.4-3.5); Glucose 112 mg/dL (83-110); Potassium 3.8 mmol/L (3.5-5.1); Protein, Total 6.9 g/dL (5.8-8.1); Sodium 142 mmol/L (136-145)
[2021-02-10 16:49] LABS: SARS-CoV-2 PCR by NAA Not Detected (NotDetected)
[2021-02-10] MEDS: Acetaminophen 325 MG TAB PO PRN (20:26)
[2021-02-10] MEDS ORDERED: lamoTRIgine 25 MG TAB PO SCH (21:00)
[2021-02-11] MEDS: Sodium Chloride 0.9% 1,000 ML IV SCH (05:06)
[2021-02-11] MEDS ORDERED: Levothyroxine Sodium 25 MCG TAB PO SCH (06:00)
[2021-02-11 08:39] LABS: #Eosinphils 0.1 thou/uL (0.0-0.7); #Lymphocytes 1.3 thou/uL (1.20-3.40); #Monocytes 0.9 thou/uL (0.11-0.59); #Neutrophils 8.4 thou/uL (1.40-6.50); %Basophils 0.4 % (0.0-1.0); %Lymphocytes 11.9 % (21.0-51.0); %Monocytes 8.7 % (0.0-10.0); Hemoglobin 8.4 g/dL (12.0-16.0); Mean Corpuscular HGB CONC 31.1 g/dL (32.0-36.0); Mean Corpuscular Hemoglobin 27.6 pg (27.0-31.0); Mean Corpuscular Volume 88.9 fL (78.0-98.0); Mean Platelet Volume 8.8 fL (7.4-10.4); Platelet Count 218 thou/uL (130-400); RBC Distribution Width 14.5 % (11.5-14.5); Red Blood Cell (RBC) Count 3.03 mill/uL (4.20-5.40); White Blood Cell (WBC) Count 10.7 thou/uL (4.8-10.8)
[2021-02-11] MEDS ORDERED: Amlodipine 5 MG TAB PO SCH (09:00)
[2021-02-11] MEDS ORDERED: lamoTRIgine 100 MG TAB PO SCH (09:00)
[2021-02-11] MEDS: Enoxaparin Sodium 30 MG/0.3 ML SYRINGE SC SCH (09:03)
[2021-02-11] MEDS: Acetaminophen 325 MG TAB PO PRN (09:04)
[2021-02-11 09:05] LABS: ALT (SGPT) 26 U/L (8-55); AST (SGOT) 29 U/L (5-34); Albumin 2.7 g/dL (3.4-4.8); Alkaline Phosphatase 260 U/L (40-110); Anion Gap 11 mmol/L (10-20); BUN (Urea Nitrogen) 25 mg/dL (9.8-20.1); Bilirubin, Total 0.3 mg/dL (0.2-1.2); Calc. Creatinine Clearance 32 mL/min (70-130); Calcium 8.2 mg/dL (7.8-10.44); Carbon Dioxide 20 mmol/L (23-31); Chloride 116 mmol/L (98-107); Globulin 2.6 g/dL (2.4-3.5); Glucose 88 mg/dL (83-110); Potassium 3.8 mmol/L (3.5-5.1); Protein, Total 5.3 g/dL (5.8-8.1); Sodium 143 mmol/L (136-145)
[2021-02-11 12:09] VITALS: BP 163/83; TEMP 98.4
[2021-02-13] MEDS ORDERED: FLU VACC QS2021-22(65YR UP)/PF 240 MCG/0.7 ML SYRINGE IM ONE (09:00)
[2021-02-14] MEDS ORDERED: Ferrous Sulfate 325 MG TAB PO SCH (08:00)
== END 2021-02-11 14:42 | disposition home or self-care (01) | DRG 871 ==
LOC: ERS 18:51 → T4-B 23:25
PROVIDERS: ADMIT Student in an Organized Health Care Education/Training Program; ATTEND Internal Medicine
DX: A41.9 Sepsis, unspecified organism (principal); G93.41 Metabolic encephalopathy; N17.9 Acute kidney failure, unspecified; N39.0 Urinary tract infection, site not specified; I50.32 Chronic diastolic (congestive) heart failure; E03.9 Hypothyroidism, unspecified; G30.9 Alzheimer's disease, unspecified; F02.80 Dementia in other diseases classified elsewhere, unspecified severity, without behavioral disturbance, psychotic disturbance, mood disturbance, and anxiety; F41.9 Anxiety disorder, unspecified; I11.0 Hypertensive heart disease with heart failure; R56.9 Unspecified convulsions; E86.0 Dehydration; M19.90 Unspecified osteoarthritis, unspecified site; I25.5 Ischemic cardiomyopathy; Z20.822 Contact with and (suspected) exposure to COVID-19; Z88.0 Allergy status to penicillin; Z79.82 Long term (current) use of aspirin; Z79.899 Other long term (current) drug therapy; Z90.89 Acquired absence of other organs; Z98.890 Other specified postprocedural states; Z98.49 Cataract extraction status, unspecified eye; Z87.442 Personal history of urinary calculi; Z87.891 Personal history of nicotine dependence
CPT/HCPCS: 36415; 36416; 70450; 71045; 80053; 81003; 81015; 84484; 85007; 85025; 85027; 87086; 93005; 96365; J1650; J1956; J7050; U0003; U0005

== ENCOUNTER 2021-02-25 18:23 | Emergency (ER) | payer MEDICARE, BC ==
[2021-02-25 19:18] LABS: #Eosinphils 0.2 thou/uL (0.0-0.7); #Lymphocytes 1.4 thou/uL (1.20-3.40); #Monocytes 0.8 thou/uL (0.11-0.59); #Neutrophils 9.4 thou/uL (1.40-6.50); %Basophils 0.1 % (0.0-1.0); %Eosinophils 1.4 % (0.0-10.0); %Lymphocytes 11.7 % (21.0-51.0); %Monocytes 7.1 % (0.0-10.0); %Neutrophils 79.8 % (42.0-75.0); Hemoglobin 9.9 g/dL (12.0-16.0); Mean Corpuscular HGB CONC 32.2 g/dL (32.0-36.0); Mean Corpuscular Hemoglobin 28.4 pg (27.0-31.0); Mean Platelet Volume 8.8 fL (7.4-10.4); Platelet Count 263 thou/uL (130-400); RBC Distribution Width 15.4 % (11.5-14.5); Red Blood Cell (RBC) Count 3.48 mill/uL (4.20-5.40); White Blood Cell (WBC) Count 11.8 thou/uL (4.8-10.8)
[2021-02-25 19:43] LABS: Bacteria/HPF None Seen HPF (None Seen); Bilirubin Negative (Negative); Blood, Urine Trace (Negative); Clarity Clear (Clear); Glucose, Urine (Dipstick) Normal (Negative); Ketone, Urine Negative (Negative); Leukocyte 75 Leu/uL (Negative); Mucous/LPF Rare LPF (<2+); Nitrite Negative (Negative); Protein, Urine (Dipstick) 20 mg/dL (Neg-Trace); RBC/HPF 0-3 HPF (0-3); Renal Epithelial 0-3 HPF (None Seen); Specific Gravity, Urine 1.016 (1.002-1.036); Squamous Epithelial 0-3 HPF (0-3); Urobilinogen Normal mg/dL (Less than 2)
[2021-02-25 19:46] LABS: ALT (SGPT) 31 U/L (8-55); AST (SGOT) 50 U/L (5-34); Albumin 3.4 g/dL (3.4-4.8); Alkaline Phosphatase 321 U/L (40-110); Anion Gap 13 mmol/L (10-20); BUN (Urea Nitrogen) 25 mg/dL (9.8-20.1); Bilirubin, Total 0.4 mg/dL (0.2-1.2); Calc. Creatinine Clearance 0 mL/min (70-130); Carbon Dioxide 25 mmol/L (23-31); Chloride 105 mmol/L (98-107); Globulin 3.2 g/dL (2.4-3.5); Glucose 95 mg/dL (83-110); Potassium 5.1 mmol/L (3.5-5.1); Protein, Total 6.6 g/dL (5.8-8.1); Sodium 138 mmol/L (136-145)
== END 2021-02-25 22:20 | disposition home or self-care (01) ==
LOC: ERS 18:23
DX: E86.0 Dehydration (principal); I11.0 Hypertensive heart disease with heart failure; I50.30 Unspecified diastolic (congestive) heart failure; Z87.891 Personal history of nicotine dependence; E03.9 Hypothyroidism, unspecified; Z79.899 Other long term (current) drug therapy
CPT/HCPCS: 51701; 71045; 80053; 81003; 81015; 85025; 87086

== ENCOUNTER 2021-03-23 16:11 | Emergency (ER) | payer BC ==
[2021-03-23 17:21] LABS: #Basophils 0.1 thou/uL (0.0-0.2); #Eosinphils 0.2 thou/uL (0.0-0.7); #Lymphocytes 1.5 thou/uL (1.20-3.40); #Neutrophils 6.2 thou/uL (1.40-6.50); %Basophils 0.6 % (0.0-1.0); %Eosinophils 2.5 % (0.0-10.0); %Lymphocytes 16.9 % (21.0-51.0); %Monocytes 11.1 % (0.0-10.0); %Neutrophils 68.9 % (42.0-75.0); Hemoglobin 10.3 g/dL (12.0-16.0); Mean Corpuscular HGB CONC 31.4 g/dL (32.0-36.0); Mean Corpuscular Hemoglobin 27.8 pg (27.0-31.0); Mean Corpuscular Volume 88.4 fL (78.0-98.0); Mean Platelet Volume 8.4 fL (7.4-10.4); Platelet Count 286 thou/uL (130-400); RBC Distribution Width 15.9 % (11.5-14.5); Red Blood Cell (RBC) Count 3.71 mill/uL (4.20-5.40)
[2021-03-23 17:48] LABS: ALT (SGPT) 27 U/L (8-55); AST (SGOT) 35 U/L (5-34); Albumin 3.4 g/dL (3.4-4.8); Alkaline Phosphatase 261 U/L (40-110); Anion Gap 11 mmol/L (10-20); BUN (Urea Nitrogen) 28 mg/dL (9.8-20.1); Bilirubin, Total 0.4 mg/dL (0.2-1.2); Calc. Creatinine Clearance 0 mL/min (70-130); Calcium 10.2 mg/dL (7.8-10.44); Carbon Dioxide 28 mmol/L (23-31); Chloride 106 mmol/L (98-107); Globulin 3.6 g/dL (2.4-3.5); Glucose 119 mg/dL (83-110); Potassium 4.6 mmol/L (3.5-5.1); Sodium 140 mmol/L (136-145)
== END 2021-03-23 18:45 | disposition home or self-care (01) ==
LOC: ERS 16:11
DX: S82.434A Nondisplaced oblique fracture of shaft of right fibula, initial encounter for closed fracture (principal); S82.51XA Displaced fracture of medial malleolus of right tibia, initial encounter for closed fracture; E78.5 Hyperlipidemia, unspecified; I11.0 Hypertensive heart disease with heart failure; I50.9 Heart failure, unspecified; X58.XXXA Exposure to other specified factors, initial encounter
CPT/HCPCS: 36415; 80053; 83880; 85025; 85379

== ENCOUNTER 2021-05-03 17:35 | Inpatient (IN) | payer MEDICARE, BC ==
[2021-05-03 18:56] LABS: #Lymphocytes 0.7 thou/uL (1.20-3.40); #Monocytes 0.6 thou/uL (0.11-0.59); #Neutrophils 7.1 thou/uL (1.40-6.50); %Basophils 0.2 % (0.0-1.0); %Eosinophils 0.4 % (0.0-10.0); %Lymphocytes 8.1 % (21.0-51.0); %Monocytes 6.5 % (0.0-10.0); %Neutrophils 84.7 % (42.0-75.0); Mean Corpuscular HGB CONC 32.6 g/dL (32.0-36.0); Mean Corpuscular Hemoglobin 28.2 pg (27.0-31.0); Mean Corpuscular Volume 86.4 fL (78.0-98.0); Mean Platelet Volume 9.5 fL (7.4-10.4); Platelet Count 286 thou/uL (130-400); RBC Distribution Width 18.3 % (11.5-14.5); Red Blood Cell (RBC) Count 3.91 mill/uL (4.20-5.40); White Blood Cell (WBC) Count 8.4 thou/uL (4.8-10.8)
[2021-05-03 19:22] LABS: ALT (SGPT) 42 U/L (8-55); AST (SGOT) 42 U/L (5-34); Albumin 3.4 g/dL (3.4-4.8); Alkaline Phosphatase 467 U/L (40-110); Anion Gap 15 mmol/L (10-20); BUN (Urea Nitrogen) 48 mg/dL (9.8-20.1); Bilirubin, Total 0.7 mg/dL (0.2-1.2); Calc. Creatinine Clearance 0 mL/min (70-130); Calcium 10.3 mg/dL (7.8-10.44); Carbon Dioxide 27 mmol/L (23-31); Chloride 114 mmol/L (98-107); Globulin 4.3 g/dL (2.4-3.5); Glucose 158 mg/dL (83-110); Potassium 4.8 mmol/L (3.5-5.1); Protein, Total 7.7 g/dL (5.8-8.1); Sodium 151 mmol/L (136-145)
[2021-05-03] MEDS ORDERED: Azithromycin 500 MG VIAL ONE (19:40)
[2021-05-03 19:43] LABS: CKMB 1.9 ng/mL (0-6.6)
[2021-05-03] MEDS ORDERED: Dexamethasone 10 MG/ML VIAL ONE (20:57)
[2021-05-03 21:01] LABS: Analyzer IN Cardio ER; Base Excess (BEa) -1.3 mEq/L (-2.0 to +3.0); CO2 Tension 36.8 mmHg (35.0-45.0); Calcium, Ionized (arterial) 1.17 mmol/L (1.12-1.30); Carboxyhemoglobin (COHb) 0.3 gm% (0.0-3.0); Hemoglobin (Hb) 10.3 g/dL (12.0-16.0); Potassium - ABG Lab 4.28 mmol/L (3.70-5.30); pH, Arterial 7.41 (7.35-7.45)
[2021-05-03 21:23] LABS: O2 Tension (PaO2), arterial 41.2 mmHg (> 60.0)
[2021-05-03 21:24] LABS: Puncture Site RRA
[2021-05-03 22:04] LABS: Actual Bicarbonate (HCO3a) 24.4 mEq/L (22-28); Analyzer IN Cardio ER; Base Excess (BEa) -0.8 mEq/L (-2.0 to +3.0); CO2 Tension 42.6 mmHg (35.0-45.0); Calcium, Ionized (arterial) 1.18 mmol/L (1.12-1.30); Carboxyhemoglobin (COHb) 0.2 gm% (0.0-3.0); Hemoglobin (Hb) 10.1 g/dL (12.0-16.0); O2 Tension (PaO2), arterial 118.6 mmHg (> 60.0); Potassium - ABG Lab 4.26 mmol/L (3.70-5.30); pH, Arterial 7.38 (7.35-7.45)
[2021-05-03 22:07] LABS: Puncture Site RRA
[2021-05-03 22:15] LABS: Troponin I 0.072 ng/mL (< 0.028)
[2021-05-03] MEDS ORDERED: Benzonatate 100 MG CAP PO PRN (22:44)
[2021-05-03] MEDS ORDERED: Acetaminophen 325 MG TAB PO PRN (22:47)
[2021-05-03] MEDS ORDERED: Ondansetron ODT 4 MG TAB PO PRN (22:47)
[2021-05-03] MEDS ORDERED: Acetaminophen 650 MG Suppository PR PRN (22:47)
[2021-05-03] MEDS ORDERED: Ondansetron PF 4 MG/2 ML Vial IVP PRN (22:47)
[2021-05-03] MEDS ORDERED: Enoxaparin Sodium 30 MG/0.3 ML SYRINGE SC SCH (23:00)
[2021-05-04] MEDS: Dextrose 5% in Water 1,000 ML IV SCH ×2 (00:06→13:47)
[2021-05-04 01:18] LABS: Troponin I 0.068 ng/mL (< 0.028)
[2021-05-04 02:22] LABS: Anion Gap 15 mmol/L (10-20); BUN (Urea Nitrogen) 43 mg/dL (9.8-20.1); Calc. Creatinine Clearance 22 mL/min (70-130); Calcium 9.3 mg/dL (7.8-10.44); Carbon Dioxide 23 mmol/L (23-31); Chloride 118 mmol/L (98-107); Glucose 123 mg/dL (83-110); Potassium 4.4 mmol/L (3.5-5.1); Sodium 152 mmol/L (136-145)
[2021-05-04 03:43] LABS: #Eosinphils 0.1 thou/uL (0.0-0.7); #Lymphocytes 0.6 thou/uL (1.20-3.40); #Monocytes 0.2 thou/uL (0.11-0.59); #Neutrophils 6.3 thou/uL (1.40-6.50); %Eosinophils 1.5 % (0.0-10.0); %Lymphocytes 8.6 % (21.0-51.0); %Monocytes 2.7 % (0.0-10.0); %Neutrophils 87.3 % (42.0-75.0); Hemoglobin 9.8 g/dL (12.0-16.0); Mean Corpuscular HGB CONC 31.6 g/dL (32.0-36.0); Mean Corpuscular Hemoglobin 27.8 pg (27.0-31.0); Mean Corpuscular Volume 87.9 fL (78.0-98.0); Mean Platelet Volume 9.7 fL (7.4-10.4); Platelet Count 225 thou/uL (130-400); RBC Distribution Width 17.8 % (11.5-14.5); Red Blood Cell (RBC) Count 3.52 mill/uL (4.20-5.40); White Blood Cell (WBC) Count 7.2 thou/uL (4.8-10.8)
[2021-05-04 03:56] LABS: Anion Gap 15 mmol/L (10-20); BUN (Urea Nitrogen) 41 mg/dL (9.8-20.1); Calc. Creatinine Clearance 22 mL/min (70-130); Calcium 9.1 mg/dL (7.8-10.44); Carbon Dioxide 22 mmol/L (23-31); Chloride 118 mmol/L (98-107); Glucose 151 mg/dL (83-110); Potassium 4.7 mmol/L (3.5-5.1); Sodium 150 mmol/L (136-145)
[2021-05-04] MEDS: Zinc Sulfate 220 MG CAP PO SCH (08:38)
[2021-05-04] MEDS: lamoTRIgine 25 MG TAB PO SCH ×2 (08:38→20:21)
[2021-05-04] MEDS: Ascorbic Acid 500 mg Chewable Tablet PO SCH (08:38)
[2021-05-04] MEDS: Cholecalciferol (Vitamin D3) 400 UNITS TAB PO SCH (08:38)
[2021-05-04] MEDS: Pantoprazole 40 MG VIAL IVP SCH (08:53)
[2021-05-04] MEDS: Dexamethasone 10 MG/ML VIAL SLOW IVP SCH (08:53)
[2021-05-04 14:10] LABS: Anion Gap 13 mmol/L (10-20); BUN (Urea Nitrogen) 37 mg/dL (9.8-20.1); Calc. Creatinine Clearance 23 mL/min (70-130); Calcium 8.9 mg/dL (7.8-10.44); Carbon Dioxide 23 mmol/L (23-31); Chloride 116 mmol/L (98-107); Glucose 183 mg/dL (83-110); Potassium 4.2 mmol/L (3.5-5.1); Sodium 148 mmol/L (136-145)
[2021-05-04] MEDS: Enoxaparin Sodium 30 MG/0.3 ML SYRINGE SC SCH (20:21)
[2021-05-04] MEDS: BARICITINIB 1 MG TAB PO SCH (20:21)
[2021-05-05] MEDS: Dextrose 5% in Water 1,000 ML IV SCH ×2 (02:07→17:12)
[2021-05-05 03:45] LABS: ALT (SGPT) 33 U/L (8-55); AST (SGOT) 33 U/L (5-34); Albumin 3.1 g/dL (3.4-4.8); Alkaline Phosphatase 387 U/L (40-110); Bilirubin, Direct 0.3 mg/dL (0.1-0.3); Bilirubin, Total 0.5 mg/dL (0.2-1.2); Protein, Total 6.9 g/dL (5.8-8.1)
[2021-05-05] MEDS: Levothyroxine Sodium 25 MCG TAB PO SCH (05:54)
[2021-05-05] MEDS: Dexamethasone 10 MG/ML VIAL SLOW IVP SCH (09:50)
[2021-05-05] MEDS: Pantoprazole 40 MG VIAL IVP SCH (09:50)
[2021-05-05] MEDS: Ascorbic Acid 500 mg Chewable Tablet PO SCH (11:45)
[2021-05-05] MEDS: Cholecalciferol (Vitamin D3) 400 UNITS TAB PO SCH (11:45)
[2021-05-05] MEDS: Zinc Sulfate 220 MG CAP PO SCH (11:45)
[2021-05-05] MEDS: lamoTRIgine 25 MG TAB PO SCH ×2 (11:45→22:35)
[2021-05-05] MEDS: Enoxaparin Sodium 30 MG/0.3 ML SYRINGE SC SCH (20:52)
[2021-05-05] MEDS: BARICITINIB 1 MG TAB PO SCH (22:35)
[2021-05-06] MEDS: Dextrose 5% in Water 1,000 ML IV SCH (06:21)
[2021-05-06] MEDS: Levothyroxine Sodium 25 MCG TAB PO SCH (06:22)
[2021-05-06] MEDS ORDERED: FLU VACC QS2021-22(65YR UP)/PF 240 MCG/0.7 ML SYRINGE IM ONE (09:00)
[2021-05-06] MEDS: Cholecalciferol (Vitamin D3) 400 UNITS TAB PO SCH (09:28)
[2021-05-06] MEDS: Pantoprazole 40 MG VIAL IVP SCH (09:28)
[2021-05-06] MEDS: Dexamethasone 10 MG/ML VIAL SLOW IVP SCH (09:28)
[2021-05-06] MEDS: Ascorbic Acid 500 mg Chewable Tablet PO SCH (09:28)
[2021-05-06] MEDS: lamoTRIgine 25 MG TAB PO SCH ×2 (09:29→21:45)
[2021-05-06] MEDS: Zinc Sulfate 220 MG CAP PO SCH (09:29)
[2021-05-06 16:41] LABS: Actual Bicarbonate (HCO3v) 22 mEq/L (22-28); Base Excess -2.4 mEq/L (-2.0 to +3.0); Chloride (VBG) 107 mmol/L (98-106); Hemoglobin (Hb) 10.4 g/dL (11.7-16.1); Potassium (VBG) 3.93 mmol/L (3.70-5.30); Sodium 138.5 mmol/L (133-146); pH (venous) 7.41 (7.32-7.43)
[2021-05-06] MEDS: D5W-AA 4.25% with LYTES 1,000 ML IV SCH (17:48)
[2021-05-06] MEDS: Enoxaparin Sodium 30 MG/0.3 ML SYRINGE SC SCH (21:33)
[2021-05-06] MEDS: BARICITINIB 1 MG TAB PO SCH (21:45)
[2021-05-07 04:28] LABS: #Eosinphils 0.2 thou/uL (0.0-0.7); #Lymphocytes 0.5 thou/uL (1.20-3.40); #Monocytes 0.5 thou/uL (0.11-0.59); #Neutrophils 8.5 thou/uL (1.40-6.50); %Eosinophils 1.8 % (0.0-10.0); %Lymphocytes 5.4 % (21.0-51.0); %Monocytes 4.8 % (0.0-10.0); %Neutrophils 88.1 % (42.0-75.0); Hemoglobin 10.4 g/dL (12.0-16.0); Mean Corpuscular HGB CONC 32.2 g/dL (32.0-36.0); Mean Platelet Volume 9.6 fL (7.4-10.4); Platelet Count 219 thou/uL (130-400); RBC Distribution Width 17.5 % (11.5-14.5); Red Blood Cell (RBC) Count 3.72 mill/uL (4.20-5.40); White Blood Cell (WBC) Count 9.6 thou/uL (4.8-10.8)
[2021-05-07 04:49] LABS: Anion Gap 13 mmol/L (10-20); BUN (Urea Nitrogen) 27 mg/dL (9.8-20.1); Calc. Creatinine Clearance 29 mL/min (70-130); Calcium 9.1 mg/dL (7.8-10.44); Carbon Dioxide 22 mmol/L (23-31); Chloride 105 mmol/L (98-107); Glucose 124 mg/dL (83-110); Potassium 4.1 mmol/L (3.5-5.1); Sodium 136 mmol/L (136-145)
[2021-05-07] MEDS: Levothyroxine Sodium 25 MCG TAB PO SCH (06:43)
[2021-05-07] MEDS: Pantoprazole 40 MG VIAL IVP SCH (09:42)
[2021-05-07] MEDS: Dexamethasone 10 MG/ML VIAL SLOW IVP SCH (09:42)
[2021-05-07] MEDS: Ascorbic Acid 500 mg Chewable Tablet PO SCH (10:28)
[2021-05-07] MEDS: Zinc Sulfate 220 MG CAP PO SCH (10:28)
[2021-05-07] MEDS: Cholecalciferol (Vitamin D3) 400 UNITS TAB PO SCH (10:28)
[2021-05-07] MEDS: lamoTRIgine 25 MG TAB PO SCH ×2 (10:28→21:35)
[2021-05-07] MEDS: Enoxaparin Sodium 30 MG/0.3 ML SYRINGE SC SCH (21:34)
[2021-05-07] MEDS: BARICITINIB 1 MG TAB PO SCH (21:35)
[2021-05-08 03:56] LABS: #Eosinphils 0.1 thou/uL (0.0-0.7); #Lymphocytes 0.4 thou/uL (1.20-3.40); #Monocytes 0.9 thou/uL (0.11-0.59); #Neutrophils 9.9 thou/uL (1.40-6.50); %Eosinophils 0.5 % (0.0-10.0); %Lymphocytes 3.2 % (21.0-51.0); %Monocytes 7.9 % (0.0-10.0); %Neutrophils 88.3 % (42.0-75.0); Hemoglobin 9.8 g/dL (12.0-16.0); Mean Corpuscular HGB CONC 31.8 g/dL (32.0-36.0); Mean Corpuscular Hemoglobin 27.8 pg (27.0-31.0); Mean Corpuscular Volume 87.4 fL (78.0-98.0); Platelet Count 199 thou/uL (130-400); RBC Distribution Width 17.3 % (11.5-14.5); Red Blood Cell (RBC) Count 3.54 mill/uL (4.20-5.40); White Blood Cell (WBC) Count 11.2 thou/uL (4.8-10.8)
[2021-05-08 04:18] LABS: ALT (SGPT) 26 U/L (8-55); AST (SGOT) 22 U/L (5-34); Albumin 2.6 g/dL (3.4-4.8); Alkaline Phosphatase 322 U/L (40-110); Anion Gap 13 mmol/L (10-20); BUN (Urea Nitrogen) 41 mg/dL (9.8-20.1); Bilirubin, Direct 0.3 mg/dL (0.1-0.3); Bilirubin, Total 0.4 mg/dL (0.2-1.2); Calc. Creatinine Clearance 34 mL/min (70-130); Calcium 9.1 mg/dL (7.8-10.44); Carbon Dioxide 20 mmol/L (23-31); Chloride 109 mmol/L (98-107); Glucose 144 mg/dL (83-110); Potassium 4.5 mmol/L (3.5-5.1); Sodium 137 mmol/L (136-145)
[2021-05-08] MEDS: D5W-AA 4.25% with LYTES 1,000 ML IV SCH ×2 (05:16→22:57)
[2021-05-08] MEDS: Levothyroxine Sodium 25 MCG TAB PO SCH (05:32)
[2021-05-08] MEDS: lamoTRIgine 25 MG TAB PO SCH ×2 (08:57→22:19)
[2021-05-08] MEDS: Cholecalciferol (Vitamin D3) 400 UNITS TAB PO SCH (08:57)
[2021-05-08] MEDS: Zinc Sulfate 220 MG CAP PO SCH (08:57)
[2021-05-08] MEDS: Ascorbic Acid 500 mg Chewable Tablet PO SCH (08:57)
[2021-05-08] MEDS: Dexamethasone 10 MG/ML VIAL SLOW IVP SCH (10:39)
[2021-05-08] MEDS: Pantoprazole 40 MG VIAL IVP SCH (10:39)
[2021-05-08] MEDS: Enoxaparin Sodium 30 MG/0.3 ML SYRINGE SC SCH (21:51)
[2021-05-08] MEDS: BARICITINIB 1 MG TAB PO SCH (22:19)
[2021-05-09 04:30] LABS: Anion Gap 13 mmol/L (10-20); BUN (Urea Nitrogen) 53 mg/dL (9.8-20.1); Calc. Creatinine Clearance 32 mL/min (70-130); Calcium 9.2 mg/dL (7.8-10.44); Carbon Dioxide 21 mmol/L (23-31); Chloride 109 mmol/L (98-107); Glucose 126 mg/dL (83-110); Sodium 138 mmol/L (136-145)
[2021-05-09 04:31] LABS: Hemoglobin 9.3 g/dL (12.0-16.0); Hypochromia SLIGHT = 6-15 cells (100X) (0-5/hpf); Lymphocytes 14 % (21-51); MDiff Complete? YES; Mean Corpuscular HGB CONC 32.2 g/dL (32.0-36.0); Mean Corpuscular Hemoglobin 27.9 pg (27.0-31.0); Mean Corpuscular Volume 86.8 fL (78.0-98.0); Mean Platelet Volume 9.5 fL (7.4-10.4); Monocytes 5 % (0-10); Neutrophil 81 % (42-75); Platelet Count 247 thou/uL (130-400); Platelet Morphology Comment Appears Adequate; RBC Distribution Width 17.3 % (11.5-14.5); Red Blood Cell (RBC) Count 3.33 mill/uL (4.20-5.40); White Blood Cell (WBC) Count 12.1 thou/uL (4.8-10.8)
[2021-05-09] MEDS: Levothyroxine Sodium 25 MCG TAB PO SCH (05:45)
[2021-05-09] MEDS: Ascorbic Acid 500 mg Chewable Tablet PO SCH (09:20)
[2021-05-09] MEDS: Dexamethasone 10 MG/ML VIAL SLOW IVP SCH (09:21)
[2021-05-09] MEDS: Cholecalciferol (Vitamin D3) 400 UNITS TAB PO SCH (09:21)
[2021-05-09] MEDS: Pantoprazole 40 MG VIAL IVP SCH (09:21)
[2021-05-09] MEDS: Zinc Sulfate 220 MG CAP PO SCH (09:21)
[2021-05-09] MEDS: lamoTRIgine 25 MG TAB PO SCH ×2 (09:21→21:10)
[2021-05-09] MEDS: D5W-AA 4.25% with LYTES 1,000 ML IV SCH (14:34)
[2021-05-09] MEDS: BARICITINIB 1 MG TAB PO SCH (21:09)
[2021-05-09] MEDS: Enoxaparin Sodium 30 MG/0.3 ML SYRINGE SC SCH (21:09)
[2021-05-10] MEDS: Levothyroxine Sodium 25 MCG TAB PO SCH (05:34)
[2021-05-10] MEDS: D5W-AA 4.25% with LYTES 1,000 ML IV SCH (05:45)
[2021-05-10] MEDS: Dexamethasone 10 MG/ML VIAL SLOW IVP SCH (08:21)
[2021-05-10] MEDS: Cholecalciferol (Vitamin D3) 400 UNITS TAB PO SCH (08:21)
[2021-05-10] MEDS: Zinc Sulfate 220 MG CAP PO SCH (08:21)
[2021-05-10] MEDS: lamoTRIgine 25 MG TAB PO SCH ×2 (08:21→21:07)
[2021-05-10] MEDS: Ascorbic Acid 500 mg Chewable Tablet PO SCH (08:21)
[2021-05-10] MEDS: Pantoprazole 40 MG VIAL IVP SCH (08:21)
[2021-05-10] MEDS: Enoxaparin Sodium 30 MG/0.3 ML SYRINGE SC SCH (21:07)
[2021-05-10] MEDS: BARICITINIB 1 MG TAB PO SCH (21:07)
[2021-05-11 04:34] LABS: ALT (SGPT) 37 U/L (8-55); AST (SGOT) 42 U/L (5-34); Albumin 2.7 g/dL (3.4-4.8); Alkaline Phosphatase 427 U/L (40-110); Bilirubin, Direct 0.3 mg/dL (0.1-0.3); Bilirubin, Total 0.7 mg/dL (0.2-1.2); Protein, Total 6.9 g/dL (5.8-8.1)
[2021-05-11] MEDS: Levothyroxine Sodium 25 MCG TAB PO SCH (06:54)
[2021-05-11] MEDS: Pantoprazole 40 MG VIAL IVP SCH (10:16)
[2021-05-11] MEDS: Cholecalciferol (Vitamin D3) 400 UNITS TAB PO SCH (10:17)
[2021-05-11] MEDS: lamoTRIgine 25 MG TAB PO SCH ×2 (10:18→20:25)
[2021-05-11] MEDS: Zinc Sulfate 220 MG CAP PO SCH (10:18)
[2021-05-11] MEDS: Dexamethasone 10 MG/ML VIAL SLOW IVP SCH (10:18)
[2021-05-11] MEDS: Ascorbic Acid 500 mg Chewable Tablet PO SCH (10:18)
[2021-05-11 13:52] VITALS: BMI 20.7
[2021-05-11 15:15] VITALS: BP 144/108
[2021-05-11] MEDS: BARICITINIB 1 MG TAB PO SCH (20:25)
[2021-05-11] MEDS: Enoxaparin Sodium 30 MG/0.3 ML SYRINGE SC SCH (20:25)
[2021-05-11] MEDS: D5W-AA 4.25% with LYTES 1,000 ML IV SCH (21:14)
[2021-05-12 03:59] LABS: Hemoglobin 10.3 g/dL (12.0-16.0); Mean Corpuscular HGB CONC 30.3 g/dL (32.0-36.0); Mean Corpuscular Volume 89.1 fL (78.0-98.0); Mean Platelet Volume 10.2 fL (7.4-10.4); Platelet Count 241 thou/uL (130-400); RBC Distribution Width 18.1 % (11.5-14.5); Red Blood Cell (RBC) Count 3.81 mill/uL (4.20-5.40); White Blood Cell (WBC) Count 11.3 thou/uL (4.8-10.8)
[2021-05-12 04:15] LABS: Anion Gap 16 mmol/L (10-20); BUN (Urea Nitrogen) 51 mg/dL (9.8-20.1); Calc. Creatinine Clearance 34 mL/min (70-130); Calcium 9.5 mg/dL (7.8-10.44); Carbon Dioxide 19 mmol/L (23-31); Chloride 110 mmol/L (98-107); Glucose 112 mg/dL (83-110); Potassium 5.6 mmol/L (3.5-5.1); Sodium 139 mmol/L (136-145)
[2021-05-12 04:29] LABS: MDiff Complete? YES
[2021-05-12 04:30] LABS: Anisocytosis SLIGHT = 6-15 cells (100X) (0-5/hpf); Band 1 % (5-11); Burr Cells SLIGHT = 2-5 cells (100X) (0-1/hpf); Monocytes 2 % (0-10); Myelocyte 1 % (0-0); Neutrophil 96 % (42-75); Poikilocytosis SLIGHT = 6-15 cells (100X) (0-5/hpf); Schistocytes SLIGHT = 2-5 cells (100X) (0-1/hpf)
[2021-05-12] MEDS: Levothyroxine Sodium 25 MCG TAB PO SCH (06:43)
[2021-05-12 08:53] LABS: Anion Gap 15 mmol/L (10-20); BUN (Urea Nitrogen) 50 mg/dL (9.8-20.1); Calc. Creatinine Clearance 33 mL/min (70-130); Carbon Dioxide 21 mmol/L (23-31); Chloride 109 mmol/L (98-107); Glucose 115 mg/dL (83-110); Potassium 5.5 mmol/L (3.5-5.1); Sodium 139 mmol/L (136-145)
[2021-05-12] MEDS: Dexamethasone 10 MG/ML VIAL SLOW IVP SCH (09:05)
[2021-05-12] MEDS: lamoTRIgine 25 MG TAB PO SCH ×2 (09:05→20:53)
[2021-05-12] MEDS: Zinc Sulfate 220 MG CAP PO SCH (09:05)
[2021-05-12] MEDS: Cholecalciferol (Vitamin D3) 400 UNITS TAB PO SCH (09:05)
[2021-05-12] MEDS: Ascorbic Acid 500 mg Chewable Tablet PO SCH (09:05)
[2021-05-12] MEDS: Pantoprazole 40 MG VIAL IVP SCH (09:06)
[2021-05-12] MEDS: D5W-AA 4.25% with LYTES 1,000 ML IV SCH (19:16)
[2021-05-12] MEDS: Enoxaparin Sodium 30 MG/0.3 ML SYRINGE SC SCH (20:52)
[2021-05-12] MEDS: BARICITINIB 1 MG TAB PO SCH (20:53)
[2021-05-13 07:56] VITALS: TEMP 97.7
[2021-05-13] MEDS: Pantoprazole 40 MG VIAL IVP SCH (08:22)
[2021-05-13] MEDS: Cholecalciferol (Vitamin D3) 400 UNITS TAB PO SCH (08:22)
[2021-05-13] MEDS: Dexamethasone 10 MG/ML VIAL SLOW IVP SCH (08:22)
[2021-05-13] MEDS: Ascorbic Acid 500 mg Chewable Tablet PO SCH (08:22)
[2021-05-13] MEDS: Zinc Sulfate 220 MG CAP PO SCH (08:22)
[2021-05-13] MEDS: Levothyroxine Sodium 25 MCG TAB PO SCH (08:23)
[2021-05-13] MEDS: lamoTRIgine 25 MG TAB PO SCH (08:23)
== END 2021-05-13 16:48 | disposition hospice, inpatient (51) | DRG 177 ==
LOC: ERS 17:35 → IMCU/EMU 20:41
PROVIDERS: ADMIT Student in an Organized Health Care Education/Training Program; ATTEND Hospitalist
PROC: 5A09557 Assistance with Respiratory Ventilation, Greater than 96 Consecutive Hours, Continuous Positive Airway Pressure (ICD-10-PCS; principal; 2021-05-03)
PROC: 8E0ZXY6 Isolation (ICD-10-PCS; 2021-05-03)
PROC: XW0DXM6 Introduction of Baricitinib into Mouth and Pharynx, External Approach, New Technology Group 6 (ICD-10-PCS; 2021-05-03)
DX: U07.1 COVID-19 (principal); J96.01 Acute respiratory failure with hypoxia; J12.82 Pneumonia due to coronavirus disease 2019; E87.1 Hypo-osmolality and hyponatremia; Z66 Do not resuscitate; N17.9 Acute kidney failure, unspecified; I13.0 Hypertensive heart and chronic kidney disease with heart failure and stage 1 through stage 4 chronic kidney disease, or unspecified chronic kidney disease; I50.32 Chronic diastolic (congestive) heart failure; E44.0 Moderate protein-calorie malnutrition; L97.819 Non-pressure chronic ulcer of other part of right lower leg with unspecified severity; D62 Acute posthemorrhagic anemia; I10 Essential (primary) hypertension; E86.0 Dehydration; R62.7 Adult failure to thrive; I25.5 Ischemic cardiomyopathy; G30.9 Alzheimer's disease, unspecified; F02.80 Dementia in other diseases classified elsewhere, unspecified severity, without behavioral disturbance, psychotic disturbance, mood disturbance, and anxiety; E78.00 Pure hypercholesterolemia, unspecified; N18.2 Chronic kidney disease, stage 2 (mild); G40.909 Epilepsy, unspecified, not intractable, without status epilepticus; Z74.01 Bed confinement status; Z88.0 Allergy status to penicillin; Z79.890 Hormone replacement therapy; Z79.899 Other long term (current) drug therapy; Z68.20 Body mass index [BMI] 20.0-20.9, adult; Z87.891 Personal history of nicotine dependence; Z87.440 Personal history of urinary (tract) infections; Z87.442 Personal history of urinary calculi
CPT/HCPCS: 36415; 36600; 71045; 74018; 80048; 80053; 80076; 82553; 82728; 82805; 83880; 84484; 85025; 85379; 86140; 93005; 94660; 96374; 96375; C9113; J0456; J1100; J1650; J7070

== ENCOUNTER 2021-05-13 16:56 | Inpatient (IN) | payer OTHER ==
[2021-05-13] MEDS ORDERED: Acetaminophen 650 MG Suppository PR PRN (17:49)
[2021-05-13] MEDS ORDERED: Morphine 4 MG/ML VIAL SLOW IVP PRN ×2 (17:58→18:06)
[2021-05-13] MEDS ORDERED: Lorazepam 2 MG/ML VIAL SLOW IVP PRN ×4 (17:58→18:08)
[2021-05-13] MEDS ORDERED: Scopolamine 1.5 mg/72 hour Patch TOP PRN ×2 (18:00)
[2021-05-13] MEDS ORDERED: Morphine 4 MG/ML VIAL SLOW IVP SCH (18:00)
[2021-05-13] MEDS ORDERED: Loperamide HCl 2 MG CAP PO PRN (18:00)
[2021-05-13] MEDS ORDERED: Senokot 8.6 MG TAB PO PRN (18:00)
[2021-05-13] MEDS ORDERED: Ondansetron PF 4 MG/2 ML Vial IVP PRN (18:00)
[2021-05-13] MEDS ORDERED: Ondansetron ODT 4 MG TAB PO PRN (18:00)
[2021-05-13] MEDS ORDERED: Haloperidol Lactate 5 MG/ML VIAL SLOW IVP PRN (18:00)
[2021-05-13] MEDS ORDERED: Hyoscyamine Sulfate SL 0.125 mg Tablet SL PRN (18:00)
[2021-05-13] MEDS ORDERED: Lorazepam 2 MG/ML VIAL SLOW IVP SCH (18:15)
[2021-05-13 18:28] VITALS: BMI 20.2
== END 2021-05-13 19:42 | disposition expired | DRG 951 ==
LOC: IMCU/EMU 16:56
PROVIDERS: ADMIT Family Medicine; ATTEND Family Medicine
DX: Z51.5 Encounter for palliative care (principal); U07.1 COVID-19; J12.82 Pneumonia due to coronavirus disease 2019; J96.01 Acute respiratory failure with hypoxia; D62 Acute posthemorrhagic anemia; Z20.822 Contact with and (suspected) exposure to COVID-19; Z66 Do not resuscitate; Z88.0 Allergy status to penicillin; Z79.899 Other long term (current) drug therapy
CPT/HCPCS: J2270